=== PATIENT | male | born 1960 | race Caucasian/White ===

== ENCOUNTER → 2018-01-21 14:02 | Outpatient (CLI) | payer SELFPAY | PROVIDERS: PCP Family Medicine; Visit Provider Family Medicine | DX: G47.33 Obstructive sleep apnea (adult) (pediatric) (principal) | CPT/HCPCS: 95806 ==

== ENCOUNTER → 2020-01-20 13:24 | Outpatient (CLI) | payer SELFPAY ==
--- NOTE | 2020-01-20 13:33 | XR_ITS ---
PROCEDURE: XR ORBIT BILATERAL MIN 4V CLINICAL INDICATION: EVAL FOR METAL IN EYES prior to MRI scan COMPARISON: No exams were available for comparison FINDINGS: Water's views were obtained showing no metallic objects in either orbit. The visualized paranasal sinuses appear clear. The nasal septum is in the midline. IMPRESSION: Negative for metallic foreign bodies Dictated by: Dr. Ian Knight MD 01/20/2020 13:46 Dr. Ian Knight MD in [place] 01/20/2020 13:46
--- NOTE | 2020-01-20 13:33 | MR_ITS ---
PROCEDURE: MR HIP LT WO CON CLINICAL INDICATION: LOW BACK PAIN, LEFT HIP PAIN Low back pain left hip pain COMPARISON: No exams were available for comparison TECHNIQUE: Routine multiplanar multi echo sequences are performed without gadolinium enhancement. FINDINGS: There are severe osteoarthritic changes of the left hip with loss of joint space and osteophyte formation. Subchondral cystic changes are present involving the femoral head and acetabular roof. There is a mild degree of decreased T1 and increased T2 signal involving the left femoral head and neck consistent with generalized edematous changes. Multiple small subchondral cysts are present along the femoral head. There is prominent lipping of the acetabulum on both sides laterally and a small amount fluid in the hip capsule on both sides. The adjacent soft tissues have an unremarkable appearance. There is slight decreased T1 and increased T2 signal of the ilium on the left as well suggesting underlying edematous changes possibly from the severe osteoarthritis. There are [id number] osteoarthritic changes of the right hip. No convincing evidence of avascular necrosis. IMPRESSION: 1. Severe osteoarthritic changes of the left hip with numerous subchondral cyst the acetabulum and femoral head. 2. Mild diffuse edema of the left ilium and left femoral head and neck which may be related to the inflammatory changes from the underlying severe osteoarthritis. Suggest correlation with plain films which are not available at this institution. 3. Mild osteoarthritic changes of the right hip. 4. Small bilateral hip joint effusions Dictated by: Matty Nieto MD 01/21/2020 14:24 Matty Nieto MD in [facility] 01/21/2020 14:24
--- NOTE | 2020-01-20 13:33 | MR_ITS ---
PROCEDURE: MR LUMBAR SPINE WO CON CLINICAL INDICATION: LOW BACK PAIN, LEFT HIP PAIN COMPARISON: No exams were available for comparison TECHNIQUE: Standard multiplanar multiecho sequences are performed without contrast. 3-D MIP and myelographic images are also rendered and reviewed FINDINGS: There is normal alignment. The spinal cord ends at the L1 level. L1-L2: Mild facet and ligamentum hypertrophy. L2-L3: Minimal bulging disc with mild facet and ligamentum hypertrophy with mild bilateral foraminal narrowing. L3-L4: Minimal bulging disc with facet ligamentum hypertrophy with mild bilateral foraminal narrowing. L4-5: Bulging disc with facet and ligamentum hypertrophy. There is tiny right paracentral disc protrusion versus small disc osteophyte complex. There is severe right-sided lateral recess narrowing moderate left lateral recess narrowing and moderate to severe bilateral foraminal narrowing. There is canal stenosis at this level. L5-S1: Degenerative disc disease with bulging disc along with facet and ligamentum hypertrophy. There is an annular fissure posteriorly. There is mild to moderate right foraminal narrowing and moderate to severe left foraminal narrowing. Small osteophyte projects from the facet joint anteriorly into the foramen on the left contributing to the foraminal narrowing. The facet hypertrophic changes greater on the left at this level than on the right. The disc bulge is eccentric toward the left lateral region with opposing osteophytes. IMPRESSION: 1. Abnormal MRI of the lumbar spine with multilevel lumbar spondylosis with degenerative disc disease bulging disc along with facet and ligamentum hypertrophy. Please see above for detailed description at each level. 2. L4-5: Bulging disc with facet and ligamentum hypertrophy. There is tiny right paracentral disc protrusion versus small disc osteophyte complex. There is severe right-sided lateral recess narrowing moderate left lateral recess narrowing and moderate to severe bilateral foraminal narrowing. There is canal stenosis at this level. 3. L5-S1: Degenerative disc disease with bulging disc along with facet and ligamentum hypertrophy. There is an annular fissure posteriorly. There is mild to moderate right foraminal narrowing and moderate to severe left foraminal narrowing. Small osteophyte projects from the facet joint anteriorly into the foramen on the left contributing to the foraminal narrowing. The facet hypertrophic changes greater on the left at this level than on the right. The disc bulge is eccentric toward the left lateral region with opposing osteophytes. Dictated by: Matty Nieto MD 01/21/2020 14:34 Matty Nieto MD in [place] 01/21/2020 14:34
== END ==
PROVIDERS: PCP Family Medicine; Visit Provider Physician Assistant Medical
DX: M54.5 Low back pain (principal); M25.552 Pain in left hip; H05.53 Retained (old) foreign body following penetrating wound of bilateral orbits
CPT/HCPCS: 70200; 72148; 73721; 76376

== ENCOUNTER 2021-08-02 19:14 | Inpatient (IN) | payer SELFPAY ==
[2021-08-02] VITALS (16 sets, daily range): BP systolic 110–162; BP diastolic 65–103; PULSE 70–90; RESP 14–18; TEMP 36.4–36.6; O2SAT 91–97; BMI 47.2; BMI 48.9
--- NOTE | 2021-08-02 | IR_ITS ---
APPROVED REPORT Patient Location: [facility] Advisor: KEHINDE Antonio RT (R) PROCEDURES Selective coronary angiogram Drug-eluting stent deployment to the proximal and mid LAD INDICATION Acute anterior ST elevation myocardial infarction, Coronary artery disease Informed consent was obtained prior to the procedure. COMPLICATIONS NONE Estimated Blood Loss: LESS THAN 10 ML TECHNIQUE One percent lidocaine used to anesthetize the right anterior aspect of the wrist. The right radial artery was accessed via the Seldinger technique. A 6 Chinese sheath was placed in the right radial artery. 2.5 mg of verapamil, 800 mcg of nitroglycerin, 1mg Lidocaine and 5000 U Heparin were given through the arterial sheath. The papa 1 catheter was also used to perform selective coronary angiogram. At the end the diagnostic angiogram therapeutic heparin was administered giving a therapeutic ACT and the guide catheter was placed in the left main artery followed by a Choice PT extra-support wire being placed down the LAD. A 4 mm x 34 mm resolute Norlina stent was deployed at 16 iris in the proximal LAD reducing the critical stenosis to 0%. Following this an additional 3.5 x 22 mm resolute Norlina stent was placed distal to the first stent yet still overlapping it and deployed at 18 iris. The balloon was brought back and deployed at 24 iris to post dilate. At the end of the procedure the wire was pulled back followed by 800 mcg of intracoronary nitroglycerin. Excellent angiographic results were obtained with VERONICA-3 flow down the vessel. At the beginning of the procedure VERONICA II flow was present. At the end of the procedure the apparatus was removed the sheath was removed and hemostasis was achieved using TR banding patient was transferred to the postop holding her stable condition ANGIOGRAPHIC RESULTS The left main artery Normal The left anterior descending artery There is a large vessel with proximal concentric 90% stenosis followed by an additional 80% stenosis followed by additional mid vessel 30% stenoses. There is a large ramus intermedius which branches off the proximal LAD proximal to the stent placement. This is a large 3.25 mm vessel which has 30% diffuse stenoses The circumflex artery Is a dominant vessel and gives rise to a large 3-1/2 mm first obtuse marginal artery which is widely patent with mild 10% luminal irregularities. Distal to the large obtuse marginal artery is a concentric 30 to 40% stenosis followed by an additional concentric 50% stenosis between the first and second obtuse marginal artery. The right coronary artery Is a nondominant vessel and has proximal 30% stenoses and mid vessel 40% stenoses The MARQUIS ventriculogram reveals Not performed The left ventricular end-diastolic pressure Not measured IMPRESSION Acute anterior ST elevation myocardial infarction Successful stenting of the proximal to mid LAD critical disease reduced to 0% with 2 contiguous drug-eluting stents Persistent moderate stenosis in a large dominant circumflex artery PLAN 1. Brilinta 90 twice daily plus aspirin 81 mg daily 2. LDL less than 55 to be achieved with high intensity statin 3. Carvedilol plus Entresto 4. Echocardiogram in the morning to evaluate ejection fraction. If 35% or less recommend LifeVest prior to discharge 5. Avoidance of tobacco products 6. Cardiac rehabilitation Electronically signed by : Krishna Redd MD 08/02/2021 20:29:47
--- NOTE | 2021-08-02 19:17 | XR_ITS ---
PROCEDURE INFORMATION: Exam: XR Chest Exam date and time: 08/02/2021 7:18 PM Age: 61 years old Clinical indication: Sternal or substernal pain; Patient HX: Chest pain, stemi alert. TECHNIQUE: Imaging protocol: XR of the chest. Views: 1 view. COMPARISON: No relevant prior studies available. FINDINGS: Lungs: Low lung volumes with associated vascular crowding. Stigmata of old granulomatous disease. Possible mild pulmonary venous congestion. Pleural spaces: Unremarkable. No pleural effusion. No pneumothorax. Heart/Mediastinum: Upper limits of normal heart size, possibly projectional. Bones/joints: Unremarkable. IMPRESSION: Possible mild pulmonary venous congestion.
--- NOTE | 2021-08-02 19:17 | ECG_ITS ---
APPROVED REPORT Exam: Resting ECG HR:84 bpm ECG Measurements Heart Rate 84 AXES WV 177 P 64 QRSd 101 QRS 31 QT 360 T 33 QTc 402 Conclusion SINUS RHYTHM WITH SINUS ARRHYTHMIA POSSIBLE RIGHT VENTRICULAR CONDUCTION DELAY [RSR (QR) IN V1/V2] MARKED ST ELEVATION, CONSIDER ANTERIOR INJURY [MARKED ST ELEVATION W/O NORMALLY INFLECTED T-WAVE IN V2-V5] ACUTE IN UNCONFIRMED REPORT Electronically signed by : Edy Nugent MD 08/03/2021 17:56:33
--- NOTE | 2021-08-02 19:24 | HMH.EDCP ---
ED Disposition Clinical Impression: Cardiac ischemia Disposition: Admitted As Inpatient Condition on Discharge: Serious Time of Disposition: 19:34 - Critical Care Critical Care Time: Yes Attestation: On 08/02/21, the high probability of a clinically significant, sudden or life threatening deterioration of the following system(s) required my full and direct attention, intervention and personal management. The time I documented below is in addition to time spent performing reported procedures but includes the following listed in this critical care notation. Total Critical Care Time: 35 Vital system(s) involved:: Circulatory Failure My critical care processes included: Assessment & monitoring of V/S, Initial and Re-exams, Data Review/Interpretation, Coordinating Care, Medication Orders and management, Documentation Medical Decision Making - Medical Records Medical records reviewed: Yes: I reviewed the patient's medical records. - [place] Inquiry Pt receiving controlled substance: No Vital Signs: 08/02/21 19:17 08/02/21 19:30 08/02/21 19:55 Temperature 97.6 F 97.6 F Temperature Source Oral Oral Pulse Rate 88 80 Pulse Rate [Left] 84 Respiratory Rate 16 16 Blood Pressure 148/87 H 148/87 H Blood Pressure [Right Arm] 162/103 H Blood Pressure Mean [Right Arm] 122 02 Sat by Pulse Oximetry 95 96 Oxygen Delivery Method Room Air Nasal Cannula Room Air Oxygen Flow Rate (LPM) 2 - Lab Data Lab Results 08/02/21 19:08: WBC 10.7, RBC 5.42, Hgb 17.0, Hct 50.1, MCV 92.4, MCH 31.4 H, MCHC 34.0, RDW 14.1, Plt Count 300, MPV 7.4, Neut % (Auto) 61.3, Lymph % (Auto) 25.7, [place] % (Auto) 7.0, Eos % (Auto) 3.8, Baso % (Auto) 2.3 H, Neut # (Auto) 6.5, Lymph # (Auto) 2.7, [place] # (Auto) 0.7, Eos # (Auto) 0.4, Baso # (Auto) 0.2 08/02/21 19:08: Sodium 140, Potassium 3.8, Chloride 104, Carbon Dioxide 26, Anion Gap 13.8, BUN 17, Creatinine 0.90, Estimated Creat Clear 88, Estimated GFR 86, Est GFR ( Amer) 105, Glucose 108 H, Calcium 9.7, Troponin I < 0.01 Result diagrams: 08/03/21 06:32 08/03/21 06:32 Orders (Tests/Meds): ED MEDICATIONS Generic Name Dose Route Start Last Admin Trade Name Freq PRN Reason Stop Dose Admin Aspirin 81 mg 08/03/21 09:00 Aspirin Ec 81mg Tablet PO 09/02/21 08:59 [facility] Atorvastatin Calcium 40 mg 08/03/21 21:00 Atorvastatin 40mg Tablet PO 09/02/21 20:59 [facility] Carvedilol 6.25 mg 08/03/21 09:00 Carvedilol 6.25mg Tablet PO 09/02/21 08:59 [facility] Fentanyl Citrate 25 mcg 08/02/21 21:39 Fentanyl 100mcg/2ml Vial IV 08/03/21 19:45 Q3MINP PRN Moderate to Severe Pain Fentanyl Citrate 50 mcg 08/02/21 21:39 Fentanyl 100mcg/2ml Vial IV 08/03/21 19:45 Q3MINP PRN Moderate to Severe Pain Fentanyl Citrate 25 mcg 08/02/21 21:39 Fentanyl 250mcg/5ml Vial IV 08/03/21 19:45 Q3MINP PRN Moderate to Severe Pain Fentanyl Citrate 50 mcg 08/02/21 21:39 Fentanyl 250mcg/5ml Vial IV 08/03/21 19:45 Q3MINP PRN Moderate to Severe Pain Sodium Chloride 1,000 mls @ 25 mls/hr 08/02/21 21:39 08/02/21 22:26 Sod Chlor 0.9% 1000ml Bag IV 09/01/21 19:29 25 mls/hr .Q25H [facility] Administration Irbesartan 150 mg 08/03/21 09:00 Irbesartan 150mg Tab PO 09/02/21 08:59 [facility] Midazolam HCl 1 mg 08/02/21 21:39 Midazolam Hcl 1mg/1ml 5ml Vial IV 08/03/21 19:45 Q3MINP PRN Sedation Midazolam HCl 1 mg 08/02/21 21:39 Midazolam 2mg/2ml Vial IV 08/03/21 19:45 Q3MINP PRN Sedation Morphine Sulfate 4 mg 08/02/21 21:39 Morphine 2mg/Ml Syringe IV 09/01/21 20:53 Q1HP PRN Severe Pain Naloxone HCl 0.4 mg 08/02/21 21:39 Naloxone 0.4mg/Ml Vial IV 08/03/21 19:45 Q5MINP PRN Decreased Respirations Nitroglycerin 800 mcg 08/02/21 21:39 Nitroglycerin 800mcg/8ml Syr (Healthcare Manager) IV 08/03/21 19:45 NEEDED PRN Emergency Box Gas Charger Sodium Chl
[2021-08-02 19:29] LABS: Basophils # 0.2 K/mm3 (0-0.2); Basophils % 2.3 % (0.1-2.0); Eosinophils # 0.4 K/mm3 (0.0-0.4); Eosinophils % 3.8 % (0.1-12.0); Hematocrit 50.1 % (42.0-52.0); Lymphocytes # 2.7 K/mm3 (0.7-4.5); Lymphocytes % 25.7 % (10-50); Mean Corpuscular Hemoglobin 31.4 pg (27.0-31.2); Mean Corpuscular Volume 92.4 fl (80-94); Mean Platelet Volume 7.4 fl (7.4-10.4); Monocytes # 0.7 K/mm3 (0.1-1.0); Neutrophils # 6.5 K/mm3 (1.8-7.8); Neutrophils % 61.3 % (37.0-80.0); Platelet Count 300 K/mm3 (142-424); Red Blood Count 5.42 M/mm3 (4.60-6.20); Red Cell Distribution Width 14.1 % (11.5-17.5); White Blood Count 10.7 K/mm3 (4.8-10.8)
--- NOTE | 2021-08-02 19:54 | PC.NURSE ---
pt taken to director of cath lab at 1950
[2021-08-02 19:55] LABS: Anion Gap 13.8 mEq/L (5-15); Blood Urea Nitrogen 17 mg/dl (9-20); Calcium 9.7 mg/dl (8.4-10.2); Carbon Dioxide 26 mmol/L (22.0-30.0); Chloride 104 mmol/L (98-107); Creatinine Clearance Estimated 88 mL/min (50-200); Estimated Glomerular Filt Rate 86 ml/min (>60); GFR (African American) 105 ML/MIN (>60); Glucose 108 mg/dl (74-100); Potassium 3.8 mmoL/L (3.5-5.1); Sodium 140 mmol/L (136-145)
[2021-08-02 20:13] LABS: Troponin I < 0.01 ng/ml (0.00-0.034)
--- NOTE | 2021-08-02 20:33 | PC.NURSE ---
1910 - Stemi alert paged
--- NOTE | 2021-08-02 20:34 | PC.NURSE ---
Late Entry- @ 1910 Stemi MD james in room and viewed the initial EKG.
--- NOTE | 2021-08-02 20:43 | PC.NURSE ---
Late entry: Dr. Redd paged @ 191 and sent EKG strip. He called back immediately and s/w Dr. Ely. drapery supervisor notified and presented to ER. S Call is paging collaborating supervising physician team.
--- NOTE | 2021-08-02 20:48 | PC.NURSE ---
Late Entry: @ 1920 repeat EKG per MD. Pt being prepped: placed in gown, groin, chest, back, and radial site trimmed.
[2021-08-02 20:53] LABS: CATHL Activated Clotting Time > 400 SEC (74-125)
--- NOTE | 2021-08-02 21:17 | PC.NURSE ---
PT ARRIVED VIA STRETCHER FROM BARREL LATHE OPERATOR INSIDE W/STAFF @ [id number]
[2021-08-03] VITALS (10 sets, daily range): BP systolic 100–149; BP diastolic 53–92; PULSE 69–90; RESP 14–22; TEMP 36.4–37.2; O2SAT 94–98; BMI 48.9
--- NOTE | 2021-08-03 06:03 | PC.NURSE ---
GREGG NOTIFIED OF CARDIOLOGY CONSULT.
--- NOTE | 2021-08-03 07:06 | HMH.PHAVTE ---
[facility] Pharmacy VTE Monitoring - Patient Demographics Admission date: 08/02/21 Report Date: 08/03/21 Time: 07:06 Allergies/Adverse Reactions: Patient Allergies Penicillins Allergy (Unknown, Verified 08/02/21 19:32) Height: 1.75 m Weight: 150.003 kg Patient Problems: Current Active Problems Cardiac ischemia (Acute) - VTE Risk Labs: VTE Related Lab Results Hgb 17.0 g/dL (14.1-18.0) 08/02/21 19:08 Hct 50.1 % (42.0-52.0) 08/02/21 19:08 Plt Count 300 K/mm3 (142-424) 08/02/21 19:08 BUN 17 mg/dl (9-20) 08/02/21 19:08 Creatinine 0.90 mg/dl (0.66-1.25) 08/02/21 19:08 Estimated Creat Clear 88 mL/min (50-200) 08/02/21 19:08 VTE Score: 2 - Prophylaxis VTE Prophylaxis Ordered?: Yes Types of VTE Prophylaxis: TEDS Knee High Location of Applied Device: Bilateral Lower Extremeties
--- NOTE | 2021-08-03 07:12 | CA_ITS ---
APPROVED REPORT EXAM: Comprehensive 2D, Doppler, and color-flow Echocardiogram [facility] Supervisor: Mable Lion, TANNER, RVS Ht: 5 ft 9 in Wt: 330lbs BSA: 2.56 BP: 118/75 mmHg Indications: STEMI, S/p cardiac cath with 2 coronary stents 08/02/21. CP, HTN, Obesity Echo Enhancing Agent Comments: Poor acoustics due to extreme body habitus. 2D Dimensions IVSd 1.43 cm LVEF (Visual) 62.50 % PWd 1.24 cm LA Volume 32.50 mL LVDd 5.10 cm LA Volume Index 12.70 mL/m2 (M/F) 16-34 LVDs 3.37 cm Aortic Root 3.37 cm Left Atrium 2.96 cm LVOT 1.95 cm (M/F) 1.5-2.5 M-Mode Dimensions LA Diam 3.55 cm (1.9-4.0) Ao Diam 3.70 cm (2.0-3.7) EPSs 0.39 cm TAPSE 2.50 (<1.7) LV Diastology E Decel Time 173.00 (160-240 msec) E/A Ratio 0.96 MED E' 7.30 (< 7 cm/sec) MED A' 14.50 cm/s E'/MED E' Ratio 9.04 (>14) LAT E' 7.00 (<10 cm/sec) LAT A' 10.90 cm/s E/LAT E' Ratio 9.43 (>14) Aortic Valve LVOT Max 108.00 (70-110 cm/s) LVOT VTI 20.85 cm AoV Peak Sarbjit. 131.00 (50-130 cm/s) AO Peak GR. 6.90 mmHg AO Mean GR. 3.40 (<5 mmHg) AO VTI 23.47 (18-25 cm) MASSIMO (VTI) 2.65 (2.5-4.5 cm2) Mitral Valve MV A Velocity 69.00 (40-130 cm/s) E/A Ratio 0.96 MV Decel. Time 173.00 (160-240 ms) MV Mean Gr. 2.00 (<2mmHg) Pulmonary Valve PV Peak Velocity 98.00 (50-150 cm/s) Tricuspid Valve TR P. Velocity 127.00 cm/s RAP Estimate 10.00 mmHg RVSP 16.40 mmHg Left Ventricle Left atrium is mildly enlarged, left ventricle is normal size, mild concentric left ventricular hypertrophy, estimated ejection fraction 50%, there is moderate hypokinesis involving the distal septum and apical wall. Grade 1 diastolic dysfunction seen without tissue Doppler evidence of raise left atrial pressure. Right Ventricle Right atrium and right ventricle are normal size and contractility. Aortic Valve Aortic valve is minimally thickened and fibrosed there is no aortic stenosis or aortic insufficiency. Mitral Valve Mitral valve is grossly normal, there is trace mitral regurgitation. Tricuspid Valve Tricuspid valve grossly normal, there is trace tricuspid regurgitation, tricuspid regurgitation jet velocity is inadequate for calculation of the right ventricular systolic pressure. Pulmonic Valve Pulmonic valve is poorly visualized. Great Vessels Aortic root is normal size. Inferior vena cava is poorly visualized. Pericardium No significant pericardial effusion noted. Conclusion 1. Mildly enlarged left atrium, normal left ventricular size, mild concentric left ventricular hypertrophy, estimated ejection fraction 50% with segmental wall motion abnormality described above, grade 1 diastolic dysfunction seen without tissue Doppler evidence of raise left atrial pressure. 2. Trace mitral and tricuspid regurgitation. 3. No significant pericardial effusion noted. 4. Inferior vena cava is poorly visualized. Electronically signed by : Nicholas Lehman MD 08/03/2021 22:00:26
[2021-08-03 07:15] LABS: Anion Gap 9.7 mEq/L (5-15); Blood Urea Nitrogen 14 mg/dl (9-20); Calcium 9.1 mg/dl (8.4-10.2); Carbon Dioxide 24 mmol/L (22.0-30.0); Chloride 107 mmol/L (98-107); Creatinine Clearance Estimated 110 mL/min (50-200); Estimated Glomerular Filt Rate 115 ml/min (>60); GFR (African American) 140 ML/MIN (>60); Glucose 123 mg/dl (74-100); Potassium 3.7 mmoL/L (3.5-5.1); Sodium 137 mmol/L (136-145)
[2021-08-03 07:17] LABS: Basophils # 0.2 K/mm3 (0-0.2); Basophils % 1.4 % (0.1-2.0); Eosinophils # 0.3 K/mm3 (0.0-0.4); Eosinophils % 2.9 % (0.1-12.0); Hematocrit 45.8 % (42.0-52.0); Hemoglobin 15.7 g/dL (14.1-18.0); Lymphocytes # 1.7 K/mm3 (0.7-4.5); Lymphocytes % 16.4 % (10-50); Mean Corpuscular HGB Conc 34.2 g/dL (31.8-35.4); Mean Corpuscular Hemoglobin 31.2 pg (27.0-31.2); Mean Corpuscular Volume 91.3 fl (80-94); Mean Platelet Volume 7.6 fl (7.4-10.4); Monocytes # 0.9 K/mm3 (0.1-1.0); Monocytes % 8.6 % (1.7-9.3); Neutrophils # 7.4 K/mm3 (1.8-7.8); Neutrophils % 70.6 % (37.0-80.0); Platelet Count 268 K/mm3 (142-424); Red Blood Count 5.02 M/mm3 (4.60-6.20); White Blood Count 10.5 K/mm3 (4.8-10.8)
--- NOTE | 2021-08-03 07:33 | HMH.CNCARD ---
History of Present Illness Consult date: 08/03/21 Consult reason: chest pain Chief complaint: chest pain, STEMI Additional Medical History:: 1. Family history of coronary artery disease 2. Family history of prostate cancer in both father and maternal grandfather 3. Obesity 4. Borderline hypertension 5. Status post left hip replacement History of present illness: 61-year-old white male presented to the emergency department for 1 hour of substernal chest pain/pressure/tightness without radiation, vomiting or shortness of breath that onset while at rest. EKG showed ST elevation in the anterior leads and ER physician enacted STEMI protocol. Patient was taken to the cardiac Crime Scene Examiner where he received stenting to his LAD. No further chest pain overnight. Patient is a non-smoker and no history of diabetes or treatment for hypertension or hyperlipidemia. [facility] History Medical History: Denies:: Cancer, Diabetes Mellitus Type 1, Diabetes Mellitus Type 2, MRSA *Have you ever received a pneumonia vaccine?: No *Have you received a flu vaccine this season?: No Laterality Cases: Left: Total Hip Replacement Other Surgeries: Yes: Cardiac Catheterization, Hernia Repair Amputation: No Fractures: No - *Social History Last grade of school completed: 7th or 8th Smoking Status: Never smoker Alcohol Intake: never *Occupational Status:: employed Housing: house Household Members: spouse, children *Travel in the last 8 weeks: None Family Hx:: No significant family history Meds Home Medications Medication Instructions Recorded Confirmed Type No Known Home Medications 08/02/21 08/02/21 History Allergies Allergy/AdvReac Type Severity Reaction Status Date / Time Penicillins Allergy Unknown Verified 08/02/21 19:32 Exam Vital signs and Labs for Last 24 Hours: Temp Pulse Resp BP Pulse Ox 97.8 F 70 16 149/67 H 95 08/02/21 21:20 08/03/21 04:00 08/03/21 03:50 08/03/21 03:50 08/03/21 03:50 Laboratory Results - last 24 hr 08/02/21 19:08: WBC 10.7, RBC 5.42, Hgb 17.0, Hct 50.1, MCV 92.4, MCH 31.4 H, MCHC 34.0, RDW 14.1, Plt Count 300, MPV 7.4, Neut % (Auto) 61.3, Lymph % (Auto) 25.7, [place] % (Auto) 7.0, Eos % (Auto) 3.8, Baso % (Auto) 2.3 H, Neut # (Auto) 6.5, Lymph # (Auto) 2.7, [place] # (Auto) 0.7, Eos # (Auto) 0.4, Baso # (Auto) 0.2 08/02/21 19:08: Sodium 140, Potassium 3.8, Chloride 104, Carbon Dioxide 26, Anion Gap 13.8, BUN 17, Creatinine 0.90, Estimated Creat Clear 88, Estimated GFR 86, Est GFR ( Amer) 105, Glucose 108 H, Calcium 9.7, Troponin I < 0.01 08/02/21 20:07: Activated Clotting Time > 400 H* 08/03/21 06:32: WBC 10.5, RBC 5.02, Hgb 15.7, Hct 45.8, MCV 91.3, MCH 31.2, MCHC 34.2, RDW 14.0, Plt Count 268, MPV 7.6, Neut % (Auto) 70.6, Lymph % (Auto) 16.4, [place] % (Auto) 8.6, Eos % (Auto) 2.9, Baso % (Auto) 1.4, Neut # (Auto) 7.4, Lymph # (Auto) 1.7, [place] # (Auto) 0.9, Eos # (Auto) 0.3, Baso # (Auto) 0.2 08/03/21 06:32: Sodium 137, Potassium 3.7, Chloride 107, Carbon Dioxide 24, Anion Gap 9.7, BUN 14, Creatinine 0.70 D, Estimated Creat Clear 110, Estimated GFR 115, Est GFR ( Amer) 140 D, Glucose 123 H, Calcium 9.1 I & O for Last 24 hours: Intake & Output 07/31/21 08/01/21 08/02/21 08/03/21 11:59 11:59 11:59 11:59 Weight 330 lb 11.2 oz - Constitutional no acute distress - *Routine HEENT Exam Head: Present: normocephalic Eye: Present: EOMI, PERRL ENT: Present: mucous membranes moist - *Routine Neck Exam Present: supple. Absent: lymphadenopathy - *Routine Respiratory Exam Present: CTA bilaterally - *Routine Cardiovascular Exam Present: RRR - *Routine Abdominal Exam Present: soft, normoactive bowel sounds. Absent: tenderness - *Routine Extremities Exam Absent: cyanosis, clubbing, edema - *Routine Skin Exam Present: warm. Absent: rash - *Routine Neurological Exam Present: alert, oriented X3 Review of Systems - Review of Systems Review of systems:: pertinent sys
[2021-08-03 08:18] LABS: Alanine Aminotransferase 82 U/L (12-78); Alkaline Phosphatase 102 U/L (38-126); Aspartate Amino Transferase 109 U/L (17-59); Bilirubin,Direct 0.2 mg/dl (0.0-0.4); Bilirubin,Indirect 0.7 mg/dL (0.0-0.9); Bilirubin,Total 0.9 mg/dl (0.2-1.3); Bilirubin,Unconjugated 0.7 mg/dL (0.0-1.1); Chol/HDL Ratio 8.3 (1-3.5); Cholesterol 223 mg/dl (140-200); HDL Cholesterol 27 mg/dl (40-60); Triglycerides 291 mg/dl (30-150); VLDL Cholesterol 58 mg/dL (0-40)
--- NOTE | 2021-08-03 08:21 | HMH.HP ---
*Admission Date: 08/02/21 <Kayla Cedeno 08/03/21 08:26> *Chief complaint: chest pain <Kayla Cedeno 08/03/21 08:26> *History of present illness: 61-year-old white male presented to the emergency department for 1 hour of substernal chest pain/pressure/tightness without radiation, vomiting or shortness of breath that onset while at rest. EKG showed ST elevation in the anterior leads and ER physician enacted STEMI protocol. Patient was taken to the cardiac Oracle Architect where he received stenting to his LAD. No further chest pain overnight. Patient is a non-smoker and no history of diabetes or treatment for hypertension or hyperlipidemia. (above as per Matt Henderson) This a.m. the patient is feeling well. He has eaten breakfast and slept well. He has had no further chest pain. <Kayla Cedeno 08/03/21 08:26> [facility] History I have reviewed the patient's past medical history: Yes <Kayla Cedeno 08/03/21 08:26> Medical History: Denies:: Cancer, Diabetes Mellitus Type 1, Diabetes Mellitus Type 2, Hyperlipidemia, Hypertension, MRSA <Kayla Cedeno 08/03/21 08:26> *Have you ever received a pneumonia vaccine?: No <Kayla Cedeno 08/03/21 08:26> *Have you received a flu vaccine this season?: No <Kayla Cedeno 08/03/21 08:26> Laterality Cases: Left: Total Hip Replacement <Kayla Cedeno 08/03/21 08:26> Other Surgeries: Yes: Cardiac Catheterization, Hernia Repair, Other (Heel surgery) <Kayla Cedeno 08/03/21 08:26> Amputation: No <Kayla Cedeno 08/03/21 08:26> Fractures: No <Kayla Cedeno 08/03/21 08:26> - *Social History Last grade of school completed: 7th or 8th <Kayla Cedeno 08/03/21 08:26> Smoking Status: Never smoker <Kayla Cedeno 08/03/21 08:26> Alcohol Intake: never <Kayla Cedeno 08/03/21 08:26> *Occupational Status:: employed <Kayla Cedeno 08/03/21 08:26> Housing: house <Kayla Cedeno 08/03/21 08:26> Household Members: spouse, children <Kayla Cedeno 08/03/21 08:26> *Travel in the last 8 weeks: None <Kayla Cedeno 08/03/21 08:26> Family Hx:: Cancer, Stroke <Kayla Cedeno 08/03/21 08:26> Review of Systems - Constitutional Denies chills, Denies fever(s) <Kayla Cedeno 08/03/21 08:26> - Eyes Denies blurry vision, Denies double vision <Kayla Cedeno 08/03/21 08:26> - ENT Denies nasal congestion, Denies sore throat <Kayla Cedeno 08/03/21 08:26> - *Cardiovascular Reports chest pain, Reports excessive sweating, Denies shortness of breath <Kayla Cedeno 08/03/21 08:26> - *Respiratory Denies cough, Denies shortness of breath <Kayla Cedeno 08/03/21 08:26> - *Gastrointestinal Denies abdominal pain, Denies loose stools, Denies nausea, Denies vomiting <Kayla Cedeno 08/03/21 08:26> - *Genitourinary Denies difficulty urinating, Denies painful urination <Kayla Cedeno 08/03/21 08:26> - *Musculoskeletal Denies joint pain <Kayla Cedeno 08/03/21 08:26> - *Neurologic Denies headache(s), Denies numbness, Denies dizziness, Denies weakness <Kayla Cedeno 08/03/21 08:26> Meds Home Medications Medication Instructions Recorded Confirmed Type No Known Home Medications 08/02/21 08/02/21 History <Jesse Zayas 08/03/21 09:14> Allergies Allergy/AdvReac Type Severity Reaction Status Date / Time Penicillins Allergy Unknown Verified 08/02/21 19:32 <Jesse Zayas 08/03/21 09:14> Exam Vital signs and Labs for Last 24 Hours: Temp Pulse Resp BP Pulse Ox 97.8 F 70 16 149/67 H 95 08/02/21 21:20 08/03/21 04:00 08/03/21 03:50 08/03/21 03:50 08/03/21 03:50 Laboratory Results - last 24 hr 08/02/21 19:08: WBC 10.7, RBC 5.42, Hgb 17.0, Hct 50.1, MCV 92.4, MCH 31.4 H, MCHC 34.0, RDW 14.1, Plt Count 300, MPV 7.4, Neut % (Auto) 61.3, Lymph % (Auto) 25.7, [place] % (Auto) 7.0, Eos % (Auto) 3.8, Baso % (Auto) 2.3 H, Neut # (Auto) 6.5, Lymph # (Auto) 2.7, [place] # (Auto) 0.7, Eos # (Auto) 0.4, Baso # (Auto) 0.2 08/02/21 19:08:
[2021-08-03 08:31] LABS: Direct LDL Cholesterol 124.89 mg/dL (100-129)
[2021-08-03 11:20] LABS: Hemoglobin A1C 6.1 % (4.0-6.0)
--- NOTE | 2021-08-03 13:56 | DIET.NUTRFU ---
RD consult to educate on cardiac- low fat diet with desire to loose weight. Provided multiple handouts and reviewed recommended food choices and current dialy meal routine. does cooking and shopping, she was present during interview. She has not been checking labels in the past but willing to start. For wt loss, suggested 6 small meals- high protein, low carb to help speed up metabolism. Patient seemed receptive to changes.
--- NOTE | 2021-08-03 16:12 | PC.NURSE ---
Pt rested well during shift. Pt dressed and walked the hallway @1610. Pt has no new complaints. Pt right radial cath cite CDI. Visitors in most of the day. VSS, Pt remains on room air. No other acute changes. Will continue to monitor.
[2021-08-04] VITALS (7 sets, daily range): BP systolic 125–142; BP diastolic 68–79; PULSE 59–90; RESP 16–18; TEMP 36.3–36.9; O2SAT 94–95; BMI 48.8
--- NOTE | 2021-08-04 08:39 | HMH.PNCARD ---
Subjective Date: 08/04/21 Time: 08:39 Principal diagnosis: STEMI Interval history: 61-year-old white male ambulating in hallway with no chest pain or complaints. Ready to go home when released. Exam Vital signs and Labs for Last 24 Hours: Temp Pulse Resp BP Pulse Ox 97.4 F L 83 18 142/69 H 94 L 08/04/21 04:00 08/04/21 04:00 08/04/21 04:00 08/04/21 04:00 08/04/21 04:00 Laboratory Results - last 24 hr 08/03/21 06:32: Hemoglobin A1c 6.1 H 08/03/21 06:32: PSA Screen 3.0 I & O for Last 24 hours: Intake & Output 08/01/21 08/02/21 08/03/21 08/04/21 11:59 11:59 11:59 11:59 Intake Total 240 / 240 840 / 840 Output Total 0 / 0 Balance 240 / 240 840 / 840 Weight 330 lb 11.094 oz 329 lb 14.4 oz - Constitutional no acute distress - *Routine Respiratory Exam Present: CTA bilaterally - *Routine Cardiovascular Exam Present: RRR - *Routine Neurological Exam Present: alert, oriented X3 Progress Note: A&P (1) ST elevation (STEMI) myocardial infarction involving left anterior descending coronary artery Status: Acute (2) Obesity Status: Acute (3) Elevated blood pressure reading Status: Acute Assessment and Plan for All Diagnoses:: 1. ST elevation GA with subsequent stenting to the LAD. Continue aspirin and Brilinta for 30 days and then will switch to aspirin and Plavix due to cost. 2. Mild cardiomyopathy with ejection fraction of 50% by echocardiogram. Patient is on carvedilol and irbesartan therapy. 3. Hyperlipidemia, patient is on atorvastatin therapy Okay for discharge home from cardiology standpoint after lunch. Home medication recommendations: Aspirin 81 mg daily Brilinta 90 mg twice daily for 1 month then Plavix 75 mg daily thereafter Carvedilol 6.25 mg twice daily Irbesartan 150 mg daily or equivalent alternative Atorvastatin 40 mg daily Follow-up in our office in 1 to 2 weeks.
--- NOTE | 2021-08-04 08:40 | HMH.ACPN2 ---
<PaoKayla - Last Filed: 08/04/21 08:40> Internal Medicine - PN: Subj *Date: 08/04/21 *Time: 08:40 Interval history: Patient is feeling much better today. He denies any chest pain or shortness of breath. He slept well and ate well and wants to go home. Exam Vital signs and Labs for Last 24 Hours: Temp Pulse Resp BP Pulse Ox 97.4 F L 83 18 142/69 H 94 L 08/04/21 04:00 08/04/21 04:00 08/04/21 04:00 08/04/21 04:00 08/04/21 04:00 Laboratory Results - last 24 hr 08/03/21 06:32: Hemoglobin A1c 6.1 H 08/03/21 06:32: PSA Screen 3.0 I & O for Last 24 hours: Intake & Output 08/01/21 08/02/21 08/03/21 08/04/21 11:59 11:59 11:59 11:59 Intake Total 240 / 240 840 / 840 Output Total 0 / 0 Balance 240 / 240 840 / 840 Weight 330 lb 11.094 oz 329 lb 14.4 oz - Constitutional no acute distress - *Routine Respiratory Exam Present: CTA bilaterally - *Routine Cardiovascular Exam Present: RRR - *Routine Abdominal Exam Present: soft, normoactive bowel sounds. Absent: tenderness - *Routine Extremities Exam Absent: cyanosis, clubbing, edema - *Routine Skin Exam Present: warm. Absent: rash - *Routine Neurological Exam Present: alert, oriented X3 Assessment and Plan (1) ST elevation (STEMI) myocardial infarction involving left anterior descending coronary artery Status: Acute Category: Medical Code(s): I21.02 - ST elevation (STEMI) myocardial infarction involving left anterior descending coronary artery (2) Obesity Status: Acute Category: Medical Code(s): E66.9 - Obesity, unspecified (3) Elevated blood pressure reading Status: Acute Category: Medical Code(s): R03.0 - Elevated blood-pressure reading, without diagnosis of hypertension - Assessment and plan all Dx Assessment and Plan for all problems:: Cardiology has seen the patient this morning and feels he can be discharged later on today. <Jesse Zayas - Last Filed: 08/04/21 08:50> Internal Medicine - PN: Subj *Date: 08/04/21 *Time: 08:50 Exam Vital signs and Labs for Last 24 Hours: Temp Pulse Resp BP Pulse Ox 97.4 F L 83 18 142/69 H 94 L 08/04/21 04:00 08/04/21 04:00 08/04/21 04:00 08/04/21 04:00 08/04/21 04:00 Laboratory Results - last 24 hr 08/03/21 06:32: Hemoglobin A1c 6.1 H 08/03/21 06:32: PSA Screen 3.0 I & O for Last 24 hours: Intake & Output 08/01/21 08/02/21 08/03/21 08/04/21 23:59 23:59 23:59 23:59 Intake Total 1080 / 1080 Output Total 0 / 0 Balance 1080 / 1080 0 / 0 Weight 330 lb 11.2 oz 330 lb 11.094 oz 329 lb 14.4 oz Assessment and Plan (1) ST elevation (STEMI) myocardial infarction involving left anterior descending coronary artery Status: Acute Category: Medical Code(s): I21.02 - ST elevation (STEMI) myocardial infarction involving left anterior descending coronary artery (2) Obesity Status: Acute Category: Medical Code(s): E66.9 - Obesity, unspecified (3) Elevated blood pressure reading Status: Acute Category: Medical Code(s): R03.0 - Elevated blood-pressure reading, without diagnosis of hypertension - Assessment and plan all Dx Assessment and Plan for all problems:: Saw patient, agree with above note.
--- NOTE | 2021-08-04 15:41 | HMH.PHACLD ---
Jerrod Fontenot has received discharge medication counseling on the following medications: ASPIRIN 81MG BRILINTA 90MG CARVEDILOL 6.25MG LIPITOR 40MG LOSARTAN 50MG PATIENT VERBALIZED UNDERSTANDING AND HAD NO QUESTIONS AT THIS TIME. ALL MEDICATIONS DELIVERED BY CLINIC PHARMACY. -SATHISH DALLAS, PHARMD
--- NOTE | 2021-08-05 08:47 | HMH.DCSUM ---
General - General Admission date:: 08/02/21 Discharge date: 08/04/21 HPI HPI: 61-year-old white male presented to the emergency department for 1 hour of substernal chest pain/pressure/tightness without radiation, vomiting or shortness of breath that onset while at rest. EKG showed ST elevation in the anterior leads and ER physician enacted STEMI protocol. Patient was taken to the cardiac Supervisor Intermediates where he received stenting to his LAD. No further chest pain overnight. Patient is a non-smoker and no history of diabetes or treatment for hypertension or hyperlipidemia. (above as per Matt Henderson) This a.m. the patient is feeling well. He has eaten breakfast and slept well. He has had no further chest pain. Hospital Course Hospital Course: The patient did well post stenting. He was started on Brilinta 90 mg twice daily plus an 81 mg aspirin daily. Cardiology kept him for monitoring. He had no further chest pain and denied any shortness of breath. He was ambulating in the hallway and wanted to be discharged home. His echo showed mild cardiopathy with an ejection fraction of 50%. They felt he could be discharged with the addition of carvedilol, irbesartan, and atorvastatin. They wanted to follow-up with him in their office in 1 to 2 weeks. Objective Vital signs: Temp Pulse Resp BP Pulse Ox 97.4 F L 59 L 17 129/78 94 L 08/04/21 15:27 08/04/21 16:00 08/04/21 15:27 08/04/21 15:27 08/04/21 15:27 Narrative: - Constitutional no acute distress <Kayla Cedeno 08/03/21 08:26> - *Routine HEENT Exam Head: Present: normocephalic <Kayla Cedeno 08/03/21 08:26> Eye: Present: EOMI, PERRL <Kayla Cedeno 08/03/21 08:26> ENT: Present: mucous membranes moist <Kayla Cedeno 08/03/21 08:26> - *Routine Neck Exam Present: supple. Absent: lymphadenopathy <Kayla Cedeno 08/03/21 08:26> - *Routine Respiratory Exam Present: CTA bilaterally <Kayla Cedeno 08/03/21 08:26> - *Routine Cardiovascular Exam Present: RRR <Kayla Cedeno 08/03/21 08:26> - *Routine Abdominal Exam Present: soft, normoactive bowel sounds. Absent: tenderness <Kayla Cedeno 08/03/21 08:26> - *Routine Rectal Exam Rectal:: deferred <Kayla Cedeno 08/03/21 08:26> - *Routine Genitalia Exam Genitalia:: deferred <Kayla Cedeno 08/03/21 08:26> - *Routine Extremities Exam Present: edema (Trace lower extremity edema). Absent: cyanosis, clubbing <Kayla Cedeno 08/03/21 08:26> - *Routine Skin Exam Present: warm. Absent: rash <Kayla Cedeno 08/03/21 08:26> - *Routine Neurological Exam Present: alert, oriented X3 DS: Diagnosis - Discharge Diagnosis (1) ST elevation (STEMI) myocardial infarction involving left anterior descending coronary artery Status: Acute (2) Obesity Status: Acute (3) Elevated blood pressure reading Status: Acute Discharge Plan - Patient Discharge Instructions ACTIVITY: Continue current activity DIET: continue same diet Patient Instructions: DI for Heart Attack, Cardiac Catheterization, DI for High Blood Pressure, Surgical Site Infection, DI for High Cholesterol-Adult - Follow up Plan Follow up with: Jesse Zayas MD [Primary Care Provider] - 1 month Krishna Redd MD [Staff Physician] - 08/11/21 10:00 am Disposition: Home, Self-Care Condition at discharge:: Improved Home Medications: Home Medications Medication Instructions Recorded Confirmed Type Aspirin [Aspirin 81mg EC Tab] 81 mg PO DAILY #30 tab 08/04/21 Rx Atorvastatin Calcium [Lipitor 40mg 40 mg PO HS #30 tab 08/04/21 Rx Tablet*] Losartan Potassium 50 mg PO DAILY #30 tab 08/04/21 Rx Ticagrelor [Brilinta 90mg 90 mg PO BID #60 tab 08/04/21 Rx Tablet] carvediloL [Coreg 6.25mg 6.25 mg PO BID #60 tab 08/04/21 Rx Tablet] Prescriptions/Medication Reconciliation: New Aspirin [Aspirin 81mg EC Tab] 81 mg PO DAILY #30 tab Ticagrelor [Brilinta 90mg Ta
== END 2021-08-04 18:12 | disposition home or self-care (01) | DRG 247 ==
LOC: ER 19:22 → CATHLAB 19:49 → 2ND 19:54
PROVIDERS: Physician Assistant; Admitting Provider Family Medicine; Emergency Provider Emergency Medicine; PCP Family Medicine; Referring Provider Internal Medicine; Visit Provider Family Medicine
PROC: 027035Z Dilation of Coronary Artery, One Artery with Two Drug-eluting Intraluminal Devices, Percutaneous Approach (ICD-10-PCS; principal; 2021-08-02 19:40)
DX: I21.02 ST elevation (STEMI) myocardial infarction involving left anterior descending coronary artery (principal); I42.9 Cardiomyopathy, unspecified; Z68.42 Body mass index [BMI] 45.0-49.9, adult; E78.5 Hyperlipidemia, unspecified; E66.9 Obesity, unspecified; I10 Essential (primary) hypertension; I25.10 Atherosclerotic heart disease of native coronary artery without angina pectoris
CPT/HCPCS: 36415; 71045; 80048; 80061; 80076; 83036; 84484; 85025; 85347; 92941; 93005; 93306; 93458; 99152; 99153; 99291; G0103; C1725; C1760; C1769; C1876; C9606; J1644; Q9967

== ENCOUNTER → 2021-08-11 08:25 | Outpatient (CLI) | payer SELFPAY ==
[2021-08-11 09:09] LABS: Hematocrit 44.8 % (42.0-52.0); Hemoglobin 15.4 g/dL (14.1-18.0)
[2021-08-11 10:10] LABS: Blood Urea Nitrogen 20 mg/dl (9-20); Estimated Glomerular Filt Rate 86 ml/min (>60); GFR (African American) 105 ML/MIN (>60)
== END ==
PROVIDERS: Visit Provider Internal Medicine
DX: I21.02 ST elevation (STEMI) myocardial infarction involving left anterior descending coronary artery (principal); I25.10 Atherosclerotic heart disease of native coronary artery without angina pectoris; I10 Essential (primary) hypertension; E78.5 Hyperlipidemia, unspecified; E66.9 Obesity, unspecified; Z68.42 Body mass index [BMI] 45.0-49.9, adult
CPT/HCPCS: 36415; 82565; 84520; 85014; 85018

== ENCOUNTER → 2022-02-13 10:36 | Outpatient (CLI) | payer SELFPAY ==
[2022-02-13 12:12] LABS: Alanine Aminotransferase 37 U/L (12-78); Albumin Level 4.2 g/dl (3.5-5.0); Alkaline Phosphatase 114 U/L (38-126); Aspartate Amino Transferase 31 U/L (17-59); Bilirubin,Direct 0.1 mg/dl (0.0-0.4); Bilirubin,Indirect 0.4 mg/dL (0.0-0.9); Bilirubin,Total 0.5 mg/dl (0.2-1.3); Bilirubin,Unconjugated 0.4 mg/dL (0.0-1.1); Chol/HDL Ratio 4.8 (1-3.5); Cholesterol 145 mg/dl (140-200); HDL Cholesterol 30 mg/dl (40-60); Total Protein,Serum 6.8 g/dl (6.3-8.2); Triglycerides 307 mg/dl (30-150); VLDL Cholesterol 61 mg/dL (0-40)
[2022-02-13 12:23] LABS: Direct LDL Cholesterol 76.14 mg/dL (100-129)
== END ==
PROVIDERS: PCP Family Medicine; Visit Provider Nurse Practitioner
DX: E78.5 Hyperlipidemia, unspecified (principal)
CPT/HCPCS: 36415; 80061; 80076

== ENCOUNTER → 2023-02-27 15:39 | Outpatient (CLI) | payer SELFPAY ==
[2023-02-27 16:58] LABS: Alanine Aminotransferase 74 U/L (12-78); Albumin Level 4.2 g/dl (3.5-5.0); Alkaline Phosphatase 97 U/L (38-126); Anion Gap 11.9 mEq/L (5-15); Aspartate Amino Transferase 53 U/L (17-59); Bilirubin,Total 0.6 mg/dl (0.2-1.3); Carbon Dioxide 25 mmol/L (22.0-30.0); Chloride 106 mmol/L (98-107); HDL Cholesterol 28 mg/dl (40-60); Potassium 3.9 mmoL/L (3.5-5.1); Sodium 139 mmol/L (136-145); Total Protein,Serum 6.9 g/dl (6.3-8.2)
[2023-02-27 17:00] LABS: Blood Urea Nitrogen 13 mg/dl (9-20); Calcium 8.9 mg/dl (8.4-10.2); Chol/HDL Ratio 5.6 (1-3.5); Cholesterol 157 mg/dl (140-200); Estimated Glomerular Filt Rate 99 ml/min (>60); GFR (African American) 119 ML/MIN (>60); Glucose 141 mg/dl (74-100); Triglycerides 307 mg/dl (30-150); VLDL Cholesterol 61 mg/dL (0-40)
[2023-02-27 17:03] LABS: Bilirubin,Unconjugated 0.5 mg/dL (0.0-1.1)
[2023-02-27 17:09] LABS: Direct LDL Cholesterol 95.29 mg/dL (100-129)
[2023-02-27 17:11] LABS: Bilirubin,Direct 0.1 mg/dl (0.0-0.4); Bilirubin,Indirect 0.5 mg/dL (0.0-0.9)
[2023-02-27 17:12] LABS: Basophils # 0.1 K/mm3 (0-0.2); Basophils % 1.1 % (0.1-2.0); Eosinophils # 0.5 K/mm3 (0.0-0.4); Eosinophils % 5.3 % (0.1-12.0); Hematocrit 45.4 % (42.0-52.0); Hemoglobin 15.5 g/dL (14.1-18.0); Lymphocytes # 2.1 K/mm3 (0.7-4.5); Lymphocytes % 22.7 % (10-50); Mean Corpuscular Hemoglobin 31.3 pg (27.0-31.2); Mean Corpuscular Volume 91.9 fl (80-94); Mean Platelet Volume 7.5 fl (7.4-10.4); Monocytes # 0.6 K/mm3 (0.1-1.0); Neutrophils # 5.8 K/mm3 (1.8-7.8); Neutrophils % 63.9 % (37.0-80.0); Platelet Count 252 K/mm3 (142-424); Red Blood Count 4.94 M/mm3 (4.60-6.20); Red Cell Distribution Width 13.9 % (11.5-17.5); White Blood Count 9.1 K/mm3 (4.8-10.8)
[2023-02-27 17:17] LABS: Free T4 (Free Thyroxine) 0.95 ng/dl (0.78-2.19)
[2023-02-27 17:29] LABS: Thyroid Stimulating Hormone 2.11 uIU/mL (0.465-4.68)
== END ==
PROVIDERS: PCP Family Medicine; Visit Provider Nurse Practitioner
DX: E78.5 Hyperlipidemia, unspecified (principal); I11.9 Hypertensive heart disease without heart failure; I21.02 ST elevation (STEMI) myocardial infarction involving left anterior descending coronary artery; I25.10 Atherosclerotic heart disease of native coronary artery without angina pectoris; I25.9 Chronic ischemic heart disease, unspecified; E66.9 Obesity, unspecified; Z68.43 Body mass index [BMI] 50.0-59.9, adult
CPT/HCPCS: 80048; 80061; 80076; 83735; 84439; 84443; 85025

== ENCOUNTER 2024-12-26 07:01 | Outpatient (CLI) | payer SELFPAY ==
--- OUTSIDE RECORDS SUMMARY | 2024-09-17 10:30 | XMS_ITS ---
Author Organization Rm Address [address] [facility] [address] [place] Gomez [id number] Care Team Providers Care Slat Basket Maker Name Role Phone Jesse Zayas Primary Care Provider Allergies No Known Allergies Results Component Value Reference Range Notes Urinalysis - Inhouse Reviewed date:09/18/2024 09:52:27 AM Interpretation: Performing Lab: Notes/Report: Color/Clarity yellow/clear Leuk Neg Nitrite Neg Urobili 3.2 Protein Neg pH 5.5 Blood Neg Sp. Gr. 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 Medication SIG (Take, Route, Frequency, Duration) Notes Start Date End Date Status Carvedilol 6.25 MG 1 tab(s) orally 2 ti mes a day; Duration: 30 day(s) Active Losartan Potassium 50 MG 1 tab(s) orally once a day; Duration: 30 day(s) Active Atorvastatin Calcium 20 MG 1 tab(s) oral ly once a day Active Furosemide 40 MG 1 tablet Orally Once a day Active Aspirin 81 MG 1 tab(s) orally once a day; Duration: 30 day(s) Active Vital Signs Blood pressure systolic 124 mm Hg 09/18/19 25 Blood pressure diastolic 70 mm Hg 025 Heart Rate 74 /min 09/17/2024 Height 69 in 09/17/2024 Weight 355 lbs 09/17/2024 BMI 52.42 kg/m2 09/17/2024 Encounters Encounter Location Date Provider Diagnosis Rm [address] [place] [id number] 09/17/2024 Jesse Model 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 * ROS: D ERMATOLOGY: no R neil. n o H jane. G ASTROENTEROLOGY: no N ausea. n o V omiting. n o D iarrhea.? U ROLOGY: no D ifficulty urinating. n o B lood in urine. * Medical History: C oronary Artery Disease, 2021, Myocardial Infarction, STEMI, 2021. * Surgical History: H ernia Repair , RT Heel Repair . * Family History: F ather: 74 yrs. M other: alive 93 yrs. S iblings: alive. C hildren: alive. 4 brother(s) , 3 sister(s) - healthy. 4 son(s) , 1 daughter(s) - healthy. . * Social History: C URRENT TOBACCO USE: No . P ast smoking status: never smoked. * Medications: T aking Furosemide 40 MG Tablet 1 tablet Orally Once a day , Taking Aspirin 81 MG Tablet Delayed Release 1 tab(s) orally once a day , Taking Carvedilol 6.25 MG Tablet 1 tab(s) orally 2 times a day , Taking Losartan Potassium 50 MG Tablet 1 tab(s) orally once a day , Taking Atorvastatin Calcium 20 MG Tablet 1 tab(s) orally once a day , Discontinued Flomax 0.4 MG Capsule 1 capsule Orally Once a day , Medication List reviewed and reconciled with the patient * Allergies: N .K.D.A. Objective: * Vitals: W t: 355, Temp: 98.8, BP: 124/70, HR: 74, O2 Sat: 94, Nurse: de/breezy, Ht: 69, Visual Acuity: Left eye:20/30, Right eye:20/30, Both eyes:20/30, Color:Pass, BMI:52.42. * Examination: G eneral Examination: General Appearance: N AD. H EENT: u nremarkable.?Oral cavity: n o lesions, mucosa moist and WNL, no erythema. N yoseph: s upple, no lymphadenopathy. C hest: n ormal shape and expansion. H eart: R SR. L ungs: c lear to auscultation. A bdomen: bowel sounds present, soft and nontender. N eurologic Exam: I ntact, gait normal. S kin: n ormal, no rash. P eripheral pulses: normal (2+) bilaterally. E xtremities: no leg edema. Assessment: * Assessment: 1. E ncounter for Department of Transportation (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 [place] license - Z02.4 (Primary) Plan: * Treatment: Value Reference Range C olor/Clarity yellow/clear * L euk Neg * N itrite Neg * U robili 3.2 * P rotein Neg * p H 5.5 * B lood Neg * S p. Gr. 1.020 * K etone Neg * B michelle Neg * G keeley Neg * Maira Priest 09/17/2024 04 :42:04 PM EDT > Provider reviewed results while patient in office. * Procedure Codes: 8 1002 Urinalysis, no micro, 25604 VISUAL ACUITY SCREEN * Follow Up: p rn * Images: Billing Information: * Visit Code: 77782 Preventive Care Est Pt Age 40-64. * Procedure Codes: 33202 Urinalysis, no micro. 64931 VISUAL ACUITY SCREEN. * Electronic signature of Emily Zayas MD on 12/26/2024 at 07:04 AM EDT Sign off status: Pending * Provider: Ivonne Zayas M.D. 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 Pt states he is doing good and denies any new concerns Examination Category Sub-Category Detail Notes Category Not es General Examination HEENT: unremarkable Heart: RSR Lungs: clear to auscultatio n Abdomen: bowel sounds present , soft and nontender Extremities: no leg edema General Appearance: NAD Skin: normal, no rash Neurologic Exam: Intact, gait normal Neck: supple, no lymphaden opathy Oral cavity: no lesions, mucosa m oist and WNL, no erythema Peripheral pulses: normal (2+) bilatera lly Chest: normal shape and exp ansion
--- OUTSIDE RECORDS SUMMARY | 2024-12-26 07:03 | XMS_ITS | Encounter Summary ---
Author Organization [employer] ([place], [place], [place], [place]) Address [address] [place] [address] Care Team Providers Care Design Printing Machine Set Up Operator Name Role Phone Unavailable Primary Care Provider Unavailabl e Encounter Details Date Type Department Care Team (Late st Contact Info) Description 04/15/2020 Transcribed Document [facility] [place] [facility] [place] [address] [place] [address] ProviderLizabeth MD [address] [place] [address] Social History Tobacco Use Types Packs/Day Years Used Date Smoking Tobacco: Never Assessed Sex and Gender Information Value Date Recorded Sex Assigned at Male 09/27/2021 8:47 PM CDT Legal Sex Male 8:47 PM CDT Gender Identity Male 09/27/2021 8:47 PM CDT Sexual Orientation Not on file documented as of this encounter Miscellaneous Notes * Cerner Conversion Note - Lizabeth ProviderMD - 04/15/2020 5:00 PM COMPUTER SYSTEMS TECHNOLOGY INSTRUCTOR Chart Check - Review Order Profile Entered On: 04/15/2020 15:42 EST Performed On: 04/15/2020 17:00 EST by Tara Mckeon, RN Chart Check Powerplans Initiated/Discontinued as Appropriate : Yes All Active Orders Reviewed : Yes Tara Mckeon RN - 04/15/2020 15:42 EST documented in this encounter Plan of Treatment Not on file documented as of this encounter Visit Diagnoses Not on filedocumented in this encounter
--- OUTSIDE RECORDS SUMMARY | 2024-12-26 07:03 | XMS_ITS | Encounter Summary ---
Author Organization [employer] ([place], [place], [place], [place]) Address [address] [place] [address] Care Team Providers Care Retail Interior Designer Name Role Phone Unavailable Primary Care Provider Unavailabl e Encounter Details Date Type Department Care Team (Late st Contact Info) Description 04/15/2020 Transcribed Document [facility] [place] [address] [place] [address] ProviderLizabeth MD [address] [place] [address] Social History Tobacco Use Types Packs/Day Years Used Date Smoking Tobacco: Never Assessed Sex and Gender Information Value Date Recorded Sex Assigned at Male 09/27/2021 8:47 PM CDT Legal Sex Male 8:47 PM CDT Gender Identity Male 09/27/2021 8:47 PM CDT Sexual Orientation Not on file documented as of this encounter Miscellaneous Notes * Cerner Conversion Note - Lizabeth Whitehead MD - 04/15/2020 2:20 PM FUGITIVE DETECTIVE Education-(VTE) / (DVT) Entered On: 04/15/2020 15:42 EST Performed On: 04/15/2020 14:20 EST by Tara Mckeon RN Teaching/Learning Assessment Barriers To Learning : Acuity of Illness, Cultural barrier Individuals Taught : Patient Readiness to Learn : Cooperative Readiness to Learn : Explanation Learning Style Preferences Patient : None Learning Style Preferences Family : None Tara Mckeon, VIKKI - 04/15/2020 15:42 EST documented in this encounter Plan of Treatment Not on file documented as of this encounter Visit Diagnoses Not on filedocumented in this encounter
--- OUTSIDE RECORDS SUMMARY | 2024-12-26 07:03 | XMS_ITS | Encounter Summary ---
Author Organization [employer] ([place], [place], [place], [place]) Address [address] [place] [address] Care Team Providers Care Payroll Benefits Administrator Name Role Phone Unavailable Primary Care Provider Unavailabl e Encounter Details Date Type Department Care Team (Late st Contact Info) Description 04/15/2020 Transcribed Document [facility] Family Medicine [address] [place] [address] ProviderLizabeth MD [address] [place] [address] Social History Tobacco Use Types [...] Lizabeth Whitehead MD - 04/15/2020 2:20 PM MANAGER RESOURCE Pain Assessment Entered On: 04/15/2020 15:42 EST Performed On: 04/15/2020 16:00 EST by Tara Mckeon RN Intervention Information: oxyCODONE Performed by Tara Mckeon RN on 04/15/2020 15:00:00 EST oxyCODONE,10mg Oral,Pain (Severe 7-10) Pain Assessment Pain Assessment : Follow-up assessment Pain Scale Used : 0-10 Scale Pain Improved by Intervention : Yes Tara Mckeon RN - 04/15/2020 15:42 EST Pain Scale Intensity : 3 Tara Mckeon RN - 04/15/2020 15:42 EST Image 4 - Images currently included in the form version of this document have not been included in the text rendition version of the form. documented in this encounter Plan of Treatment Not on file documented as of this encounter Visit Diagnoses Not on filedocumented in this encounter
--- OUTSIDE RECORDS SUMMARY | 2024-12-26 07:03 | XMS_ITS | Encounter Summary ---
Author Organization [employer] ([place], [place], [place], [place]) Address [address] [place] [address] Care Team Providers Care Accessioner Name Role Phone Unavailable Primary Care Provider Unavailabl e Encounter Details Date Type Department Care Team (Late st Contact Info) Description 04/15/2020 Transcribed Document [facility] [place] Family Medicine [address] [place] [address] ProviderLizabeth MD [address] [place] [address] Social History Tobacco Use Types [...] Conversion Note - Lizabeth ProviderMD - 04/15/2020 9:35 AM PROCESS PROJECT ENGINEER Meds to Bed Enrollment Entered On: 04/15/2020 9:35 EST Performed On: 04/15/2020 9:35 EST by Vipin Sawant, Plastic Fixture Builder Cert Meds to Bed Enrollment Patient Enrollment Decision: : Yes/enroll in meds to bed program Meds to Beds Comment : Vipin Waller, Plastic Fixture Builder Cert - 04/15/2020 9:35 EST documented in this encounter Plan of Treatment Not on file documented as of this encounter Visit Diagnoses Not on filedocumented in this encounter
--- OUTSIDE RECORDS SUMMARY | 2024-12-26 07:03 | XMS_ITS | Encounter Summary ---
Author Organization [employer] ([place], [place], [place], [place]) Address [address] [place] [address] Care Team Providers Care Technician Terminal And Repeater Name Role Phone Unavailable Primary Care Provider Unavailabl e Encounter Details Date Type Department Care Team (Late st Contact Info) Description 04/15/2020 Transcribed Document [facility] [place] [address] [place] [address] ProviderLizabeth MD [address] [place] [address] Social History Tobacco Use Types [...] Note - Lizabeth Whitehead MD - 04/15/2020 9:46 AM AGRICULTURAL RESEARCH DIRECTOR [facility] Main OR PreOp Summary Primary Physician: NEGRA FOSTER MD-ORT Finalized Date/Time: 04/15/20 10:39:16 Pt. Name: FAY FONTENOT D.O.B./Sex: 1960 Male Med Rec #: [id number] Physician: NEGRA FOSTER MD-ORT Financial #: [id number] Pt. Type: O Room/Bed: [facility]/8 Admit/Disch: 04/15/20 03:46:00 - [place] [facility] [place] Case Times Entry 1 In Preop 04/15/20 07:50:00 Ready for Holding n/a Room Patient Ready for 04/15/20 08:54:00 Surgery Patient Out of Preop 04/15/20 10:30:00 Patient Out of n/a Holding Room Last Modified By: GELY TRUJILLO 04/15/20 10:39:15 [facility] PreOp Case Times Audit 04/15/20 10:39:15 Fabrication Department Supervisor: [id number] Modifier: [email or web address] <+> 1 Patient Out of Preop Finalized By: GELY TRUJILLO Document Signatures Signed By: GELY TRUJILLO 04/15/20 10:39 documented in this encounter Plan of Treatment Not on file documented as of this encounter Visit Diagnoses Not on filedocumented in this encounter
--- OUTSIDE RECORDS SUMMARY | 2024-12-26 07:04 | XMS_ITS | Encounter Summary ---
Author Organization [employer] ([place], [place], [place], [place]) Address [address] [place] [address] Care Team Providers Care Dental Laboratory Technician Name Role Phone Unavailable Primary Care Provider Unavailabl e Encounter Details Date Type Department Care Team (Late st Contact Info) Description 04/15/2020 Transcribed Document [facility] [place] Family Medicine [address] [place] [address] ProviderLizabeth MD [address] [place] [address] Social History Tobacco Use Types [...] Note - Lizabeth Whitehead MD - 04/15/2020 11:09 AM WORKFLOW DEVELOPER [facility] [place] Main [place] PACU Summary Primary Physician: NEGRA FOSTER MD-ORT Finalized Date/Time: 04/15/20 14:20:48 Pt. Name: FAY FONTENOT D.O.B./Sex: 1960 Male Med Rec #: [id number] Physician: NEGRA FOSTER MD-ORMauro Financial #: [id number] Pt. Type: O Room/Bed: [facility] Admit/Disch: 04/15/20 03:46:00 - Institution: [facility] OR PACU Case Times Entry 1 In PACU I 04/15/20 13:03:00 Ready for PACU 04/15/20 13:33:00 Discharge Discharge from PACU 04/15/20 14:20:00 I Last Modified By: DARIENNE Jean 04/15/20 14:20:28 [facility] Main OR PACU Case Times Audit 04/15/20 14:20:28 Quirk Sander: ASPEN Modifier: RAMEYLL <+> 1 Discharge from PACU I 04/15/20 13:56:48 Quirk Sander: RAMEYLL Modifier: RAMEYLL <+> 1 Ready for PACU Discharge [facility] Main OR PACU Acuity Entry 1 Start Time 04/15/20 13:34:00 Stop Time 04/15/20 14:20:00 Acuity Level [facility] PACU Acuity I Last Modified By: ADRIENNE Jean 04/15/20 14:20:46 Finalized By: ADRIENNE Jean Document Signatures Signed By: ADRIENNE Jean 04/15/20 14:20 Electronically signed by Rajan [facility] Conversion Director Of Field Service Cerner at 07/20/2022 1:14 PM CDT documented in this encounter Plan of Treatment Not on file documented as of this encounter Visit Diagnoses Not on filedocumented in this encounter
--- OUTSIDE RECORDS SUMMARY | 2024-12-26 07:04 | XMS_ITS | Encounter Summary ---
Author Organization [employer] ([place], [place], [place], [place]) Address [address] [place] [address] Care Team Providers Care Wind Farm Support Specialist Name Role Phone Unavailable Primary Care Provider Unavailabl e Encounter Details Date Type Department Care Team (Late st Contact Info) Description 04/15/2020 Transcribed Document [facility] [place] Family Medicine [address] [place] [address] ProviderLizabeth MD [address] [place] [address] Social History Tobacco Use Types [...] Conversion Note - Lizabeth ProviderMD - 04/15/2020 2:33 PM ENTRY LEVEL ELECTRICIAN Admission History, Adult Entered On: 04/15/2020 14:40 EST Performed On: 04/15/2020 14:33 EST by Felecia Galarza RN Advance Directive Patient has Advance Directive *Q : No, patient refuses Advance Directive information Felecia Galarza RN - 04/15/2020 14:33 EST Anesthesia/Transfusion History Family History of Anesthesia Reaction : No prior transfusion(s) Transfusion History : Prior anesthesia without reaction Family History of Anesthesia Reaction : None Felecia Galarza RN - 04/15/2020 14:33 EST Education Topics, Admission Orientation DCP GENERIC CODE Advance Directives : Verbalizes understanding Allergy Band Applied : Verbalizes understanding Assessment/Vital Signs : Verbalizes understanding Bed Control : Verbalizes understanding Call Light : Verbalizes understanding Confidentiality : Verbalizes understanding Diet/Room Service : Verbalizes understanding Fall Prevention : Verbalizes understanding Hand Hygiene : Verbalizes understanding Healthcare Provider Visit : Verbalizes understanding ID Band Applied : Verbalizes understanding Isolation Precautions : Verbalizes understanding Orientation to Room/Bathroom : Verbalizes understanding Patient Bill of Rights : Verbalizes understanding Patient Rights/Responsibilities : Verbalizes understanding Patient Safety : Verbalizes understanding Personal Privacy Code : Verbalizes understanding Rapid Response Initiated by Patient/Family : Verbalizes understanding Rounding : Verbalizes understanding Siderails use/risks : Verbalizes understanding Skin Precautions : Verbalizes understanding Smoking Policy : Verbalizes understanding Telemetry Monitoring : Verbalizes understanding Television/Phone : Verbalizes understanding Visiting Policy : Verbalizes understanding Felecia Galarza RN - 04/15/2020 14:33 EST Functional Assessment Living Situation : Home Patient Lives With : Adult Child/Children, Spouse Sensory Deficits : None Mobility Assistance Prior to Admission : Independent AMATO Hx Falls Immediate/Within 3 Months : No Current Home Treatments : CPAP Felecia Galarza RN - 04/15/2020 14:33 EST General Info Preferred Name : Jerrod Arrived From : Home Mode of Arrival on Unit : Ambulatory Patient Arrival Date/Time : 04/15/2020 14:35 EST Legal Guardian : Unaccompanied Support Person/Pt Rep Name : Chuyita Fontenot Want Family/Rep/Phys Notified of Admit : No Emergency Contact #1 : Bony Fontenot Emergency Contact #1 Emergency Contact #1 Relationship : son Emergency Contact #2 : . Emergency Contact #2 Phone Number : . Emergency Contact #2 Relationship : . Primary Language : Polish Communication Barrier : None Milk Delivery Driver Needed : No Felecia Galarza RN - 04/15/2020 14:33 EST Fall Risk Scales ABCs Fall Injury Risk Identification : Coagulation ABC Fall Injury Risk : Moderate to high injury risk Injury Moderate to High Risk Interventions : Bed alarm on, Chair alarm on, Wrist band (fall risk) on per policy AMATO Hx Falls Immediate/Within 3 Months : No Amato Secondary Diagnosis : No AMATO Use of Ambulatory Aid : Crutches/Cane/Walker AMATO IV Therapy or IV Access : Yes Amato Gait/Transferring : Weak Amato Mental Status : Oriented to own ability Amato Fall Risk Score : 45 AMATO Fall Scale Risk Level : 25-45 Medium Risk [place] Fall Interventions : Adequate lighting, Assistive devices within reach, Bed in low position, Call device within reach, Frequent orientation to call device, Frequent orientation to surroundings, Hourly comfort/safety rounds, Non-slip footwear, Personal items within reach, Reinforced to call for assistance before getting out of bed, Room free of clutter/spills, Upper side-rails up, Wheels locked, Wires/Cords secured Fall Moderate to High Risk Interventions : Bed alarm on, Chair alarm on, Wrist band (fall risk) on Felecia Galarza RN - 04/15/2020 14:33 EST Fall Risk Education Grid Alarms : Verbalizes understanding Assistive Equipment Use : Verbalizes understanding Bed Height/Stabilization : Verbalizes understanding Call light use : Verbalizes understanding Door Open : Verbalizes understanding Environmental Management : Verbalizes understanding Eyeglasses Use : Verbalizes understanding Fall Community Resources : Verbalizes understanding Fall Contract/Letter : Verbalizes understanding Fall Prevention in the Home : Verbalizes understanding Fall Prevention Protocol : Verbalizes understanding Home Risk Assessment : Verbalizes understanding Need Constant Observation : Verbalizes understanding Night Light Use : Verbalizes understanding Nonskid Footwear Use : Verbalizes understanding Notification of Staff When Leaving : Verbalizes understanding Orthostatic Hypotension Precautions : Verbalizes understanding Personal Article Availability : Verbalizes understanding Prevention Responsibility Family : Verbalizes understanding Prevention Responsibility Patient : Verbalizes understanding Risk Alert Methods : Verbalizes understanding Risk Factors : Verbalizes understanding Safety Aids : Verbalizes understanding Siderails use/risks : Verbalizes understanding Special Assistive Devices : Verbalizes understanding Staff Responsiveness : Verbalizes understanding Symptom Identification & Action Plan *Q : Verbalizes understanding Symptom Reporting : Verbalizes understanding Toileting Schedule : Verbalizes understanding Transfer/Mobility Techniques : Verbalizes understanding Urinal/Bedpan Availability : Verbalizes understanding Wait for Assistance : Verbalizes understanding Wheelchair Safety : Verbalizes understanding Felecia Galarza RN - 04/15/2020 14:33 EST Barriers to Learning : None evident Learning Style Preferences Family : None Learning Style Preferences Patient : None Fall Risk Scale Calc Temp : 0 Felecia Galarza RN - 04/15/2020 14:33 EST Health Histories Smoking Status : Never (less than 100 in lifetime; none in last 30 days) Smokeless Tobacco Status : Never Implant/Device Type, Visiting Professor and Model : left heel metal s/p achilles repair hernia repair mesh Felecia Galarza RN - 04/15/2020 14:33 EST Social History (As Of: 04/15/2020 14:40:25 EST) Tobacco: Never (less than 100 in lifetime) Smoking Status. Never Smokeless Tobacco Status. (Last Updated: 04/05/2020 10:46:23 EST by Kiya Pineda RN) Alcohol: Alcohol Use History No. Use in Last 12 Months: No. (Last Updated: 04/05/2020 10:46:28 EST by Kiya Pineda RN) Substance Abuse: Drug Use Hx: No. Use in Last 12 Months: No. (Last Updated: 04/05/2020 10:46:33 EST by Kiya Pineda RN) Drug Use Hx: No. Use in Last 12 Months: No. (Last Updated: 04/05/2020 10:46:40 EST by Kiya Pineda RN) Nutrition/Health: Regular (Last Updated: 04/05/2020 10:46:46 EST by Kiya Pineda RN) Height and Weight, Clinical Dosing Height Source : Stated Height Entry Format : [facility] Height, Feet : 5 ft(Converted to: 152 cm, 60 Inch) Height, Inches : 9 Inch(Converted to: 0 ft 9 Inch, 22.86 cm) Clinical Height : 175.26 cm Weight Source : Standing scale Weight Entry Format : [facility] Clinical Dosing Weight : 147.73 kg Weight, Pounds : 325 lb Body Surface Area (BSA) : 2.54 m2 Body Mass Index : 48.1 kg/m2 (>HHI) [place] Body Weight : 70 kg Felecia Galarza RN - 04/15/2020 14:33 EST Infectious Disease History Has the patient ever been tested for COVID-19? : Yes, Patient stated results Negative Where are the test results? : In EMR Results Date of COVID-19 test known? : No Does patient have symptoms of COVID-19? : No COVID19 Screening : No Experiencing Infectious Disease Symptoms : No symptoms Physical contact outside [place] in the last 30 days : No Infectious Disease History : None Tuberculosis Symptoms : None Felecia Galarza RN - 04/15/2020 14:33 EST Influenza Vaccine Asmt, Adult Previous Vaccines from Immunization Schedule : No qualifying data available. Influenza Immunization, Current Season : No Inactivated Flu Vaccine Contraindications : No contraindications to inactivated influenza vaccine Transplant Workup/Recent Transplant : No Order for Influenza Vaccine : Declined Vaccination Felecia Galarza RN - 04/15/2020 14:33 EST Pneumococcal Vaccine Previous Vaccines from Immunization Schedule : No qualifying data available. Pneumonia Immunization Received : No Pneumococcal Risk Assessment < Age 65 : None Felecia Galarza RN - 04/15/2020 14:33 EST Order Details Transport Mode Order Detail : Wheelchair Isolation Precautions Order Detail : Standard Precautions Order Detail : N/A IV Order Detail : 1 Oxygen Order Detail : 1 Nurse Collect Order Detail : 0 Lift/Transfer : Moderate assist Central Line Order Detail : No Room Service : Not Appropriate Arterial Line : No Patient Needs Meds Crushed/Liquid : No Felecia Galarza RN - 04/15/2020 14:33 EST Nutrition History Feeding Ability : Independent Adaptive Feeding Equipment : Regular Oral Medication Administration : By mouth Eating Poorly Due to Decreased Appetite : No Unplanned Weight Loss in Past 3-6 Months : No Malnutrition Screening Tool Total(mal) : 0 Malnutrition Screening Tool Risk Level : Patient not at risk Felecia Galarza RN - 04/15/2020 14:33 EST [place] Suicide Severity Rating Scale (C-SSRS) CSSRS Past Month Wish to be : No CSSRS Past Month Suicidal Thoughts : No CSSRS Lifetime Suicide Behavior : No Suicide Severity Rating Score : 0 Suicide Severity Rating : No Additional Care Required at this time Felecia Galarza RN - 04/15/2020 14:33 EST Psychosocial History Currently in Unsafe Situation : No Felecia Galarza RN - 04/15/2020 14:33 EST Sleep Apnea Risk Assmt BiPAP/CPAP Ordered for Home Use : Yes Hx of Obstructive Sleep Apnea Diagnosis : Yes BiPAP/CPAP Used at Home : Yes Age over 50 Years Old : Yes Gender Male : Yes Felecia Galarza RN - 04/15/2020 14:33 EST Spiritual/Cultural Needs Tenriism Preference : Other: Hindu Felecia Galarza RN - 04/15/2020 14:33 EST Valuables and Belongings Valuables and Belongings : Clothing, Personal devices, Personal items Clothing : Common streetwear Clothing Disposition : Bedside Personal Device Disposition : Bedside Personal Devices : Glasses Personal Items : Cell phone Personal Items Disposition : Bedside Felecia Galarza RN - 04/15/2020 14:33 EST documented in this encounter Plan of Treatment Not on file documented as of this encounter Visit Diagnoses Not on filedocumented in this encounter
--- OUTSIDE RECORDS SUMMARY | 2024-12-26 07:04 | XMS_ITS | Encounter Summary ---
Author Organization [employer] ([place], [place], [place], [place]) Address [address] [place] [address] Care Team Providers Care Licensing Registration Examiner Name Role Phone Unavailable Primary Care Provider Unavailabl e Encounter Details Date Type Department Care Team (Late st Contact Info) Description 04/15/2020 Transcribed Document [facility] [place] Family [place] [address] [place] [address] ProviderLizabeth MD [address] [place] [address] Social History Tobacco Use Types [...] Conversion Note - Lizabeth ProviderMD - 04/15/2020 3:19 PM SUPERVISOR MACHINE WORKERS Treatment Intervention, OT Entered On: 04/16/2020 9:21 EST Performed On: 04/16/2020 9:16 EST by CARL MONSIVAIS, OTR/L General Information, OT Visit Type, OT : Treatment Note Patient Orders : Order Date Order Ordering 04/15/2020 14:20 Consult to Occupational Therapy Ordered By: NEGRA FOSTER MD-ORT 04/15/2020 15:19 Occupational Therapy Additional Tx Ordered By: Active Diagnoses : No Qualifying Diagnoses Therapy Diagnosis, OT : Aftercare following joint replacement surgery--L hip Admission Date : 04/15/2020 03:46 Assisted by, OT : occupational therapy assistant (TAR DISTILLATION SUPERVISOR) Personal Devices : Personal Devices Glasses Assistive Devices : Assistive Devices No Devices Recorded Precautions in Place : Fall prevention measures, Fall prevention measures, high risk, Hip precautions, anterior CARL MONSIVAIS OTR/Archie - 04/16/2020 9:16 EST General Status Patient Received Status : Supine in bed, Other: scds , Treatment Start Time : 04/16/2020 8:55 EST Patient Left Status : RN/PCT informed, Family/Visitors at bedside, All needs met and within reach, Other: left in therapy gym with TAR DISTILLATION SUPERVISOR seated on mat RN/PCT Informed Comment : RN ok'd to tx, ID and verified Treatment End Time : 04/16/2020 9:09 EST Treatment Time : 14 Minute(s) CARL MONSIVAIS OTR/Archie - 04/16/2020 9:16 EST Self Care/Home Management, OT Upper Body Dressing Assist Level, OT : Independent, complete Lower Body Dressing Assist Level, OT : Supervision or set-up Lower Body Dressing Device Comment, OT : education on LB dressing techniques, dons underwear and pants with supervision/setup and cues for safe completion Bed/Chair/WC Transfer Assist Level : Supervision or set-up Bed/Chair/WC Transfer Device : Belt, gait, Walker, front wheel Bed/Chair/WC Device Comment : cues for hand placement/safety , transfer to mat CARL MONSIVAIS OTR/Archie - 04/16/2020 9:16 EST Mobility Device/Prosthesis/Wt Bearing Weight Bearing Status Maintained : Yes Weight Bearing Status : As tolerated Functional Mobility Device : Gait belt Functional Mobility with Brace/Splint : No CARL MONSIVAIS OTR/Archie - 04/16/2020 9:16 EST Functional Mobility Mobility Grid Supine to Sit : Rehab Modified independence Sit to Stand : Supervision/set-up Bed to Chair : Supervision/set-up Stand to Sit : Supervision/set-up CARL MONSIVAIS OTR/Archie - 04/16/2020 9:16 EST Functional MobilityComment : gait belt donned, pt walks to therapy gym from room with supervision, education on safety and hand placement with rw. pt completes stairs with TAR DISTILLATION SUPERVISOR for safe entry into home and transfer to mat table with supervision. pt left in therapy gym with TAR DISTILLATION SUPERVISOR CARL MONSIVAIS OTR/Archie - 04/16/2020 9:16 EST Education OT Occupational Therapy Education Grid Activity of Daily Living Training : Verbalizes understanding, Returns demonstration Functional Mobility Training : Verbalizes understanding, Returns demonstration Home Safety : Verbalizes understanding (Comment: pt education [CARL MONSIVAIS OTR/Archie - 04/16/2020 9:16 EST] ) CARL MONSIVAIS OTR/Archie - 04/16/2020 9:16 EST Plan of Care, OT OT Tx Plan/Goals Established w Patient : No Reason OT Treatment/Plan Not Established : goals met CARL MONSIVAIS OTR/Archie - 04/16/2020 9:16 EST Custodial Goals, OT Other LTG Grid Goal #1 Goal #2 Goal #3 Goal : Peform LB ADL with min A Perform ADL transfer with S Verbalize understanding of home safety, safe car transfer (if applicable) Date to Meet : 04/22/2020 EST 04/22/2020 EST 04/22/2020 EST Goal Status : Goal met Goal met Goal met Date Met : 04/16/2020 EST 04/16/2020 EST 04/16/2020 EST CARL MONSIVAIS OTR/Archie - 04/16/2020 9:16 EST CARL MONSIVAIS OTR/L - 04/16/2020 9:16 EST CARL MONSIVAIS OTR/L - 04/16/2020 9:16 EST Treatment Note Subjective Comment : pt agrees to tx Additional Objective Information : ADL Assessment : pt met 3/3 acute care OT goals Plan for Treatment : no further acute care OT needs, pt likely to discharge home today with family assist and home health therapy CARL MONSIVAIS OTR/Archie - 04/16/2020 9:16 EST Pain Assessment Pain Scaled Used : 0-10 Pain scale Pain Score Pre-Intervention : 7 Location : Hip, left Pain Comment : RN aware , pt will contact as needed CARL MONSIVAIS OTR/Archie - 04/16/2020 9:16 EST Image 1 - Images currently included in the form version of this document have not been included in the text rendition version of the form. [facility] OT Charges OT Selfcare/Hm Mgmt Ea 15 Min : 1 CARL MONSIVAIS OTR/L - 04/16/2020 9:16 EST documented in this encounter Plan of Treatment Not on file documented as of this encounter Visit Diagnoses Not on filedocumented in this encounter
--- OUTSIDE RECORDS SUMMARY | 2024-12-26 07:04 | XMS_ITS | Encounter Summary ---
Author Organization [employer] ([place], [place], [place], [place]) Address [address] [place] [address] Care Team Providers Care Real Estate Photographer Name Role Phone Unavailable Primary Care Provider Unavailabl e Encounter Details Date Type Department Care Team (Late st Contact Info) Description 05/11/2020 Transcribed Document [facility] [place] [facility] [place] [address] ProviderLizabeth MD [place] [address] Social History Tobacco Use Types [...] Conversion Note - Lizabeth Whitehead MD - 05/11/2020 5:24 PM FIELD MARKETING MANAGER Consult Phone Call Documentation Entered On: 05/11/2020 17:30 EST Performed On: 05/11/2020 17:24 EST by LINDA VASQUEZ Phone Call for Consults Consult Phone Call/Page Attempt : First call Physician Requested for Consult : KAREEN YE MD-INT Physician Covering for Consult : KAREEN YE MD-INT Date and Time Call Returned : 05/11/2020 17:30 EST Physician Returning Call : KAREEN YE MD-INT TYE, CHERYL - 05/11/2020 17:29 EST documented in this encounter Plan of Treatment Not on file documented as of this encounter Visit Diagnoses Not on filedocumented in this encounter
--- OUTSIDE RECORDS SUMMARY | 2024-12-26 07:04 | XMS_ITS | Encounter Summary ---
Author Organization [employer] ([place], [place], [place], [place]) Address [address] [place] [address] Care Team Providers Care Box Shook Patcher Name Role Phone Unavailable Primary Care Provider Unavailabl e Encounter Details Date Type Department Care Team (Late st Contact Info) Description 04/15/2020 Transcribed Document [facility] [place] [facility] [place] [address] ProviderLizabeth MD [facility] [place] [address] Social History Tobacco Use Types [...] Note - Lizabeth Whitehead MD - 04/15/2020 2:17 PM SUPERINTENDENT POWER Patient: FAY FONTENOT Age: 60 years Sex: Male : 1960 Associated Diagnoses: None Author: WING MENENDEZ MD-INT Date of admission 04/15/2020 Date of consult 04/15/2020 PCP Jesse Zayas Orthopedic surgeon Dean Castano MD Hospitalist medicine consult, internal medicine, Wing Menendez MD Reason for the consult, postoperative medical management Surgery See operative report dictated by Dr. Castano Admitting diagnosis 1???unilateral primary osteoarthritis left hip 2???s/p left total hip arthroplasty through anterior approach 3???left hip pain 4???postop hypoxemia 5???ZITA on CPAP at home 6???morbid obesity with BMI of 48.1 History of present illness A pleasant 60 years old white male with a history of ZITA on CPAP at home, morbid obesity with BMI of 48.1 in addition to left hip pain from osteoarthritis who is after medical clearance by his PCP he underwent left total hip arthroplasty through anterior approach by Dr. Castano. Patient had surgery and is recovering well is awake alert cooperative responsive but in pain and is answering questions appropriately. Patient is very groggy. Currently patient is on femoral nerve block in addition to oral pain medications as per Dr. Castano recommendations. Patient is currently on 4 L of oxygen. Patient is on DVT prophylaxis as per Dr. Castano protocol. Patient did not urinate yet . Patient is on scheduled bowel regimen. Patient did not started on oral nutrition yet. I Patient denies any chest pain, shortness of breath, diaphoresis nausea or vomiting. PT/OT on board. Review of Systems Constitutional: No fever, No chills. Eye: No visual disturbances. Ear/Nose/Mouth/Throat: No nasal congestion, No sore throat. Respiratory: No shortness of breath, No cough. Cardiovascular: No chest pain, No tachycardia. Gastrointestinal: No nausea, No vomiting, No abdominal pain. Genitourinary: No change in urine stream. Hematology/Lymphatics: No bleeding tendency. Endocrine: No polyuria, No cold intolerance, No heat intolerance. Immunologic: Negative. Musculoskeletal: Negative. Integumentary: No rash, No pruritus. Neurologic: No confusion, No numbness, No tingling, No headache. Psychiatric: No anxiety, No depression. All other systems are negative Health Status Allergies: Allergies (1) Active Reaction penicillin rash Current medications: No qualifying data available , Medications (25) Active Scheduled: (0) Continuous: (3) D5/LR 1,000 mL 1,000 mL, IntraVENous, 25 mL/Hr Normosol-R 1,000 mL 1,000 mL, IntraVENous, 25 mL/Hr Normosol-R 1,000 mL 1,000 mL, IntraVENous, 100 mL/Hr PRN: (22) acetaminophen/oxyCODONE 325/5 mg tab 1 Tab, Oral, 1-Time al hydrox/mag hydrox/simeth 30 mL liq 30 mL, Oral, Q6H albuterol-ipratropium inh 3 mL 3 mL, Nebulized Inhalation, Q4H bisacodyl 10 mg supp 10 mg 1 Supp, Rectal, Daily diphenhydrAMINE 25 mg tab 25 mg 1 Tab, Oral, On-CALL docusate calcium 240 mg cap 240 mg 1 Cap, Oral, Daily famotidine 20 mg tab 20 mg 1 Tab, Oral, PREOP fentaNYL 100 mcg/2 mL inj 25 mcg 0.5 mL, IV Push, Q5Min fentaNYL 100 mcg/2 mL inj 50 mcg 1 mL, IV Push, Q5Min fentaNYL 25 mcg/0.5 mL inj 25 mcg 0.5 mL, IV Push, Q10Min haloperidol 5 mg/1 mL inj 1 mg 0.2 mL, IV Push, 1-Time HYDROmorphone 1 mg/1 mL inj 0.5 mg 0.5 mL, IV Push, Q10Min magnesium hydroxide 8% liq 30 mL 15 mL, Oral, Q6H metaxalone 800 mg tab 800 mg 1 Tab, Oral, TID midazolam 2 mg/2 mL inj *PF* 2 mg 2 mL, IV Push, 1-Time ondansetron 4 mg/2 mL inj 4 mg 2 mL, IV Push, 1-Time ondansetron 4 mg/2 mL inj 4 mg 2 mL, IV Push, PREOP ondansetron 4 mg/2 mL inj 4 mg 2 mL, IV Push, Q4H phenol 1.4% throat spray 5 [place], Oral, Q2H promethazine 25 mg tab 12.5 mg 0.5 Tab, Oral, Q6H promethazine 25 mg/1 mL inj 12.5 mg 0.5 mL, IV Push, Q6H traZODone 50 mg tab 50 mg 1 Tab, Oral, At Bedtime Problem list: Active Problems (3) Arthritis History of obstructive sleep apnea Sleep apnea Histories Family History: Family history is significant cancer but denies any family history of DM, CAD, or HTN Procedure history: abd hernia repair. Left Achilles tendon tear ([id number]). Social History Patient is and has 5 children, there is no history of smoking or drinking alcohol. Physical Examination VS/Measurements Vital Signs/Vital Measures 04/15/2020 13:55 EST Systolic Blood Pressure 128 mmHg Diastolic Blood Pressure 57 mmHg LOW Mean Arterial Pressure (MAP)-BMDI 84 Heart Rate Monitored 79 bpm Oxygen Saturation 95 % 04/15/2020 13:50 EST Systolic Blood Pressure 128 mmHg Diastolic Blood Pressure 60 mmHg Mean Arterial Pressure (MAP)-BMDI 86 Heart Rate Monitored 80 bpm Oxygen Saturation 97 % 04/15/2020 13:45 EST Systolic Blood Pressure 114 mmHg Diastolic Blood Pressure 58 mmHg LOW Mean Arterial Pressure (MAP)-BMDI 79 Heart Rate Monitored 81 bpm Oxygen Saturation 93 % LOW 04/15/2020 13:40 EST Systolic Blood Pressure 110 mmHg Diastolic Blood Pressure 58 mmHg LOW Mean Arterial Pressure (MAP)-BMDI 80 Heart Rate Monitored 73 bpm Oxygen Saturation 95 % 04/15/2020 13:35 EST Systolic Blood Pressure 118 mmHg Diastolic Blood Pressure 57 mmHg LOW Mean Arterial Pressure (MAP)-BMDI 81 Heart Rate Monitored 75 bpm Oxygen Saturation 97 % 04/15/2020 13:30 EST Systolic Blood Pressure 115 mmHg Diastolic Blood Pressure 58 mmHg LOW Mean Arterial Pressure (MAP)-BMDI 79 Heart Rate Monitored 82 bpm Oxygen Saturation 95 % 04/15/2020 13:25 EST Systolic Blood Pressure 116 mmHg Diastolic Blood Pressure 55 mmHg LOW Mean Arterial Pressure (MAP)-BMDI 80 Heart Rate Monitored 75 bpm Oxygen Saturation 96 % 04/15/2020 13:20 EST Systolic Blood Pressure 123 mmHg Diastolic Blood Pressure 58 mmHg LOW Mean Arterial Pressure (MAP)-BMDI 84 Heart Rate Monitored 82 bpm Oxygen Saturation 94 % 04/15/2020 13:15 EST Systolic Blood Pressure 144 mmHg HI Diastolic Blood Pressure 63 mmHg Mean Arterial Pressure (MAP)-BMDI 91 Heart Rate Monitored 91 bpm Oxygen Saturation 93 % LOW 04/15/2020 13:10 EST Systolic Blood Pressure 144 mmHg HI Diastolic Blood Pressure 63 mmHg Mean Arterial Pressure (MAP)-BMDI 91 Heart Rate Monitored 84 bpm Oxygen Saturation 87 % LOW 04/15/2020 13:05 EST Systolic Blood Pressure 144 mmHg HI Diastolic Blood Pressure 63 mmHg Mean Arterial Pressure (MAP)-BMDI 91 Oxygen Saturation 91 % LOW 04/15/2020 13:03 EST Systolic Blood Pressure 150 mmHg HI Diastolic Blood Pressure 61 mmHg Mean Arterial Pressure (MAP)-BMDI 83 Temperature Source Temporal artery scanning Temperature Source Temporal artery scanning Temperature Mode Fahrenheit Temperature Mode Fahrenheit Temperature, Fahrenheit 98.2 Deg F Temperature, Fahrenheit 97.9 Deg F Clinical Temperature, C 36.8 Deg C Clinical Temperature, C 36.6 Deg C Heart Rate Monitored 99 bpm Heart Rate Monitored 96 bpm Oxygen Saturation 92 % LOW Oxygen Saturation 91 % LOW Oxygen Therapy Mode Nasal cannula Oxygen Flow Rate 4 Liter/Min 04/15/2020 8:19 EST Systolic Blood Pressure 153 mmHg HI Diastolic Blood Pressure 89 mmHg Temperature Source Temporal artery scanning Temperature Mode Fahrenheit Temperature, Fahrenheit 98.7 Deg F Clinical Temperature, C 37.1 Deg C Pulse Rhythm Regular Peripheral Pulse Rate 91 bpm Respiratory Rate 16 Breaths/Min Oxygen Saturation 95 % Oxygen Therapy Mode Room air Oxygen Therapy Mode Room air General: Alert and oriented, No acute distress. Eye: Pupils are equal, round and reactive to light, Normal conjunctiva, Vision unchanged. HENT: Normocephalic, Tympanic membranes are clear, Normal hearing, Oral mucosa is moist, No pharyngeal erythema, No sinus tenderness. Neck: Supple, Non-tender, No carotid bruit, No jugular venous distention, No lymphadenopathy, No thyromegaly. Respiratory: Lungs are clear to auscultation, Respirations are non-labored, Breath sounds are equal, Symmetrical chest wall expansion, No chest wall tenderness. Cardiovascular: Normal rate, Regular rhythm, No murmur, No gallop, Good pulses equal in all extremities, Normal peripheral perfusion, No edema. Gastrointestinal: Soft, Non-tender, Non-distended, Normal bowel sounds, No organomegaly. Genitourinary: No costovertebral angle tenderness, No inguinal tenderness, No urethral discharge, No lesions. Lymphatics: No lymphadenopathy neck, axilla, groin. Musculoskeletal: Normal range of motion, Normal strength, No tenderness, No swelling, No deformity, Normal gait. Integumentary: Warm, [place], Intact, No pallor, No rash, WOUND STABLE. Neurologic: Alert, Oriented, Normal sensory, Normal motor function, No focal deficits, Cranial Nerves II-XII are grossly intact, Normal deep tendon reflexes. Psychiatric: Cooperative, Appropriate mood & affect, Normal judgment, Non-suicidal. Review / Management Results review Impression and Plan Diagnosis 1-unilateral primary osteoarthritis left hip 2-s/p left total hip arthroplasty through anterior approach 3-left hip pain 4-postop hypoxemia 5-ZITA on CPAP at home 6-morbid obesity with BMI of 48.1. Course: Plan/Respirex @ BS and encourage patient to use. Sleep apnea precautions if needed. C-pap at night if needed. Hold all BP meds if BSP < 130 MMHg. If SBP < 90 mmHg, you may give 500 ml NS IVF over one hour. ACT: CONSULT PT/OT as per Dr. merrill rec. For urinary retention use bladder scanner, you may anchor FC. If no or low UOP you may give 250 mL NS IV over one hour. AM Labs BMP & Hgb/HCT. If pt. spikes fever > 101* F, encourage pt to use Respirex first, then you may give Tylenol 650 mg PO/DE x 1. If no response in 2 hours, you may get blood cx. x2, chest x-ray, sputum CX, S, gram stain x3, UA, C&S. Patient may have chloroseptic spray or throat lozenges for soar throat. DVT prophylaxis. If at any time the HGB is less than 8 type and cross then transfuse 2 units of PRBCs. Premedicate with Tylenol 650 mg PO and Benadryl 25mg PO. Electrolytes Replacement Protocol. Pain control. Close monitoring fluid and electrolytes. Fall risk precautions. Sleep apnea precautions. Stress ulcer prophylaxis. RT consult for starting patient on BiPAP during sleep KIMO 65 mn patient seen and examined and reexamined, medical record reviewed, vitals reviewed, medications seen reviewed and reconciled, discussed with Pharm.D., discussed with Dr. Castano discussed with the patient and with the staff, discussed with PT/OT, orders placed, consult note dictated . documented in this encounter Plan of Treatment Not on file documented as of this encounter Visit Diagnoses Not on filedocumented in this encounter
--- OUTSIDE RECORDS SUMMARY | 2024-12-26 07:04 | XMS_ITS | Encounter Summary ---
Author Organization [employer] ([place], [place], [place], [place]) Address [address] [place] [address] Care Team Providers Care Business Management Manager Name Role Phone Unavailable Primary Care Provider Unavailabl e Encounter Details Date Type Department Care Team (Late st Contact Info) Description 05/11/2020 Transcribed Document [facility] [place] Family Medicine [address] [place] [address] ProviderLizabeth MD [address] [place] [address] Social History Tobacco Use Types Packs/Day Years Used Date Smoking Tobacco: Never Assessed Sex and Gender Information Value Date Recorded Sex Assigned at Male 09/27/2021 8:47 PM CDT Legal Sex Male 8:47 PM CDT Gender Identity Male 09/27/2021 8:47 PM CDT Sexual Orientation Not on file documented as of this encounter Miscellaneous Notes * [employer]ner Conversion Note - Lizabeth ProviderMD - 05/11/2020 7:30 PM MANAGER DOCUMENTATION Pain Assessment Entered On: 05/11/2020 22:09 EST Performed On: 05/11/2020 21:22 EST by Poppy Carrero Rn Intervention Information: acetaminophen Performed by Poppy Carrero, Rn on 05/11/2020 20:22:00 EST acetaminophen,650mg Oral Pain Assessment Pain Scale Goal : 2 Pain Improved by Intervention : Yes Poppy Carrero Rn - 05/11/2020 22:09 EST documented in this encounter Plan of Treatment Not on file documented as of this encounter Visit Diagnoses Not on filedocumented in this encounter
--- OUTSIDE RECORDS SUMMARY | 2024-12-26 07:04 | XMS_ITS | Encounter Summary ---
Author Organization [employer] ([place], [place], [place], [place]) Address [address] [place] [address] Care Team Providers Care Wireworker Name Role Phone Unavailable Primary Care Provider Unavailabl e Encounter Details Date Type Department Care Team (Late st Contact Info) Description 04/16/[address] [facility] [place] Family Medicine [address] [place] [address] ProviderLizabeth MD [address] [place] [address] Social History Tobacco Use Types [...] Conversion Note - Lizabeth Whitehead MD - 04/16/2020 12:00 PM DISCOVERY MANAGER Pain Assessment Entered On: 04/16/2020 14:48 EST Performed On: 04/16/2020 12:59 EST by Graciela Steve Rn Intervention Information: acetaminophen Performed by Graciela Steve Rn on 04/16/2020 11:59:00 EST acetaminophen,650mg Oral Pain Assessment Pain Assessment : Follow-up assessment Pain Scale Goal : 2 Pain Scale Used : 0-10 Scale Graciela Steve Rn - 04/16/2020 14:48 EST Pain Scale Intensity : 1 Graciela Steve Rn - 04/16/2020 14:48 EST Image 4 - Images currently included in the form version of this document have not been included in the text rendition version of the form. documented in this encounter Plan of Treatment Not on file documented as of this encounter Visit Diagnoses Not on filedocumented in this encounter
--- OUTSIDE RECORDS SUMMARY | 2024-12-26 07:04 | XMS_ITS | Encounter Summary ---
Author Organization [employer] ([place], [place], [place], [place]) Address [address] [place] [address] Care Team Providers Care Magnetic Prospector Name Role Phone Unavailable Primary Care Provider Unavailabl e Encounter Details Date Type Department Care Team (Late st Contact Info) Description 05/12/2020 Transcribed Document [facility] [place] [facility] [place] [address] ProviderLizabeth MD [address] [place] [address] Social History Tobacco Use Types [...] Conversion Note - Lizabeth Whitehead MD - 05/12/2020 4:07 PM DELIVERY DRIVER/CUSTOMER SERVICE Final Discharge Planning Entered On: 05/12/2020 16:09 EST Performed On: 05/12/2020 16:07 EST by Marina Barros RN-TESTER VIBRATOR EQUIPMENT Final Discharge Planning Discharge Arrangements : Patient Post-Acute Information Patient Name: FAY FONTENOT Gender: Male : [birth year] Age: 60 Years No Post-Acute Placement(s) Listed No Post-Acute Service(s) Listed No [place] Referral(s) Listed Patient Offered Choice/Affiliations Explained : Yes Designation of Choice Signed : No Important Medicare Message Reviewed With : Other: Uninsured/private pay Important Medicare Message Reviewed D/T : 05/12/2020 16:08 EST Transportation Needs : Family/Friend Follow Up Appointment Scheduled : Yes Marina Barros RN-TESTER VIBRATOR EQUIPMENT - 05/12/2020 16:07 EST Is Patient High/Moderate Readmission Risk? : No Marina Barros RN-TESTER VIBRATOR EQUIPMENT - 05/12/2020 16:09 EST Patient/Family Notified of Plan : Yes Is Patient Ready for Discharge? : Yes Physician Notified Patient is Ready for Discharge? : Yes Discharge To Care Management : Home/Residential/Long Term or Self Care -01 Marina Barros RN-TESTER VIBRATOR EQUIPMENT - 05/12/2020 16:07 EST Final Narrative Note Final Narrative Note : Ortho does not want patient to have home health, Dr. Castano will change the wound vac in office at his appointment. Abiox were switched to PO and he will follow up with [facility]. Marina Barros RN-TESTER VIBRATOR EQUIPMENT - 05/12/2020 16:07 EST documented in this encounter Plan of Treatment Not on file documented as of this encounter Visit Diagnoses Not on filedocumented in this encounter
--- OUTSIDE RECORDS SUMMARY | 2024-12-26 07:04 | XMS_ITS | Encounter Summary ---
Author Organization [employer] ([place], [place], [place], [place]) Address [address] [place] [address] Care Team Providers Care Image Processing Engineer Name Role Phone Unavailable Primary Care Provider Unavailabl e Encounter Details Date Type Department Care Team (Late st Contact Info) Description 04/15/2020 Transcribed Document [facility] [place] [address] [place] [address] ProviderLizabeth MD [address] [place] [address] Social History Tobacco Use Types [...] Note - Lizabeth Whitehead MD - 04/15/2020 4:00 PM FILTER WASHER Pain Assessment Entered On: 04/15/2020 18:02 EST Performed On: 04/15/2020 18:19 EST by Felecia Galarza RN Intervention Information: naproxen Performed by Felecia Galarza RN on 04/15/2020 17:19:00 EST naproxen,250mg Oral Pain Assessment Pain Assessment : Follow-up assessment Pain Scale Goal : 2 Pain Scale Used : 0-10 Scale Felecia Galarza RN - 04/15/2020 18:02 EST Pain Scale Intensity : 2 Felecia Galarza RN - 04/15/2020 18:02 EST Image 4 - Images currently included in the form version of this document have not been included in the text rendition version of the form. Electronically signed by Rajan Cox [place] Conversion Intellectual Property Legal Assistant Cerner at 07/20/2022 1:11 PM CDT documented in this encounter Plan of Treatment Not on file documented as of this encounter Visit Diagnoses Not on filedocumented in this encounter
--- OUTSIDE RECORDS SUMMARY | 2024-12-26 07:04 | XMS_ITS | Encounter Summary ---
Author Organization [employer] ([place], [place], [place], [place]) Address [address] [place] [address] Care Team Providers Care Pin Cleaner Name Role Phone Unavailable Primary Care Provider Unavailabl e Encounter Details Date Type Department Care Team (Late st Contact Info) Description 04/15/2020 Transcribed Document [facility] [place] [address] [place] [address] ProviderLizabeth MD [address] [place] [address] Social History Tobacco Use Types [...] Note - Lizabeth Whitehead MD - 04/15/2020 6:00 PM MARKETING COMMUNITY LIAISON Pain Assessment Entered On: 04/15/2020 18:02 EST Performed On: 04/15/2020 18:19 EST by Felecia Galarza RN Intervention Information: acetaminophen Performed by Felecia Galarza RN on 04/15/2020 17:19:00 EST acetaminophen,650mg Oral Pain Assessment Pain Assessment [...]
--- OUTSIDE RECORDS SUMMARY | 2024-12-26 07:04 | XMS_ITS | Encounter Summary ---
Author Organization [employer] ([place], [place], [place], [place]) Address [address] [place] [address] Care Team Providers Care Test Engine Operator Name Role Phone Unavailable Primary Care Provider Unavailabl e Encounter Details Date Type Department Care Team (Late st Contact Info) Description 05/12/2020 Transcribed Document [facility] [place] [address] [place] [address] ProviderLizabeth MD [address] [place] [address] Social History Tobacco Use Types Packs/Day Years Used Date Smoking Tobacco: Never Assessed Sex and Gender Information Value Date Recorded Sex Assigned at Male 09/27/2021 8:47 PM CDT Legal Sex Male 8:47 PM CDT Gender Identity Male 09/27/2021 8:47 PM CDT Sexual Orientation Not on file documented as of this encounter Miscellaneous Notes * [employer]ner Conversion Note - Lizabeth ProviderMD - 05/12/2020 5:00 AM CHIEF PAYROLL CLERK Chart Check - Review Order Profile Entered On: 05/12/2020 3:25 EST Performed On: 05/12/2020 5:00 EST by Poppy Carrero, Rn Chart Check Powerplans Initiated/Discontinued as Appropriate : Yes All Active Orders Reviewed : Yes Poppy Carrero, Rn - 05/12/2020 3:24 EST documented in this encounter Plan of Treatment Not on file documented as of this encounter Visit Diagnoses Not on filedocumented in this encounter
--- OUTSIDE RECORDS SUMMARY | 2024-12-26 07:04 | XMS_ITS | Encounter Summary ---
Author Organization [employer] ([place], [place], [place], [place]) Address [address] [place] [address] Care Team Providers Care Supervisor Cap And Hat Production Name Role Phone Unavailable Primary Care Provider Unavailabl e Encounter Details Date Type Department Care Team (Late st Contact Info) Description 04/16/2020 Transcribed Document [facility] [place] [address] ProviderLizabeth MD [address] [place] [address] Social History Tobacco Use Types Packs/Day Years Used Date Smoking Tobacco: Never Assessed Sex and Gender Information Value Date Recorded Sex Assigned at Male 09/27/2021 8:47 PM CDT Legal Sex Male 8:47 PM CDT Gender Identity Male 09/27/2021 8:47 PM CDT Sexual Orientation Not on file documented as of this encounter Miscellaneous Notes * [employer]ner Conversion Note - Lizabeth ProviderMD - 04/16/2020 2:00 AM PRODUCTION POSTING CLERK Social Work Instructor Details Entered On: 04/16/2020 3:12 EST Performed On: 04/16/2020 2:00 EST by Indiana Chong RN Order Details Transport Mode Order Detail : Wheelchair Isolation Precautions Order Detail : Standard Precautions Order Detail : N/A IV Order Detail : 1 Oxygen Order Detail : 1 Nurse Collect Order Detail : 0 Lift/Transfer : Moderate assist Central Line Order Detail : No Room Service : Not Appropriate Arterial Line : No Patient Needs Meds Crushed/Liquid : No Indiana Chong, RN - 04/16/2020 3:12 EST documented in this encounter Plan of Treatment Not on file documented as of this encounter Visit Diagnoses Not on filedocumented in this encounter
--- OUTSIDE RECORDS SUMMARY | 2024-12-26 07:04 | XMS_ITS | Encounter Summary ---
Author Organization [employer] ([place], [place], [place], [place]) Address [address] [place] [address] Care Team Providers Care Counseling Specialist Name Role Phone Unavailable Primary Care Provider Unavailabl e Encounter Details Date Type Department Care Team (Late st Contact Info) Description 04/16/2020 Transcribed Document [facility] [place] [address] [place] [address] ProviderLizabeth MD [address] [place] [address] Social History Tobacco Use Types [...] Note - Lizabeth Whitehead MD - 04/16/2020 2:10 PM THIRD HELPER Patient: FAY FONTENOT Age: 60 years Sex: Male : 1960 Associated Diagnoses: None Author: WING YE MD-INT 04/16/2020 Hospitalist medicine discharge in progress note, internal medicineWing MD Basic Information ???Seen and examined ???Doing well ???Had a good night last night ???Awake alert cooperative responsive under no acute distress ???Pain well controlled ???High spirit ???Eager to go home ???No chest pain or trouble breathing ???Participating well with PT/OT ???No headache or dizziness when he got up with PT/OT ???No soreness after PT/OT ???Released by PT/OT to go home ???Tolerating well oral p.o. intake ???No nausea or vomiting ???No BM but passing gas ???No trouble with urination ???Urine output is adequate ???Vitals reviewed ???Labs reviewed ???Lab results discussed with the patient ???Released by Dr. Castaon to go home ???Discharge medications seen, reviewed and reconciled ???DVT prophylaxis and anticoagulation as per Dr. Castano protocol ???Patient wants and excited to be discharged home ???Patient is medically stable Review of Systems Constitutional: No weakness, No fatigue. Eye: No recent visual problem, No double vision, No visual disturbances. Ear/Nose/Mouth/Throat: No nasal congestion, No sore throat. Respiratory: No shortness of breath, No cough, No wheezing. Cardiovascular: No chest pain, No tachycardia. Gastrointestinal: No nausea, No vomiting. Genitourinary: Negative. Musculoskeletal: Negative. Integumentary: No rash, No pruritus. Neurologic: Alert and oriented X4, no dizziness. Health Status Allergies: Allergic Reactions (Selected) Severity Not Documented Penicillin- Rash., Allergies (1) Active Reaction penicillin rash Current medications: Medications (23) Active Scheduled: (5) acetaminophen 325 mg tab 650 mg 2 Tab, Oral, Q6H aspirin EC 325 mg tab 325 mg 1 Tab, Oral, BID cephalexin 250 mg cap 500 mg 2 Cap, Oral, Q6HInt naproxen 250 mg tab 250 mg 1 Tab, Oral, Q6HInt pregabalin 75 mg cap 75 mg 1 Cap, Oral, [id number] Continuous: (1) D5/LR 1,000 mL 1,000 mL, IntraVENous, 100 mL/Hr PRN: (17) al hydrox/mag hydrox/simeth 30 mL liq 30 mL, Oral, Q6H albuterol-ipratropium inh 3 mL 3 mL, Nebulized Inhalation, Q4H bisacodyl 10 mg supp 10 mg 1 Supp, Rectal, Daily cyclobenzaprine 10 mg tab 5 mg 0.5 Tab, Oral, TID diphenhydrAMINE 25 mg tab 25 mg 1 Tab, Oral, On-CALL docusate calcium 240 mg cap 240 mg 1 Cap, Oral, Daily magnesium hydroxide 8% liq 30 mL 15 mL, Oral, Q6H ondansetron 4 mg tab 4 mg 1 Tab, Oral, Q4H ondansetron 4 mg/2 mL inj 4 mg 2 mL, IV Push, Q4H oxyCODONE 5 mg tab 10 mg 2 Tab, Oral, Q6H oxyCODONE 5 mg tab 5 mg 1 Tab, Oral, Q6H phenol 1.4% throat spray 5 [place], Oral, Q2H promethazine 25 mg tab 12.5 mg 0.5 Tab, Oral, Q6H promethazine 25 mg/1 mL inj 12.5 mg 0.5 mL, IV Push, Q6H promethazine 25 mg/1 mL inj 12.5 mg 0.5 mL, IV Push, Q6H traMADol 50 mg tab 50 mg 1 Tab, Oral, QID traZODone 50 mg tab 50 mg 1 Tab, Oral, At Bedtime Problem list: Active Problems (3) Arthritis History of obstructive sleep apnea Sleep apnea Physical Examination VS/Measurements Vital Measurements 04/16/2020 9:37 EST Systolic Blood Pressure 145 mmHg HI Diastolic Blood Pressure 81 mmHg Mean Arterial Pressure (MAP)-BMDI 90 Temperature Source Oral Temperature Mode Fahrenheit Temperature, Fahrenheit 98.5 Deg F Clinical Temperature, C 36.9 Deg C Heart Rate Monitored 97 bpm Respiratory Rate 16 Breaths/Min Oxygen Saturation 95 % General: Alert and oriented, No acute distress. Eye: Pupils are equal, round and reactive to light, Extraocular movements are intact. HENT: Oral mucosa is moist. Neck: Supple, No carotid bruit, No jugular venous distention, No lymphadenopathy, No thyromegaly. Respiratory: Lungs are clear to auscultation, Breath sounds are equal. Cardiovascular: Normal rate, Regular rhythm, No murmur. Gastrointestinal: Soft, Non-tender, Normal bowel sounds, No organomegaly. Genitourinary: No costovertebral angle tenderness, No inguinal tenderness. Lymphatics: No lymphadenopathy neck, axilla, groin. Musculoskeletal: Normal strength, No swelling. Integumentary: Warm, Intact, No rash, WOUND STABLE. Neurologic: Alert, Oriented, No focal deficits. Psychiatric: Cooperative, Appropriate mood & affect. Review / Management Results review: All Results 04/16/2020 3:50 EST Sodium Level 138 mmol/L Potassium Level 4.4 mmol/L Chloride Level 104 mmol/L Carbon Dioxide Level 25 mmol/L Anion Gap 13 Glucose Level 187 mg/dL HI Blood Urea Nitrogen 14 mg/dL Creatinine Level 1.01 mg/dL eGFR >60 mL/min/1.73m2 eGFR NonAfrican >60 mL/min/1.73m2 Bun/Creatinine 13.9 Calcium Level 8.7 mg/dL Hgb 13.9 Gram/dL Hct 41.8 % . Condition: Stable. Discharge Plan Discharge Summary Plan Discharge Status: stable. Orders Order Profile (Selected) Inpatient Orders Ordered Discharge Notification Pharmacy: Start: 04/16/20 14:08:49 EST Discharge: Start: 04/16/20 14:08:00 EST, Discharge to: Home, Other DC instructions: Okay to DC home from medical standpoint tentative discharge by Dr. Castano and PT/OT. Nursing staff and case management to follow-up on Dr. Castano and PT/OT recommendations. Diagnosis 1-unilateral primary osteoarthritis left hip 2-s/p left total hip arthroplasty through anterior approach 3-left knee pain 4-postop hypoxemia resolved 5-ZITA on CPAP at home 6 morbid obesity with BMI of 48.1. Course Improving. Stable. Plan/ pt is HD & CLINICALLY STABLE AFEBRILE OK TO D/C HOME ALL CONSULTANTS AGREE FOR HER D/C HOME ON HH / OUTPT.REHAB. . Orders Order Profile (Selected) Prescriptions Prescribed Mobic 15 mg oral tablet: 1 Tab, Oral, Daily, do not take with other NSAIDs (like ibuprofen or naproxen), # 14 Tab, 0 Refill(s), other reason (Rx) Ultram 50 mg oral tablet: 1 Tab, Oral, Q6H, PRN Pain (Mild 1-3), 1-2 tablets every 6 hours as needed for mild pain, X 7 Day(s), # 40 Tab, 0 Refill(s), other reason (Rx) Zofran 4 mg oral tablet: 1 Tab, Oral, Q6H, PRN Nausea, # 15 Tab, 0 Refill(s), other reason (Rx) acetaminophen 500 mg oral tablet: 2 Tab, Oral, TID, X 30 Day(s), # 180 Tab, 0 Refill(s), other reason (Rx) aspirin 81 mg oral delayed release tablet: 1 Tab, Oral, Tab, BID, # 84 Tab, 0 Refill(s), other reason (Rx) docusate sodium 100 mg oral capsule: 1 Cap, Oral, Cap, BID, PRN as needed for constipation, # 60 Cap, 0 Refill(s), other reason (Rx) oxyCODONE 5 mg oral tablet: 1 Tab, Oral, Q6H, PRN as needed for pain, 1 tablet every 6 hours as needed for moderate pain, 2 tablets every 6 hours as needed for severe pain, X 7 Day(s), # 40 Tab, 0 Refill(s), other reason (Rx). Impression and Plan twt 40 mn patient seen and examined, medical record reviewed, labs reviewed, vitals reviewed, medications reviewed and reconciled, discussed with Pharm.D., discussed with the patient, discussed with the staff, discussed with PT/OT, discharge orders placed, discharge note dictated. documented in this encounter Plan of Treatment Not on file documented as of this encounter Visit Diagnoses Not on filedocumented in this encounter
--- OUTSIDE RECORDS SUMMARY | 2024-12-26 07:04 | XMS_ITS | Encounter Summary ---
Author Organization [employer] ([place], [place], [place], [place]) Address [address] [place] [address] Care Team Providers Care Maintenance Shop Laborer Name Role Phone Unavailable Primary Care Provider Unavailabl e Encounter Details Date Type Department Care Team (Late st Contact Info) Description 05/12/2020 Transcribed Document [facility] [place] Medicine [address] [place] [address] ProviderLizabeth MD [address] [place] [address] Social History Tobacco Use Types [...] Note - Lizabeth Whitehead MD - 05/12/2020 3:04 PM AIRCRAFT ENGINE ASSEMBLER ARYA Entered On: 05/12/2020 15:05 EST Performed On: 05/12/2020 15:04 EST by KAREEN YE MD-INT ARYA Indication of use for OOCS : Acute Illness OOCS Misuse Suspected : Other Was ARYA queried : Other Patient Advised to seek OOCS Treatment : Other Treatment to Include Limited Supply of OOCS : Other ARYA Result : Other ARYA Other Notes : As per Dr. Castano office records Patient cancelled on OOCS : Other ARYA : . KAREEN YE MD-INT - 05/12/2020 15:04 EST Electronically signed by Rajan [facility] Conversion Network Operations Specialist Cerner at 07/20/2022 12:51 PM CDT documented in this encounter Plan of Treatment Not on file documented as of this encounter Visit Diagnoses Not on filedocumented in this encounter
--- OUTSIDE RECORDS SUMMARY | 2024-12-26 07:04 | XMS_ITS | Encounter Summary ---
Author Organization [employer] ([place], [place], [place], [place]) Address [address] [place] [address] Care Team Providers Care Windows Desktop Support Name Role Phone Unavailable Primary Care Provider Unavailabl e Encounter Details Date Type Department Care Team (Late st Contact Info) Description 04/16/2020 Transcribed Document [facility] [place] [address] [place] [address] ProviderLizabeth MD [address] [place], [place] [id number] Social History Tobacco Use Types Packs/Day Years Used Date Smoking Tobacco: Never Assessed Sex and Gender Information Value Date Recorded Sex Assigned at Male 09/27/2021 8:47 PM CDT Legal Sex Male 8:47 PM CDT Gender Identity Male 09/27/2021 8:47 PM CDT Sexual Orientation Not on file documented as of this encounter Miscellaneous Notes * Cerner Conversion Note - Lizabeth ProviderMD - 04/16/2020 2:49 PM POLLUTION CONTROL CHEMIST Stroke/Warfarin Instructions Entered On: 04/16/2020 14:49 EST Performed On: 04/16/2020 14:49 EST by Graciela Steve Rn Stroke/Warfarin Instructions Stroke/TIA Discharge Ins : N/A Warfarin Discharge Ins : N/A Graciela Steve Rn - 04/16/2020 14:49 EST documented in this encounter Plan of Treatment Not on file documented as of this encounter Visit Diagnoses Not on filedocumented in this encounter
--- OUTSIDE RECORDS SUMMARY | 2024-12-26 07:04 | XMS_ITS | Encounter Summary ---
Author Organization [facility] ([place], [place], [place], [place]) Address [address] [place] [address] Care Team Providers Care Cowlman Name Role Phone Unavailable Primary Care Provider Unavailabl e Encounter Details Date Type Department Care Team (Late st Contact Info) Description 05/11/2020 Transcribed Document [facility] [place] Family Medicine [address] [place] [address] ProviderLizabeth MD [address] [place] [address] Social History Tobacco Use Types [...] Note - Lizabeth Whitehead MD - 05/11/2020 2:50 PM PRINTING SIGN MACHINE OPERATOR Simone Main OR PreOp Summary Primary Physician: NEGRA FOSTER MD-ORT Finalized Date/Time: 05/13/20 14:48:02 Pt. Name: FAY FONTENOT D.O.B./Sex: 1960 Male Med Rec #: [id number] Physician: NEGRA FOSTER MD-ORT Financial #: [id number] Pt. Type: O Room/Bed: 420/1 Admit/Disch: 05/11/20 12:36:00 - 05/12/20 16:25:00 [place] [facility] [place] Case Times Entry 1 In Preop 05/11/20 12:30:00 Ready for Holding n/a Room Patient Ready for n/a Surgery Patient Out of Preop 05/11/20 14:28:00 Patient Out of n/a Holding Room Last Modified By: GELY TRUJILLO 05/12/20 07:33:09 Finalized By: Annamarie Thapa, Pulp Grinder And Blender-Nursing Document Signatures Signed By: GELY TRUJILLO 05/12/20 07:33 Annamarie Thapa, Pulp Grinder And Blender-Nursing 05/13/20 14:48 Unfinalized History Date/Time Username Reason for Unfinalizing Freetext Reason for Unfinalizing 05/13/20 14:47 [id number] Modify Pick List documented in this encounter Plan of Treatment Not on file documented as of this encounter Visit Diagnoses Not on filedocumented in this encounter
--- OUTSIDE RECORDS SUMMARY | 2024-12-26 07:04 | XMS_ITS | Encounter Summary ---
Author Organization [employer] ([place], [place], [place], [place]) Address [address] [place] [address] Care Team Providers Care Revenue Agent Name Role Phone Unavailable Primary Care Provider Unavailabl e Encounter Details Date Type Department Care Team (Late st Contact Info) Description 05/11/2020 Transcribed Document [facility] [place] [facility] [place] [address] ProviderLizabeth MD [address] [place] [address] Social History Tobacco Use Types [...] Conversion Note - Lizabeth ProviderMD - 05/11/2020 4:09 PM CARDIOLOGY NURSE Attempt to Treat, OT Entered On: 05/11/2020 16:09 EST Performed On: 05/11/2020 16:09 EST by FATMATA ALDRICH OTR/L Attempt to Treat Unable to Treat Due To : Patient Unavailable Inability to Treat Comment : Attempted eval but patient not yet in room. Will follow up as schedule permits. FATMATA ALDRICH OTR/L - 05/11/2020 16:09 EST documented in this encounter Plan of Treatment Not on file documented as of this encounter Visit Diagnoses Not on filedocumented in this encounter
--- OUTSIDE RECORDS SUMMARY | 2024-12-26 07:04 | XMS_ITS | Encounter Summary ---
Author Organization [employer] ([place], [place], [place], [place]) Address [address] [place] [address] Care Team Providers Care Radio Tester Name Role Phone Unavailable Primary Care Provider Unavailabl e Encounter Details Date Type Department Care Team (Late st Contact Info) Description 05/11/2020 Transcribed Document [facility] [place] [address] [place] [address] ProviderLizabeth MD [address], [place] [id number] Social History Tobacco Use Types Packs/Day Years Used Date Smoking Tobacco: Never Assessed Sex and Gender Information Value Date Recorded Sex Assigned at Male 09/27/2021 8:47 PM CDT Legal Sex Male 8:47 PM CDT Gender Identity Male 09/27/2021 8:47 PM CDT Sexual Orientation Not on file documented as of this encounter Miscellaneous Notes * [employer]ner Conversion Note - Lizabeth Whitehead MD - 05/11/2020 4:51 PM GEOSCIENCES PROFESSOR Initial Discharge Planning Entered On: 05/11/2020 16:53 EST Performed On: 05/11/2020 16:51 EST by TUSHAR RUEDA RN Initial Assessment I Previously Documented Living Environment : No qualifying data available. Living Situation : Home Patient Lives With : Dependent Child/Children, Spouse Is the Patient a Caregiver at Home? : No Emergency Contact #1 : Bony Emergency Contact #1 Emergency Contact #1 Relationship : Son Emergency Contact #2 : . Emergency Contact #2 Emergency Contact #2 Relationship : Home phone Enter Doctors Name : Shayne Molina Does Patient have PCP Listed? : Yes Legal Guardian : No TUSHAR RUEDA RN - 05/11/2020 16:51 EST Initial Assessment II Sensory and Motor Deficits : None Current Home Treatments and Equipment : None, Walker Does the Patient have a Floor to SNF Benefit? : No TUSHAR RUEDA RN - 05/11/2020 16:51 EST Discharge Needs I Anticipated Discharge Date : 05/12/2020 EST Anticipated Discharge To, CM : Home independently Current Home Treatment/Equipment : Current Home Treatment/Equipment No qualifying data available. Post Acute/Home Treatments : Walker Documentation Status Complete : Yes TUSHAR RUEDA RN - 05/11/2020 16:51 EST Discharge Needs II Professional Skilled Services : Professional Skilled Services No qualifying data available. Services and Community Resources : Home Health Needs Assistance with Transportation : No Discharge Options Discussed with Patient : Discharge transportation, DME TUSHAR RUEDA RN - 05/11/2020 16:51 EST Narrative Note Narrative Note : 60 y/o male s/p I and D of Left Hip. Patient had a LATH in April. Met with patient at bedside to discuss discharge needs. STATUS: Patient lives with and kids and is iADLS. PLAN: Discharge to home follow up with Dr. Rios office for dressing change of wound vac. Discussed this with Dr. Rios. Patient previoulsy using [facility] after hip surgery. I and D will be seeing patient in the AM. DME: patient has walker at home. CM: will follow throughout hospital stay. RRS: low 27 Boost 3 TRANS: family will transport. TUSHAR RUEDA RN - 05/11/2020 16:58 EST Electronically signed by Rajan [facility] Conversion Chute Boss Cerner at 07/20/2022 12:49 PM CDT documented in this encounter Plan of Treatment Not on file documented as of this encounter Visit Diagnoses Not on filedocumented in this encounter
--- OUTSIDE RECORDS SUMMARY | 2024-12-26 07:04 | XMS_ITS | Encounter Summary ---
Author Organization [employer] ([place], [place], [place], [place]) Address [address] [place] [address] Care Team Providers Care Remelt Pan Tank Operator Name Role Phone Unavailable Primary Care Provider Unavailabl e Encounter Details Date Type Department Care Team (Late st Contact Info) Description 04/15/2020 Transcribed Document [facility] [place] [address] [place] [address] ProviderLizabeth MD [address] [place] [address] Social History Tobacco Use Types [...] Note - Lizabeth Whitehead MD - 04/15/2020 10:00 PM CUSTOMER OPERATIONS ASSOCIATE Pain Assessment Entered On: 04/16/2020 3:12 EST Performed On: 04/16/2020 0:11 EST by Indiana Chong RN Intervention Information: naproxen Performed by Indiana Chong RN on 04/15/2020 23:11:00 EST naproxen,250mg Oral Pain Assessment Pain Assessment : Follow-up assessment Pain Scale Goal : 2 Pain Scale Used : 0-10 Scale Indiana Chong RN - 04/16/2020 3:12 EST Pain Scale Intensity : 3 Indiana Chong RN - 04/16/2020 3:12 EST Image 4 - Images currently included in the form version of this document have not been included in the text rendition version of the form. documented in this encounter Plan of Treatment Not on file documented as of this encounter Visit Diagnoses Not on filedocumented in this encounter
--- OUTSIDE RECORDS SUMMARY | 2024-12-26 07:04 | XMS_ITS | Encounter Summary ---
Author Organization [employer] ([place], [place], [place], [place]) Address [address] [place] [address] Care Team Providers Care Digital Media Analyst Name Role Phone Unavailable Primary Care Provider Unavailabl e Encounter Details Date Type Department Care Team (Late st Contact Info) Description 04/16/2020 Transcribed Document [facility] Family Medicine [address] [place] [address] ProviderLizabeth MD [address] [place] [address] Social History Tobacco Use Types [...] Conversion Note - Lizabeth ProviderMD - 04/16/2020 5:00 AM SATELLITE TV TECHNICIAN Chart Check - Review Order Profile Entered On: 04/16/2020 6:39 EST Performed On: 04/16/2020 5:00 EST by Indiana Chong, RN Chart Check Powerplans Initiated/Discontinued as Appropriate : Yes All Active Orders Reviewed : Yes Indiana Chong RN - 04/16/2020 6:39 EST Electronically signed by Chris Tolentino Conversion Hydrogenation Still Operator Cerner at 07/20/2022 1:10 PM CDT documented in this encounter Plan of Treatment Not on file documented as of this encounter Visit Diagnoses Not on filedocumented in this encounter
--- OUTSIDE RECORDS SUMMARY | 2024-12-26 07:04 | XMS_ITS | Encounter Summary ---
Author Organization [employer] ([place], [place], [place], [place]) Address [address] [place] [address] Care Team Providers Care Aerial Installer Name Role Phone Unavailable Primary Care Provider Unavailabl e Encounter Details Date Type Department Care Team (Late st Contact Info) Description 04/16/[address] [facility] [place] [facility] [place] [address] ProviderLizabeth MD [address] [place] [address] Social History Tobacco Use Types [...] Note - Lizabeth Whitehead MD - 04/16/2020 3:51 PM ALUMNI RELATIONS COORDINATOR Nursing Discharge Summary Entered On: 04/16/2020 15:52 EST Performed On: 04/16/2020 15:51 EST by Graciela Steve Dials Inspector Documentation Discharge Date/Time : 04/16/2020 15:51 EST Patient Disposition, General : Discharge Discharge To : Home with ambulatory/outpatient follow-up Mode Of Departure, General Discharge : Wheelchair Accompanied By, Discharge : Spouse IV Discontinued : Yes Personal Belongings With Patient : Yes Medications Given to Patient : Yes Discharge Instructions Reviewed With, Opportunity For Questions Given : Patient Patient Education Completed : Yes Number of Medications Given : 7 Teaching Method : Explanation, Printed materials Teaching Evaluation : Verbalizes understanding Graciela Steve Rn - 04/16/2020 15:51 EST Electronically signed by [facility] Conversion Residence Director Cerner at 07/20/2022 1:01 PM CDT documented in this encounter Plan of Treatment Not on file documented as of this encounter Visit Diagnoses Not on filedocumented in this encounter
--- OUTSIDE RECORDS SUMMARY | 2024-12-26 07:04 | XMS_ITS | Encounter Summary ---
Author Organization [employer] ([place], [place], [place], [place]) Address [address] [place] [address] Care Team Providers Care Medical Appointment Clerk Name Role Phone Unavailable Primary Care Provider Unavailabl e Encounter Details Date Type Department Care Team (Late st Contact Info) Description 04/15/2020 Transcribed Document [facility] [place] Family Medicine [address] [place] [address] ProviderLizabeth MD [address] [place] [address] Social History Tobacco Use Types [...] Conversion Note - Lizabeth ProviderMD - 04/15/2020 2:20 PM COAL TRIMMER Evaluation, Physical Therapy Entered On: 04/15/2020 15:22 EST Performed On: 04/15/2020 14:50 EST by YANA DAVIS, PT General Information, PT Visit Type, PT : Initial evaluation Patient Orders : Order Date Order Ordering 04/15/2020 14:20 Consult to Physical Therapy Ordered By: NEGRA FOSTER MD-ORT Active Diagnoses : No Qualifying Diagnoses Therapy Diagnosis, PT : aftercare following L GIANLUCA Admission Date : 04/15/2020 03:46 Co-treated by, PT : Occupational Therapist Personal Devices : Personal Devices Glasses Assistive Devices : Assistive Devices No Devices Recorded Precautions in Place : Fall prevention measures General Information Comment, PT : Pt admitted with hx of L hip OA. Now s/p L GIANLUCA per Dr. Castano (02-13-21) YANA DAVIS, PT - 04/15/2020 15:13 EST General Status Patient Received Status : Supine in bed, Other: hemovac, IV Treatment Start Time : 04/15/2020 14:50 EST Patient Left Status : Up in chair, Communication board completed, All needs met and within reach, Other: nurse was going to find chair alarm RN/PCT Informed Comment : RN ok'd PT Treatment End Time : 04/15/2020 15:10 EST Treatment Time : 20 Minute(s) YANA DAVIS, PT - 04/15/2020 15:13 EST History and Environment Living Situation, Therapy : Home Patient Lives With : Adult Child/Children, Spouse Home Equipment Therapy, PT : Cane, Walker Cane : Cane, single point Walker : Walker, standard Home Setup : Basement Stairs : Yes Stair Location(s) : Outside Outside Stairs, Number of Steps : 2 YANA DAVIS, PT - 04/15/2020 15:13 EST Prior Level of Function PT GRID Prior LOF Ambulation, Household : Independent Prior LOF Ambulation, Community : Independent Prior LOF Bed Mobility : Independent Prior LOF Toileting : Independent Prior LOF Transfer : Independent YANA DAVIS, PT - 04/15/2020 15:13 EST Upper Extremity Right UE Active ROM : WFL Right UE Strength : WFL Left UE Active ROM : WFL Left UE Strength : WFL YANA DAVIS, PT - 04/15/2020 15:13 EST Lower Extremity RLE Active ROM : WFL Right LE Strength : WFL LLE Active ROM : Impaired Left LE Strength : Impaired Lower Extremity Comment : 3-/5 LLE except ankle dorsiflexion 5/5 YANA DAVIS, PT - 04/15/2020 15:13 EST Functional Mobility Mobility Grid Supine to Sit : Supervision/set-up Sit to Stand : Rehab Minimal assistance (Comment: CGA [YANA DAVIS, PT - 04/15/2020 15:13 EST] ) Bed to Chair : Rehab Minimal assistance (Comment: CGA [YANA DAVIS, PT - 04/15/2020 15:13 EST] ) Stand to Sit : Rehab Minimal assistance (Comment: CGA [YANA DAVIS, PT - 04/15/2020 15:13 EST] ) YANA DAVIS, PT - 04/15/2020 15:13 EST Gait Training/Assessment, PT Weight Bearing Status : As tolerated left lower extremity Gait Assistance Level : Assist, minimal Walking Distance : 5ft Ambulatory Devices : Gait belt, Walker, front wheel Gait Deviations : Yes Gait Training Comment : -Cues for safe use of RWx with step-to gait and sequencing. YANA DAVIS, PT - 04/15/2020 15:13 EST Neuromuscular Reeducation, PT Balance Comment : -Good for static and dynamic sitting, good for static standing, fair for dynamic standing (with walker) YANA DAVIS, PT - 04/15/2020 15:13 EST Neurological/Sensory Overall Sensory Response : Intact Response to Pain : Intact YANA DAVIS, PT - 04/15/2020 15:13 EST Cognition Assessment, PT Orientation : Oriented x 4 Attention Assessment : Present YANA DAVIS, PT - 04/15/2020 15:13 EST Edu Topics Physical Therapy Education Grid Gait Training : Verbalizes understanding, Needs further teaching Role of Physical Therapy : Verbalizes understanding, Needs further teaching Therapeutic Exercises : Verbalizes understanding, Needs further teaching Transfer Training : Verbalizes understanding, Needs further teaching Use of Assistive Device : Verbalizes understanding, Needs further teaching YANA DAVIS, PT - 04/15/2020 15:13 EST Indication Assesessment, PT Physical Therapy Indicated : Yes PT Problem List : Impaired, activities daily living, Impaired, endurance tolerance, Impaired, gait, Impaired, stair mobility, Impaired, standing balance, Impaired, strength, Impaired, transfers Potential Barriers To Therapy : Acuity of Illness, Fatigue, Pain Rehabilitation Potential : Good YANA DAVIS, PT - 04/15/2020 15:13 EST Plan of Care, PT PT Tx Plan/Goals Established w Patient : Yes PT Frequency Rehab : Daily, twice (bid) PT Duration Rehab : Three days PT Treatments Planned : Gait training, Safety education, Stair training, Therapeutic exercises, Transfer training YANA DAVIS, PT - 04/15/2020 15:13 EST Commission Clerk Goals Other PT LTG Grid Goal #1 Goal #2 Goal #3 Other : Pt will ambulate 150ft with CGA and RWx for safety with household distances. Pt will perform 2 steps with CGA for safety accessing home. Pt will understand HEP for improvement in strength and ROM LLE. Date to Meet : 04/18/2020 EST 04/18/2020 EST 04/18/2020 EST Goal Status : Initial goal Initial goal YANA DAVIS, PT - 04/15/2020 15:13 EST YANA DAVIS, PT - 04/15/2020 15:13 EST YANA DAVIS, PT - 04/15/2020 15:13 EST Treatment Note Subjective Comment : Pt agreeable to PT eval. Lethargic but participatory. Patient's Response to Treatment : Good Additional Objective Information : -left in chair with SCDs on -given HEP sheet in room Assessment : Pt will require skilled PT to address function, strength, ROM, after and progress towards independent function after recent GIANLUCA. Plan for Treatment : see pt twice daily YANA DAVIS, PT - 04/15/2020 15:13 EST Pain Assessment Pain Scaled Used : FLACC Pain Score Pre-Intervention : 8 Pain Score During-Intervention : 8 Pain Score Post-Intervention. : 8 Pain Comment : L hip pain YANA DAVIS, PT - 04/15/2020 15:13 EST Image 1 - Images currently included in the form version of this document have not been included in the text rendition version of the form. Anticipated Discharge Needs, OT/PT Anticipated Discharge to : Home, with home health Recommend Continued Therapy at Discharge : Yes YANA DAVIS, PT - 04/15/2020 15:13 EST [place] PT Charges PT Ther Activities Ea 15 Min : 1 PT Eval Low Complexity : 1 YANA DAVIS, PT - 04/15/2020 15:13 EST documented in this encounter Plan of Treatment Not on file documented as of this encounter Visit Diagnoses Not on filedocumented in this encounter
--- OUTSIDE RECORDS SUMMARY | 2024-12-26 07:04 | XMS_ITS | Encounter Summary ---
Author Organization [employer] ([place], [place], [place], [place]) Address [address] [place] [address] Care Team Providers Care Price Economist Name Role Phone Unavailable Primary Care Provider Unavailabl e Encounter Details Date Type Department Care Team (Late st Contact Info) Description 04/16/2020 Transcribed Document [facility] [place] Family Medicine [address] [place] [address] ProviderLizabeth MD [address] [place] [address] Social History Tobacco Use Types [...] Conversion Note - Lizabeth ProviderMD - 04/16/2020 4:00 PM INTERMEDIATE ACCOUNTANT Discharge Summary, PT Entered On: 04/17/2020 10:41 EST Performed On: 04/16/2020 16:00 EST by SERGIO MENDOZA, PT Discharge Summary Reason for Discharge : Discharged from hospital Discharged to, Therapy : Home, with home health Discharge Summary Comment, PT : 3/3 acute PT goals met. Mod I with all bed mobility and transfers Ambulated 200' with RWx CGA Up/down 4 stairs with B rails CGA GIANLUCA HEP AROM x 20 reps D/C home with family + home health on 04/16/20. SERGIO MENDOZA, PT - 04/17/2020 10:40 EST Nursing Home Goals Other PT LTG Grid Goal #1 Goal #2 Goal #3 Other : Pt will ambulate 150ft with CGA and RWx for safety with household distances. Pt will perform 2 steps with CGA for safety accessing home. Pt will understand HEP for improvement in strength and ROM LLE. Date to Meet : 04/18/2020 EST 04/18/2020 EST 04/18/2020 EST Goal Status : Goal met Goal met Goal met Date Met : 04/16/2020 EST 04/16/2020 EST 04/16/2020 EST SERGIO MENDOZA, PT - 04/17/2020 10:40 EST SERGIO MENDOZA, PT - 04/17/2020 10:40 EST SERGIO MENDOZA, PT - 04/17/2020 10:40 EST Electronically signed by Chris Tolentino Conversion Shotgun Shell Loading Machine Operator Cerner at 07/20/2022 12:51 PM CDT documented in this encounter Plan of Treatment Not on file documented as of this encounter Visit Diagnoses Not on filedocumented in this encounter
--- OUTSIDE RECORDS SUMMARY | 2024-12-26 07:04 | XMS_ITS | Encounter Summary ---
Author Organization [employer] ([place], [place], [place], [place]) Address [address] [place] [address] Care Team Providers Care Entry Level Project Engineer Name Role Phone Unavailable Primary Care Provider Unavailabl e Encounter Details Date Type Department Care Team (Late st Contact Info) Description 04/15/2020 Transcribed Document [facility] [place] [address] [place] [address] ProviderLizabeth MD [address], [place] [id number] Social History Tobacco Use Types Packs/Day Years Used Date Smoking Tobacco: Never Assessed Sex and Gender Information Value Date Recorded Sex Assigned at Male 09/27/2021 8:47 PM CDT Legal Sex Male 8:47 PM CDT Gender Identity Male 09/27/2021 8:47 PM CDT Sexual Orientation Not on file documented as of this encounter Miscellaneous Notes * Cerner Conversion Note - Lizabeth Whitehead MD - 04/15/2020 9:52 AM WINDER OPERATOR Patient: FAY FONTENOT Age: 60 years Sex: Male : 1960 Associated Diagnoses: None Author: DEAN FOSTER MD-ORT HISTORY AND PHYSICAL DATE: Patient: Fay Fontenot Date of : 1960 Patient Number: [id number] History of Present Illness Fay is here today for his left hip. He has not had any injury. For several years she has had spontaneous onset of pain is been getting worse. It is now interfering with daily activity. It hurts with every step. There are problems sleeping. There are problems going up and down stairs and has to use a railing. Pain with getting out of a chair and sometimes has to use 2 arms. his [id number] had hip replacement and he realized that this is what he wants to do. Current Medication ??? None Past Medical/Surgical History Reported: Medications: No recent immunization for flu and not for pneumococcal pneumonia. Diagnoses: Asthma. Sleep Apnea Surgical: ??? Hernia repair Social History Not a current smoker. Current diet: No recent change in diet. Behavioral: Caffeine use and non-smoker. Alcohol: Not using alcohol. Drug Use: Not using drugs. Habits: Not exercising regularly. Allergies ??? No Known Allergies Family History Cancer Review Of Systems Systemic: Not feeling tired (fatigue), no recent weight loss, and no recent weight gain. Head: No headache and no sinus pain. Eyes: No vision problems and no Cataracts. Glasses/Contacts. No Glaucoma. Otolaryngeal: Hearing loss. No tinnitus. Cardiovascular: No chest pain or discomfort, no palpitations, no Hypertension, and no High Cholesterol. Pulmonary: No daytime asthma symptoms and no chronic cough. No wheezing. Gastrointestinal: No heartburn and no abdominal pain. No Indigestion, no Acid Reflux, no Peptic Ulcer, no GI Stomach Bleed, and no Ulcers. Endocrine: No hot flashes, no muscle weakness, no Diabetes, no Hypothyroid, and no Hyperthyroid. Hematologic: No easy bleeding, no tendency for easy bruising, and no Anemia. Musculoskeletal: Arthritis. No lower back pain. No soft tissue swelling and no localized joint pain. Neurological: No dizziness, no convulsions, and no numbness. Psychological: No anxiety, no emotional lability, no depression, and no insomnia. Not crying for no reason. Skin: No dry skin. No Ulcers, no Scars, and no rash. Allergic and Immunologic: No complaint of seasonal allergic reaction. Physical Findings Height 69 in 60 - 80 Weight 320 lbs 125 - 225 Body Mass Index 47.3 kg/m2 Body Surface Area 2.52 m2 There is a left-sided antalgic gait. He has normal mood, affect and orientation. He has a well-groomed appearance. Chest is clear, heart is clear, lungs are clear. Leg lengths are equal. Full pain-free range of motion right hips. only a few degrees of internal and external rotation on the left with pain at the extremes. No tenderness about the hips. Skin is intact. Grossly normal motor and sensory function. Grossly normal vascular status. Tests Radiographs of the left hip today show narrowing through the joint space. There are osteophytes inferiorly and superiorly consistent with primary osteoarthritis. Plan He has evidence of chronic pain in his right/left hip. He has had appropriate conservative treatment and has failed it. He is having significant problems with day-to-day activity. Based on the history, physical examination and the radiographs I believe he is a candidate for total hip replacement. We discussed the procedure and its rationale. We explained risks which include but are not limited to, bleeding, infection, blood clot and incomplete pain relief and the possibility of further surgery in the future. We discussed rehabilitation and the rapid mobilization protocol. We discussed the anterior approach. we also discussed his BMI at 47 and his significantly increased risk of flora-operative complications including infection dislocation and wound breakdown. We discussed weight loss which he has tried in the past not been able to keep it off. He does not want to consider any weight loss intervention at this time. He understands and would like to proceed. He is otherwise healthy good surgical candidate. We'll plan to do this under general anesthetic at the hospital. He had no further questions. Dean Castano MD Electronically signed by Rajan [facility] Conversion Web Analyst Tito at 07/20/2022 1:12 PM CDT documented in this encounter Plan of Treatment Not on file documented as of this encounter Visit Diagnoses Not on filedocumented in this encounter
--- OUTSIDE RECORDS SUMMARY | 2024-12-26 07:04 | XMS_ITS | Encounter Summary ---
Author Organization [employer] ([place], [place], [place], [place]) Address [address] [place] [address] Care Team Providers Care Temporary Office Assistant Name Role Phone Unavailable Primary Care Provider Unavailabl e Encounter Details Date Type Department Care Team (Late st Contact Info) Description 04/15/2020 Transcribed Document [facility] [place] [address] [place] [address] ProviderLizabeth MD [address] [place] [address] Social History Tobacco Use Types [...] Note - Lizabeth Whitehead MD - 04/15/2020 5:10 PM WALL WORKER Initial Discharge Planning Entered On: 04/15/2020 17:20 EST Performed On: 04/15/2020 17:10 EST by TUSHAR RUEDA RN Initial Assessment I Previously Documented Living Environment : No qualifying data available. Living Situation : Home Patient Lives With : Dependent Child/Children, Spouse Is the Patient a Caregiver at Home? : Yes For Whom are they a Caregiver? : Child/Children Emergency Contact #1 : Bony Fontenot Emergency Contact #1 Emergency Contact #1 Relationship : son Emergency Contact #2 : . Emergency Contact #2 Phone Number : . Emergency Contact #2 Relationship : . Enter Doctors Name : Jesse Marquez Does Patient have PCP Listed? : Yes TUSHAR REUDA RN - 04/15/2020 17:10 EST Initial Assessment II Sensory and Motor Deficits : None Current Home Treatments and Equipment : None, Walker TUSHAR RUEDA RN - 04/15/2020 17:10 EST Discharge Needs I Anticipated Discharge Date : 04/16/2020 EST Anticipated Discharge To, CM : Home with home health Current Home Treatment/Equipment : Current Home Treatment/Equipment No qualifying data available. Post Acute/Home Treatments : Other: Needs Wheels for Walker. Spoke to patient about a set of wheels will be $25. They are discussing it. Documentation Status Complete : Yes TUSHAR RUEDA RN - 04/15/2020 17:10 EST Discharge Needs II Professional Skilled Services : Professional Skilled Services No qualifying data available. Services and Community Resources : Home Health Needs Assistance with Transportation : No Discharge Options Discussed with Patient : Discharge transportation, DME, Home Health TUSHAR RUEDA RN - 04/15/2020 17:10 EST Narrative Note Narrative Note : 60 y/o male s/p LATH. Met with patient and spouse at bedside to disucss discharge needs. STATUS: lives with spouse and children, iADLS. Pt is self pay. PLAN: discharging home with HH and Outpt PT. Gave them the Quality Resource and Use Information Guide to look at. Called around to see how much it would cost for the patient to have HH. Last HH ([facility]) said it would roughly be $100 for retirement and $110 per each PT session and he would be doing 2-3 sessions per week for 2 weeks. [facility]. [facility] unable to [facility] patient. spoke with Avinash with [facility] and he will talk to his joint supervisor and call back in the morning. Also called [facility] for outpatient PT. Left message for Deja Morales who is the account financial manager there to call about patient. Patient and are going to discuss the plan tonight and get back with Case management in the AM. DME: patient has a walker but doesnt have wheels on it. Called [facility] and asked about how much wheels would be. They are roughly $25 for them. informed patient and . they are discussing this as well CM: will continue to follow patient. RRS: TUSHAR Ace RN - 04/15/2020 17:10 EST Electronically signed by Rajan [facility] Conversion Publications Manager Cerner at 07/20/2022 1:14 PM CDT documented in this encounter Plan of Treatment Not on file documented as of this encounter Visit Diagnoses Not on filedocumented in this encounter
--- OUTSIDE RECORDS SUMMARY | 2024-12-26 07:04 | XMS_ITS | Encounter Summary ---
Author Organization [employer] ([place], [place], [place], [place]) Address [address] [place] [address] Care Team Providers Care Dope Sprayer Name Role Phone Unavailable Primary Care Provider Unavailabl e Encounter Details Date Type Department Care Team (Late st Contact Info) Description 04/16/2020 Transcribed Document [facility] [place] [address] [place] [address] ProviderLizabeth MD [address] [place] [address] Social History Tobacco Use Types [...] Conversion Note - Lizabeth ProviderMD - 04/16/2020 2:08 PM LEASING DIRECTOR ARYA Entered On: 04/16/2020 14:10 EST Performed On: 04/16/2020 14:08 EST by KAREEN YE MD-INT ARYA Indication of use for OOCS : Acute Illness OOCS Misuse Suspected : Other Was ARYA queried : Other Patient Advised to seek OOCS Treatment : Other Treatment to Include Limited Supply of OOCS : Other ARYA Result : Other ARYA Other Notes : As Per Dr. Castano office records Patient cancelled on OOCS : Other ARYA : . KAREEN YE MD-INT - 04/16/2020 14:08 EST Electronically signed by Rajan [facility] Conversion Life Assurance Representative Cerner at 07/20/2022 12:51 PM CDT documented in this encounter Plan of Treatment Not on file documented as of this encounter Visit Diagnoses Not on filedocumented in this encounter
--- OUTSIDE RECORDS SUMMARY | 2024-12-26 07:04 | XMS_ITS | Encounter Summary ---
Author Organization [employer] ([place], [place], [place], [place]) Address [address] [place] [address] Care Team Providers Care Pattern Finisher Name Role Phone Unavailable Primary Care Provider Unavailabl e Encounter Details Date Type Department Care Team (Late st Contact Info) Description 04/16/2020 Transcribed Document [facility] [facility] [place] [address] ProviderLizabeth MD [address] [place] [address] Social History Tobacco Use Types [...] Note - Lizabeth Whitehead MD - 04/16/2020 2:58 PM ELECTRIC SERVICEMAN Patient Education Materials Follows: What to expect after the Procedure: After the procedure, it is common to have: ?? Pain and swelling. ?? A small amount of blood or clear fluid coming from your incision for up to 7 days ?? It is normal to have a moderate amount of bleeding from the site of the drain that was pulled on the morning after surgery. You can hold pressure on the area for 3-5 minutes and cover with a bandage as needed. Diet: ?? Resume usual diet ?? No alcoholic beverages while taking pain medication ?? Drink 8-10 glasses of water a day to prevent constipation from pain medication ?? Increase fiber to help prevent constipation. Straining can cause increased pressure and pain in your incision area ?? Increase protein to promote healing Driving: ?? Do not drive until your health care provider approves. Ask your health care provider when it is safe to drive if you have an immobilizer on your knee. ?? Do not drive or operate heavy machinery while taking prescription pain medicine. ?? Do not drive for 24 hours if you received a sedative. Activity: ?? Do not lift anything that is heavier than 10 lb (4.5 kg) until your health care provider approves. ?? No strenuous activity ?? Avoid high-impact activities, including running, jumping rope, and jumping jacks. ?? Avoid sitting for a long time without moving. Get up and move around at least every few hours. ?? Keep legs elevated while seated and place surgery leg on 2-3 pillows, this will decrease swelling ?? Continue using walker until cleared by physical therapy Bathing: ?? Do not take baths, swim, or use a hot tub for one month after surgery. ?? May shower on the third day after surgery by covering incision with Glad Brand Press and Seal saran wrap. After showering, dry off completely BEFORE removing saran wrap. ?? Use Press and Seal saran wrap to shower for one month after surgery ?? You must be seated to shower until you are no longer using the walker Other: ?? Use ice therapy for 20-30 minutes at a time and leave off for 20-30 minutes at a time. Always keep a towel or cloth between the ice pack and your skin ?? Continue to use Incentive Spirometer 10 times an hour while awake for one month to help prevent pneumonia ?? DO NOT CHANGE!!!! Leave mepilex AG or Aquacel in place until follow-up. If needed reinforce with Abds and kat wrap. ?? ASA 325mg twice a day for 30 days. Contact a health care provider if: ?? You have more redness, swelling, or pain around your incision. ?? You have more fluid or blood coming from your incision. ?? Your incision or drain site feels warm to the touch. ?? You have pus or a bad smell coming from your incision. ?? You have a fever. ?? Your incision breaks open after your health care provider removes your sutures, skin glue, or adhesive tape. ?? Your prosthesis feels loose. ?? You have knee pain that does not go away. Get help right away if you have: ?? pain or swelling in your calf or thigh ?? shortness of breath or difficulty breathing ?? chest pain DVT: Blood Clot Blood clots are a common risk after an orthopedic surgery Symptoms: ?? Swelling of your leg or arm, especially if one side is much worse. ?? Warmth and redness of your leg or arm, especially if one side is much worse. ?? Pain in your arm or leg. If the clot is in your leg, symptoms may be more noticeable or worse when you stand or walk. ?? A feeling of pins and needles, if the clot is in the arm. The symptoms of a DVT that has traveled to the lungs (pulmonary embolism, PE) usually start suddenly and include: ?? Shortness of breath while active or at rest. ?? Coughing or coughing up blood or blood-tinged mucus. ?? Chest pain that is often worse with deep breaths. ?? Rapid or irregular heartbeat. ?? Feeling light-headed or dizzy. ?? Fainting. ?? Feeling anxious. ?? Sweating. There may also be pain and swelling in a leg if that is where the blood clot started. How is this prevented? ?? Exercise regularly. For at least 30 minutes every day, engage in: -Activity that involves moving your arms and legs. -Activity that encourages good blood flow through your body by increasing your heart rate. ?? Exercise your arms and legs every hour during long-distance travel (over 4 hours). ?? Drink plenty of water and avoid drinking alcohol while traveling. ?? Avoid sitting or lying in bed for long periods of time without moving your legs. ?? Maintain a weight that is appropriate for your height. Ask your health care provider what weight is healthy for you. ?? If you are a woman who is over 35 years of age, avoid unnecessary use of medicines that contain estrogen. These include control pills. ?? Do not smoke, especially if you take estrogen medicines. If you need help quitting, ask your health care provider. ?? Wear compression stockings (if told by your health care provider) to help prevent blood clots from forming. High Fiber/High Protein Diet High fiber foods: To prevent constipation Grains Whole-grain breads. Multigrain cereal. Oats and oatmeal. Brown rice. Barley. Bulgur wheat. Millet. Bran muffins. Popcorn. Aledo wafer crackers. Vegetables Sweet potatoes. Spinach. Kale. Artichokes. Cabbage. Broccoli. Green peas. Carrots. Squash. Fruits Berries. Pears. Apples. Oranges. Avocados. Prunes and raisins. Dried figs. Meats and Other Protein Sources [place], kidney, meza, and soy beans. Split peas. Lentils. Nuts and seeds. Dairy Fiber-fortified yogurt. Beverages Fiber-fortified soy milk. Fiber-fortified orange juice. Other Fiber bars. High-protein foods: To promote healing High-protein foods contain 4 grams (4 g) or more of protein per serving. They include: ?? Beef, ground sirloin (cooked) ??? 3 oz have 24 g of protein. ?? Cheese (hard) ??? 1 oz has 7 g of protein. ?? Chicken breast, boneless and skinless (cooked) ??? 3 oz have 13.4 g of protein. ?? Cottage cheese ??? 1/2 cup has 13.4 g of protein. ?? Egg ??? 1 egg has 6 g of protein. ?? Fish, filet (cooked) ??? 1 oz has 6???7 g of protein. ?? Garbanzo beans (canned or cooked) ??? 1/2 cup has 6???7 g of protein. ?? Kidney beans (canned or cooked) ??? 1/2 cup has 6???7 g of protein. ?? [place] (cooked) ??? 3 oz has 24 g of protein. ?? Milk ??? 1 cup (8 oz) has 8 g of protein. ?? Nuts (peanuts, pistachios, almonds) ??? 1 oz has 6 g of protein. ?? Peanut butter ??? 1 oz has 7???8 g of protein. ?? Pork tenderloin (cooked) ??? 3 oz has 18.4 g of protein. ?? Pumpkin seeds ??? 1 oz has 8.5 g of protein. ?? Soybeans (roasted) ??? 1 oz has 8 g of protein. ?? Soybeans (cooked) ??? 1/2 cup has 11 g of protein. ?? Soy milk ??? 1 cup (8 oz) has 5???10 g of protein. ?? Soy or vegetable erik ??? 1 erik has 11 g of protein. ?? Erhard seeds ??? 1 oz has 5.5 g of protein. ?? Tofu (firm) ??? 1/2 cup has 20 g of protein. ?? Tuna (canned in water) ??? 3 oz has 20 g of protein. ?? Yogurt ??? 6 oz has 8 g of protein. Fall Prevention ?? Use night lights. ?? Install grab bars by the toilet and in the tub and shower. Do not use towel bars as grab bars. ?? Use non-skid mats or decals on the floor of the tub or shower. ?? If you need to sit down while you are in the shower, use a plastic, non-slip stool. ?? Keep the floor dry. Immediately clean up any water that spills on the floor. ?? Remove soap buildup in the tub or shower on a regular basis. ?? Remove throw rugs and other tripping hazards from the floor. ?? Place frequently used items in [id number] places ?? Keep electrical cables out of the way. ?? Do not leave any items on the stairs. ?? Make sure that there are handrails on both sides of the stairs. Fix handrails that are broken or loose. Make sure that handrails are as long as the stairways. ?? Check any carpeting to make sure that it is firmly attached to the stairs. Fix any carpet that is loose or worn. ?? Avoid having throw rugs at the top or bottom of stairways, or secure the rugs with carpet tape to prevent them from moving. ?? Wear closed-toe shoes that fit well and support your feet. Wear shoes that have rubber soles or low heels. ?? Use mobility aids as needed, such as canes, walkers, scooters, and crutches. ?? Turn on lights if it is dark. Replace any light bulbs that burn out. ?? Set up furniture so that there are clear paths. Keep the furniture in the same spot. ?? Be aware of any and all pets. ?? Review your medicines with your healthcare provider. Some medicines can cause dizziness or changes in blood pressure, which increase your risk of falling. Hand Washing You should wash your hands whenever you think they are dirty. You should also wash your hands: ??? After: ?? Working or playing outside. ?? Touching an animal or its toys or leash. ?? Handling livestock. ?? Using the bathroom. ?? Using household financial retirement plan specialist or toxic chemicals. ?? Touching or taking out the garbage. ?? Touching anything dirty around your home. ?? Handling soiled clothes or rags. ?? Taking care of a sick child. This includes touching used tissues, toys, and clothes. ?? Sneezing, coughing, or blowing your nose. ?? Using public transportation. ?? Shaking hands. ?? Using a phone, including your mobile phone. ?? Touching money. ??? Before and after: ?? Preparing food. ?? Feeding a baby or young child. ?? Eating. ?? Visiting or taking care of someone who is sick. ?? Changing a diaper. ?? Changing a bandage (dressing) or taking care of an injury or wound. ?? Giving or taking medicine. If soap and clean water are not available, use an alcohol-based wipe, spray, or hand gel. Use a hand-sanitizing agent that contains at least 60% alcohol. If you are preparing food, hand sanitizers are not recommended as a substitute for hand washing. Walker Use To Walk With a Front-Wheeled Walker: 1. Slide your front-wheeled walker one step-length in front of you. Your toes should be farther forward than the back legs of your walker. 2. Hold on to the walker for support, and step your weaker (surgery) leg into the middle of the walker. 3. Step your stronger leg forward to land next to your weaker leg. 4. Repeat the process for each step. ?? Always keep both feet within the width of the walker's legs or wheels. ?? When using your walker, you should not feel like you need to lean forward or to the side to keep your hands on the handgrips. ?? Make sure you are following any weight-bearing instructions that your health care provider has given you. ?? Be careful not to let the walker get too far ahead of you as you walk. ?? If your walker does not glide well over carpet, consider cutting an X into two tennis balls and placing the balls over the back legs of your walker. How to use a walker on a curb or step To Use a Walker to Step Up: 1. Put all four legs of the walker on the curb or step. 2. Get your feet as close to the curb or step as you can. 3. Test the steadiness of the walker by pressing down on the handgrips. 4. If the walker is steady, press down on it with your hands as you step up with your stronger leg. 5. Step up with your weaker leg. To Use a Walker to Step Down: 1. Put all four legs of the walker on the surface that is lower than the curb or step. 2. Get your feet as close to the curb or step as you can. 3. Test the steadiness of the walker by pressing down on the handgrips. 4. If the walker is steady, press down on it with your hands as you step down with your weaker leg. 5. Step down with your stronger leg. documented in this encounter Plan of Treatment Not on file documented as of this encounter Visit Diagnoses Not on filedocumented in this encounter
--- OUTSIDE RECORDS SUMMARY | 2024-12-26 07:04 | XMS_ITS | Encounter Summary ---
Author Organization [employer] ([place], [place], [place], [place]) Address [address] [place] [address] Care Team Providers Care Petroleum Production Engineer Name Role Phone Unavailable Primary Care Provider Unavailabl e Encounter Details Date Type Department Care Team (Late st Contact Info) Description 04/15/2020 Transcribed Document [facility] [place] [address] ProviderLizabeth MD [facility] [place] [id number] Social History Tobacco Use Types Packs/Day Years Used Date Smoking Tobacco: Never Assessed Sex and Gender Information Value Date Recorded Sex Assigned at Male 09/27/2021 8:47 PM CDT Legal Sex Male 8:47 PM CDT Gender Identity Male 09/27/2021 8:47 PM CDT Sexual Orientation Not on file documented as of this encounter Miscellaneous Notes * Cerner Conversion Note - Lizabeth Whitehead MD - 04/15/2020 12:32 PM SOLVENT MIXER Patient: FAY FONTENOT Age: 60 years Sex: Male : 1960 Associated Diagnoses: None Author: DEAN FOSTER MD-ORT DATE OF PROCEDURE: SURGEON: Dean Castano M.D. NITROGEN OPERATOR: Assistance was required to help with patient transfer, wound exposure, alignment, increased efficiency, wound closure and dressing. ANESTHESIA: General. PROCEDURE: Left total hip arthroplasty through anterior approach. PREOPERATIVE DIAGNOSIS(ES): Left hip end-stage chronic primary osteoarthritis. Obesity: The patient's increased BMI made the procedure more difficult in all aspects including but not limited to exposure, tissue manipulation, visualization of anatomy and alignment and generally increased physical effort. POSTOPERATIVE DIAGNOSIS(ES): Same COMPLICATIONS: None. ESTIMATED BLOOD LOSS: 350 mL with cell saver. PATHOLOGY: Routine bone. COMPONENTS USED: Altcom System size 9 Std femur, 36 mm ceramic head, +0 mm neck, 58 mm Altcom shell. DESCRIPTION OF PROCEDURE: With the patient in supine position under general anesthesia and appropriate preoperative marking, time-out, and antibiotics, the hip was prepped and draped in the usual manner. The proximal and distal extent of the incision were marked under image intensifier. An oblique incision was made anterior to the greater trochanter and posterior to the anterior superior iliac spine, between the above anne. Dissection was carried down through subcutaneous tissue to the fascia over the tensor fascia clementine muscle. The fascia was divided and the anterior edge of the tensor fascia clementine muscle exposed and retracted laterally. The interval between vastus lateralis and rectus femoris was identified and opened. We identified the perforating vessels, cauterized them and divided them. A retractor was placed over the superior neck of the femur laterally under the abductors. This helped to expose the anterior capsular fat. Retractor was placed under the inferior neck and further one superiorly over the edge of the pelvis to expose the anterior capsule. Precapsular fat was removed. The anterior capsule was excised as was any bony osteophyte and labrum. Proximal femur was osteomized at the level of the axilla of the neck and the greater trochanter. The power corkscrew was used to remove the femoral head. The acetabulum was exposed with anterior retractor and Weitlander between tensor and rectus. The acetabulum was progressively reamed for a press fit of the Logical cup and was placed with good fit. The final liner was placed. The femur was externally rotated to place the neck base vertical. The foot was dropped and the leg adducted over the leg post under the nonoperative leg. The medial capsule was released off from the femoral neck down to the lesser trochanter. Capsule was released from lateral and anterior greater trochanteric surface. Retractors were placed proximal to the lesser trochanter medially and one under the greater trochanter proximally. Proximal femur was prepared with the box osteotome followed by the canal finder. We progressively broached up to size. A trial head and neck were placed, and we confirmed equal leg lengths with an x-ray machine and good position of all the components as well as sizing. The trial components removed and the final size stem and head-neck was placed. The wound was thoroughly irrigated with saline. The wound was instilled with topical tranexamic acid. Hemovac drain was placed to continue blood collection in PACU. The interval between the fascia over the tensor fascia clementine and anterior musculature was closed with absorbable barbed suture. Likewise for subcutaneous tissue. The skin was closed with Prenea. It was dressed wih a Mihir. Patient tolerated the procedure well. The patient was taken to recovery room in satisfactory condition. Electronically signed by Chris Tolentino Conversion Local Owner Operator Truck Driver Cerner at 07/20/2022 1:15 PM CDT documented in this encounter Plan of Treatment Not on file documented as of this encounter Visit Diagnoses Not on filedocumented in this encounter
--- OUTSIDE RECORDS SUMMARY | 2024-12-26 07:04 | XMS_ITS | Encounter Summary ---
Author Organization [employer] ([place], [place], [place], [place]) Address [address] [place] [address] Care Team Providers Care Clinical Resource Nurse Name Role Phone Unavailable Primary Care Provider Unavailabl e Encounter Details Date Type Department Care Team (Late st Contact Info) Description 04/16/2020 Transcribed Document [facility] [address] [place] [address] ProviderLizabeth MD [address] [place] [address] Social History Tobacco Use Types [...] - Lizabeth Whitehead MD - 04/16/2020 12:00 AM CANOE MAKER Pain Assessment Entered On: 04/16/2020 3:12 EST Performed On: 04/16/2020 0:11 EST by Indiana Chong RN Intervention Information: acetaminophen Performed by Indiana Chong RN on 04/15/2020 23:11:00 EST acetaminophen,650mg Oral Pain Assessment Pain Assessment : Follow-up assessment Pain Scale Goal : 2 Pain Scale Used : 0-10 Scale Indiana Chong RN - 04/16/2020 3:12 EST Pain Scale Intensity : 2 Indiana Chong RN - 04/16/2020 3:12 EST Image 4 - Images currently included in the form version of this document have not been included in the text rendition version of the form. documented in this encounter Plan of Treatment Not on file documented as of this encounter Visit Diagnoses Not on filedocumented in this encounter
--- OUTSIDE RECORDS SUMMARY | 2024-12-26 07:04 | XMS_ITS | Encounter Summary ---
Author Organization [employer] ([place], [place], [place], [place]) Address [address] [place] [address] Care Team Providers Care Tool Setter Apprentice Name Role Phone Unavailable Primary Care Provider Unavailabl e Encounter Details Date Type Department Care Team (Late st Contact Info) Description 04/15/2020 Transcribed Document [facility] [place] [address] [place] [address] ProviderLizabeth MD [address] [place] [address] Social History Tobacco Use [...] Conversion Note - Lizabeth ProviderMD - 04/15/2020 8:19 AM MEMORIAL ADVISER Pre Procedure Adult Entered On: 04/15/2020 8:21 EST Performed On: 04/15/2020 8:19 EST by Mireya Baires RN Height and Weight, Clinical Dosing Height Source : Stated Height Entry Format : Marielos Height, Feet : 5 ft(Converted to: 152 cm, 60 Inch) Height, Inches : 9 Inch(Converted to: 0 ft 9 Inch, 22.86 cm) Clinical Height : 175.26 cm Weight Source : Standing scale Weight Entry Format : Mireya Carvalho RN - 04/15/2020 8:19 EST Clinical Dosing Weight : 147.73 kg Weight, Pounds : 325 lb Body Surface Area (BSA) : 2.54 m2 Body Mass Index : 48.1 kg/m2 (>HHI) Mireya Baires RN - 04/15/2020 8:41 EST [place] Body Weight : 70 kg Mireya Baires RN - 04/15/2020 8:19 EST Health Histories Implant/Device Type, Crab Fisher and Model : left heel metal s/p achilles repair hernia repair mesh Mireya Baires RN - 04/15/2020 9:19 EST Smoking Status : Never (less than 100 in lifetime; none in last 30 days) Smokeless Tobacco Status : Never Mireya Baires RN - 04/15/2020 8:19 EST Social History (As Of: 04/15/2020 09:20:10 EST) Tobacco: Never (less than 100 in [...] 04/05/2020 10:46:46 EST by Kiya Pineda RN) Infectious Disease History Where are the test results? : In EMR Results Mireya Baires RN - 04/15/2020 8:41 EST Has the patient ever been tested for COVID-19? : Yes, Patient stated results Negative Date of COVID-19 test known? : Yes Date of COVID-19 Test : 04/13/2020 EST Does patient have symptoms of COVID-19? : No COVID19 Screening : No Experiencing Infectious Disease Symptoms : No symptoms Physical contact outside [place] in the last 30 days : No Infectious Disease History : None Tuberculosis Symptoms : None Mireya Baires RN - 04/15/2020 8:19 EST COVID19 PreProcedure Screening Is this an Emergent or Add on Procedure? : No Date PreProcedure COVID-19 test known? : Yes Date of PreProcedure COVID-19 : 04/13/2020 EST Has patient been isolated since the test : Yes Exposed to COVID19 symptoms since test? : No Mireya Baires RN - 04/15/2020 8:19 EST Anesthesia/Transfusion History Family History of Anesthesia Reaction : No prior transfusion(s) Transfusion History : Prior anesthesia without reaction Family History of Anesthesia Reaction : None Mireya Baires RN - 04/15/2020 8:19 EST Functional Assessment Patient Lives With : Spouse Mobility Assistance Prior to Admission : Independent AMATO Hx Falls Immediate/Within 3 Months : No Current Home Treatments : CPAP Mireya Baires RN - 04/15/2020 8:41 EST Living Situation : Home Mireya Baires RN - 04/15/2020 8:19 EST [place] Suicide Severity Rating Scale (C-SSRS) CSSRS Past Month Wish to be : No CSSRS Past Month Suicidal Thoughts : No CSSRS Lifetime Suicide Behavior : No Suicide Severity Rating Score : 0 Suicide Severity Rating : No Additional Care Required at this time Mireya Baires RN - 04/15/2020 8:19 EST Psychosocial History Currently in Unsafe Situation : No Mireya Baires RN - 04/15/2020 8:19 EST Advance Directive Patient has Advance Directive *Q : No, patient refuses Advance Directive information Mireya Baires RN - 04/15/2020 8:19 EST General Info Legal Guardian : Unaccompanied Mireya Baires RN - 04/15/2020 8:41 EST Arrived From : Home Mode of Arrival on Unit : Ambulatory Patient Arrival Date/Time : 04/15/2020 7:50 EST Support Person/Pt Rep Name : Chuyita Fontenot Want Family/Rep/Phys Notified of Admit : No Emergency Contact #1 : Bony Po Emergency Contact #1 Emergency Contact #1 Relationship : son Emergency Contact #2 : . Emergency Contact #2 Phone Number : . Emergency Contact #2 Relationship : . Primary Language : Montenegrin Communication Barrier : None Electrician Research Needed : No Mireya Baires RN - 04/15/2020 8:19 EST Vital Measurements Temperature Source : Temporal artery scanning Temperature Mode : Fahrenheit Temperature, Fahrenheit : 98.7 Deg F Clinical Temperature, C : 37.1 Deg C Peripheral Pulse Rate : 91 bpm Pulse Rhythm : Regular Respiratory Rate : 16 Breaths/Min Systolic Blood Pressure : 153 mmHg (HI) Diastolic Blood Pressure : 89 mmHg Oxygen Saturation : 95 % Oxygen Therapy Mode : Room air Mireya Baires RN - 04/15/2020 8:41 EST Sleep Apnea Risk Assmt BiPAP/CPAP Ordered for Home Use : Yes Hx of Obstructive Sleep Apnea Diagnosis : Yes BiPAP/CPAP Used at Home : Yes Age over 50 Years Old : Yes Gender Male : Yes Mireya Baires RN - 04/15/2020 8:19 EST Azar Scale Azar Sensory Perception : No impairment Azar Moisture : Rarely moist Azar Activity : Walks frequently Azar Mobility : Slightly limited Azar Nutrition : Excellent Azar Friction and Shear : No apparent problem Azar Score : 22 Mireya Baires RN - 04/15/2020 8:19 EST Oxygen Therapy Oxygen Therapy Mode : Room air Mireya Baires RN - 04/15/2020 8:19 EST Pain Assessment Pain Assessment : Initial assessment Pain Scale Used : 0-10 Scale Mireya Baires RN - 04/15/2020 8:41 EST Fall Risk Scales ABCs Fall Injury Risk Identification : None Mireya Baires RN - 04/15/2020 8:19 EST AMATO Hx Falls Immediate/Within 3 Months : No Mireya Baires RN - 04/15/2020 8:41 EST Amato Secondary Diagnosis : Yes AMATO Use of Ambulatory Aid : None AMATO IV Therapy or IV Access : Yes [place] Gait/Transferring : Normal, bedrest, immobile [place] Mental Status : Oriented to own ability Mireya Baires RN - 04/15/2020 8:19 EST [place] Fall Risk Score : 35 Mireya Baires RN - 04/15/2020 8:41 EST AMATO Fall Scale Risk Level : 46 or > High Risk [place] Fall Interventions : Adequate lighting, Bed in low position, Call device within reach, Fall prevention handout/education per facility policy, Frequent orientation to call device, Frequent orientation to surroundings, Hourly comfort/safety rounds, Non-slip footwear, Personal items within reach, Reinforced to call for assistance before getting out of bed, Room free of clutter/spills, Upper side-rails up, Wheels locked, Wires/Cords secured Mireya Baires RN - 04/15/2020 8:19 EST Fall Risk Education Grid Call light use : Verbalizes understanding Nonskid Footwear Use : Verbalizes understanding Prevention Responsibility Patient : Verbalizes understanding Wait for Assistance : Verbalizes understanding Mireya Baires RN - 04/15/2020 8:19 EST Barriers to Learning : None evident Learning Style Preferences Family : None Learning Style Preferences Patient : None Mireya Baires RN - 04/15/2020 8:19 EST Valuables and Belongings Personal Device Disposition : Sent to locker, Declines to send to security/safe Personal Devices : Glasses Personal Items : Cell phone Personal Items Disposition : Sent to locker, Declines to send to security/safe Valuables and Belongings : Clothing, Personal devices, Personal items Mireya Baires RN - 04/15/2020 8:41 EST Clothing : Common streetwear Clothing Disposition : Bedside, Declines to send to security/safe Mireya Baires RN - 04/15/2020 8:19 EST Pain Scale Intensity : 0 Mireya Baires RN - 04/15/2020 8:41 EST Image 4 - Images currently included in the form version of this document have not been included in the text rendition version of the form. [place] Coma Ck Best Motor Response : Obey commands Ck Best Verbal Response : Oriented [place] Eye Opening Response : Spontaneous [place] Coma Score : 15 Mireya Baires RN - 04/15/2020 8:19 EST Electronically signed by Chris Tolentino Conversion Commercial Property Manager Cerner at 07/20/2022 1:05 PM CDT documented in this encounter Plan of Treatment Not on file documented as of this encounter Visit Diagnoses Not on filedocumented in this encounter
--- OUTSIDE RECORDS SUMMARY | 2024-12-26 07:04 | XMS_ITS | Encounter Summary ---
Author Organization [employer] ([place], [place], [place], [place]) Address [address] [place] [address] Care Team Providers Care Sample Coordinator Name Role Phone Unavailable Primary Care Provider Unavailabl e Encounter Details Date Type Department Care Team (Late st Contact Info) Description 05/12/2020 Transcribed Document [facility] [place] [address] [place] [address] ProviderLizabeth MD [address] [place] [address] Social History Tobacco Use Types [...] Note - Lizabeth Whitehead MD - 05/12/2020 3:05 PM DYE EXPERT Patient: FAY FONTENOT Age: 60 years Sex: Male : 1960 Associated Diagnoses: None Author: WING YE MD-INT 05/12/2020 Next Hospitalist medicine discharge in progress note, internal medicineWing MD Basic Information ???Seen and examined, today ???Doing well ???Had a good night last [...] discussed with the patient ???Released by Dr. Maxwell and Dr. Starr to go home ???Discharge medications seen, reviewed and reconciled ???DVT prophylaxis and anticoagulation as per Dr Castano protocol ???Patient wants and excited to [...] oriented X4, no dizziness. Health Status Allergies: Allergies (1) Active Reaction penicillin rash Current medications: Medications (27) Active Scheduled: (7) acetaminophen 325 mg tab 650 mg 2 Tab, Oral, Q6HInt amoxicillin/clav 875/125 mg tab 875 mg 1 Tab, Oral, BID aspirin EC 325 mg tab 325 mg 1 Tab, Oral, BID linezolid 600 mg tab 600 mg 1 Tab, Oral, Q12H naproxen 250 mg tab 250 mg 1 Tab, Oral, Q6H pregabalin 75 mg cap 75 mg 1 Cap, Oral, [id number] tranexamic acid 1,000 mg + syringe 1 Each + NaCl 0.9% 20 mL 1,000 mg 10 mL, Topical, 1-Time Continuous: (3) D5/LR 1,000 mL 1,000 mL, IntraVENous, 100 mL/Hr NaCl 0.9% 1,000 mL 1,000 mL, IntraVENous, 100 mL/Hr NaCl 0.9% 1,000 mL 1,000 mL, IntraVENous, 100 mL/Hr [...] Oral, Q6H phenol 1.4% throat spray 5 [place], Oral, Q2H promethazine 25 mg tab 12.5 [...] Sleep apnea Physical Examination VS/Measurements Vital Measurements 05/12/2020 13:34 EST Systolic Blood Pressure 155 mmHg HI Diastolic Blood Pressure 80 mmHg Mean Arterial Pressure (MAP)-BMDI 97 Temperature Source Oral Temperature Mode Fahrenheit Temperature, Fahrenheit 97.4 Deg F Clinical Temperature, C 36.3 Deg C Heart Rate Monitored 96 bpm Oxygen Saturation 96 % General: Alert and oriented, No acute [...] swelling. Integumentary: Warm, Intact, No rash, WOUND STABLE, WOUND STABLE. Neurologic: Alert, Oriented, No focal deficits. Psychiatric: Cooperative, Appropriate mood & affect. Review / Management Results review: All Results 05/12/2020 4:07 EST Sodium Level 136 mmol/L Potassium Level 4.6 mmol/L Chloride Level 103 mmol/L Carbon Dioxide Level 24 mmol/L Anion Gap 14 Glucose Level 134 mg/dL HI Blood Urea Nitrogen 14 mg/dL Creatinine Level 1.00 mg/dL eGFR >60 mL/min/1.73m2 eGFR NonAfrican >60 mL/min/1.73m2 Bun/Creatinine 14.0 Calcium Level 9.5 mg/dL Protein Total 7.0 Gram/dL Albumin Level 3.6 Gram/dL Globulin 3.4 Gram/dL A/G Ratio 1.1 Bilirubin Total 0.4 mg/dL Alk Phos 140 Units/Liter HI AST 23 Units/Liter ALT 44 Units/Liter CRP 0.4 mg/dL WBC 10.9 K/uL HI RBC 4.69 Million/uL Hgb 14.0 Gram/dL Hct 41.8 % MCV 89.1 fL MCH 29.9 pg MCHC 33.5 Gram/dL Platelet Count 281 K/uL MPV 8.6 fL LOW RDW 12.9 % Neut % 82.2 % HI Neut # 8.99 K/uL HI Lymph % 11.7 % LOW Lymph # 1.28 K/uL [place] % 4.8 % [place] # 0.53 K/uL Eos % 0.0 % LOW Eos # 0.00 K/uL LOW Baso % 0.3 % Baso # 0.03 K/uL Sed Rate Auto 34 mm/Hr HI Slide Review No IG# 0 x10(3)/uL IG% 1 % 05/11/2020 13:24 EST Sodium Level 139 mmol/L Potassium Level 4.1 mmol/L Chloride Level 108 mmol/L Carbon Dioxide Level 25 mmol/L Anion Gap 10 Glucose Level 102 mg/dL Blood Urea Nitrogen 14 mg/dL Creatinine Level 1.02 mg/dL eGFR >60 mL/min/1.73m2 eGFR NonAfrican >60 mL/min/1.73m2 Bun/Creatinine 13.7 Calcium Level 9.5 mg/dL Protein Total 8.0 Gram/dL Albumin Level 3.8 Gram/dL Globulin 4.2 Gram/dL A/G Ratio 0.9 LOW Bilirubin Total 0.4 mg/dL Alk Phos 149 Units/Liter HI AST 23 Units/Liter ALT 46 Units/Liter WBC 7.4 K/uL RBC 4.77 Million/uL Hgb 14.4 Gram/dL Hct 42.7 % MCV 89.5 fL MCH 30.2 pg MCHC 33.7 Gram/dL Platelet Count 274 K/uL MPV 8.8 fL LOW RDW 13.3 % Neut % 54.2 % Neut # 4.01 K/uL Lymph % 26.7 % Lymph # 1.98 K/uL [place] % 11.3 % [place] # 0.84 K/uL HI Eos % 5.5 % Eos # 0.41 K/uL Baso % 1.2 % HI Baso # 0.09 K/uL HI Slide Review No IG# 0 x10(3)/uL IG% 1 % ABO/Rh A POS Antibody Screen (Tube) Negative ABSC . Condition: Stable. Discharge Plan Discharge Summary Plan Discharge Status: stable. Orders Order Profile (Selected) Inpatient Orders Ordered Discharge Notification Pharmacy: Start: 05/12/20 15:04:49 EST Discharge: Start: 05/12/20 15:04:00 EST, Discharge to: Home, Other DC instructions: Okay to DC home from medical standpoint tentative discharge by Dr. Castano and by Dr. Starr. Nursing staff and case management to follow on Dr. Starr and Dr. Castano recommend.... Diagnosis 1-postop left hip seroma status post I&D, washout and wound VAC placement 2-s/p L GIANLUCA through anterior approach on 04/15/2020 3-ZITA on CPAP at home 4-morbid obesity with BMI of 46.2 5-osteoarthritis/DJD. Course Improving. Stable. Plan/ pt is HD & CLINICALLY STABLE AFEBRILE OK TO D/C HOME ALL CONSULTANTS AGREE FOR his discharge home. Discussed with Dr. Starr, discussed with Dr. Castano, discussed with shutdown planner discussed with case management. Orders Order Profile (Selected) Prescriptions Prescribed Augmentin 875 mg-125 mg oral tablet: 1 Tab, Oral, Tab, Q12H, # 20 Tab, 0 Refill(s), other reason (Rx) Mobic 15 mg oral tablet: 1 Tab, Oral, Daily, X 14 Day(s), # 14 Tab, 0 Refill(s), other reason (Rx) Ultram 50 mg oral tablet: 1 Tab, Oral, Q6H, PRN Pain (Mild 1-3), 1-2 tablets very 6 hours as needed for mild pain, X 7 Day(s), # 40 Tab, 0 Refill(s), other reason (Rx) Zofran 4 mg oral tablet: 1 Tab, Oral, Q6H, PRN Nausea, # 15 Tab, 0 Refill(s), other reason (Rx) Zyvox 600 mg oral tablet: 1 Tab, Oral, Tab, Q12H, X 10 Day(s), # 20 Tab, 0 Refill(s), other reason (Rx) acetaminophen [...] as needed for pain, 1 tablet every 4-6 hours as needed for moderate pain, 2 tablets every 4-6 hours as needed for severe painn, X 7 Day(s), # 40 Tab, 0 Refill(s), other reason (Rx). Impression and Plan twt 40 mn patient seen and examined, medical record reviewed, labs reviewed, vitals reviewed, medications reviewed and reconciled, discussed with Pharm.D., discussed with the patient, discussed with the staff, discussed with PT/OT, discussed with Dr. Starr, discussed with Dr. Castano discharge orders placed, discharge summary dictated. documented in this encounter Plan of Treatment Not on file documented as of this encounter Visit Diagnoses Not on filedocumented in this encounter
--- OUTSIDE RECORDS SUMMARY | 2024-12-26 07:04 | XMS_ITS | Encounter Summary ---
Author Organization [employer] ([place], [place], [place], [place]) Address [address] [place] [address] Care Team Providers Care Line Operator Name Role Phone Unavailable Primary Care Provider Unavailabl e Encounter Details Date Type Department Care Team (Late st Contact Info) Description 04/16/2020 Transcribed Document [facility] [place] Family Medicine [facility] [address] ProviderLizabeth MD [facility] [place] [address] Social History Tobacco Use Types [...] Note - Lizabeth Whitehead MD - 04/16/2020 10:43 AM CELL INSPECTOR Final Discharge Planning Entered On: 04/16/2020 10:45 EST Performed On: 04/16/2020 10:43 EST by JULES JOSÉ RN-Vibrator Operator Final Discharge Planning Patient Offered Choice/Affiliations Explained : No Follow Up Appointment Scheduled : Yes Is Patient High/Moderate Readmission Risk? : No JULES JOSÉ RN-Vibrator Operator - 04/16/2020 10:47 EST Discharge To Care Management : Home/Residential/Half-Way or Self Care -01, Home Health Services (Related/SOC within 3 days)- JULES JOSÉ RN-Vibrator Operator - 04/16/2020 13:24 EST Discharge Arrangements : Patient Post-Acute Information Patient Name: FAY FONTENOT Gender: Male : [birth year] Age: 60 Years No Post-Acute Placement(s) Listed No Post-Acute Service(s) Listed No [place] Referral(s) Listed Important Medicare Message Reviewed With : Other: NA Important Medicare Message Reviewed D/T : 04/16/2020 0:00 EST Transportation Needs : Family/Friend JULES JOSÉ RN-Vibrator Operator - 04/16/2020 10:43 EST Final Narrative Note Final Narrative Note : I SPOKE WITH Krystin AND CRISTOBAL WITH PHYSICAL THERAPY AND BOTH FEEL PT WILL LIKLEY ONLY NEED HIS WALKER FOR A SHORT PERIOD AND THEREFORE A STANDARD WALKER WOULD BE APPROPRIATE IN THIS PT'S CASE. I ATTEMPTED TO SPEAK WITH THE PT AND HIS REGARDING THEIR DECISION WHETHER TO DO OUPT VS IN HOME PHYSICAL THERAPY. SEVERAL PEOPLE ARE CURRENTLY AT THIS BEDSIDE AND I WILL RETURN TO ADDRESS THEIR DECISION. Krystin WITH PHYSICAL THERAPY WILL SEE THE PT AGAIN LATER TODAY AND CRISTOBAL STATES PT WILL GO HOME WITH A LIST OF EXCERCISES WELL..BOTH CRISTOBAL AND Krystin FEEL WEEKLY THERAPY WOULD BE ACCEPTABLE HE IS DOING WELL WITH THERAPY HERE AT THE HOSPITAL..LM I SPOKE WITH PT AND HIS ..THEY HAVE CHOSEN TO HAVE IN HOME PHYSICAL THERAPY THROUGH [facility] AND COST WAS DISCUSSED WITH THEM. I SPOKE WITH LEE GARBER) AT [facility] AND SHE STATES REGARDLESS OF THE ORDER FOR PHYSICAL THERAPY ONLY ONE OF THEIR NURSES WILL BE INVOLVED TO OPEN THE CASE AND TO CLOSE THE CASE ONCE PT HAS BEEN COMPLETED..EACH NURSE VISIT WILL BE $100.00 AND THERAPIST VISIT $110.00 EACH VISIT.. THIS WAS DISCUSSED WITH MR FONTENOT AND THEY ARE AGREEABLE AND AWARE.. PER DIGNA, THEY CAN BE BILLED MONTHLY AND PAYMENTS CAN BE MADE IF THEY SO DESIRE. DIGNA AKINS START OF CARE WILL BE TOMORROW..NO FURTHER NEEDS IDENTIFIED.. JULES JOSÉ RN-Vibrator Operator - 04/16/2020 13:26 EST Electronically signed by Rajan [facility] Conversion Fuel Cell Technician Cerner at 07/20/2022 1:01 PM CDT documented in this encounter Plan of Treatment Not on file documented as of this encounter Visit Diagnoses Not on filedocumented in this encounter
--- OUTSIDE RECORDS SUMMARY | 2024-12-26 07:04 | XMS_ITS | Encounter Summary ---
Author Organization [employer] ([place], [place], [place], [place]) Address [address] [place] [address] Care Team Providers Care Crib Clerk Name Role Phone Unavailable Primary Care Provider Unavailabl e Encounter Details Date Type Department Care Team (Late st Contact Info) Description 04/16/2020 Transcribed Document [facility] Family Medicine [address] [place] [address] ProviderLizabeth MD [address] [place] [address] Social History Tobacco Use Types Packs/Day Years Used Date Smoking Tobacco: Never Assessed Sex and Gender Information Value Date Recorded Sex Assigned at Male 09/27/2021 8:47 PM CDT Legal Sex Male 8:47 PM CDT Gender Identity Male 09/27/2021 8:47 PM CDT Sexual Orientation Not on file documented as of this encounter Miscellaneous Notes * Makaylaner Conversion Note - Lizabeth Whitehead MD - 04/16/2020 10:00 AM HELP DESK CONSULTANT Pain Assessment Entered On: 04/16/2020 14:47 EST Performed On: 04/16/2020 11:39 EST by Graciela Steve Rn Intervention Information: naproxen Performed by Graciela Steve Rn on 04/16/2020 10:39:00 EST naproxen,250mg Oral Pain Assessment Pain Assessment : Follow-up assessment Pain Scale Goal : 2 Pain Scale Used : 0-10 Scale Graciela Steve Rn - 04/16/2020 14:47 EST Pain Scale Intensity : 2 Graciela Steve Rn - 04/16/2020 14:47 EST Image 4 - Images currently included in the form version of this document have not been included in the text rendition version of the form. documented in this encounter Plan of Treatment Not on file documented as of this encounter Visit Diagnoses Not on filedocumented in this encounter
--- OUTSIDE RECORDS SUMMARY | 2024-12-26 07:04 | XMS_ITS | Encounter Summary ---
Author Organization [employer] ([place], [place], [place], [place]) Address [address] [place] [address] Care Team Providers Care Demand Manager Name Role Phone Unavailable Primary Care Provider Unavailabl e Encounter Details Date Type Department Care Team (Late st Contact Info) Description 05/11/[address] [facility] [place] Medicine [address] [place] [address] ProviderLizabeth MD [address] [place] [address] Social History Tobacco Use Types [...] Note - Lizabeth Whitehead MD - 05/11/2020 4:59 PM FIREARMS INSTRUCTOR Readmission Questionnaire Entered On: 05/11/2020 17:01 EST Performed On: 05/11/2020 16:59 EST by TUSHAR RUEDA RN Readmission Questionnaire Information Obtained From : Patient Date Of Last Or Previous Hospitalization : 04-15-20 to 04-16-20. TUSHAR RUEDA RN - 05/11/2020 17:02 EST Patient Status at Discharge, Previous Admission : Outpatient Did Patient Leave AMA Pre Admission : No Readmission : Unplanned Readmission Reason: : Patient seen by doctor and referred to hospital ED Visit Between Hospitalization : No DC Destination, Previous Admission : No qualifying data available. If DC Home/Self Previous Admission Patient Lives : With family including spouse Was Follow Up Visit Scheduled Prior to DC : Yes Did Patient Go To Follow Up Visit : Yes If HH Previous Admission was Patient Seen by HH : Yes Were Patient's Meds Filled Prior to DC : Yes Did Patient Have Own Medications Filled : Yes Did Patient Take Medications as Prescribed : Yes Patient Try to See MD Before Return to Hospital : Yes PT Received Nursing DC Information on Previous Adm : Yes Teachback Documented on Previous Admission : Yes Did Patient Understand DC Instructions : Yes Understand What You Need To Do To Care For Self : Yes Did You Have Any Other Questions Or Concerns : No Could Hospital Have Prevented Readmission : No Social Factors in Readmission : Other: na CM/SW Assessment of Reason Admitted : Post-op complication Readmission Related to Previous Admission : Yes Was DC Phone Call Received : No Per Readm Questionnaire Was Readm Preventable : No TUSHAR RUEDA RN - 05/11/2020 16:59 EST Electronically signed by Rajan [facility] Conversion Inspector Clip On Sunglasses Cerner at 07/20/2022 12:50 PM CDT documented in this encounter Plan of Treatment Not on file documented as of this encounter Visit Diagnoses Not on filedocumented in this encounter
--- OUTSIDE RECORDS SUMMARY | 2024-12-26 07:04 | XMS_ITS | Encounter Summary ---
Author Organization [employer] ([place], [place], [place], [place]) Address [address] [place] [address] Care Team Providers Care Vp Compliance Name Role Phone Unavailable Primary Care Provider Unavailabl e Encounter Details Date Type Department Care Team (Late st Contact Info) Description 04/15/[address] [facility] [place] Family Medicine [address] [place] [address] ProviderLizabeth MD [address] [place] [address] Social History Tobacco Use Types [...] - Lizabeth ProviderMD - 04/15/2020 2:20 PM OIL AND GAS RECRUITER Pain Assessment Entered On: 04/16/2020 14:47 EST Performed On: 04/16/2020 9:38 EST by Graciela Steve Rn Intervention Information: oxyCODONE Performed by Graciela Steve Rn on 04/16/2020 08:38:00 EST oxyCODONE,5mg Oral,Pain (Moderate 4-6) Pain Assessment Pain Assessment : Follow-up assessment [...]
--- OUTSIDE RECORDS SUMMARY | 2024-12-26 07:04 | XMS_ITS | Encounter Summary ---
Author Organization [facility] ([place], [place], [place], [place]) Address [address] [place] [address] Care Team Providers Care Skein Washer Name Role Phone Unavailable Primary Care Provider Unavailabl e Encounter Details Date Type Department Care Team (Late st Contact Info) Description 04/16/2020 Transcribed Document [facility] Family Medicine [address] [place] [address] ProviderLizabeth MD [address] [place] [address] Social History Tobacco Use Types [...] Lizabeth Whitehead MD - 04/16/2020 2:58 PM [employer] ASSISTANT [place] [id number] FAY FONTENOT :1960 Visit Time:04/15/2020 Your Visit Summary Your Care Team Admitting Physician - NEGRA FOSTER MD-ORT Attending Physician - NEGRA FOSTER MD-ORT Primary Care Physician - JHONY DYKES (REF), ADRIANO Referring Physician - NEGRA FOSTER MD-ORT Your Diagnosis Unilateral primary osteoarthritis, left hip, Unilateral primary osteoarthritis, left hip These Are Your Goals To walk better Discharge Vitals Temperature 36.9 ??C Heart Rate (Monitored) 97 Respiratory Rate 16 Blood Pressure 145/81 What to do next Instructions From Your Care Team [facility] [phone] PT HAS WALKER AT HOME Discharge Follow Up Instructions: Follow-up with Dr. Castano as scheduled, Order Comment: Follow-up with PCP as scheduled or PRN Activity: As Per l Dr. Castano recommendations, Discharge Activity: Other (use Special Instructions) Diet: Discharge Diet: Resume usual diet as tolerated Follow-Up Appointments Follow Up with NEGRA FOSTER When 04/29/2020 09:45 AM EST Where: [facility] [address] [place] [address]- [facility] (1) Medications What How Much When Instructions Next Dose acetaminophen (acetaminophen 500 mg oral tablet) 2 Tablet(s) Oral Three Times A Day Duration: 30 Day(s) tonight aspirin (aspirin 81 mg oral delayed release tablet) 1 Tablet(s) Oral Two Times A Day Duration: 6 weeks tonight docusate (docusate sodium 100 mg oral capsule) 1 Capsule(s) Oral Two Times A Day as needed for as needed for constipation Duration: 30 Day(s) as needed meloxicam (Mobic 15 mg oral tablet) 1 Tablet(s) Oral Every Day Duration: 14 Day(s) do not take with other NSAIDs (like ibuprofen or naproxen) tomorrow ondansetron (Zofran 4 mg oral tablet) 1 Tablet(s) Oral Every 6 Hours as needed for Nausea Duration: 7 Day(s) as needed oxyCODONE (oxyCODONE 5 mg oral tablet) 1 Tablet(s) Oral Every 6 Hours as needed for as needed for pain Duration: 7 Day(s) 1 tablet every 6 hours as needed for moderate pain, 2 tablets every 6 hours as needed for severe pain as needed traMADol (Ultram 50 mg oral tablet) 1 Tablet(s) Oral Every 6 Hours as needed for Pain (Mild 1-3) Duration: 7 Day(s) 1-2 tablets every 6 hours as needed for mild pain as needed Take your medications faithfully. Do NOT skip medication. Do NOT stop taking medications without the direction of a physician. Carry a list of your medications with you at all times, and take this medication list with you to your first follow up visit. Report any side effects. Avoid herbal remedies unless discussed with your physician. As part of your treatment plan, your physician may have prescribed a limited course of a controlled substance. This medication may be given to help people with moderate or severe pain or for other medical conditions, but there are risks involved with treatment. Common side effects may include nausea, constipation, drowsiness, sweating, itching, dry mouth, and rash. More serious side effects may include cognitive and motor impairment, like problems with thinking, concentrating, alertness, and movement (e.g. slowed reflexes), and driving and operating heavy machinery can be dangerous. It is important for you to talk to your physician if you have these side effects or questions. These controlled substances can produce physical dependence and be habit-forming if taken for an extended period of time, which means that the body has gotten used to them and may experience withdrawal symptoms if they are abruptly stopped. Withdrawal symptoms can include runny nose, sweating, goose bumps, diarrhea, abdominal cramping, rapid heartbeat, difficulty sleeping, and nervousness. Please dispose of unused and medications per your retail pharmacy guidance. Allergies penicillin (rash) Immunizations This Visit No Immunizations Found Education Materials What to expect after the Procedure: After the procedure, it is common to have: ??? Pain and swelling. ??? A small amount of blood or clear fluid coming from your incision for up to 7 days ??? It is normal to have a moderate amount of bleeding from the site of the drain that was pulled on the morning after surgery. You can hold pressure on the area for 3-5 minutes and cover with a bandage as needed. Diet: ??? Resume usual diet ??? No alcoholic beverages while taking pain medication ??? Drink 8-10 glasses of water a day to prevent constipation from pain medication ??? Increase fiber to help prevent constipation. Straining can cause increased pressure and pain in your incision area ??? Increase protein to promote healing Driving: ??? Do not drive until your health care provider approves. Ask your health care provider when it is safe to drive if you have an immobilizer on your knee. ??? Do not drive or operate heavy machinery while taking prescription pain medicine. ??? Do not drive for 24 hours if you received a sedative. Activity: ??? Do not lift anything that is heavier than 10 lb (4.5 kg) until your health care provider approves. ??? No strenuous activity ??? Avoid high-impact activities, including running, jumping rope, and jumping jacks. ??? Avoid sitting for a long time without moving. Get up and move around at least every few hours. ??? Keep legs elevated while seated and place surgery leg on 2-3 pillows, this will decrease swelling ??? Continue using walker until cleared by physical therapy Bathing: ??? Do not take baths, swim, or use a hot tub for one month after surgery. ??? May shower on the third day after surgery by covering incision with Glad Brand Press and Seal saran wrap. After showering, dry off completely BEFORE removing saran wrap. ??? Use Press and Seal saran wrap to shower for one month after surgery ??? You must be seated to shower until you are no longer using the walker Other: ??? Use ice therapy for 20-30 minutes at a time and leave off for 20-30 minutes at a time. Always keep a towel or cloth between the ice pack and your skin ??? Continue to use Incentive Spirometer 10 times an hour while awake for one month to help prevent pneumonia ??? DO NOT CHANGE!!!! Leave mepilex AG or Aquacel in place until follow-up. If needed reinforce with Abds and kat wrap. ??? ASA 325mg twice a day for 30 days. Contact a health care provider if: ??? You have more redness, swelling, or pain around your incision. ??? You have more fluid or blood coming from your incision. ??? Your incision or drain site feels warm to the touch. ??? You have pus or a bad smell coming from your incision. ??? You have a fever. ??? Your incision breaks open after your health care provider removes your sutures, skin glue, or adhesive tape. ??? Your prosthesis feels loose. ??? You have knee pain that does not go away. Get help right away if you have: ??? pain or swelling in your calf or thigh ??? shortness of breath or difficulty breathing ??? chest pain DVT: Blood Clot Blood clots are a common risk after an orthopedic surgery Symptoms: ??? Swelling of your leg or arm, especially if one side is much worse. ??? Warmth and redness of your leg or arm, especially if one side is much worse. ??? Pain in your arm or leg. If the clot is in your leg, symptoms may be more noticeable or worse when you stand or walk. ??? A feeling of pins and needles, if the clot is in the arm. The symptoms of a DVT that has traveled to the lungs (pulmonary embolism, PE) usually start suddenly and include: ??? Shortness of breath while active or at rest. ??? Coughing or coughing up blood or blood-tinged mucus. ??? Chest pain that is often worse with deep breaths. ??? Rapid or irregular heartbeat. ??? Feeling light-headed or dizzy. ??? Fainting. ??? Feeling anxious. ??? Sweating. There may also be pain and swelling in a leg if that is where the blood clot started. How is this prevented? Exercise regularly. For at least 30 minutes every day, engage in: -Activity that involves moving your arms and legs. -Activity that encourages good blood flow through your body by increasing your heart rate. ??? Exercise your arms and legs every hour during long-distance travel (over 4 hours). ??? Drink plenty of water and avoid drinking alcohol while traveling. ??? Avoid sitting or lying in bed for long periods of time without moving your legs. ??? Maintain a weight that is appropriate for your height. Ask your health care provider what weight is healthy for you. ??? If you are a woman who is over 35 years of age, avoid unnecessary use of medicines that contain estrogen. These include control pills. ??? Do not smoke, especially if you take estrogen medicines. If you need help quitting, ask your health care provider. ??? Wear compression stockings (if told by your health care provider) to help prevent blood clots from forming. High Fiber/High Protein Diet High fiber foods: To prevent constipation Grains Whole-grain breads. Multigrain cereal. Oats and oatmeal. Brown rice. Barley. Bulgur wheat. Millet. Bran muffins. Popcorn. [place] wafer crackers. Vegetables Sweet potatoes. Spinach. Kale. Artichokes. Cabbage. Broccoli. Green peas. Carrots. Squash. Fruits Berries. Pears. Apples. Oranges. Avocados. Prunes and raisins. Dried figs. Meats and Other Protein Sources [place], kidney, meza, and soy beans. Split peas. Lentils. Nuts and seeds. Dairy Fiber-fortified yogurt. Beverages Fiber-fortified soy milk. Fiber-fortified orange juice. Other Fiber bars. High-protein foods: To promote healing High-protein foods contain 4 grams (4 g) or more of protein per serving. They include: ??? Beef, ground sirloin (cooked) ??? 3 oz have 24 g of protein. ??? Cheese (hard) ??? 1 oz has 7 g of protein. ??? Chicken breast, boneless and skinless (cooked) ??? 3 oz have 13.4 g of protein. ??? Cottage cheese ??? 1/2 cup has 13.4 g of protein. ??? Egg ??? 1 egg has 6 g of protein. ??? Fish, filet (cooked) ??? 1 oz has 6???7 g of protein. ??? Garbanzo beans (canned or cooked) ??? 1/2 cup has 6???7 g of protein. ??? Kidney beans (canned or cooked) ??? 1/2 cup has 6???7 g of protein. ??? Pulliam (cooked) ??? 3 oz has 24 g of protein. ??? Milk ??? 1 cup (8 oz) has 8 g of protein. ??? Nuts (peanuts, pistachios, almonds) ??? 1 oz has 6 g of protein. ??? Peanut butter ??? 1 oz has 7???8 g of protein. ??? Pork tenderloin (cooked) ??? 3 oz has 18.4 g of protein. ??? Pumpkin seeds ??? 1 oz has 8.5 g of protein. ??? Soybeans (roasted) ??? 1 oz has 8 g of protein. ??? Soybeans (cooked) ??? 1/2 cup has 11 g of protein. ??? Soy milk ??? 1 cup (8 oz) has 5???10 g of protein. ??? Soy or vegetable erik ??? 1 erik has 11 g of protein. ??? [place] seeds ??? 1 oz has 5.5 g of protein. ??? Tofu (firm) ??? 1/2 cup has 20 g of protein. ??? Tuna (canned in water) ??? 3 oz has 20 g of protein. ??? Yogurt ??? 6 oz has 8 g of protein. Fall Prevention ??? Use night lights. ??? Install grab bars by the toilet and in the tub and shower. Do not use towel bars as grab bars. ??? Use non-skid mats or decals on the floor of the tub or shower. ??? If you need to sit down while you are in the shower, use a plastic, non-slip stool. ??? Keep the floor dry. Immediately clean up any water that spills on the floor. ??? Remove soap buildup in the tub or shower on a regular basis. ??? Remove throw rugs and other tripping hazards from the floor. ??? Place frequently used items in ixbf-ew-miual places ??? Keep electrical cables out of the way. ??? Do not leave any items on the stairs. ??? Make sure that there are handrails on both sides of the stairs. Fix handrails that are broken or loose. Make sure that handrails are as long as the stairways. ??? Check any carpeting to make sure that it is firmly attached to the stairs. Fix any carpet that is loose or worn. ??? Avoid having throw rugs at the top or bottom of stairways, or secure the rugs with carpet tape to prevent them from moving. ??? Wear closed-toe shoes that fit well and support your feet. Wear shoes that have rubber soles or low heels. ??? Use mobility aids as needed, such as canes, walkers, scooters, and crutches. ??? Turn on lights if it is dark. Replace any light bulbs that burn out. ??? Set up furniture so that there are clear paths. Keep the furniture in the same spot. ??? Be aware of any and all pets. ??? Review your medicines with your healthcare provider. Some medicines can cause dizziness or changes in blood pressure, which increase your risk of falling. Hand Washing You should wash your hands whenever you think they are dirty. You should also wash your hands: ??? After: ??? Working or playing outside. ??? Touching an animal or its toys or leash. ??? Handling livestock. ??? Using the bathroom. ??? Using household automobile carpets molder or toxic chemicals. ??? Touching or taking out the garbage. ??? Touching anything dirty around your home. ??? Handling soiled clothes or rags. ??? Taking care of a sick child. This includes touching used tissues, toys, and clothes. ??? Sneezing, coughing, or blowing your nose. ??? Using public transportation. ??? Shaking hands. ??? Using a phone, including your mobile phone. ??? Touching money. ??? Before and after: ??? Preparing food. ??? Feeding a baby or young child. ??? Eating. ??? Visiting or taking care of someone who is sick. ??? Changing a diaper. ??? Changing a bandage (dressing) or taking care of an injury or wound. ??? Giving or taking medicine. If soap and [...] 4. Repeat the process for each step. ??? Always keep both feet within the width of the walker's legs or wheels. ??? When using your walker, you should not feel like you need to lean forward or to the side to keep your hands on the handgrips. ??? Make sure you are following any weight-bearing instructions that your health care provider has given you. ??? Be careful not to let the walker get too far ahead of you as you walk. ??? If your walker does not glide well [...] 5. Step down with your stronger leg. meloxicam (oral/injection) (jaquelin OKS i rachel) Anjeso, Mobic, Qmiiz ODT, Vivlodex What is the most important information I should know about meloxicam? Meloxicam can increase your risk of fatal heart attack or stroke. Do not use this medicine just before or after heart bypass surgery (coronary artery bypass graft, or CABG). Meloxicam may also cause stomach or intestinal bleeding, which can be fatal. What is meloxicam? Meloxicam is a nonsteroidal anti-inflammatory drug (NSAID) that is used to treat osteoarthritis or rheumatoid arthritis in adults. Meloxicam is also used to treat juvenile rheumatoid arthritis in children who are at least 2 years old. The Anjeso brand of meloxicam is used to treat moderate to severe pain in adults. Vivlodex is for use only in adults. Qmiiz is for adults and children weighing at least 132 pounds (60 kilograms). Meloxicam may also be used for purposes not listed in this medication guide. What should I discuss with my healthcare provider before taking meloxicam? Meloxicam can increase your risk of fatal heart attack or stroke, even if you don't have any risk factors. Do not use this medicine just before or after heart bypass surgery (coronary artery bypass graft, or CABG). Meloxicam may also cause stomach or intestinal bleeding, which can be fatal. These conditions can occur without warning while you are using meloxicam, especially in older adults. You should not use meloxicam if you are allergic to it, or if you have ever had an asthma attack or severe allergic reaction after taking aspirin or an NSAID. You should not take meloxicam disintegrating tablets (Qmiiz ODT) if you have phenylketonuria (PKU). This form of meloxicam contains phenylalanine. Tell your doctor if you have ever had: ?? heart disease, high blood pressure, high cholesterol, diabetes, or if you smoke; ?? a heart attack, stroke, or blood clot; ?? ulcers or bleeding in your stomach; ?? asthma; ?? kidney disease (or if you are on dialysis); ?? liver disease; or ?? fluid retention. If you are , you should not take meloxicam unless your doctor tells you to. Taking an NSAID during the last 20 weeks of can cause serious heart or kidney problems in the unborn baby and possible complications with your . Meloxicam may cause a delay in ovulation (the release of an egg from an ovary). You should not take meloxicam if you are undergoing fertility treatment, or are otherwise trying to get . It may not be safe to breastfeed while using this medicine. Ask your doctor about any risk. Meloxicam is not approved for use by anyone younger than 2 years old. How should I take meloxicam? Follow all directions on your prescription label and read all medication guides. Use the lowest dose that is effective in treating your condition. Meloxicam oral is taken by mouth. Meloxicam injection is given as an infusion into a vein. A healthcare provider will give you this injection. You may take meloxicam oral with or without food. Remove an orally disintegrating tablet from the package only when you are ready to take the medicine. Place the tablet in your mouth and allow it to dissolve, without chewing. Swallow several times as the tablet dissolves. Your dose needs may change if you switch to a different brand, strength, or form of this medicine. Avoid medication errors by using only the form and strength your doctor prescribes. Meloxicam doses are based on weight (especially in children and teenagers). Your dose needs may change if you gain or lose weight. If you use this medicine long-term, you may need frequent medical tests. Store meloxicam tablets or capsules at room temperature, away from moisture and heat. Keep the bottle tightly closed when not in use. What happens if I miss a dose? Take the medicine as soon as you can, but skip the missed dose if it is almost time for your next dose. Do not take two doses at one time. What happens if I overdose? Seek emergency medical attention or call the Poison Help line at . What should I avoid while taking meloxicam? Avoid alcohol. Heavy drinking can increase your risk of stomach bleeding. Avoid taking aspirin while you are taking meloxicam, unless your doctor tells you to. Ask a doctor or pharmacist before using other medicines for pain, fever, swelling, or cold/flu symptoms. They may contain ingredients similar to meloxicam (such as aspirin, ibuprofen, ketoprofen, or naproxen). What are the possible side effects of meloxicam? Get emergency medical help if you have signs of an allergic reaction (hives, difficult breathing, swelling in your face or throat) or a severe skin reaction (fever, sore throat, burning eyes, skin pain, red or purple skin rash with blistering and peeling). Get emergency medical help if you have signs of a heart attack or stroke: chest pain spreading to your jaw or shoulder, sudden numbness or weakness on one side of the body, slurred speech, leg swelling, feeling short of breath. Stop using meloxicam and call your doctor at once if you have: ?? the first sign of any skin rash, no matter how mild; ?? shortness of breath (even with mild exertion); ?? swelling or rapid weight gain; ?? signs of stomach bleeding--bloody or tarry stools, coughing up blood or vomit that looks like coffee grounds; ?? liver problems--nausea, upper stomach pain, itching, tired feeling, flu-like symptoms, loss of appetite, dark urine, yamil-colored stools, jaundice (yellowing of the skin or eyes); ?? low red blood cells (anemia)--pale skin, unusual tiredness, feeling light-headed, cold hands and feet; or ?? kidney problems--little or no urination, swelling in your feet or ankles, feeling tired or short of breath. Common side effects may include: ?? stomach pain, nausea, vomiting, heartburn; ?? diarrhea, constipation, gas; ?? dizziness; or ?? cold symptoms, flu symptoms. This is not a complete list of side effects and others may occur. Call your doctor for medical advice about side effects. You may report side effects to FDA at 2-317-OKX-7708. What other drugs will affect meloxicam? Ask your doctor before using meloxicam if you take an antidepressant. Taking certain antidepressants with an NSAID may cause you to bruise or bleed easily. Tell your doctor about all your other medicines, especially: ?? cyclosporine; ?? lithium; ?? methotrexate; ?? pemetrexed; ?? sodium polystyrene sulfonate (Kayexalate); ?? a blood thinner (warfarin, Coumadin, Jantoven); ?? heart or blood pressure medication, including a diuretic or 'water pill'; or ?? steroid medicine (such as prednisone). This list is not complete. Other drugs may affect meloxicam, including prescription and dmxp-suv-fewhbty medicines, vitamins, and herbal products. Not all possible drug interactions are listed here. Where can I get more information? Your pharmacist can provide more information about meloxicam. Remember, keep this and all other medicines out of the reach of children, never share your medicines with others, and use this medication only for the indication prescribed. Every effort has been made to ensure that the information provided by [employer]') is accurate, up-to-date, and complete, but no guarantee is made to that effect. Drug information contained herein may be time sensitive. [employer] information has been compiled for use by healthcare practitioners and consumers in the [place] and therefore [employer] does not warrant that uses outside of the [place] are appropriate, unless specifically indicated otherwise. [employer]s drug information does not endorse drugs, diagnose patients or recommend therapy. [employer] drug information is an informational resource designed to assist licensed healthcare practitioners in caring for their patients and/or to serve consumers viewing this service as a supplement to, and not a substitute for, the expertise, skill, knowledge and judgment of healthcare practitioners. The absence of a warning for a given drug or drug combination in no way should be construed to indicate that the drug or drug combination is safe, effective or appropriate for any given patient. [facility] does not assume any responsibility for any aspect of healthcare administered with the aid of information [facility] provides. The information contained herein is not intended to cover all possible uses, directions, precautions, warnings, drug interactions, allergic reactions, or adverse effects. If you have questions about the drugs you are taking, check with your doctor, nurse or pharmacist. Copyright 2074-9394 [facility]. Version: 14.. Revision Date: 02/03/2020. tramadol (TRAM a dol) ConZip, Qdolo, Ultram, Ultram ER What is the most important information I should know about tramadol? MISUSE OF THIS MEDICINE CAN CAUSE ADDICTION, OVERDOSE, OR . Keep the medication in a place where others cannot get to it. Tramadol should not be given to a child younger than 12 years old, or anyone younger than 18 years old who recently had surgery to remove the tonsils or adenoids. Ultram ER should not be given to anyone younger than 18 years old. Taking tramadol during may cause life-threatening withdrawal symptoms in the . Fatal side effects can occur if you use tramadol with alcohol, or with other drugs that cause drowsiness or slow your breathing. What is tramadol? Tramadol is an pain medicine similar to an opioid. Tramadol is used to treat moderate to severe pain. The extended-release form of tramadol is for bzfbcz-ptn-qhqze treatment of pain. This form of tramadol is not for use on an as-needed basis for pain. Tramadol may also be used for purposes not listed in this medication guide. What should I discuss with my healthcare provider before taking tramadol? You should not take tramadol if you are allergic to it, or if you have: ?? severe asthma or breathing problems; ?? a stomach or bowel obstruction (including paralytic ileus); ?? if you have recently used alcohol, sedatives, tranquilizers, or narcotic medications; or ?? if you have used an MAO inhibitor in the past 14 days (such as isocarboxazid, linezolid, methylene blue injection, phenelzine, rasagiline, selegiline, or tranylcypromine). Tramadol should not be given to a child younger than 12 years old. Ultram ER should not be given to anyone younger than 18 years old. Do not give tramadol to anyone younger than 18 years old who recently had surgery to remove the tonsils or adenoids. Seizures have occurred in some people taking tramadol. Your seizure risk may be higher if you have ever had: ?? a head injury, epilepsy or other seizure disorder; ?? drug or alcohol addiction; or ?? a metabolic disorder. Tell your doctor if you have ever had: ?? breathing problems, sleep apnea; ?? liver or kidney disease; ?? urination problems; ?? problems with your gallbladder, pancreas, or thyroid; ?? a stomach disorder; or ?? mental illness, or suicide attempt. If you use tramadol while you are , your baby could become dependent on the drug. This can cause life-threatening withdrawal symptoms in the baby after it is born. Babies born dependent on habit-forming medicine may need medical treatment for several weeks. Do not breastfeed. Tramadol can pass into breast milk and cause breathing problems or in a nursing baby. How should I take tramadol? Follow the directions on your prescription label and read all medication guides. Never use tramadol in larger amounts, or for longer than prescribed. Tell your doctor if you feel an increased urge to take more of this medicine. Never share opioid medicine with another person, especially someone with a history of drug abuse or addiction. MISUSE CAN CAUSE ADDICTION, OVERDOSE, OR . Keep the medicine in a place where others cannot get to it. Selling or giving away opioid medicine is against the law. Stop taking all other opioid medications when you start taking tramadol. Tramadol can be taken with or without food, but take it the same way each time. Swallow the capsule or tablet whole to avoid exposure to a potentially fatal overdose. Do not crush, chew, break, open, or dissolve. Measure liquid medicine carefully. Use the dosing syringe provided, or use a medicine dose-measuring device (not a kitchen spoon). Never crush or break a tramadol pill to inhale the powder or mix it into a liquid to inject the drug into your vein. This practice has resulted in . Do not stop using tramadol suddenly, or you could have unpleasant withdrawal symptoms. Ask your doctor how to safely stop using tramadol. Store at room temperature away from moisture and heat. Keep track of your medicine. You should be aware if anyone is using it improperly or without a prescription. Do not keep leftover opioid medication. Just one dose can cause in someone using this medicine accidentally or improperly. Ask your pharmacist where to locate a drug take-back disposal program. If there is no take-back program, mix the leftover medicine with cat litter or coffee grounds in a sealed plastic bag throw the bag in the trash. What happens if I miss a dose? Since tramadol is used for pain, you are not likely to miss a dose. Skip any missed dose if it is almost time for your next dose. Do not use two doses at one time. What happens if I overdose? Seek emergency medical attention or call the Poison Help line at . A tramadol overdose can be fatal, especially in a child or other person using the medicine without a prescription. Overdose symptoms may include severe drowsiness, pinpoint pupils, slow breathing, or no breathing. Your doctor may recommend you get naloxone (a medicine to reverse an opioid overdose) and keep it with you at all times. A person caring for you can give the naloxone if you stop breathing or don't wake up. Your caregiver must still get emergency medical help and may need to perform CPR (cardiopulmonary resuscitation) on you while waiting for help to arrive. Anyone can buy naloxone from a pharmacy or local health department. Make sure any person caring for you knows where you keep naloxone and how to use it. What should I avoid while taking tramadol? Do not drink alcohol. Dangerous side effects or could occur. Avoid driving or hazardous activity until you know how this medicine will affect you. Dizziness or drowsiness can cause falls, accidents, or severe injuries. What are the possible side effects of tramadol? Get emergency medical help if you have signs of an allergic reaction (hives, difficult breathing, swelling in your face or throat) or a severe skin reaction (fever, sore throat, burning in your eyes, skin pain, red or purple skin rash that spreads and causes blistering and peeling). Tramadol can slow or stop your breathing, and may occur. A person caring for you should give naloxone and/or seek emergency medical attention if you have slow breathing with long pauses, blue colored lips, or if you are hard to wake up. Call your doctor at once if you have: ?? noisy breathing, sighing, shallow breathing, breathing that stops during sleep; ?? a slow heart rate or weak pulse; ?? a light-headed feeling, like you might pass out; ?? seizure (convulsions); or ?? low cortisol levels--nausea, vomiting, loss of appetite, dizziness, worsening tiredness or weakness. Seek medical attention right away if you have symptoms of serotonin syndrome, such as: agitation, hallucinations, fever, sweating, shivering, fast heart rate, muscle stiffness, twitching, loss of coordination, nausea, vomiting, or diarrhea. Serious side effects may be more likely in older adults and those who are overweight, malnourished, or debilitated. Long-term use of opioid medication may affect fertility (ability to have children) in men or women. Common side effects may include: ?? constipation, nausea, vomiting, stomach pain; ?? dizziness, drowsiness, tiredness; ?? headache; or ?? itching. This is not a complete list of side effects and others may occur. Call your doctor for medical advice about side effects. You may report side effects to FDA at 7-601-LGD-0149. What other drugs will affect tramadol? You may have breathing problems or withdrawal symptoms if you start or stop taking certain other medicines. Tell your doctor if you also use an antibiotic, antifungal medication, heart or blood pressure medication, seizure medication, or medicine to treat HIV or hepatitis C. Opioid medication can interact with many other drugs and cause dangerous side effects or . Be sure your doctor knows if you also use: ?? cold or allergy medicines, bronchodilator asthma/COPD medication, or a diuretic ('water pill'); ?? medicines for motion sickness, irritable bowel syndrome, or overactive bladder; ?? other narcotic medications--opioid pain medicine or prescription cough medicine; ?? a sedative like Valium--diazepam, alprazolam, lorazepam, Xanax, Klonopin, Versed, and others; ?? drugs that make you sleepy or slow your breathing--a sleeping pill, muscle relaxer, medicine to treat mood disorders or mental illness; or ?? drugs that affect serotonin levels in your body--a stimulant, or medicine for depression, Parkinson's disease, migraine headaches, serious infections, or nausea and vomiting. This list is not complete and many other drugs may affect tramadol. This includes prescription and fkhn-upl-tpaqonb medicines, vitamins, and herbal products. Not all possible drug interactions are listed here. Where can I get more information? Your doctor or pharmacist can provide more information about tramadol. Remember, keep this and all other medicines out of the reach of children, never share your medicines with others, and use this medication only for the indication prescribed. Every effort has been made to ensure that the information provided by [employer] is accurate, up-to-date, and complete, but no guarantee is made to that effect. Drug information contained herein may be time sensitive. [employer] information has been compiled for use by healthcare practitioners and consumers in the [place] and therefore [employer] does not warrant that uses outside of the [place] are appropriate, unless specifically indicated otherwise. [employer] drug information does not endorse drugs, diagnose patients or recommend therapy. [employer] drug information is an informational resource designed to assist licensed healthcare practitioners in caring for their patients and/or to serve consumers viewing this service as a supplement to, and not a substitute for, the expertise, skill, knowledge and judgment of healthcare practitioners. The absence of a warning for a given drug or drug combination in no way should be construed to indicate that the drug or drug combination is safe, effective or appropriate for any given patient. [employer] does not assume any responsibility for any aspect of healthcare administered with the aid of information [employer] provides. The information contained herein is not intended to cover all possible uses, directions, precautions, warnings, drug interactions, allergic reactions, or adverse effects. If you have questions about the drugs you are taking, check with your doctor, nurse or pharmacist. Copyright 4504-5969 [employer]. Version: 21.. Revision Date: 03/12/2020. aspirin (oral) ( pir in) Arthritis Pain, Aspi-Cor, Aspir 81, Aspir-Low, Arjun Plus, Bufferin, Durlaza, Ecotrin, Ecpirin, Miniprin What is the most important information I should know about aspirin? You should not use aspirin if you have a bleeding disorder such as hemophilia, a recent history of stomach or intestinal bleeding, or if you are allergic to an NSAID (non-steroidal anti-inflammatory drug). Aspirin can cause Pacheco's syndrome, a serious and sometimes fatal condition in children. What is aspirin? Aspirin is a salicylate (jw-LQU-ft-ate) that is used to treat pain, and reduce fever or inflammation. Aspirin is sometimes used to treat or prevent heart attacks, strokes, and chest pain (angina). Aspirin should be used for cardiovascular conditions only under the supervision of a doctor. Aspirin may also be used for purposes not listed in this medication guide. What should I discuss with my healthcare provider before taking aspirin? Do not give this medicine to a child or teenager with a fever, flu symptoms, or chickenpox. Aspirin can cause Pacheco's syndrome, a serious and sometimes fatal condition in children. You should not use aspirin if you are allergic to it, or if you have: ?? a recent history of stomach or intestinal bleeding; ?? a bleeding disorder such as hemophilia; or ?? if you have ever had an asthma attack or severe allergic reaction after taking aspirin or an NSAID (non-steroidal anti-inflammatory drug). Tell your doctor if you have ever had: ?? asthma or seasonal allergies; ?? stomach ulcers; ?? liver disease; ?? kidney disease; ?? a bleeding or blood clotting disorder; ?? gout; or ?? heart disease, high blood pressure, or congestive heart failure. Taking aspirin during late may cause bleeding in the mother or the baby during delivery. Tell your doctor if you are or plan to become . You should not breastfeed while using this medicine. How should I take aspirin? Use exactly as directed on the label, or as prescribed by your doctor. Always follow directions on the medicine label about giving aspirin to a child. Take with food if aspirin upsets your stomach. You must chew the chewable tablet before you swallow it. Do not crush, chew, break, or open an enteric-coated or delayed/extended-release pill. Swallow it whole. If you need surgery, tell your surgeon you currently use this medicine. You may need to stop for a short time. Do not use aspirin if you smell a strong vinegar odor in the aspirin bottle. The medicine may no longer be effective. Store at room temperature away from moisture and heat. What happens if I miss a dose? Since aspirin is used when needed, you may not be on a dosing schedule. Skip any missed dose if it's almost time for your next dose. Do not use two doses at one time. What happens if I overdose? Seek emergency medical attention or call the Poison Help line at . Overdose symptoms may include stomach pain, vomiting, diarrhea, vision or hearing problems, fast or slow breathing, or confusion. What should I avoid while taking aspirin? Avoid alcohol. Heavy drinking can increase your risk of stomach bleeding. If you are taking aspirin to prevent heart attack or stroke, avoid also taking ibuprofen (Advil, Motrin). Ibuprofen can make aspirin less effective in protecting your heart and blood vessels. If you must use both medications, ask your doctor how far apart your doses should be. Ask a doctor or pharmacist before using other medicines for pain, fever, swelling, or cold/flu symptoms. They may contain ingredients similar to aspirin (such as magnesium salicylate, ibuprofen, ketoprofen, or naproxen). What are the possible side effects of aspirin? Get emergency medical help if you have signs of an allergic reaction: hives; difficult breathing; swelling of your face, lips, tongue, or throat. Stop using aspirin and call your doctor at once if you have: ?? ringing in your ears, confusion, hallucinations, rapid breathing, seizure (convulsions); ?? severe nausea, vomiting, or stomach pain; ?? bloody or tarry stools, coughing up blood or vomit that looks like coffee grounds; ?? fever lasting longer than 3 days; or ?? swelling, or pain lasting longer than 10 days. Common side effects may include: ?? upset stomach, heartburn; ?? drowsiness; or ?? mild headache. This is not a complete list of side effects and others may occur. Call your doctor for medical advice about side effects. You may report side effects to FDA at 6-773-HPJ-6944. What other drugs will affect aspirin? Ask your doctor before using aspirin if you take an antidepressant. Taking certain antidepressants with aspirin may cause you to bruise or bleed easily. Ask a doctor or pharmacist before using aspirin with any other medications, especially: ?? a blood thinner (warfarin, Coumadin, Jantoven), or other medication used to prevent blood clots; or ?? other salicylates such as Nuprin Backache Caplet, Kaopectate, KneeRelief, Pamprin Cramp Formula, Pepto-Bismol, Tricosal, Trilisate, and others. This list is not complete. Other drugs may affect aspirin, including prescription and qwau-dbg-fskxjgp medicines, vitamins, and herbal products. Not all possible drug interactions are listed here. Where can I get more information? Your pharmacist can provide more information about aspirin. Remember, keep this and all other medicines out of the reach of children, never share your medicines with others, and use this medication only for the indication prescribed. Every effort has been made to ensure that the information provided by [employer] is accurate, up-to-date, and complete, but no guarantee is made to that effect. Drug information contained herein may be time sensitive. [employer] information has been compiled for use by healthcare practitioners and consumers in the [place] and therefore [employer] does not warrant that uses outside of the [place] are appropriate, unless specifically indicated otherwise. [employer] drug information does not endorse drugs, diagnose patients or recommend therapy. [employer] drug information is an informational resource designed to assist licensed healthcare practitioners in caring for their patients and/or to serve consumers viewing this service as a supplement to, and not a substitute for, the expertise, skill, knowledge and judgment of healthcare practitioners. The absence of a warning for a given drug or drug combination in no way should be construed to indicate that the drug or drug combination is safe, effective or appropriate for any given patient. [employer] does not assume any responsibility for any aspect of healthcare administered with the aid of information [employer] provides. The information contained herein is not intended to cover all possible uses, directions, precautions, warnings, drug interactions, allergic reactions, or adverse effects. If you have questions about the drugs you are taking, check with your doctor, nurse or pharmacist. Copyright 7642-9423 [employer]. Version: 16.02. Revision Date: 11/19/2019. oxycodone (ox i KOE done) Oxaydo, OxyCONTIN, Oxyfast, Roxicodone, Xtampza ER What is the most important information I should know about oxycodone? MISUSE OF OPIOID MEDICINE CAN CAUSE ADDICTION, OVERDOSE, OR . Keep the medication in a place where others cannot get to it. Taking opioid medicine during may cause life-threatening withdrawal symptoms in the . Fatal side effects can occur if you use opioid medicine with alcohol, or with other drugs that cause drowsiness or slow your breathing. What is oxycodone? Oxycodone is an opioid pain medication used to treat moderate to severe pain. The extended-release form of oxycodone is for qanotw-qda-eekah treatment of pain and should not be used on an as-needed basis for pain. Oxycodone may also be used for purposes not listed in this medication guide. What should I discuss with my healthcare provider before using oxycodone? You should not use oxycodone if you are allergic to it, or if you have: ?? severe asthma or breathing problems; or ?? a blockage in your stomach or intestines. You should not use oxycodone unless you are already using a similar opioid medicine and are tolerant to it. Most brands of oxycodone are not approved for use in people under 18. OxyContin should not be given to a child younger than 11 years old. Tell your doctor if you have ever had: ?? breathing problems, sleep apnea; ?? a head injury, or seizures; ?? drug or alcohol addiction, or mental illness; ?? liver or kidney disease; ?? urination problems; or ?? problems with your gallbladder, pancreas, or thyroid. If you use opioid medicine while you are , your baby could become dependent on the drug. This can cause life-threatening withdrawal symptoms in the baby after it is born. Babies born dependent on opioids may need medical treatment for several weeks. Do not breast-feed. Oxycodone can pass into breast milk and may cause drowsiness, breathing problems, or in a nursing baby. How should I use oxycodone? Follow the directions on your prescription label and read all medication guides. Never use oxycodone in larger amounts, or for longer than prescribed. Tell your doctor if you feel an increased urge to take more of this medicine. Never share opioid medicine with another person, especially someone with a history of drug abuse or addiction. MISUSE CAN CAUSE ADDICTION, OVERDOSE, OR . Keep the medication in a place where others cannot get to it. Selling or giving away opioid medicine is against the law. Stop taking all other yeeusf-dmz-arsjf narcotic pain medicines when you start taking extended-release oxycodone. Take oxycodone with food. Swallow the capsule or tablet whole to avoid exposure to a potentially fatal overdose. Do not crush, chew, break, open, or dissolve. Never crush or break an oxycodone pill to inhale the powder or mix it into a liquid to inject the drug into your vein. This can cause in . Measure liquid medicine carefully. Use the dosing syringe provided, or use a medicine dose-measuring device (not a kitchen spoon). You should not stop using oxycodone suddenly. Follow your doctor's instructions about tapering your dose. Store at room temperature, away from heat, moisture, and light. Keep track of your medicine. Oxycodone is a drug of abuse and you should be aware if anyone is using your medicine improperly or without a prescription. Do not keep leftover opioid medication. Just one dose can cause in someone using this medicine accidentally or improperly. Ask your pharmacist where to locate a drug take-back disposal program. If there is no take-back program, flush the unused medicine down the toilet. What happens if I miss a dose? Since oxycodone is used for pain, you are not likely to miss a dose. Skip any missed dose if it is almost time for your next dose. Do not use two doses at one time. What happens if I overdose? Seek emergency medical attention or call the Poison Help line at . An oxycodone overdose can be fatal, especially in a child or other person using the medicine without a prescription. Overdose can cause severe muscle weakness, pinpoint pupils, very slow breathing, extreme drowsiness, or coma. What should I avoid while using oxycodone? Do not drink alcohol. Dangerous side effects or could occur. Avoid driving or operating machinery until you know how oxycodone will affect you. Dizziness or severe drowsiness can cause falls or other accidents. Avoid medication errors. Always check the brand and strength of oxycodone you get from the pharmacy. What are the possible side effects of oxycodone? Get emergency medical help if you have signs of an allergic reaction: hives; difficult breathing; swelling of your face, lips, tongue, or throat. Opioid medicine can slow or stop your breathing, and may occur. A person caring for you should seek emergency medical attention if you have slow breathing with long pauses, blue colored lips, or if you are hard to wake up. Call your doctor at once if you have: ?? noisy breathing, sighing, shallow breathing, breathing that stops during sleep; ?? a slow heart rate or weak pulse; ?? a light-headed feeling, like you might pass out; ?? confusion, unusual thoughts or behavior; ?? seizure (convulsions); or ?? low cortisol levels-- nausea, vomiting, loss of appetite, dizziness, worsening tiredness or weakness. Seek medical attention right away if you have symptoms of serotonin syndrome, such as: agitation, confusion, fever, sweating, fast heart rate, chest pain, feeling short of breath, muscle stiffness, trouble walking, or feeling faint. Serious side effects may be more likely in older adults and those who are malnourished or debilitated. Long-term use of opioid medication may affect fertility (ability to have children) in men or women. It is not known whether opioid effects on fertility are permanent. Common side effects may include: ?? drowsiness, headache, dizziness, tiredness; or ?? constipation, stomach pain, nausea, vomiting. This is not a complete list of side effects and others may occur. Call your doctor for medical advice about side effects. You may report side effects to FDA at 2-117-NNJ-0933. What other drugs will affect oxycodone? You may have breathing problems or withdrawal symptoms if you start or stop taking certain other medicines. Tell your doctor if you also use an antibiotic, antifungal medication, heart or blood pressure medication, seizure medication, or medicine to treat HIV or hepatitis C. Opioid medication can interact with many other drugs and cause dangerous side effects or . Be sure your doctor knows if you also use: ?? cold or allergy medicines, bronchodilator asthma/COPD medication, or a diuretic ('water pill'); ?? medicines for motion sickness, irritable bowel syndrome, or overactive bladder; ?? other narcotic medications--opioid pain medicine or prescription cough medicine; ?? a sedative like Valium--diazepam, alprazolam, lorazepam, Xanax, Klonopin, Versed, and others; ?? drugs that make you sleepy or slow your breathing--a sleeping pill, muscle relaxer, medicine to treat mood disorders or mental illness; or ?? drugs that affect serotonin levels in your body--a stimulant, or medicine for depression, Parkinson's disease, migraine headaches, serious infections, or nausea and vomiting. This list is not complete and many other drugs may affect oxycodone. This includes prescription and yokm-tua-srhcfln medicines, vitamins, and herbal products. Not all possible drug interactions are listed here. Where can I get more information? Your pharmacist can provide more information about oxycodone. Remember, keep this and all other medicines out of the reach of children, never share your medicines with others, and use this medication only for the indication prescribed. Every effort has been made to ensure that the information provided by [employer]. [employer]') is accurate, up-to-date, and complete, but no guarantee is made to that effect. Drug information contained herein may be time sensitive. [employer] information has been compiled for use by healthcare practitioners and consumers in the [place] and therefore [employer] does not warrant that uses outside of the [place] are appropriate, unless specifically indicated otherwise. [employer] drug information does not endorse drugs, diagnose patients or recommend therapy. [employer] drug information is an informational resource designed to assist licensed healthcare practitioners in caring for their patients and/or to serve consumers viewing this service as a supplement to, and not a substitute for, the expertise, skill, knowledge and judgment of healthcare practitioners. The absence of a warning for a given drug or drug combination in no way should be construed to indicate that the drug or drug combination is safe, effective or appropriate for any given patient. [employer] does not assume any responsibility for any aspect of healthcare administered with the aid of information [employer] provides. The information contained herein is not intended to cover all possible uses, directions, precautions, warnings, drug interactions, allergic reactions, or adverse effects. If you have questions about the drugs you are taking, check with your doctor, nurse or pharmacist. Copyright 1190-5273 [employer]. Version: 13.03. Revision Date: 01/13/2019. docusate (oral/rectal) (DOK ue sate) Colace, Diocto, Doc-Q-Lace, Docu, Doculase, Docusil, Docusoft S, DocuSol, Dulcolax Stool Softener, Enemeez Mini, Shivam-Tin, Pedia-Lax Stool Softener, Lora Stool Softener, Promolaxin, Silace, Surfak Stool Softener, Chen-Q-Lax What is the most important information I should know about docusate? You should not use docusate if you also use mineral oil, unless your doctor tells you to. What is docusate? Docusate is a stool softener that makes bowel movements softer and easier to pass. Docusate is used to relieve occasional constipation (irregularity). There are many brands and forms of docusate available. Not all brands are listed on this leaflet. Docusate may also be used for purposes not listed in this medication guide. What should I discuss with my healthcare provider before using docusate? You should not use docusate if you are allergic to it. Ask a doctor or pharmacist if this medicine is safe to use if you have: ?? stomach pain; ?? nausea; ?? vomiting; or ?? a sudden change in bowel habits that lasts over 2 weeks. Ask a doctor before using this medicine if you are or . Do not give this medicine to a child without medical advice. How should I use docusate? Use exactly as directed on the label, or as prescribed by your doctor. Drink plenty of liquids while you are using docusate. Measure liquid medicine carefully. Use the dosing syringe provided, or use a medicine dose-measuring device (not a kitchen spoon). Do not take the rectal enema by mouth. Rectal medicine is for use only in the rectum. Wash your hands before and after using the enema. To use the enema, lie on your left side with your left leg extended and your right leg slightly bent. Remove the cap from the applicator tip and gently insert the tip into your rectum. Slowly squeeze the bottle to empty the contents into the rectum. After using the enema, lie down on your left side for at least 30 minutes to allow the liquid to distribute throughout your intestines. Avoid using the bathroom, and hold in the enema at least 1 hour, or all night if possible. Read and carefully follow any Instructions for Use provided with your medicine. Ask your doctor or pharmacist if you do not understand these instructions. Docusate generally produces bowel movement in 12 to 72 hours. Call your doctor if your symptoms do not improve after 72 hours. You should not use docusate for longer than 1 week, unless your doctor tells you to. Store at room temperature away from moisture and heat. Do not freeze liquid medicine. What happens if I miss a dose? Since docusate is used when needed, you may not be on a dosing schedule. Skip any missed dose if it's almost time for your next dose. Do not use two doses at one time. What happens if I overdose? Seek emergency medical attention or call the Poison Help line at . What should I avoid while using docusate? Avoid using mineral oil, unless told to do so by a doctor. What are the possible side effects of docusate? Get emergency medical help if you have signs of an allergic reaction: hives; difficult breathing; swelling of your face, lips, tongue, or throat. Stop using docusate and call your doctor at once if you have: ?? rectal bleeding or irritation; or ?? no bowel movement after 72 hours. Less serious side effects may be more likely, and you may have none at all. This is not a complete list of side effects and others may occur. Call your doctor for medical advice about side effects. You may report side effects to FDA at 3-711-RIJ-1952. What other drugs will affect docusate? Other drugs may affect docusate, including prescription and [id number] medicines, vitamins, and herbal products. Tell your doctor about all your current medicines and any medicine you start or stop using. Where can I get more information? Your pharmacist can provide more information about docusate. Remember, keep this and all other medicines out of the reach of children, never share your medicines with others, and use this medication only for the indication prescribed. Every effort has been made to ensure that the information provided by [employer]') is accurate, up-to-date, and complete, but no guarantee is made to that effect. Drug information contained herein may be time sensitive. [employer] information has been compiled for use by healthcare practitioners and consumers in the [place] and therefore [employer] does not warrant that uses outside of the [place] are appropriate, unless specifically indicated otherwise. [employer]s drug information does not endorse drugs, diagnose patients or recommend therapy. [facility] drug information is an informational resource designed to assist licensed healthcare practitioners in caring for their patients and/or to serve consumers viewing this service as a supplement to, and not a substitute for, the expertise, skill, knowledge and judgment of healthcare practitioners. The absence of a warning for a given drug or drug combination in no way should be construed to indicate that the drug or drug combination is safe, effective or appropriate for any given patient. [facility] does not assume any responsibility for any aspect of healthcare administered with the aid of information [facility] provides. The information contained herein is not intended to cover all possible uses, directions, precautions, warnings, drug interactions, allergic reactions, or adverse effects. If you have questions about the drugs you are taking, check with your doctor, nurse or pharmacist. Copyright 9440-2003 [facility] Version: 4.01. Revision Date: 10/07/2018. acetaminophen (oral) (a SEET a MIN oh fen) Actamin, Anacin AF, Aurophen, Bromo Paoli, Children's Tylenol, Mapap, M-Pap, Pharbetol, Silapap Childrens, Tactinal, Tempra Quicklets, Tycolene, Tylenol, Vitapap What is the most important information I should know about acetaminophen? You should not use acetaminophen if you have severe liver disease. Use this medicine exactly as directed on the label, or as prescribed by your doctor. An overdose of acetaminophen can damage your liver or cause . Avoid also using other medicines that contain acetaminophen (sometimes abbreviated as APAP), or you could have a fatal overdose. Call your doctor at once if you have nausea, pain in your upper stomach, itching, loss of appetite, dark urine, yamil-colored stools, or jaundice (yellowing of your skin or eyes). Stop taking this medicine and call your doctor right away if you have skin redness or a rash that spreads and causes blistering and peeling. What is acetaminophen? Acetaminophen is a pain reliever and a fever tectonophysicist. There are many brands and forms of acetaminophen available. Not all brands are listed on this leaflet. Acetaminophen is used to treat pain or fever caused by many conditions such as headache, muscle aches, arthritis, backache, toothaches, sore throat, colds, and flu. Acetaminophen may also be used for purposes not listed in this medication guide. What should I discuss with my healthcare provider before taking acetaminophen? You should not take acetaminophen if you are allergic to it, or if you have severe liver disease. Do not take acetaminophen without a doctor's advice if you have ever had alcoholic liver disease (cirrhosis) or if you drink more than 3 alcoholic beverages per day. Ask a doctor before using this medicine if you are or . Do not give this medicine to a child younger than 12 years old without the advice of a doctor. Extra-strength acetaminophen is not for use in a child younger than 6 years old. How should I take acetaminophen? Use exactly as directed on the label, or as prescribed by your doctor. Do not take more than your recommended dose. An overdose of acetaminophen can damage your liver or cause . ?? Adults and teenagers who weigh at least 110 pounds (50 kilograms): Do not take more than 1000 milligrams (mg) at one time. Do not take more than 4000 mg in 24 hours. Electronically signed by Chris Tolentino Conversion Insulation Cutter And Former Makaylaner at 07/20/2022 12:48 PM CDT documented in this encounter Plan of Treatment Not on file documented as of this encounter Visit Diagnoses Not on filedocumented in this encounter
--- OUTSIDE RECORDS SUMMARY | 2024-12-26 07:04 | XMS_ITS | Encounter Summary ---
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 Discharge Summary, OT Entered On: 04/16/2020 9:22 EST Performed On: 04/16/2020 9:21 EST by CARL MONSIVAIS OTR/L Discharge Summary, OT Reason for Discharge : All goals met Discharge Summary Comment, OT : goals met, see note for details, pt likely discharging home today with family and home health therapy CARL MONSIVAIS OTR/L - 04/16/2020 9:21 EST Electronically signed by Rajan [facility] Conversion Contribution Solicitor Cerner at 07/20/2022 1:15 PM CDT documented in this encounter Plan of Treatment Not on file documented as of this encounter Visit Diagnoses Not on filedocumented in this encounter
--- OUTSIDE RECORDS SUMMARY | 2024-12-26 07:04 | XMS_ITS | Encounter Summary ---
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 Patient: FAY FONTENOT Age: 60 years Sex: Male : 1960 Associated Diagnoses: None Author: ABIODUN DEL CID PA Results Review General results Most recent results Health Status Allergies: Allergic Reactions (Selected) Severity Not Documented Penicillin- Rash., Allergies (1) Active Reaction penicillin rash Current medications: None, (Selected) Inpatient Medications Ordered Benadryl: 25 mg, Oral, On-CALL, PRN: Other (See Comment) Chloraseptic Menthol 1.4% topical spray: 5 [place], Oral, Q2H, PRN: Sore Throat Dextrose 5% in Lactated Ringers intravenous solution 1,000 mL: 100 mL/Hr, IntraVENous Dulcolax Laxative: 10 mg, Rectal, Daily, PRN: Constipation DuoNeb 0.5 mg-2.5 mg/3 mL inhalation solution: 3 mL, Nebulized Inhalation, Q4H, PRN: Wheezing Flexeril: 5 mg, Oral, TID, PRN: Muscle Spasms Keflex: 500 mg, Oral, Q6HInt Lyrica: 75 mg, Oral, [id number] Milk of Magnesia 8% oral suspension: 15 mL, Oral, Q6H, PRN: Constipation Mylanta: 30 mL, Oral, Q6H, PRN: Indigestion Phenergan: 12.5 mg, IV Push, Q6H, PRN: Nausea Phenergan: 12.5 mg, Oral, Q6H, PRN: Nausea Zofran: 4 mg, IV Push, Q4H, PRN: Nausea Zofran: 4 mg, Oral, Q4H, PRN: Nausea acetaminophen: 650 mg, Oral, Q6H aspirin: 325 mg, Oral, BID docusate calcium: 240 mg, Oral, Daily, PRN: Constipation naproxen: 250 mg, Oral, Q6HInt oxyCODONE: 10 mg, Oral, Q6H, PRN: Pain (Severe 7-10) oxyCODONE: 5 mg, Oral, Q6H, PRN: Pain (Moderate 4-6) promethazine: 12.5 mg, IV Push, Q6H, PRN: Nausea/Vomiting traMADol: 50 mg, Oral, QID, PRN: Pain (Mild 1-3) traZODone: 50 mg, Oral, At Bedtime, PRN: Insomnia, No qualifying data available Problem list: All Problems Arthritis / SNOMED CT 1583668 / Confirmed Sleep apnea / SNOMED CT 486604902 / Confirmed History of obstructive sleep apnea / IMO [id number] / Confirmed, Active Problems (3) Arthritis History of obstructive sleep apnea Sleep apnea Subjective Problem: Pain Patient states Pain controlled with medication Objective VS/Measurements Vital Signs/Vital Measures 04/16/2020 11:12 EST Oxygen Therapy Mode Room air 04/16/2020 9:37 EST Systolic Blood Pressure 145 mmHg HI Diastolic Blood Pressure 81 mmHg Mean Arterial Pressure (MAP)-BMDI 90 Temperature Source Oral Temperature Mode Fahrenheit Temperature, Fahrenheit 98.5 Deg F Clinical Temperature, C 36.9 Deg C Heart Rate Monitored 97 bpm Respiratory Rate 16 Breaths/Min Oxygen Saturation 95 % 04/16/2020 8:43 EST Oxygen Therapy Mode Room air 04/16/2020 8:00 EST Oxygen Therapy Mode Room air 04/16/2020 6:00 EST Systolic Blood Pressure 121 mmHg Diastolic Blood Pressure 67 mmHg Mean Arterial Pressure (MAP)-BMDI 80 Temperature Source Oral Temperature Mode Fahrenheit Temperature, Fahrenheit 98.3 Deg F Clinical Temperature, C 36.8 Deg C Heart Rate Monitored 99 bpm Respiratory Rate 18 Breaths/Min Oxygen Saturation 94 % Oxygen Therapy Mode Room air 04/16/2020 4:29 EST Heart Rate Monitored 95 bpm Respiratory Rate 16 Breaths/Min Oxygen Saturation 94 % Oxygen Therapy Mode Room air 04/16/2020 1:42 EST Systolic Blood Pressure 129 mmHg Diastolic Blood Pressure 69 mmHg Mean Arterial Pressure (MAP)-BMDI 83 Temperature Source Oral Temperature Mode Fahrenheit Heart Rate Monitored 98 bpm Respiratory Rate 17 Breaths/Min Oxygen Saturation 94 % Oxygen Therapy Mode CPAP 04/16/2020 1:00 EST Temperature, Fahrenheit 98.8 Deg F 04/16/2020 0:54 EST Heart Rate Monitored 99 bpm Respiratory Rate 18 Breaths/Min Oxygen Saturation 95 % Oxygen Therapy Mode CPAP 04/15/2020 20:23 EST Systolic Blood Pressure 144 mmHg HI Diastolic Blood Pressure 87 mmHg Mean Arterial Pressure (MAP)-BMDI 98 Temperature Source Axillary (Modified) Temperature Mode Fahrenheit Temperature, Fahrenheit 98.4 Deg F Clinical Temperature, C 36.9 Deg C Heart Rate Monitored 107 bpm HI Respiratory Rate 16 Breaths/Min Oxygen Saturation 95 % 04/15/2020 14:00 EST Systolic Blood Pressure 127 mmHg Diastolic Blood Pressure 59 mmHg LOW Mean Arterial Pressure (MAP)-BMDI 85 Heart Rate Monitored 76 bpm Oxygen Saturation 96 % 04/15/2020 13:55 EST Systolic Blood Pressure 128 [...] Pressure 58 mmHg LOW Mean Arterial Pressure ([facility] 84 Heart Rate Monitored 82 bpm Oxygen [...] Room air Oxygen Therapy Mode Room air , Measurements from flowsheet : Measurements 04/15/2020 14:33 EST Height Source Stated Height Entry Format Metcalfe Height/Length, MALTESE (ft) 5 ft Height/Length MALTESE 9 Inch CLINICALHEIGHT 175.26 cm [place] Body Weight 70 kg Weight Source Standing scale Weight Entry Format [place]fe Weight Indian lb 325 lb CLINICALWEIGHT 147.73 kg Body Surface Area (BSA) 2.54 m2 Body Mass Index 48.1 kg/m2 >HHI 04/15/2020 8:19 EST Height Source Stated Height Entry Format Met[place]fe Height/Length, MALTESE (ft) 5 ft Height/Length MALTESE 9 Inch CLINICALHEIGHT 175.26 cm [place] Body Weight 70 kg Weight Source Standing scale Weight Entry Format [place]fe Weight Indian lb 325 lb (Modified) CLINICALWEIGHT 147.73 kg (Modified) Body Surface Area (BSA) 2.54 m2 (Modified) Body Mass Index 48.1 kg/m2 >HHI (Modified) 04/15/2020 3:45 EST Height Source Not Done: Completed and previously documented (Not Done) Height Entry Format Not Done: Completed and previously documented (Not Done) Weight Source Not Done: Completed and previously documented (Not Done) General: No acute distress. Musculoskeletal: Wound clear, No signs of DVT, Grossly normal neurovascular status. Plan Impression and Plan: Continue mobilization and rehabilition. Diagnosis Status Post Surgery. . Condition stable. Doing well. Pain controlled. Grossly normal N/V. Ambulating. No nausea/vominting. Ready for discharge. Follow up and medication as written. documented in this encounter Plan of Treatment Not on file documented as of this encounter Visit Diagnoses Not on filedocumented in this encounter
--- OUTSIDE RECORDS SUMMARY | 2024-12-26 07:04 | XMS_ITS | Encounter Summary ---
Author Organization [employer] ([place], [place], [place], [place]) Address [address] [place] [address] Care Team Providers Care Driller Machine Name Role Phone Unavailable Primary Care Provider Unavailabl e Encounter Details Date Type Department Care Team (Late st Contact Info) Description 04/15/2020 Transcribed Document [facility] [place] Family Medicine [address] [place] [address] ProviderLizabeth MD [address] [place] [address] Social History Tobacco Use Types [...] - Lizabeth ProviderMD - 04/15/2020 2:20 PM CHOCOLATE PACKER Evaluation, Occupational Therapy Entered On: 04/15/2020 15:19 EST Performed On: 04/15/2020 14:54 EST by SAMEERA FLOOD OTR/Archie General Information, OT Patient Orders : Order Date Order Ordering 04/15/2020 14:20 Consult to Occupational Therapy Ordered By: NEGRA FOSTER MD-ORT Active Diagnoses : No Qualifying Diagnoses Therapy Diagnosis, OT : Aftercare following joint replacement surgery--L hip Onset of Problem, OT : 04/15/2020 EST Admission Date : 04/15/2020 03:46 Personal Devices : Personal Devices Glasses Assistive Devices : Assistive Devices No Devices Recorded Precautions in Place : Fall prevention measures, Fall prevention measures, high risk, Hip precautions, anterior SAMEERA FLOOD OTR/Archie - 04/15/2020 15:11 EST General Status Patient Received Status : Supine in bed, Bed alarm activated, Other: present Treatment Start Time : 04/15/2020 14:54 EST Patient Left Status : Up in chair, Chair alarm activated, RN/PCT informed, Family/Visitors at bedside, All needs met and within reach RN/PCT Informed Comment : RN ok'ed to see Treatment End Time : 04/15/2020 15:15 EST Treatment Time : 21 Minute(s) Actual Treatment Time : 21 Minute(s) SAMEERA FLOOD OTR/Archie - 04/15/2020 15:11 EST History and Environment, OT Living Situation, Therapy : Home Patient Lives With : Adult Child/Children, Spouse Persons Assisting Patient at Home : Spouse Professional Skilled Services : None Persons Providing Information : Patient, Spouse Home Equipment, Therapy : Cane, Walker Cane : Cane, single point Walker : Walker, standard Home Setup : Basement, One story Stairs : Yes Stair Location(s) : Inside, Outside Inside Stairs, Number of Steps : 14 Stairs Inside Comment : Pt reports he can stay on main floor Outside Stairs, Number of Steps : 2 Railing Outside : No SAMEERA FLOOD OTR/Archie - 04/15/2020 15:11 EST Prior LOF Bathing, OT : Independent Prior LOF Bed Mobility : Independent Prior LOF Upper Body Dressing, OT : Independent Prior LOF Lower Body Dressing, OT : Independent Prior LOF Toileting : Independent Prior LOF Transfer : Independent Prior LOF Grooming, OT : Independent SAMEERA FLOOD OTR/Archie - 04/15/2020 15:11 EST Upper Extremity Upper Extremity Dominance : Right Right UE Active ROM : WFL Right UE Strength : WFL Left UE Active ROM : WFL Left UE Strength : WFL Hand Shoe Coverer Test : WFL bilaterally Fine Motor Coordination Impaired : No SAMEERA FLOOD OTR/Archie - 04/15/2020 15:11 EST Functional Mobility Mobility Grid Supine to Sit : Supervision/set-up Sit to Stand : Supervision/set-up Bed to Chair : Supervision/set-up (Comment: CGA [SAMEERA FLOOD OTR/Archie - 04/15/2020 15:11 EST] ) Stand to Sit : Supervision/set-up SAMEERA FLOOD OTR/Archie - 04/15/2020 15:11 EST Functional MobilityComment : G safety awareness SAMEERA FLOOD OTR/L 04/15/2020 15:11 EST Activity Tolerance, OT Activity Comment : F act. tolerance SAMEERA FLOOD OTR/L - 04/15/2020 15:11 EST Neurological/Sensory Light Touch Response : Intact SAMEERA FLOOD OTR/L - 04/15/2020 15:11 EST Cognition Assessment, OT Orientation : Oriented x 4 Cognition Assessment, OT : Intact SAMEERA FLOOD OTR/L - 04/15/2020 15:11 EST Education OT Occupational Therapy Education Grid Activity of Daily Living Training : Verbalizes understanding Caregiver Training : Verbalizes understanding Functional Mobility Training : Verbalizes understanding, Returns demonstration Home Safety : Verbalizes understanding Precaution/Contraindication : Verbalizes understanding Role of Occupational Therapy : Verbalizes understanding SAMEERA FLOOD OTR/L 04/15/2020 15:11 EST Teaching/Learning Assessment Barriers To Learning : Acuity of Illness, Cultural barrier Individuals Taught : Patient, Spouse Readiness to Learn : Cooperative Baseline Knowledge of Topic : Limited Readiness to Learn : Demonstration, Explanation Learning Style Preferences Patient : None Learning Style Preferences Family : None SAMEERA FLOOD OTR/ 04/15/2020 15:11 EST Indication Assessment, OT Occupational Therapy Indicated : Yes Problem List, OT : Impaired, activities daily living, Impaired, endurance tolerance, Impaired functional mobility, Impaired, joint mobility, Impaired, muscle tone, Impaired, standing balance, Impaired, transfers, Pain limiting function Potential Barriers, OT : Acuity of illness, Desire/Motivation, Fatigue, Knowledge/education, Pain, Patient compliance Rehabilitation Potential, OT : Good SAMEERA FLOOD OTR/Archie 04/15/2020 15:11 EST Plan of Care, OT OT Tx Plan/Goals Established w Patient : Yes OT Frequency Rehab : Two days per week Other OT Treatment Provided This Date : Self care: pt, family instruction provided re: ADL performance, safety, home safety Eval=8 min Self care=13 min OT Duration Rehab : Seven Days OT Treatments Planned : Activities of daily living, Caregiver training, Functional mobility training, Neuromuscular reeducation, Safety education, Therapeutic activities, Therapeutic exercises SAMEERA FLOOD LIZAR/Archie 04/15/2020 15:11 EST Pest Controller Goals, OT Other LTG Grid Goal #1 Goal #2 Goal #3 Goal : Peform LB ADL with min A Perform ADL transfer with S Verbalize understanding of home safety, safe car transfer (if applicable) Date to Meet : 04/22/2020 EST 04/22/2020 EST 04/22/2020 EST Goal Status : Initial goal Initial goal Initial goal FLOOD SAMEERA OTR/L - 04/15/2020 15:11 EST FLOODSAMEERA OTR/L - 04/15/2020 15:11 EST FLOODSAMEERA OTR/L - 04/15/2020 15:11 EST Pain Assessment Pain Scaled Used : 0-10 Pain scale Pain Score Pre-Intervention : 8 Location : Hip, left Pain Comment : Pt showed no outward signs of such high reported pain level and was able to converse easily throughout eval and participate in all aspects of eval without further complaint; Nsg aware. FLOODSAMEERA OTR/L - 04/15/2020 15:11 EST Image 1 - Images currently included in the form version of this document have not been included in the text rendition version of the form. [facility] OT Charges OT Selfcare/Hm Mgmt Ea 15 Min : 1 OT Eval Low Complexity : 1 REMIGIO SAMEERA OTR/L - 04/15/2020 15:11 EST Electronically signed by Chris Tolentino Conversion Insurance Licensing Supervisor Makaylaner at 07/20/2022 12:48 PM CDT documented in this encounter Plan of Treatment Not on file documented as of this encounter Visit Diagnoses Not on filedocumented in this encounter
--- OUTSIDE RECORDS SUMMARY | 2024-12-26 07:04 | XMS_ITS | Encounter Summary ---
Author Organization [employer] ([place], [place], [place], [place]) Address [address] [place] [address] Care Team Providers Care Egg Sorter Name Role Phone Unavailable Primary Care Provider Unavailabl e Encounter Details Date Type Department Care Team (Late st Contact Info) Description 04/05/2020 Transcribed Document [facility] [place] Family Medicine [address] [place] [address] ProviderLizabeth MD [address] [place] [address] Social History Tobacco Use Types [...] Conversion Note - Lizabeth Whitehead MD - 04/05/2020 1:10 PM [employer]IN[employer]ENT [employer] COLLECTION ASSISTANT Orthopedic Nurse Navigator Entered On: 04/05/2020 13:11 EST Performed On: 04/05/2020 13:10 EST by Janice Barroso Rn-Charge Orthopedic Nurse Navigator Assessment Attended [employer] : No Joint Side Guider Name : . cant do class....no computer Type of Surgery : Anterior Hip Replacement, Left Does Patient Have a Walker? : Yes Anticipated Discharge Plan : Outpatient PT, Home Health PT Anticipated Discharge Plan Comment : no preference Janice Barroso Rn-Charge - 04/05/2020 13:10 EST Electronically signed by [facility] Conversion Photographic Artist Cerner at 07/20/2022 12:52 PM CDT documented in this encounter Plan of Treatment Not on file documented as of this encounter Visit Diagnoses Not on filedocumented in this encounter
--- OUTSIDE RECORDS SUMMARY | 2024-12-26 07:04 | XMS_ITS | Encounter Summary ---
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 Name: FONTENOTJERROD D.O.B./Sex: 1960 Male Med Rec #: [id number] Physician: NEGRA FOSTER MD-ORT Financial #: [id number] Pt. Type: O Room/Bed: [facility]/ Admit/Disch: 04/15/20 03:46:00 - Institution: [facility] [place]Op Case Attendance Entry 1 Entry 2 Entry 3 Case Attendee NEGRA FOSTER MD-ORT ABNEY, MARSHALL, CRNA LONGSWORTH, GARY, VIKKI Role Performed Surgeon/Proceduralist, KNITTER MACHINE/Nurse Mexican Food Maker Interactive Video Technician, First First Time In 04/15/20 10:34:00 04/15/20 10:34:00 04/15/20 10:34:00 Time Out 04/15/20 12:28:00 04/15/20 12:58:00 04/15/20 12:58:00 Procedure Hip Total Anterior Hip Total Anterior Hip Total Anterior Approach Approach Approach Other Attendee Superficial Wound Closed By: Last Modified By: PATEL CARIAS RN LONGSWORTH, GARY, PATEL CHAMBERS, VIKKI 04/15/20 12:58:30 04/15/20 12:58:30 04/15/20 12:58:30 Entry 4 Entry 5 Entry 6 Case Attendee OTHER, ATTENDEE #1 OTHER, ATTENDEE #2 UYEN OLIVER PA-C Role Performed Scrub, First Vendor Physician materials assistant Time In 04/15/20 10:34:00 04/15/20 10:34:00 04/15/20 10:34:00 Time Out 04/15/20 12:58:00 04/15/20 12:58:00 04/15/20 12:58:00 Procedure Hip Total Anterior Hip Total Anterior Hip Total Anterior Approach Approach Approach Other Attendee Jhony CARVALHO Superficial Wound Closed By: Last Modified By: PATEL CARIAS, PATEL CHAMBERS, PATEL CHAMBERS, VIKKI 04/15/20 12:58:30 04/15/20 12:58:30 04/15/20 12:58:30 Entry 7 Entry 8 Entry 9 Case Attendee SIOBHAN NASSAR Leslie L, Ct LEININGER, SUSAN, VIKKI Technologist Role Performed Prefinish Operator Prefinish Operator Interactive Video Technician, Second Time In 04/15/20 10:40:00 04/15/20 10:40:00 04/15/20 11:07:00 Time Out 04/15/20 10:50:00 04/15/20 10:50:00 04/15/20 11:38:00 Procedure Hip Total Anterior Hip Total Anterior Hip Total Anterior Approach Approach Approach Other Attendee LUNCH RELIEF Superficial Wound Closed By: Last Modified By: PATEL CARIAS, PATEL CHAMBERS, PATEL CHAMBERS, VIKKI 04/15/20 12:58:30 04/15/20 12:58:30 04/15/20 12:58:30 Entry 10 Entry 11 Entry 12 Case Attendee Carmen, MOHIT Velasquez, TARIK GREGG, Gilberto Baldwin ST Beadworker APOLONIA Role Performed Prefinish Operator Anesthesiologist Scrub, Second Time In 04/15/20 10:48:00 04/15/20 12:01:00 04/15/20 12:31:00 Time Out 04/15/20 12:58:00 04/15/20 12:25:00 04/15/20 12:58:00 Procedure Hip Total Anterior Hip Total Anterior Hip Total Anterior Approach Approach Approach Other Attendee KNITTER MACHINE BREAK COVERAGE Superficial Wound Closed By: Last Modified By: PATEL CARIAS, PATEL CHAMBERS RN LONGSWORTH, GARY, VIKKI 04/15/20 12:58:30 04/15/20 12:58:30 04/15/20 12:58:30 [facility] IntraOp Case Attendance Audit 04/15/20 12:58:30 Services Executive: LONGGA Modifier: LONGGA 1 <*> Procedure Hip Total Anterior Approach 2 <+> Time Out 2 <*> Procedure Hip Total Anterior Approach 3 <+> Time Out 3 <*> Procedure Hip Total Anterior Approach 4 <+> Time Out 4 <*> Procedure Hip Total Anterior Approach 5 <+> Time Out 5 <*> Procedure Hip Total Anterior Approach 6 <+> Time Out 6 <*> Procedure Hip Total Anterior Approach 7 <*> Procedure Hip Total Anterior Approach 8 <*> Procedure Hip Total Anterior Approach 9 <*> Procedure Hip Total Anterior Approach 10 <+> Time Out 10 <*> Procedure Hip Total Anterior Approach 11 <*> Procedure Hip Total Anterior Approach 12 <+> Time Out 12 <*> Procedure Hip Total Anterior Approach 04/15/20 12:36:20 Services Executive: LONGGA Modifier: LONGGA <+> 12 Case Attendee <+> 12 Role Performed <+> 12 Time In <+> 12 Procedure 04/15/20 12:31:44 Services Executive: LONGGA Modifier: LONGGA 1 <+> Time Out 1 <*> Procedure Hip Total Anterior Approach 11 <+> Time Out 11 <*> Procedure Hip Total Anterior Approach 04/15/20 12:06:17 Services Executive: LONGGA Modifier: LONGGA <+> 11 Case Attendee <+> 11 Role Performed <+> 11 Time In <+> 11 Procedure <+> 11 Other Attendee 04/15/20 11:39:44 Services Executive: LONGGA Modifier: LONGGA 7 <+> Time Out 7 <*> Procedure Hip Total Anterior Approach 8 <+> Time Out 8 <*> Procedure Hip Total Anterior Approach 9 <+> Time Out 9 <*> Procedure Hip Total Anterior Approach <+> 10 Case Attendee <+> 10 Role Performed <+> 10 Time In <+> 10 Procedure 04/15/20 11:11:27 Services Executive: LONGGA Modifier: LONGGA <+> 1 Procedure 2 <*> Procedure Hip Total Anterior Approach 3 <*> Procedure Hip Total Anterior Approach 4 <*> Procedure Hip Total Anterior Approach 5 <*> Procedure Hip Total Anterior Approach 6 <*> Procedure Hip Total Anterior Approach 7 <*> Procedure Hip Total Anterior Approach 8 <*> Procedure Hip Total Anterior Approach 9 <*> Procedure Hip Total Anterior Approach 04/15/20 11:08:05 Services Executive: LONGGA Modifier: LONGGA <+> 9 Case Attendee <+> 9 Role Performed <+> 9 Time In <+> 9 Procedure <+> 9 Other Attendee 04/15/20 10:59:58 Services Executive: LONGGA Modifier: LONGGA <+> 8 Time In <+> 8 Procedure 04/15/20 10:59:57 Services Executive: LONGGA Modifier: LONGGA <+> 1 Time In 2 <+> Time In 2 <*> Procedure Hip Total Anterior Approach 3 <+> Time In 3 <*> Procedure Hip Total Anterior Approach 4 <+> Time In 4 <*> Procedure Hip Total Anterior Approach 5 <+> Time In 5 <*> Procedure Hip Total Anterior Approach <+> 6 Case Attendee <+> 6 Role Performed <+> 6 Time In <+> 6 Procedure <+> 7 Case Attendee <+> 7 Role Performed <+> 7 Time In <+> 7 Procedure <+> 8 Case Attendee <+> 8 Role Performed [facility] IntraOp Case Times Entry 1 Patient In Room Time 04/15/20 10:34:00 Out Room Time 04/15/20 12:58:00 Anesthesia Start Time 04/15/20 10:34:00 Stop Time 04/15/20 12:58:00 Anesthesia Ready 04/15/20 10:34:00 Surgery / Procedure Times Start Time 04/15/20 11:09:00 Stop Time 04/15/20 12:49:00 Last Modified By: PATEL CARIAS RN 04/15/20 12:58:28 [facility] IntraOp Case Times Audit 04/15/20 12:58:28 Services Executive: LONGGA Modifier: LONGGA <+> 1 Out Room Time <+> 1 Stop Time 04/15/20 12:51:22 Services Executive: LONGGA Modifier: LONGGA <+> 1 Stop Time 04/15/20 11:09:43 Services Executive: LONGGA Modifier: LONGGA <+> 1 Start Time [facility] IntraOp Cautery Entry 1 ESU Identification Cautery Type Monopolar ESU ID Number [id number] ID Type Hospital Number Cautery Settings Cut Setting 50 Coag Setting 50 ESU Grounding Pad Ground Pad Type Adult Grounding Pad Site Right thigh Grounding Pad PATEL CARIAS RN Applied By Grounding Pad Site Intact Skin Condition Before Cautery Grounding Pad Site Unchanged Skin Condition After Cautery Last Modified By: PATEL CARIAS RN 04/15/20 11:06:45 [facility] IntraOp Communication Entry 1 Communication To Family/Significant other Comment PROCEDURE STARTING Communication By ALFIE HUSTON RN Date and Time 04/15/20 11:15:00 Last Modified By: PATEL CARIAS RN 04/15/20 12:00:55 [facility] IntraOp Communication Audit 04/15/20 12:00:55 Services Executive: LONGGA Modifier: LONGGA <+> 1 Comment [facility] IntraOp Counts Verification Entry 1 Procedure Hip Total Anterior Approach Count Info Count Type Sponge, Sharps Counts Verification Baseline/pre-procedure Sequence Count Results Correct, surgeon notified Counts Performed By Count Performed By OTHER, ATTENDEE #1 (Scrub) Count Performed By PATEL CARIAS, RN (RN) Last Modified By: PATEL CARIAS RN 04/15/20 11:07:09 [facility] IntraOp Counts Final Entry 1 Procedure Hip Total Anterior Approach Final Count Info Count Type Sponge, Sharps Counts Verification Skin Closure/end of Sequence procedure Count Results Correct, surgeon notified Counts Performed By Count Performed By Gilberto Baldwin ST (Scrub) Count Performed By PATEL CARIAS RN (RN) Last Modified By: PATEL CARIAS RN 04/15/20 12:36:34 [facility] IntraOp Cultures and Spec Summary Entry 1 Cultrures and Specimens Specimen Ordered: Yes Test(s) Routine/Path-Lab Requested/Final Disposition Last Modified By: PATEL CARIAS RN 04/15/20 11:08:09 [facility] IntraOp Departure from OR Entry 1 Integumentary Assessment Integumentary WDL Assessment WDL Skin Description Dry (WDL with exeptions) Transfer/Handoff Transfer to PACU Phase I Handoff Method Bedside/Face to face Post-op Transport Bed (including Via specialty) Patient Transport NATANAEL BACK CRNA, Accompanied by PATEL CARIAS, RN Last Modified By: PATEL CARIAS RN 04/15/20 12:38:15 [facility] IntraOp Drains and Tubes Entry 1 Device Type Hemovac Size MEDIUM Drain/Tube Activity Inserted Drain/Tube Suction Bulb Last Modified By: PATEL CARIAS RN 04/15/20 11:08:12 [facility] IntraOp Dressing and Packing Entry 1 Type Dressing Location OPSITE Wound Dressing Item Occlusive dressing Applied By UYEN OLIVER PA-C Other Comments AQUACEL DRESSING; WILL USE DERMABOND PRINEO FOR LARGER INCISION Last Modified By: PATEL CARIAS RN 04/15/20 11:18:34 [facility] IntraOp Fire Risk Assessment Entry 1 Fire Info Surgical Site or 0- No Incision Above the Xyphoid Open O2 Source 0- No (Mask or Cannula) Available Ignition 1- Yes (ESU, Laser, Light Source) Fire Risk 1 Assessment Score Fire Score Fire Risk Yes Assessment Complete Fire Risk PATEL CARIAS RN Assessment Verified By Fire Risk 04/15/20 11:08:00 Assessment Verified Date/Time Fire Risk Standard Fire Yes Safety Precautions Followed Last Modified By: PATEL CARIAS RN 04/15/20 11:11:00 [facility] IntraOp General Case Accounting File Clerk 1 Case Information OR OR 05 SJE Case Level 1 Room Verified Yes Wound Class I - Clean Specialty SN Orthopedic Anesthesia Type General ASA Class 3 Diagnosis Preop Diagnosis CHRONIC PAIN LEFT HIP Postop Same As Preop No Postop Diagnosis PER M.D. DICTATION Last Modified By: PATEL CARIAS RN 04/15/20 11:14:05 [facility] IntraOp Implant Log Entry 1 Entry 2 Entry 3 Type Implant (Synthetic) Implant (Synthetic) Implant (Synthetic) Implant Log Implant Type Hardware Hardware Hardware Tissue Implant Type Implant LINER NTRL ALTN XLE CUP CLSTR-HOLE ALTN STEM FEM ALTEON SZ 9 Identification [id number] Description Implant Quantity 1 1 1 Implant Site LEFT HIP LEFT HIP LEFT HIP Implant Identification Model Number Implant [id number] Identification Serial Number Implant Identification Lot Number Implant Exactech Exactech Exactech Identification Meat Service Team Member Name: Implant [id number] Identification Catalog Number Implant Size Implant Has an Yes Yes Yes Expiration Date Implant Expiration 02/02/25 12/17/29 09/04/23 Date Wasted Radioactive Material Time Implanted Tissue Implant Continue for Tissue Implant Documentation Tissue Identification Number Graft Prep Per Meat Service Team Member Instructions: Tissue Preparation Method: Reconstitution Solution: Reconstitution Solution Lot Number Reconstitution Solution Expiration Date: Thawing Solution Thawing Solution Lot Number Thawing Solution Expiration Date Preparation Materials, Other Preparation Materials, Other Lot Number Preparation Materials, Other Expiration Date Tissue Prepared/Processed By Meat Service Team Member Paperwork Completed Implant Type Comment Last Modified By: PATEL CARIAS, PATEL CHAMBERS, PATEL CHAMBERS RN 04/15/20 11:49:12 04/15/20 11:50:15 04/15/20 12:24:55 Entry 4 Type Implant (Synthetic) Implant Log Implant Type Hardware Tissue Implant Type Implant HEAD FEM DELTA 36MM Identification [id number] Description Implant Quantity 1 Implant Site LEFT HIP Implant Identification Model Number Implant [id number] Identification Serial Number Implant Identification Lot Number Implant Exactech Identification Meat Service Team Member Name: Implant Identification Catalog Number Implant Size Implant Has an Yes Expiration Date Implant Expiration 12/20/24 Date Wasted Radioactive Material Time Implanted Tissue Implant Continue for Tissue Implant Documentation Tissue Identification Number Graft Prep Per Meat Service Team Member Instructions: Tissue Preparation Method: Reconstitution Solution: Reconstitution Solution Lot Number Reconstitution Solution Expiration Date: Thawing Solution Thawing Solution Lot Number Thawing Solution Expiration Date Preparation Materials, Other Preparation Materials, Other Lot Number Preparation Materials, Other Expiration Date Tissue Prepared/Processed By Meat Service Team Member Paperwork Completed Implant Type Comment Last Modified By: PATEL CARIAS RN 04/15/20 12:26:35 [facility] IntraOp Implant Log Audit 04/15/20 12:26:35 Services Executive: LONGGA Modifier: LONGGA <+> 4 Implant Identification Description <+> 4 Implant Identification Serial Number <+> 4 Implant Identification Meat Service Team Member Name: <+> 4 Implant Expiration Date <+> 4 Implant Site <+> 4 Implant Quantity <+> 4 Implant Identification Catalog Number <+> 4 Implant Type <+> 4 Implant Has an Expiration Date <+> 4 Type 04/15/20 12:24:55 Services Executive: LONGGA Modifier: LONGGA <+> 3 Implant Identification Description <+> 3 Implant Identification Serial Number <+> 3 Implant Identification Meat Service Team Member Name: <+> 3 Implant Expiration Date <+> 3 Implant Site <+> 3 Implant Quantity <+> 3 Implant Identification Catalog Number <+> 3 Implant Type <+> 3 Implant Has an Expiration Date <+> 3 Type 04/15/20 11:50:15 Services Executive: LONGGA Modifier: LONGGA <+> 2 Implant Identification Description <+> 2 Implant Identification Serial Number <+> 2 Implant Identification Meat Service Team Member Name: <+> 2 Implant Expiration Date <+> 2 Implant Site <+> 2 Implant Quantity <+> 2 Implant Identification Catalog Number <+> 2 Implant Type <+> 2 Implant Has an Expiration Date <+> 2 Type [facility] IntraOp Intraoperative Assessment Entry 1 Handoff Method Bedside/Face to face Valid History / Yes Physical in Chart Preoperative Yes Checklist Reviewed/Evaluated Allergies Reviewed Yes Patient is Latex No Sensitive Isolation Not applicable Precautions Noted Level of WDL Consciousness (WDL = Alert, Oriented to Person, Place, and Time) Skin Assessment Yes Verified Present Upon IVs Arrival to OR Last Modified By: PATEL CARIAS RN 04/15/20 11:11:32 [facility] IntraOp Intraoperative Equipment Entry 1 Type Equipment Equipment Equipment Mary Suction System Setting MEDUIM Intraop Monitoring Electrocardiogram Three lead placement (ECG) Electrode Placement Blood Pressure Non-Invasive BP Device Source Antiembolic Devices Antiembolic Devices Foot pumps Antiembolic Device Bilateral Location Antiembolic Device [id number] ID Number Scopes Photo/Video Documentation Photo No Video No Last Modified By: PATEL CARIAS RN 04/15/20 11:14:30 [facility] IntraOp Medication Admin Entry 1 Entry 2 Medication/Irrigant heparin 1000units/ml Marcaine 0.5% 30ml vial 10ml - [id number] - [id number] Combo Med List Time Administered Route of CELLSAVER LOCAL Administration Dose Dose 45609 Unit of Measure units ml Volume 30ML 30 Administered By NEGRA FOSTER MD-ORT Procedure Irrigation Irrigant Volume In Irrigant Volume Out Last Modified By: PATEL CARIAS RN LONGSWORTH, GARY, RN 04/15/20 11:15:06 04/15/20 11:15:06 [facility] IntraOp Patient Positioning Entry 1 Procedure Hip Total Anterior Approach Body Position Supine Left Arm Position Secured across chest Right Arm Position Secured on padded arm board Left Leg Position Held on field Right Leg Position Held on field Feet Uncrossed Yes Pressure Points Yes Checked Positioning Devices Pillows, Arm Board, Foot Rest, Other Positioning Device HAVE SMALL KLEIN STAND Comments Device Position PLACE NONOPERATIVE LEG ON PADDED KLEIN STAND; FOOT PROP AT KNEE LEVEL ON NONOPERATIVE SIDE, SUPINE WITH HIP WHERE FOB DROPS, OPERATIVE ARM ACROSS CHEST Positioned By NATANAEL BACK, TAYLA, NEGRA FOSTER MD-ORT, UYEN OLIVER PA-C, PATEL CARIAS RN Position Verified Positioning Yes Verified by Anesthesia Positioning Yes Verified by Surgeon Last Modified By: PATEL CARIAS RN 04/15/20 11:11:24 [facility] IntraOp Sign In Entry 1 Patient, Site, Yes Procedure Identified Surgical Consent Yes Confirmed Relevant Surgical Yes Documents Available Surgical Site Yes Marked by person performing procedure Anesthesia Machine Yes Check Completed Medication Checks Yes Completed Allergies Yes Airway Difficult No Airway/Aspiration Risk Difficult Yes Airway/Aspiration Intervention Equipment Available Blood Loss Risk Yes Blood Loss Yes Intervention Equipment Prepared and Ready Blood Identifiers Not applicable Verified Per Policy Hypothermia Risk Yes Warming Measures Yes Taken Last Modified By: PATEL CARIAS RN 04/15/20 11:15:14 [facility] Intra Op Sign Out Entry 1 RN Confirmation Surgical Yes Procedure(s) Identified Instrument, Sponge Yes and Sharps Counts Correct/Documented Equipment Problems N/A Documented Specimen Labeled Yes Correctly Urinary Catheter N/A Documented in IView Rivero Patient Yes Recovery Concerns Reviewed with Anesthesia Provider, Surgeon and RN Rivero Patient Yes Management Concerns Reviewed with Anesthesia Provider, Surgeon and RN Safety Checklist Yes Elements Complete? RN Sign Out PATEL CARIAS, RN Signature RN Sign Out 04/15/20 12:54:00 Signature Date/Time Plan of Care Outcome - Fire Risk OUTCOME STATEMENT: Goal met Patient is free from injury related to surgical fire Plan of Care Outcome - Pt Positioning OUTCOME STATEMENT: Goal met Absence of signs and symptoms of positioning injury. Plan of Care Outcome - Skin Prep OUTCOME STATEMENT: Goal met Intraoperative care is consistent with measures to prevent infection Plan of Care Outcome - Xray/Images OUTCOME STATEMENT: Goal met Absence of observable signs or symptoms of radiation injury Plan of Care Outcome - Counts OUTCOME STATEMENT: Goal met Absence of signs and symptoms of injury related to extraneous objects Last Modified By: PATEL CARIAS RN 04/15/20 12:54:51 [facility] Intra Op Sign Out Audit 04/15/20 12:54:51 Services Executive: ALBERT Modifier: LONGGA <+> 1 RN Sign Out Signature Date/Time <+> 1 Urinary Catheter Documented in IView [facility] IntraOp Skin Prep Entry 1 Procedure Hip Total Anterior Approach Prescribed Yes Pre-Surgical Prep Completed Prep Area OPSITE Intraop Prep Integumentary WDL Assessment WDL Prep Agents Chlorhexadine gluconate, Alcohol Prep by PATEL CARIAS RN Skin Prep Comment BLOT AFTER PREP Hair Removal Last Modified By: PATEL CARIAS RN 04/15/20 11:18:45 [facility] IntraOp Surgical Procedures Entry 1 Procedure Hip Total Anterior Approach Additional LEFT DIRECT ANTERIOR Procedure TOTAL HIP REPLACEMENT Description Primary Procedure Yes Primary Surgeon NEGRA FOSTER MD-ORT Start 04/15/20 11:09:00 Stop 04/15/20 12:49:00 Anesthesia Type General Specialty SN Orthopedic Wound Class I - Clean Last Modified By: PATEL CARIAS RN 04/15/20 12:53:26 [facility] IntraOp Surgical Procedures Audit 04/15/20 12:53:26 Services Executive: ALBERT Modifier: LONGGA <+> 1 Stop [facility] IntraOp Temp Regulation Devices Entry 1 Temp Regulation Temperature Forced Air Warming Regulation Device device Temperature Upper body Regulation Site Temperature NATANAEL BACK CRNA Regulation Device Applied by Last Modified By: PATEL CARIAS RN 04/15/20 11:14:33 [facility] IntraOp Time Out Entry 1 Procedure to be Hip Total Anterior Performed Approach Time Out Time Out Pause Time 04/15/20 11:08:00 All activity Yes suspended (unless life threatening emergency) Team Verbally Correct patient Confirms Information identity, Correct side and site are marked, Consent form is present and accurate, Agreement on the procedure to be done, Correct patient position, Relevant images/results properly labeled/appropriately displayed, Confirm antibiotics have been administered, Confirm the skin prep has dried, Confirm prosthesis/implant/devic e is present, Performed in location of procedure after prepped/draped, Performed before each procedure if multiple procedures, Reconcile problems if responses among team members differ Antibiotic Yes Prophylaxis Administered Or In Progress Within the Last 60 Minutes Beta Sirisha N/A Administered Venous Yes Thromboembolism Prophylaxis Required Anticipated Critical Events Surgeon None expected Anesthesia Provider Patient specific concerns, None expected Nursing Assures Sterility of instruments Essential Imaging Yes Labeled and Displayed Last Modified By: PATEL CARIAS RN 04/15/20 11:10:54 [facility] IntraOp Time Out Audit 04/15/20 11:10:54 Services Executive: ALBERT Modifier: ALBERT 1 <+> Beta Sirisha Administered 1 <+> Venous Thromboembolism Prophylaxis Required 1 <+> Antibiotic Prophylaxis Administered Or In Progress Within the Last 60 Minutes 1 <+> Surgeon 1 <+> Anesthesia Provider 1 <+> Nursing Assures 1 <+> Essential Imaging Labeled and Displayed 1 <*> Procedure to be Performed Hip Total Anterior Approach [facility] IntraOp X-Ray and Images Entry 1 X-Ray/Imaging Type Fluoroscopy Fluoroscopy Type C-Arm Site OPERATIVE SITE Metal Machine Setter Name Carmen Shirin Archie, Beadworker Protective Devices Yes Used Last Modified By: PATEL CARIAS RN 04/15/20 11:21:24 Case Comments <None> Finalized By: PATEL CARIAS, RN Document Signatures Signed By: PATEL CARIAS RN 04/15/20 13:03 PATEL CARIAS RN 04/15/20 13:13 Unfinalized History Date/Time Username Reason for Unfinalizing Freetext Reason for Unfinalizing 04/15/20 13:12 ALBERT Correct Documentation Electronically signed by Rajan [facility] Conversion Slasher Tender Helper Cerner at 07/20/2022 1:06 PM CDT documented in this encounter Plan of Treatment Not on file documented as of this encounter Visit Diagnoses Not on filedocumented in this encounter
--- OUTSIDE RECORDS SUMMARY | 2024-12-26 07:04 | XMS_ITS | Encounter Summary ---
Author Organization [facility] ([place], [place], [place], [place]) Address [address] [place] [address] Care Team Providers Care Manager Oracle Database Name Role Phone Unavailable Primary Care Provider Unavailabl e Encounter Details Date Type Department Care Team (Late st Contact Info) Description 05/11/[address] 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
--- OUTSIDE RECORDS SUMMARY | 2024-12-26 07:04 | XMS_ITS | Encounter Summary ---
Author Organization [employer] ([place], [place], [place], [place]) Address [address] [place] [address] Care Team Providers Care Telegraphic Typewriter Mechanic Name Role Phone Unavailable Primary Care Provider Unavailabl e Encounter Details Date Type Department Care Team (Late st Contact Info) Description 04/15/2020 Transcribed Document [facility] [place] [address] [place] [address] ProviderLizabeth MD [address] [place] [address] Social History Tobacco Use Types [...] Conversion Note - Lizabeth ProviderMD - 04/15/2020 3:22 PM DELINQUENCY PREVENTION SOCIAL WORKER Treatment Intervention, PT Entered On: 04/16/2020 12:27 EST Performed On: 04/16/2020 9:25 EST by ROSANA CARRERA PTA General Information, PT Visit Type, PT : Treatment Note Patient Orders : Order Date Order Ordering 04/15/2020 14:20 Consult to Physical Therapy Ordered By: NEGRA FOSTER MD-ORT 04/15/2020 15:22 PT Additional Treatment Ordered By: YANA DAVIS PT Active Diagnoses : No Qualifying Diagnoses Therapy Diagnosis, PT : aftercare following L GIANLUCA Admission Date : 04/15/2020 03:46 Personal Devices : Personal Devices Glasses Assistive Devices : Assistive Devices No Devices Recorded Precautions in Place : Fall prevention measures, Fall prevention measures, high risk, Hip precautions, anterior ROSANA CARRERA PTA - 04/16/2020 12:07 EST General Status Patient Received Status : Supine in bed, Other: needs in reach Treatment Start Time : 04/16/2020 8:55 EST Patient Left Status : Up in chair, RN/PCT informed, Family/Visitors at bedside, All needs met and within reach, Other: needs in reach RN/PCT Informed Comment : RN and pt ok'd PTot see Treatment End Time : 04/16/2020 9:25 EST Treatment Time : 30 Minute(s) ROSANA CARRERA PTA - 04/16/2020 12:07 EST Edu Topics Physical Therapy Education Grid Bed Mobility Training : Verbalizes understanding, Returns demonstration Gait Training : Verbalizes understanding, Returns demonstration, Needs further teaching Home Program/Exercises : Verbalizes understanding, Returns demonstration, Needs further teaching Therapeutic Exercises : Verbalizes understanding, Returns demonstration, Needs further teaching Transfer Training : Verbalizes understanding, Returns demonstration Use of Assistive Device : Verbalizes understanding, Returns demonstration ROSANA CARRERA PTA - 04/16/2020 12:07 EST Plan of Care, PT PT Tx Plan/Goals Established w Patient : Yes ROSANA CARRERA PTA - 04/16/2020 12:07 EST Cotton Machine Operator Goals Other PT LTG Grid Goal #1 [...] : 04/16/2020 EST 04/16/2020 EST 04/16/2020 EST ROSANA CARRERA PTA - 04/16/2020 12:07 EST ROSANA CARRERA PTA - 04/16/2020 12:07 EST ROSANA CARRERA PTA - 04/16/2020 12:07 EST Treatment Note Subjective Comment : Patient reports 1/10 pain at rest and 6-7/10 pain when he gets up. RN aware and meds given as able Patient's Response to Treatment : good, no adverse reactions to therapy Additional Objective Information : mod independent with all bed mobility and transfers gait training- 15 min - CGA x1 200' with RWx, and gait belt donned - decreased stride length, decreased balwinder, forward flexed posture - v/c for staying close to the walker, resting as needed, upright posture - no LOB issues or DUNG issues - no rest breaks needed - up/down 4 steps with bilateral handrails ther ex- 15 min - LLE A/AAROM x20 sitting/supine on mat table - ankle pumps - LAQ - SAQ - Heel slides in sitting and supine - quad sets - glute sets - Hamstring sets Assessment : LTG #1, #2, and #3 met today, All goals met at this time. talked with case management about using standard walker at home and patient could do so safely with education Plan for Treatment : continue PT POC ROSANA CARRERA PTA - 04/16/2020 12:[address] [facility] PT Charges BAKERY DELIVERER PT Therap. Exercise 15 min-BAKERY DELIVERER : 1 Gait Training Each 15 Min-BAKERY DELIVERER : 1 ROSANA CARRERA PTA - 04/16/2020 12:07 EST documented in this encounter Plan of Treatment Not on file documented as of this encounter Visit Diagnoses Not on filedocumented in this encounter
--- OUTSIDE RECORDS SUMMARY | 2024-12-26 07:04 | XMS_ITS | Clinical Summary ---
Author Organization [facility] Address [address] [place] [address] Care Team Providers Care Semiconductor Development Technician Name Role Phone Unavailable Primary Care Provider Unavailabl e Family History Medical History Relation Name Comments Bone cancer Father Relation Name Status Comments Father Social History Tobacco Use Types Packs/Day Years Used Date Smoking Tobacco: Never Alcohol Use Standard Drinks/Week Comments No 0 (1 standard drink = 0.6 oz pur e alcohol) Sex and Gender Information Value Date Recorded Sex Assigned at Not on file Legal Sex Male 6:10 PM EDT Gender Identity Not on file Sexual Orientation Not on file Last Filed Vital Signs Vital Sign Reading Time Taken Comments Blood Pressure - - Pulse - - Temperature - - Respiratory Rate - - Oxygen Saturation - - Inhaled Oxygen Concentration - - Weight 136 kg (300 lb) 05/14/2015 3:56 PM EST Height 177.8 cm (5' 10 ) 05/14/2015 3:56 PM EST Body Mass Index 43.05 05/14/2015 3:56 PM EST Plan of Treatment Not on file
--- OUTSIDE RECORDS SUMMARY | 2024-12-26 07:04 | XMS_ITS | Encounter Summary ---
Author Organization [employer] ([place], [place], [place], [place]) Address [address] [place] [address] Care Team Providers Care Furnace Feeder Name Role Phone Unavailable Primary Care Provider Unavailabl e Encounter Details Date Type Department Care Team (Late st Contact Info) Description 05/12/2020 Transcribed Document [facility] [place] Family Medicine [address] [place] [address] ProviderLizabeth MD [address] [id number] Social History Tobacco Use Types Packs/Day Years Used Date Smoking Tobacco: Never Assessed Sex and Gender Information Value Date Recorded Sex Assigned at Male 09/27/2021 8:47 PM CDT Legal Sex Male 8:47 PM CDT Gender Identity Male 09/27/2021 8:47 PM CDT Sexual Orientation Not on file documented as of this encounter Miscellaneous Notes * Cerner Conversion Note - Lizabeth Whitehead MD - 05/12/2020 6:00 AM ENVIRONMENTAL DESIGNER Pain Assessment Entered On: 05/12/2020 5:41 EST Performed On: 05/12/2020 6:02 EST by Poppy Carrero Rn Intervention Information: naproxen Performed by Poppy Carrero, Rn on 05/12/2020 05:02:00 EST naproxen,250mg Oral Pain Assessment Pain Scale Goal : 2 Pain Improved by Intervention : Yes Poppy Carrero, Rn - 05/12/2020 5:41 EST documented in this encounter Plan of Treatment Not on file documented as of this encounter Visit Diagnoses Not on filedocumented in this encounter
--- OUTSIDE RECORDS SUMMARY | 2024-12-26 07:05 | XMS_ITS | Encounter Summary ---
Author Organization [employer] ([place], [place], [place], [place]) Address [address] [place] [address] Care Team Providers Care Baseball Glove Shaper Name Role Phone Unavailable Primary Care Provider Unavailabl e Encounter Details Date Type Department Care Team (Late st Contact Info) Description 05/12/2020 Transcribed Document [facility] [place] [facility] [place] [place] [address] ProviderLizabeth MD [address] [place] [address] Social History Tobacco Use Types Packs/Day Years Used Date Smoking Tobacco: Never Assessed Sex and Gender Information Value Date Recorded Sex Assigned at Male 09/27/2021 8:47 PM CDT Legal Sex Male 8:47 PM CDT Gender Identity Male 09/27/2021 8:47 PM CDT Sexual Orientation Not on file documented as of this encounter Miscellaneous Notes * Cerner Conversion Note - Historical ProviderMD - 05/12/2020 9:58 AM DISTRIBUTOR OF DIRECTORIES Therapy Screen, OT Entered On: 05/12/2020 10:40 EST Performed On: 05/12/2020 9:58 EST by SAMEERA FLOOD OTR/L Therapy Screen, OT Medical Chart Reviewed : Yes Person Providing Information : Patient Screen Completed : Yes Recommendations for Evaluation OT : Do not recommend Occupational Therapy evaluation Therapy Screen Findings, OT : Patient at functional baseline Recommendations Upon Discharge : None Additional Therapy Screen Comment : Pt reports he is fully I with ADLs, functional mobility, and has no therapy needs at this time. PT confirms this. No further skilled OT indicated. SAMEERA FLOOD OTR/L - 05/12/2020 10:36 EST documented in this encounter Plan of Treatment Not on file documented as of this encounter Visit Diagnoses Not on filedocumented in this encounter
--- OUTSIDE RECORDS SUMMARY | 2024-12-26 07:05 | XMS_ITS | Clinical Summary ---
Author Organization [employer] ([place], [place], [place], [place]) Address [address] [place] [address] Care Team Providers Care Coil Winding Supervisor Name Role Phone Unavailable Primary Care Provider Unavailabl e Social History Tobacco Use Types Packs/Day Years Used Date Smoking Tobacco: Never Assessed Sex and Gender Information Value Date Recorded Sex Assigned at Male 09/27/2021 8:47 PM CDT Legal Sex Male 8:47 PM CDT Gender Identity Male 09/27/2021 8:47 PM CDT Sexual Orientation Not on file Plan of Treatment Not on file
--- OUTSIDE RECORDS SUMMARY | 2024-12-26 07:05 | XMS_ITS | Encounter Summary ---
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 Discharge Follow Up Instructions: Follow-up with Dr. Castano as scheduled, Order Comment: Follow-up with PCP as scheduled or PRN Activity: As per Dr. Castano recommendations, Discharge Activity: Other (use Special Instructions) Diet: Discharge Diet: Resume usual diet as tolerated Follow-Up Appointments Follow Up with NEGRA FOSTER MD-ORT When 05/25/2020 09:30 AM EST Where: [address] [facility] [address] [place] [address]- Follow Up with SHERYL NOEL When 05/24/2020 10:30 AM EST Comments Appointment has been made Where: [address] [facility] [address] [place] [address]- Business (1) Medications What How Much When Instructions Next Dose docusate (docusate sodium 100 mg oral capsule) 1 Capsule(s) Oral Two Times A Day as needed for as needed for constipation Duration: 30 Day(s) tonight linezolid (Zyvox 600 mg oral tablet) 1 Tablet(s) Oral Every 12 hours Duration: 10 Day(s) tonight meloxicam (Mobic 15 mg oral tablet) 1 Tablet(s) Oral Every Day Duration: 14 Day(s) tomorrow ondansetron (Zofran 4 mg oral tablet) 1 Tablet(s) Oral Every 6 Hours as needed for Nausea Duration: 7 Day(s) as needed oxyCODONE (oxyCODONE 5 mg oral tablet) 1 Tablet(s) Oral Every 6 Hours as needed for as needed for pain Duration: 7 Day(s) 1 tablet every 4-6 hours as needed for moderate pain, 2 tablets every 4-6 hours as needed for severe painn as needed traMADol (Ultram 50 mg oral tablet) 1 Tablet(s) Oral Every 6 Hours as needed for Pain (Mild 1-3) Duration: 7 Day(s) 1-2 tablets very 6 hours as needed for mild pain as needed acetaminophen (acetaminophen 500 mg oral tablet) 2 Tablet(s) Oral Three Times A Day Duration: 30 Day(s) tonight amoxicillin-clavulanate (Augmentin 875 mg-125 mg oral tablet) 1 Tablet(s) Oral Every 12 hours tonight aspirin (aspirin 81 mg oral delayed release tablet) 1 Tablet(s) Oral Two Times A Day Duration: 6 weeks tonight Take your medications faithfully. Do NOT skip [...] This Visit No Immunizations Found Education Materials Negative Pressure Wound Therapy Home Guide Negative pressure wound therapy (NPWT) uses a sponge or foam-like material (dressing) placed on or inside the wound. The wound is then covered and sealed with a cover dressing that sticks to your skin (is adhesive). This keeps air out. A tube is attached to the cover dressing, and this tube connects to a small pump. The pump sucks fluid and germs from the wound. NPWT helps to increase blood flow to the wound and heal it from the inside. What are the risks? NPWT is usually safe to use. However, problems can occur, including: ??? Skin irritation from the dressing adhesive. ??? Bleeding. ??? Infection. ??? Dehydration. Wounds with large amounts of drainage can cause excessive fluid loss. ??? Pain. Supplies needed: ??? A disposable garbage bag. ??? Soap and water, or hand director of clinical trials. ??? Wound cleanser or salt-water solution (saline). ??? New sponge and cover dressing. ??? Protective clothing. ??? Gauze pad. ??? Vinyl gloves. ??? Tape. ??? Skin protectant. This may be a wipe, film, or spray. ??? Clean or germ-free (sterile) scissors. ??? Eye protection. How to change your dressing Prepare to change your dressing 1. If told by your health care provider, take pain medicine 30 minutes before changing the dressing. 2. Wash your hands with soap and water. Dry your hands with a clean towel. If soap and water are not available, use hand director of clinical trials. 3. Set up a clean station for wound care. 4. Open the dressing package so that the sponge dressing remains on the inside of the package. 5. Wear gloves, protective clothing, and eye protection. Remove old dressing 1. Turn off the pump and disconnect the tubing from the dressing. 2. Carefully remove the adhesive cover dressing in the direction of your hair growth. 3. Remove the sponge dressing that is inside the wound. If the sponge sticks, use a wound cleanser or saline solution to wet the sponge and help it come off more easily. 4. Throw the old sponge and cover dressing supplies into the garbage bag. 5. Remove your gloves by grabbing the cuff and turning the glove inside out. Place the gloves in the trash immediately. 6. Wash your hands with soap and water. Dry your hands with a clean towel. If soap and water are not available, use hand director of clinical trials. Clean your wound ??? Wear gloves, protective clothing, and eye protection. Follow your health care provider's instructions on how to clean your wound. You may be told to: 1. Clean the wound using a saline solution or a wound cleanser and a clean gauze pad. 2. Pat the wound dry with a gauze pad. Do not rub the wound. 3. Throw the gauze pad into the garbage bag. 4. Remove your gloves by grabbing the cuff and turning the glove inside out. Place the gloves in the trash immediately. 5. Wash your hands with soap and water. Dry your hands with a clean towel. If soap and water are not available, use hand director of clinical trials. Apply new dressing ??? Wear gloves, protective clothing, and eye protection. 1. If told by your health care provider, apply a skin protectant to any skin that will be exposed to adhesive. Let the skin protectant dry. 2. Cut a piece of new sponge dressing and put it on or in the wound. 3. Using clean scissors, cut a nickel-sized hole in the new cover dressing. 4. Apply the cover dressing. 5. Attach the suction tube over the hole in the cover dressing. 6. Take off your gloves. Put them in the plastic bag with the old dressing. Tie the bag shut and throw it away. 7. Wash your hands with soap and water. Dry your hands with a clean towel. If soap and water are not available, use hand director of clinical trials. 8. Turn the pump back on. The sponge dressing should collapse. Do not change the settings on the machine without talking to a health care provider. 9. Replace the container in the pump that collects fluid if it is full. Replace the container per the automotive technology instructor's instructions or at least once a week, even if it is not full. General tips and recommendations If the alarm sounds: ??? Stay calm. ??? Do not turn off the pump or do anything with the dressing. ??? Reasons the alarm may go off: ? The battery is low. Change the battery or plug the device into electrical power. ? The dressing has a leak. Find the leak and put tape over the leak. ? The fluid collection container is full. Change the fluid container. ??? Call your health care provider right away if you cannot fix the problem. ??? Explain to your health care provider what is happening. Follow his or her instructions. General instructions ??? Do not turn off the pump unless told to do so by your health care provider. ??? Do not turn off the pump for more than 2 hours. If the pump is off for more than 2 hours, the dressing will need to be changed. ??? If your health care provider says it is okay to shower: ? Do not take the pump into the shower. ? Make sure the wound dressing is protected and sealed. The wound dressing must stay dry. ??? Check frequently that the machine indicates that therapy is on and that all clamps are open. ??? Do not use ogzx-yfk-xcowcib medicated or antiseptic creams, sprays, liquids, or dressings unless your health care provider approves. Contact a health care provider if: ??? You have new pain. ??? You develop irritation, a rash, or itching around the wound or dressing. ??? You see new black or yellow tissue in your wound. ??? The dressing changes are painful or cause bleeding. ??? The pump has been off for more than 2 hours, and you do not know how to change the dressing. ??? The pump alarm goes off, and you do not know what to do. Get help right away if: ??? You have a lot of bleeding. ??? The wound breaks open. ??? You have severe pain. ??? You have signs of infection, such as: ? More redness, swelling, or pain. ? More fluid or blood. ? Warmth. ? Pus or a bad smell. ? Red streaks leading from the wound. ? A fever. ??? You see a sudden change in the color or texture of the drainage. ??? You have signs of dehydration, such as: ? Little or no tears, urine, or sweat. ? Muscle cramps. ? Very dry mouth. ? Headache. ? Dizziness. Summary ??? Negative pressure wound therapy (NPWT) is a device that helps your wound heal. ??? Set up a clean station for wound care. Your health care provider will tell you what supplies to use. ??? Follow your health care provider's instructions on how to clean your wound and how to change the dressing. ??? Contact a health care provider if you have new pain, an irritation, or a rash, or if the alarm goes off and you do not know what to do. ??? Get help right away if you have a lot of bleeding, your wound breaks open, or you have severe pain. Also, get help if you have signs of infection. This information is not intended to replace advice given to you by your health care provider. Make sure you discuss any questions you have with your health care provider. Document Released: 06/10/2012 Document Revised: 07/11/2019 Document Reviewed: 06/06/2019 [employer] Patient Education ?? 2020 [employer]. Surgical Wound Debridement Surgical wound debridement is a procedure that removes or infected tissue and other substances from a wound. To heal, a wound must be clean. It also must have enough blood supply. Anything that prevents this must be taken out of the wound. This may include: ??? tissue. ??? Scar tissue. ??? Fluid that has built up. ??? Debris from outside of the body. You may need this procedure if you have a lot of tissue that needs to be removed, or you have a wound that has not improved with other treatments. Tell a health care provider about: ??? Any allergies you have. ??? All medicines you are taking, including vitamins, herbs, eye drops, creams, and ojvp-uhd-sfhnldk medicines. ??? Any problems you or family members have had with anesthetic medicines. ??? Any blood disorders you have. ??? Any surgeries you have had. ??? Any medical conditions you have or have had. ??? Whether you are or may be . What are the risks? Generally, this is a safe procedure. However, problems may occur, including: ??? Bleeding. ??? Infection. ??? Damage to nerves, blood vessels, or healthy tissue inside the wound. ??? Scarring and loss of function. What happens before the procedure? Hydration Follow instructions from your health care provider about hydration, which may include: ??? Up to 2 hours before the procedure ??? you may continue to drink clear liquids, such as water, clear fruit juice, black coffee, and plain tea. Eating and drinking restrictions Follow instructions from your health care provider about eating and drinking, which may include: ??? 8 hours before the procedure ??? stop eating heavy meals or foods, such as meat, fried foods, or fatty foods. ??? 6 hours before the procedure ??? stop eating light meals or foods, such as toast or cereal. ??? 6 hours before the procedure ??? stop drinking milk or drinks that contain milk. ??? 2 hours before the procedure ??? stop drinking clear liquids. Medicines Ask your health care provider about: ??? Changing or stopping your regular medicines. This is especially important if you are taking diabetes medicines or blood thinners. ??? Taking medicines such as aspirin and ibuprofen. These medicines can thin your blood. Do not take these medicines unless your health care provider tells you to take them. ??? Taking hvvx-tsg-nohlewe medicines, vitamins, herbs, and supplements. General instructions ??? You may have blood tests. ??? Plan to have someone take you home from the hospital or clinic. ??? Ask your health care provider what steps will be taken to help prevent infection. These may include: ? Removing hair at the surgery site. ? Washing skin with a germ-killing soap. ? Taking antibiotic medicine. What happens during the procedure? An IV will be put in your hand or arm. ??? You will be given one or more of the following: ? A medicine to help you relax (sedative). ? A medicine to numb the area (local anesthetic). ? A medicine to make you fall asleep (general anesthetic). ? A medicine that is injected into your spine to numb the area below and slightly above the injection site (spinal anesthetic). ? A medicine that is injected into an area of your body to numb everything below the injection site (regional anesthetic). ??? You may have small monitors placed on your body. These are used to check your heart, blood pressure, and oxygen level. ??? Your health care provider will clean your wound with a sterile saltwater (saline) solution or other wound cleanser. ??? Your health care provider will use scissors, surgical knives (scalpels), and surgical tweezers (forceps) to remove tissue. He or she may also use a laser to remove tissue. Other material that should not be in the wound will also be removed. ??? After tissue and other materials have been removed from the wound, your health care provider will clean the wound again and apply a bandage (dressing). The procedure may vary among health care providers and hospitals. What happens after the procedure? Your blood pressure, heart rate, breathing rate, and blood oxygen level will be monitored until you leave the hospital or clinic. ??? You will be given medicine for pain. ??? You will continue to get antibiotic medicine if it was started before your procedure. Summary ??? Surgical wound debridement is a procedure that removes or infected tissue and other substances from a wound. ??? Follow instructions from your health care provider about eating and drinking before the procedure. ??? Ask your health care provider about changing or stopping any medicines you take, including hmvo-ugd-qnoohsx medicines, vitamins, herbs, and supplements. ??? Plan to have someone take you home from the hospital or clinic. ??? You will be monitored after the procedure. You will also be given medicine for pain. This information is not intended to replace advice given to you by your health care provider. Make sure you discuss any questions you have with your health care provider. Document Released: 06/13/2010 Document Revised: 02/10/2019 Document Reviewed: 02/24/2019 [employer] Patient Education ?? 2020 [employer]. Surgical Wound Debridement, Care After This sheet gives you information about how to care for yourself after your procedure. Your health care provider may also give you more specific instructions. If you have problems or questions, contact your health care provider. What can I expect after the procedure? After the procedure, it is common to have: ??? Pain or soreness. ??? Fluid that leaks from the wound. ??? Stiffness. ??? A larger wound. This is because the tissue has been removed. Follow these instructions at home: Medicines ??? Take lldn-eho-vubvcmr and prescription medicines only as told by your health care provider. ??? If you were prescribed an antibiotic medicine, take it or apply it as told by your health care provider. Do not stop using the antibiotic even if you start to feel better. Wound care ??? Follow instructions from your health care provider about how to take care of your wound. Make sure you: ? Wash your hands with soap and water before and after you change your bandage (dressing). If soap and water are not available, use hand director of clinical trials. ? Change your dressing as told by your health care provider. ? If your dressing is dry and stuck when you try to remove it, moisten or wet the dressing with saline or water so that it can be removed without harming your skin or wound tissue. ??? Check your wound for signs of infection every time your dressing is changed. Have someone help you do this if you are not able. Watch for: ? More redness, swelling, or pain. ? More fluid or blood. ? Warmth. ? Pus. ? A bad smell coming from your wound even after you clean it. ??? Do not take baths, swim, or use a hot tub until your health care provider approves. Ask your health care provider if you may take showers. You may only be allowed to take sponge baths. Activity ??? Do not drive or use heavy machinery while taking prescription pain medicine. ??? Return to your normal activities as told by your health care provider. Ask your health care provider what activities are safe for you. General instructions ??? Eat a healthy diet with lots of protein such as meats, cheese, nuts and beans. Ask your health care provider to suggest the best diet for you. ??? Do not use any products that contain nicotine or tobacco, such as cigarettes, e-cigarettes, and chewing tobacco. These can delay wound healing after surgery. If you need help quitting, ask your health care provider. ??? Keep all follow-up visits as told by your health care provider. This is important. Contact a health care provider if: ??? You have a fever. ??? Your pain medicine is not helping. ??? Your wound is more red and swollen. ??? You have increased bleeding. ??? You have pus coming from your wound. ??? You have a bad smell coming from your wound. ??? Your wound is not getting better after 1???2 weeks of treatment. ??? You develop a new medical condition, such as diabetes, peripheral vascular disease, or conditions that affect your defense system (immune system). Summary ??? After the procedure, it is common to have pain, soreness, stiffness, or fluid leaking from the wound. ??? Follow instructions from your health care provider about how to take care of your wound. ??? Check your wound for signs of infection every time your dressing is changed. ??? Eat a healthy diet with lots of protein. Ask your health care provider to suggest the best diet for you. ??? Contact a health care provider if you have fever, more swelling and redness, increased bleeding, or a bad smell from the wound. This information is not intended to replace advice given to you by your health care provider. Make sure you discuss any questions you have with your health care provider. Document Released: 03/05/2013 Document Revised: 03/11/2019 Document Reviewed: 03/11/2019 [employer] Patient Education ?? 2019 [employer]. tramadol (TRAM a dol) ConZip, Qdolo, Ultram, [...] The extended-release form of tramadol is for kztbic-gqg-vguwo treatment of pain. This form of tramadol [...] may need medical treatment for several weeks. Ask a doctor before using tramadol if you are . Tell your doctor if you notice severe drowsiness or slow breathing in the nursing baby. How should I take tramadol? [...] may report side effects to FDA at 2-473-YGJ-7536. What other drugs will affect tramadol? You [...] may affect tramadol. This includes prescription and jfsx-tcd-ziajcin medicines, vitamins, and herbal products. Not all [...] to ensure that the information provided by [employer]. ('[employer]') is accurate, up-to-date, and complete, but no guarantee is made to that effect. Drug information contained herein may be time sensitive. [employer] information has been compiled for use by healthcare practitioners and consumers in the [place] and therefore [employer] does not warrant that uses outside of the [place] are appropriate, unless specifically indicated otherwise. [employer] drug information does not endorse drugs, diagnose patients or recommend therapy. [employer] drug information is an informational resource designed [...] effective or appropriate for any given patient. [employer] does not assume any responsibility for any aspect of healthcare administered with the aid of information [employer] provides. The information contained herein is not intended to cover all possible uses, directions, precautions, warnings, drug interactions, allergic reactions, or adverse effects. If you have questions about the drugs you are taking, check with your doctor, nurse or pharmacist. Copyright 6062-7084 [employer]. Version: 22.01. Revision Date: 03/19/2020. aspirin (oral) ( pir in) Arthritis Pain, [...] What is aspirin? Aspirin is a salicylate (fw-AQM-nw-ate) that is used to treat pain, and [...] may report side effects to FDA at 1-708-BQI-3239. What other drugs will affect aspirin? Ask [...] drugs may affect aspirin, including prescription and dsbb-abp-untepqq medicines, vitamins, and herbal products. Not all [...] to ensure that the information provided by [employer]. ('[employer]') is accurate, up-to-date, and complete, but no guarantee is made to that effect. Drug information contained herein may be time sensitive. [employer] information has been compiled for use by healthcare practitioners and consumers in the [place] and therefore [employer] does not warrant that uses outside of the [place] are appropriate, unless specifically indicated otherwise. [employer] drug information does not endorse drugs, diagnose patients or recommend therapy. [employer] drug information is an informational resource designed [...] effective or appropriate for any given patient. [employer] does not assume any responsibility for any aspect of healthcare administered with the aid of information [employer] provides. The information contained herein is not intended to cover all possible uses, directions, precautions, warnings, drug interactions, allergic reactions, or adverse effects. If you have questions about the drugs you are taking, check with your doctor, nurse or pharmacist. Copyright 8330-6416 [employer]. Version: 16.02. Revision Date: 11/19/2019. amoxicillin and clavulanate potassium (am OK i LORI in KLAV ue GILBERTO ate ting TAS ee um) Augmentin What is the most important information I should know about amoxicillin and clavulanate potassium? You should not use this medicine if you have severe kidney disease, if you have had liver problems or jaundice while taking amoxicillin and clavulanate potassium, or if you are allergic to any penicillin or cephalosporin antibiotic, such as Amoxil, Ceftin, Cefzil, Moxatag, Omnicef, and others. What is amoxicillin and clavulanate potassium? Amoxicillin is a penicillin antibiotic. Clavulanate potassium helps prevent certain bacteria from becoming resistant to amoxicillin. Amoxicillin and clavulanate potassium is a combination medicine used to treat many different infections caused by bacteria, such as sinusitis, pneumonia, ear infections, bronchitis, urinary tract infections, and infections of the skin. Amoxicillin and clavulanate potassium may also be used for purposes not listed in this medication guide. What should I discuss with my healthcare provider before taking amoxicillin and clavulanate potassium? You should not use this medicine if you are allergic to it, or if: ?? you have severe kidney disease (or if you are on dialysis); ?? you have had liver problems or jaundice while taking amoxicillin and clavulanate potassium; or ?? you are allergic to any penicillin or cephalosporin antibiotic, such as Amoxil, Ceftin, Cefzil, Moxatag, Omnicef, and others. Tell your doctor if you have ever had: ?? liver disease (hepatitis or jaundice); ?? kidney disease; or ?? mononucleosis. The liquid or chewable tablet may contain phenylalanine. Tell your doctor if you have phenylketonuria (PKU). Tell your doctor if you are or . Amoxicillin and clavulanate potassium can make control pills less effective. Ask your doctor about using a non-hormonal control (condom, diaphragm, cervical cap, or contraceptive sponge) to prevent . Do not give this medicine to a child without medical advice. How should I take amoxicillin and clavulanate potassium? Follow all directions on your prescription label and read all medication guides or instruction sheets. Use the medicine exactly as directed. Amoxicillin and clavulanate potassium may work best if you take it at the start of a meal. Take the medicine every 12 hours. Do not crush or chew the extended-release tablet. Swallow the pill whole, or break the pill in half and take both halves one at a time. Tell your doctor if you have trouble swallowing a whole or half pill. You must chew the chewable tablet before you swallow it. Shake the oral suspension (liquid) before you measure a dose. Use the dosing syringe provided, or use a medicine dose-measuring device (not a kitchen spoon). This medicine can affect the results of certain medical tests. Tell any doctor who treats you that you are using amoxicillin and clavulanate potassium. Use this medicine for the full prescribed length of time, even if your symptoms quickly improve. Skipping doses can increase your risk of infection that is resistant to medication. Amoxicillin and clavulanate potassium will not treat a viral infection such as the flu or a common cold. Store the tablets at room temperature away from moisture and heat. Store the liquid in the refrigerator. Throw away any unused liquid after 10 days. What happens if I miss a dose? Take the medicine as soon as you can, but skip the missed dose if it is almost time for your next dose. Do not take two doses at one time. What happens if I overdose? Seek emergency medical attention or call the Poison Help line at . Overdose can cause nausea, vomiting, stomach pain, diarrhea, skin rash, drowsiness, hyperactivity, and decreased urination. What should I avoid while taking amoxicillin and clavulanate potassium? Avoid taking this medicine together with or just after eating a high-fat meal. This will make it harder for your body to absorb the medication. Antibiotic medicines can cause diarrhea, which may be a sign of a new infection. If you have diarrhea that is watery or bloody, call your doctor before using anti-diarrhea medicine. What are the possible side effects of amoxicillin and clavulanate potassium? Get emergency medical help if you have signs of an allergic reaction (hives, difficult breathing, swelling in your face or throat) or a severe skin reaction (fever, sore throat, burning eyes, skin pain, red or purple skin rash with blistering and peeling). Call your doctor at once if you have: ?? severe stomach pain, diarrhea that is watery or bloody (even if it occurs months after your last dose); ?? pale or yellowed skin, dark colored urine, fever, confusion or weakness; ?? loss of appetite, upper stomach pain; ?? little or no urination; or ?? easy bruising or bleeding. Common side effects may include: ?? nausea, vomiting; diarrhea; ?? rash, itching; ?? vaginal itching or discharge; or ?? diaper rash. This is not a complete list of side effects and others may occur. Call your doctor for medical advice about side effects. You may report side effects to FDA at 3-605-RUZ-3330. What other drugs will affect amoxicillin and clavulanate potassium? Tell your doctor about all your other medicines, especially: ?? allopurinol; ?? probenecid; or ?? a blood thinner--warfarin, Coumadin, Jantoven. This list is not complete. Other drugs may affect amoxicillin and clavulanate potassium, including prescription and tmjh-hnk-xwaywhv medicines, vitamins, and herbal products. Not all possible drug interactions are listed here. Where can I get more information? Your pharmacist can provide more information about amoxicillin and clavulanate potassium. Remember, keep this and all other medicines out of the reach of children, never share your medicines with others, and use this medication only for the indication prescribed. Every effort has been made to ensure that the information provided by [employer]. ('[employer]') is accurate, up-to-date, and complete, but no guarantee is made to that effect. Drug information contained herein may be time sensitive. [employer] information has been compiled for use by healthcare practitioners and consumers in the [place] and therefore [employer] does not warrant that uses outside of the [place] are appropriate, unless specifically indicated otherwise. [employer] drug information does not endorse drugs, diagnose patients or recommend therapy. [employer] drug information is an informational resource designed [...] effective or appropriate for any given patient. [employer] does not assume any responsibility for any aspect of healthcare administered with the aid of information [employer] provides. The information contained herein is not intended to cover all possible uses, directions, precautions, warnings, drug interactions, allergic reactions, or adverse effects. If you have questions about the drugs you are taking, check with your doctor, nurse or pharmacist. Copyright 2161-7245 [employer]. Version: 12.. Revision Date: 05/26/2019. ondansetron (oral) (on ARMEN se jess) Alicia Vargas Z[employer] What is the most important information I should know about ondansetron? You should not use ondansetron if you are also using apomorphine (Apokyn). What is ondansetron? Ondansetron blocks the actions of chemicals in the body that can trigger nausea and vomiting. Ondansetron is used to prevent nausea and vomiting that may be caused by surgery, cancer chemotherapy, or radiation treatment. Ondansetron may be used for purposes not listed in this medication guide. What should I discuss with my health care provider before taking ondansetron? You should not use ondansetron if: ?? you are also using apomorphine (Apokyn); or ?? you are allergic to ondansetron or similar medicines (dolasetron, granisetron, palonosetron). To make sure ondansetron is safe for you, tell your doctor if you have: ?? liver disease; ?? an electrolyte imbalance (such as low levels of potassium or magnesium in your blood); ?? congestive heart failure, slow heartbeats; ?? a personal or family history of long QT syndrome; or ?? a blockage in your digestive tract (stomach or intestines). Ondansetron is not expected to harm an unborn baby. Tell your doctor if you are . It is not known whether ondansetron passes into breast milk or if it could harm a nursing baby. Tell your doctor if you are breast-feeding a baby. Ondansetron is not approved for use by anyone younger than 4 years old. Ondansetron orally disintegrating tablets may contain phenylalanine. Tell your doctor if you have phenylketonuria (PKU). How should I take ondansetron? Follow all directions on your prescription label. Do not take this medicine in larger or smaller amounts or for longer than recommended. Ondansetron can be taken with or without food. The first dose of ondansetron is usually taken before the start of your surgery, chemotherapy, or radiation treatment. Follow your doctor's dosing instructions very carefully. Take the ondansetron regular tablet with a full glass of water. To take the orally disintegrating tablet (Zofran ODT): ?? Keep the tablet in its blister pack until you are ready to take it. Open the package and peel back the foil. Do not push a tablet through the foil or you may damage the tablet. ?? Use dry hands to remove the tablet and place it in your mouth. ?? Do not swallow the tablet whole. Allow it to dissolve in your mouth without chewing. ?? Swallow several times as the tablet dissolves. To use ondansetron oral soluble film (strip) (Zcesia): ?? Keep the strip in the foil pouch until you are ready to use the medicine. ?? Using dry hands, remove the strip and place it on your tongue. It will begin to dissolve right away. ?? Do not swallow the strip whole. Allow it to dissolve in your mouth without chewing. ?? Swallow several times after the strip dissolves. If desired, you may drink liquid to help swallow the dissolved strip. ?? Wash your hands after using Zuplenz. Measure liquid medicine with the dosing syringe provided, or with a special dose-measuring spoon or medicine cup. If you do not have a dose-measuring device, ask your pharmacist for one. Store at room temperature away from moisture, heat, and light. Store liquid medicine in an upright position. What happens if I miss a dose? Take the missed dose as soon as you remember. Skip the missed dose if it is almost time for your next scheduled dose. Do not take extra medicine to make up the missed dose. What happens if I overdose? Seek emergency medical attention or call the Poison Help line at . Overdose symptoms may include sudden loss of vision, severe constipation, feeling light-headed, or fainting. What should I avoid while taking ondansetron? Ondansetron may impair your thinking or reactions. Be careful if you drive or do anything that requires you to be alert. What are the possible side effects of ondansetron? Get emergency medical help if you have signs of an allergic reaction: rash, hives; fever, chills, difficult breathing; swelling of your face, lips, tongue, or throat. Call your doctor at once if you have: ?? severe constipation, stomach pain, or bloating; ?? headache with chest pain and severe dizziness, fainting, fast or pounding heartbeats; ?? fast or pounding heartbeats; ?? jaundice (yellowing of the skin or eyes); ?? blurred vision or temporary vision loss (lasting from only a few minutes to several hours); ?? high levels of serotonin in the body--agitation, hallucinations, fever, fast heart rate, overactive reflexes, nausea, vomiting, diarrhea, loss of coordination, fainting. Common side effects may include: ?? diarrhea or constipation; ?? headache; ?? drowsiness; or ?? tired feeling. This is not a complete list of side effects and others may occur. Call your doctor for medical advice about side effects. You may report side effects to FDA at 8-896-FHU-1088. What other drugs will affect ondansetron? Ondansetron can cause a serious heart problem, especially if you use certain medicines at the same time, including antibiotics, antidepressants, heart rhythm medicine, antipsychotic medicines, and medicines to treat cancer, malaria, HIV or AIDS. Tell your doctor about all medicines you use, and those you start or stop using during your treatment with ondansetron. Taking ondansetron while you are using certain other medicines can cause high levels of serotonin to build up in your body, a condition called 'serotonin syndrome,' which can be fatal. Tell your doctor if you also use: ?? medicine to treat depression; ?? medicine to treat a psychiatric disorder; ?? a narcotic (opioid) medication; or ?? medicine to prevent nausea and vomiting. This list is not complete and many other drugs can interact with ondansetron. This includes prescription and zwof-inw-xeztxdm medicines, vitamins, and herbal products. Give a list of all your medicines to any healthcare provider who treats you. Where can I get more information? Your pharmacist can provide more information about ondansetron. Remember, keep this and all other medicines out of the reach of children, never share your medicines with others, and use this medication only for the indication prescribed. Every effort has been made to ensure that the information provided by [employer]. [employer]') is accurate, up-to-date, and complete, but no guarantee is made to that effect. Drug information contained herein may be time sensitive. [employer] information has been compiled for use by healthcare practitioners and consumers in the [place] and therefore [employer] does not warrant that uses outside of the [place] are appropriate, unless specifically indicated otherwise. [employer] drug information does not endorse drugs, diagnose patients or recommend therapy. [employer] drug information is an informational resource designed [...] effective or appropriate for any given patient. [employer] does not assume any responsibility for any aspect of healthcare administered with the aid of information [employer] provides. The information contained herein is not intended to cover all possible uses, directions, precautions, warnings, drug interactions, allergic reactions, or adverse effects. If you have questions about the drugs you are taking, check with your doctor, nurse or pharmacist. Copyright [id number] [employer]. Version: 13.01. Revision Date: 01/21/2016. docusate (oral/rectal) (DOK ue sate) Colace, Diocto, [...] may report side effects to FDA at 6-716-PUY-4950. What other drugs will affect docusate? Other drugs may affect docusate, including prescription and cnwf-odo-dmghioi medicines, vitamins, and herbal products. Tell your [...] to ensure that the information provided by [employer]') is accurate, up-to-date, and complete, but no guarantee is made to that effect. Drug information contained herein may be time sensitive. [employer] information has been compiled for use by healthcare practitioners and consumers in the [place] and therefore [employer] does not warrant that uses outside of the [place] are appropriate, unless specifically indicated otherwise. [employer] drug information does not endorse drugs, diagnose patients or recommend therapy. [employer] drug information is an informational resource designed [...] effective or appropriate for any given patient. [employer] does not assume any responsibility for any aspect of healthcare administered with the aid of information [employer] provides. The information contained herein is not intended to cover all possible uses, directions, precautions, warnings, drug interactions, allergic reactions, or adverse effects. If you have questions about the drugs you are taking, check with your doctor, nurse or pharmacist. Copyright 5602-7670 [employer]. Version: 4.01. Revision Date: 10/07/2018. oxycodone (ox i KOE done) documented in this encounter Plan of Treatment Not on file documented as of this encounter Visit Diagnoses Not on filedocumented in this encounter
--- OUTSIDE RECORDS SUMMARY | 2024-12-26 07:05 | XMS_ITS | Encounter Summary ---
Author Organization [employer] ([place], [place], [place], [place]) Address [address] [place] [address] Care Team Providers Care Waterproofer Helper Name Role Phone Unavailable Primary Care Provider Unavailabl e Encounter Details Date Type Department Care Team (Late st Contact Info) Description 05/12/2020 Transcribed Document [facility] [place] Family Medicine [address] [place] [address] ProviderLizabeth MD [address] [place] [address] Social History Tobacco Use Types [...] Conversion Note - Lizabeth ProviderMD - 05/12/2020 10:[address] [facility] OT Charges Entered On: 05/12/2020 10:41 EST Performed On: 05/12/2020 10:40 EST by SAMEERA FLOOD OTR/Archie Escobar OT Charges Screen For Child Care Worker : 1 SAMEERA FLOOD OTR/Archie - 05/12/2020 10:40 EST documented in this encounter Plan of Treatment Not on file documented as of this encounter Visit Diagnoses Not on filedocumented in this encounter
--- OUTSIDE RECORDS SUMMARY | 2024-12-26 07:05 | XMS_ITS | Encounter Summary ---
Author Organization [employer] ([place], [place], [place], [place]) Address [address] [place] [address] Care Team Providers Care Brick Burner Name Role Phone Unavailable Primary Care Provider Unavailabl e Encounter Details Date Type Department Care Team (Late st Contact Info) Description 05/12/2020 Transcribed Document [facility] [place] Family Medicine [facility] [place] [address] ProviderLizabeth MD [facility] [place] [id number] Social History Tobacco Use Types Packs/Day Years Used Date Smoking Tobacco: Never Assessed Sex and Gender Information Value Date Recorded Sex Assigned at Male 09/27/2021 8:47 PM CDT Legal Sex Male 8:47 PM CDT Gender Identity Male 09/27/2021 8:47 PM CDT Sexual Orientation Not on file documented as of this encounter Miscellaneous Notes * Cerner Conversion Note - Lizabeth Whitehead MD - 05/12/2020 11:17 AM 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 Castano Evaluating Physician: Dr. Avinash Starr CC: Left hip pain and swelling Reason for Consultation: Left hip wound infection after left total hip arthroplasty HPI: Patient is a 60-year-old with history of osteoarthritis underwent anterior approach with left total hip arthroplasty around 2 to 3 weeks ago some discomfort with some swelling surgical incision site placed on oral antibiotics by his primary care physician reportedly Augmentin with some improvement of discomfort and swelling. There was concern after seen by Dr. Castano for possible wound infection brought in for incision and drainage with cultures obtained. Patient has not had any fever normal white count normal C-reactive protein but he has been on oral antibiotics. Gram stain does not show any organisms and cultures are pending at this time. He was continued on oral antibiotics overnight of Bactrim and Keflex infectious ease consultation obtained for further evaluation. PMHx: Active Problems (3) Arthritis History of obstructive sleep apnea Sleep apnea SURGICAL Hx: Recent anterior approach left total hip arthroplasty Hernia repair MEDICATIONS: Medications (27) Active Scheduled: (7) acetaminophen 325 mg tab 650 mg 2 Tab, Oral, Q6HInt aspirin EC 325 mg tab 325 mg 1 Tab, Oral, BID cefTRIAXone + NaCl 0.9% 50 mL 2 Gram, IV Piggyback, [id number] naproxen 250 mg tab 250 mg 1 Tab, Oral, Q6H pregabalin 75 mg cap 75 mg 1 Cap, Oral, [id number] sulfamethox/trimethoprim 800/160 mg tab 1 Tab, Oral, Daily tranexamic acid 1,000 mg + syringe 1 [...] Oral, Q6H phenol 1.4% throat spray 5 [place], Oral, Q2H promethazine 25 mg tab 12.5 mg 0.5 Tab, Oral, Q6H promethazine 25 mg/1 mL inj 12.5 mg 0.5 mL, IV Push, Q6H promethazine 25 mg/1 mL inj 12.5 mg 0.5 mL, IV Push, Q6H traMADol 50 mg tab 50 mg 1 Tab, Oral, QID traZODone 50 mg tab 50 mg 1 Tab, Oral, At Bedtime ALLERGIES: PCN rash but tolerates questionable Augmentin and cephalosporins FHx: Parents with hypertension malignancy SOHx: Patient denies any tobacco alcohol or illicit drug use No known Diagnosis of Hep B, C, HIV, TB. No history of MRSA or C diff colitis. No recent sick exposures. No travel outside of country. ROS: A full 12 point ROS performed and positive for: Left hip pain discomfort with some swelling mild erythema All other ROS negative. PHYSICAL EXAM: Vitals Signs (last 24 hrs) Last Charted Minimum Maximum Temp 97.7 (MAY 12:40) 97.7 (MAY 12:40) 98.0 (MAY 11 18:00) Mon HR 105 (MAY 12:40) 83 (MAY 11 16:15) 105 (MAY 12:40) Periph HR 96 (MAY 11:21) 96 (MAY 11:21) 96 (MAY 11:21) Resp Rate 18 (MAY 12 05:49) L 12 (MAY 11 15:50) 20 (MAY 11:40) SBP H 151 (MAY 12:40) 124 (MAY 11:28) H 170 (MAY 11:22) DBP 77 (MAY 12:40) 61 (MAY 11:28) 87 (MAY 11:21) MAP 92 (MAY 12:40) 75 (MAY 11:28) 108 (MAY 11 15:22) SpO2 95 (MAY 12:40) L 93 (MAY 12 05:49) 97 (MAY 11 13:21) General: patient is alert and in no acute distress. HEENT: sclera white without conjunctival injection. No erythema, exudate or ulceration. No thrush present. Neck: Supple without nuchal rigidity Lymphatic: No neck, axillary, inguinal adenopathy Lungs: Clear to auscultation bilaterally without wheezes, rales, or rhonchi. Normal respiratory effort Cardiovascular: normal S1/S2; RRR, no m/r/g. Abdomen: soft, non-tender, non-distended, positive bowel sounds throughout. : No rash and normal anatomy Lower extremity: No cyanosis, clubbing Motor 5/5 upper and lower extremity strength MSK: No joint effusions, decreased range of motion of left hip with wound VAC in place Neuro:Alert and oriented x3. No focal deficits. Skin: Without rash; left hip wound intact postop VAC in place Labs (Last four charted values) WBC H 10.9 (MAY 12) 7.4 (MAY 11) HB 14.0 (MAY 12) 14.4 (MAY 11) HCT 41.8 (MAY 12) 42.7 (MAY 11) Plt 281 (MAY 12) 274 (MAY 11) Na 136 (MAY 12) 139 (MAY 11) K 4.6 (MAY 12) 4.1 (MAY 11) Cl 103 (MAY 12) 108 (MAY 11) CO2 24 (MAY 12) 25 (MAY 11) BUN 14 (MAY 12) 14 (MAY 11) Cr 1.00 (MAY 12) 1.02 (MAY 11) Glu R H 134 (MAY 12) 102 (MAY 11) Ca 9.5 (MAY 12) 9.5 (MAY 11) AST 23 (MAY 12) 23 (MAY 11) ALT 44 (MAY 12) 46 (MAY 11) ALK P H 140 (MAY 12) H 149 (MAY 11) T Bili 0.4 (MAY 12) 0.4 (MAY 11) PTN 7.0 (MAY 12) 8.0 (MAY 11) ALB 3.6 (MAY 12) 3.8 (MAY 11) CRP normal MICRO: Stain and wound culture no organisms and culture pending IMAGING: No Radiology Results Found PROBLEM LIST: Left hip wound infection versus seroma after left total hip arthroplasty Left hip pain and discomfort Osteoarthritis ASSESSMENT: Patient is a 60-year-old with history of osteoarthritis underwent left total hip arthroplasty anterior approach around 3 weeks ago developed some swelling discomfort left hip placed on oral antibiotics with some improvement. Concern for acute wound infection so brought in for incision and drainage and cultures to be obtained. He was on oral antibiotics by his family practice physician with Augmentin. Interestingly he had no fever normal white count and normal CRP and now with Gram stain negative and culture is pending we will continue antibiotics and monitor culture results. PLAN: Discontinue Keflex for now and switch to IV ceftriaxone and monitor fluid cultures We will continue Bactrim but MRSA seems less likely if he did have some response to Augmentin Review fluid and op note d/w Dr Menendez and Dr. Prescott and ok with high-dose oral with close follow-up in the office and no iv abx at this time f/u with me in 10 days coupons for linezolid and augmentin given to patient. Patient was seen at the request of Dr. Castano for left hip possible wound infection after left total hip arthroplasty and my recommendations have been communicated to primary team. Will continue to follow and assist with antimicrobial management. documented in this encounter Plan of Treatment Not on file documented as of this encounter Visit Diagnoses Not on filedocumented in this encounter
--- OUTSIDE RECORDS SUMMARY | 2024-12-26 07:05 | XMS_ITS | Encounter Summary ---
Author Organization [employer] ([place], [place], [place], [place]) Address [address] [place] [address] Care Team Providers Care Submarine Diver Name Role Phone Unavailable Primary Care Provider Unavailabl e Encounter Details Date Type Department Care Team (Late st Contact Info) Description 04/05/2020 Transcribed Document [facility] [place] [facility], [facility] [place] [address] ProviderLizabeth MD [facility], [facility] [place], [place] [id number] Social History Tobacco Use Types Packs/Day Years Used Date Smoking Tobacco: Never Assessed Sex and Gender Information Value Date Recorded Sex Assigned at Male 09/27/2021 8:47 PM CDT Legal Sex Male 8:47 PM CDT Gender Identity Male 09/27/2021 8:47 PM CDT Sexual Orientation Not on file documented as of this encounter Miscellaneous Notes * Cerner Conversion Note - Lizabeth ProviderMD - 04/05/2020 9:53 AM DRIVER STARTING GATE Patient: FAY FONTENOT Age: 60 Years Sex: Male : 1960 Chief Complaint Left Hip Pain Primary Care Provider JHONY DYKES (REF) T History of Present Illness This patient is a pleasant 60 yo WM who presents with left hip pain. The pain has been going on for a year but has gotten progressively worse. He describes it as a sharp pain. It is now to the point that it is affecting his ADLs. He has tried NSAIDs without relief of his pain. He has not fallen. He has not used an assistive device. He was seen at Dr Castano's office and evaluated and it was determined that he has severe DJD affecting the left hip. Pt was offered a Left Total Hip Arthroplasty via Anterior Approach and agreed to the procedure. Pt denies a h/o DVT/PE. No trouble with anesthesia in the past. Pt has a h/o ZITA and wears CPAP. No asthma or COPD. Review of Systems Constitutional: Neg for fevers or chills. Eyes: Neg for blurry vision or change in vision. ENT: Neg for sore throat, ear pain, or dizziness. Cardiac: Neg for chest pain or dyspnea on exertion. Respiratory: Neg for shortness of breath. Gastrointestinal: Neg for nausea, vomiting, diarrhea, or constipation. Musculoskeletal: Pos for left hip pain. Neurologic: Neg for headaches or seizures. Psychiatric: Neg for anxiety and depression. Integumentary: Neg for rash. Vital Signs T: 36.3 ??C HR: 77(Peripheral) RR: 16 BP: 169/86 SpO2: 96% HT: 175.26 cm WT: 145.45 kg BMI: 47.4 Oxygen Settings (Last) Oxygen Therapy Mode: Room air (04/05/20 10:44:00) Physical Exam Constitutional: This is a pleasant 60 yo WM in no acute distress. HEENT: Normocephalic, atraumatic. PEERLA. Extraocular muscles intact. Conjunctiva pink without exudate. Oropharynx pink and moist. Neck supple. No JVD. Cardiac: SI, S2. RRR. No M/R/G. Respiratory: Lungs CTA bilaterally. No wheezes, rales, or rhonchi. Abdomen: Soft, nontender, nondistended. Active bowel sounds. No visible masses. Musculoskeletal: Bilateral LE without clubbing, cyanosis or edema. Integumentary: Skin is pink, warm and dry. No rashes. Neurologic: CN II-XII grossly intact. Psychiatric: Judgment and affect appropriate. Assessment/Plan 1. Preoperative Evaluation- Pt underwent preoperative laboratory workup and diagnostic studies. 2. Left Hip Pain secondary to DJD- Proceed with surgery as scheduled with Dr Castano on 04/15/2020. 3. ZITA- Continue CPAP. Problem List/Past Medical History Ongoing Arthritis History of obstructive sleep apnea Sleep apnea Procedure/Surgical History abd hernia repair, Left Achilles tendon tear. Medications None Allergies penicillin (rash) Social History Alcohol Alcohol Use History No. Use in Last 12 Months: No. Nutrition/Health Regular Substance Abuse Drug Use Hx: No. Use in Last 12 Months: No. Drug Use Hx: No. Use in Last 12 Months: No. Tobacco Never (less than 100 in lifetime) Smoking Status. Never Smokeless Tobacco Status. Family History Pt mother at 88 from FTT. Pt father from Prostate Cancer at 74. Diagnostic Results EKG- NSR, 83 CXR- NAD Lab Results Test Name Test Result Date/Time Sodium Level 140 mmol/L 04/05/2020 10:53 EST Potassium Level 4.8 mmol/L 04/05/2020 10:53 EST Chloride Level 109 mmol/L 04/05/2020 10:53 EST Carbon Dioxide Level 24 mmol/L 04/05/2020 10:53 EST Anion Gap 12 04/05/2020 10:53 EST Glucose Level 90 mg/dL 04/05/2020 10:53 EST Blood Urea Nitrogen 15 mg/dL 04/05/2020 10:53 EST Creatinine Level 0.96 mg/dL 04/05/2020 10:53 EST eGFR >60 mL/min/1.73m2 04/05/2020 10:53 EST eGFR NonAfrican >60 mL/min/1.73m2 04/05/2020 10:53 EST Bun/Creatinine 15.6 04/05/2020 10:53 EST Calcium Level 9.5 mg/dL 04/05/2020 10:53 EST Protein Total 7.5 Gram/dL 04/05/2020 10:53 EST Albumin Level 3.8 Gram/dL 04/05/2020 10:53 EST Globulin 3.7 Gram/dL 04/05/2020 10:53 EST A/G Ratio 1.0 (Low) 04/05/2020 10:53 EST Bilirubin Total 0.4 mg/dL 04/05/2020 10:53 EST Alk Phos 92 Units/Liter 04/05/2020 10:53 EST AST 37 Units/Liter 04/05/2020 10:53 EST ALT 68 Units/Liter 04/05/2020 10:53 EST Hgb A1C 6.00 % 04/05/2020 10:53 EST eAVG Glucose 126 mg/dL 04/05/2020 10:53 EST WBC 7.9 K/uL 04/05/2020 10:53 EST RBC 5.13 Million/uL 04/05/2020 10:53 EST Hgb 15.6 Gram/dL 04/05/2020 10:53 EST Hct 46.5 % 04/05/2020 10:53 EST MCV 90.6 fL 04/05/2020 10:53 EST MCH 30.4 pg 04/05/2020 10:53 EST MCHC 33.5 Gram/dL 04/05/2020 10:53 EST Platelet Count 241 K/uL 04/05/2020 10:53 EST MPV 9.1 fL (Low) 04/05/2020 10:53 EST RDW 13.0 % 04/05/2020 10:53 EST Neut % 54.0 % 04/05/2020 10:53 EST Neut # 4.29 K/uL 04/05/2020 10:53 EST Lymph % 27.8 % 04/05/2020 10:53 EST Lymph # 2.21 K/uL 04/05/2020 10:53 EST [place] % 11.2 % 04/05/2020 10:53 EST [place] # 0.89 K/uL (High) 04/05/2020 10:53 EST Eos % 4.3 % 04/05/2020 10:53 EST Eos # 0.34 K/uL 04/05/2020 10:53 EST Baso % 1.3 % (High) 04/05/2020 10:53 EST Baso # 0.10 K/uL (High) 04/05/2020 10:53 EST Slide Review No 04/05/2020 10:53 EST IG# 0 x10(3)/uL 04/05/2020 10:53 EST IG% 1 % 04/05/2020 10:53 EST PT 9.8 Second(s) 04/05/2020 10:53 EST INR 0.9 04/05/2020 10:53 EST PTT 27.7 Second(s) 04/05/2020 10:53 EST Urine Type. U CleanCatch 04/05/2020 10:53 EST Urine Color YELLOW2 04/05/2020 10:53 EST Urine Appearance CLEAR2 04/05/2020 10:53 EST Urine Specific [place] 1.019 04/05/2020 10:53 EST Urine pH Dipstick *5.0 04/05/2020 10:53 EST Urine Leukocyte Esterase NEGATIVE2 04/05/2020 10:53 EST Urine Nitrite NEGATIVE2 04/05/2020 10:53 EST Urine Protein Dipstick NEGATIVE2 04/05/2020 10:53 EST Urine Glucose Dipstick NEGATIVE2 04/05/2020 10:53 EST Urine Ketones Dipstick NEGATIVE2 04/05/2020 10:53 EST Urine Urobilinogen Dipstick 0.2 04/05/2020 10:53 EST Urine Bilirubin Dipstick NEGATIVE2 04/05/2020 10:53 EST Urine Blood Dipstick NEGATIVE2 04/05/2020 10:53 EST Ur RBC 2-5 (Abnormal) 04/05/2020 10:53 EST Ur WBC 2-5 (Abnormal) 04/05/2020 10:53 EST Ur Bacteria Trace (Abnormal) 04/05/2020 10:53 EST Ur Mucous 1+ (Abnormal) 04/05/2020 10:53 EST Ur Amorph 1+ (Abnormal) 04/05/2020 10:53 EST Ur Squamous Epithelial Cells 0-2 04/05/2020 10:53 EST Electronically signed by Ramiro Tolentino Conversion Vp Marketing Services And Skin Cerner at 07/20/2022 12:52 PM CDT documented in this encounter Plan of Treatment Not on file documented as of this encounter Visit Diagnoses Not on filedocumented in this encounter
--- OUTSIDE RECORDS SUMMARY | 2024-12-26 07:05 | XMS_ITS | Encounter Summary ---
Author Organization [employer] ([place], [place], [place], [place]) Address [address] [place] [address] Care Team Providers Care Leaded Glass Installer Name Role Phone Unavailable Primary Care Provider Unavailabl e Encounter Details Date Type Department Care Team (Late st Contact Info) Description 05/12/2020 Transcribed Document [facility] [place] Medicine [facility] [place] [address] ProviderLizabeth MD [address] [place] [address] Social History Tobacco Use Types [...] Conversion Note - Lizabeth ProviderMD - 05/12/2020 2:00 AM TOOL GRINDING MACHINE OPERATOR Community Service Manager Details Entered On: 05/12/2020 2:33 EST Performed On: 05/12/2020 2:00 EST by Poppy Carrero, Rn Order Details Transport Mode Order Detail : Wheelchair Isolation Precautions Order Detail : Standard Precautions Order Detail : N/A IV Order Detail : 1 Oxygen Order Detail : 0 Nurse Collect Order Detail : 0 Lift/Transfer : Minimal Central Line Order Detail : No Room Service : Not Appropriate Arterial Line : No Patient Needs Meds Crushed/Liquid : No Poppy Carrero, Rn - 05/12/2020 2:32 EST Electronically signed by Rajan [facility] Conversion Deck Builder Cerner at 07/20/2022 1:09 PM CDT documented in this encounter Plan of Treatment Not on file documented as of this encounter Visit Diagnoses Not on filedocumented in this encounter
--- OUTSIDE RECORDS SUMMARY | 2024-12-26 07:05 | XMS_ITS | Encounter Summary ---
Author Organization [employer] ([place], [place], [place], [place]) Address [address] [place] [address] Care Team Providers Care Commercial Census Taker Name Role Phone Unavailable Primary Care Provider Unavailabl e Encounter Details Date Type Department Care Team (Late st Contact Info) Description 05/12/2020 Transcribed Document [facility] [place] [address] ProviderLizabeth [place] [address] Social History Tobacco Use Types [...] Note - Lizabeth Whitehead MD - 05/12/2020 2:12 PM SANE RN On Going Discharge Planning Entered On: 05/12/2020 14:14 EST Performed On: 05/12/2020 14:12 EST by TUSHAR RUEDA, VIKKI Care Management Progress Note Discharge Arrangements : Patient Post-Acute Information Patient Name: FAY FONTENOT Gender: Male : [birth year] Age: 60 Years No Post-Acute Placement(s) Listed No Post-Acute Service(s) Listed No Curaspan Referral(s) Listed Discharge Options Discussed with Patient : Discharge transportation, DME Barriers to Discharge Identified : Clinical Condition of Patient Barriers to Discharge Unresolved : Clinical Condition of Patient Designation of Choice Signed : Yes Patient Offered Choice/Affiliations Explained : Yes List/Info Provided Pt/Fam/Support Person : Home care Were Referrals Sent to Post Acute Providers : Yes Does the Patient have a Floor to SNF Benefit? : No Physician Agreeable to Move Forward with D/C Plan? : Yes Did you Attend Multidisciplinary Rounds? : Yes TUSHAR RUEDA RN - 05/12/2020 14:12 EST Narrative Progress Note Narrative Progress Note : [employer] rep here today to hook of woundvac. Dr. Starr here to see patient and changed patient to IV antibiotics. Patient not discharging home today. CM will continue to follow patient. Historical Progress Note : CM rec'd call from [facility] regarding planned add-in for Dr. Castano and his request that patient go home after surgery with Renasys wound vac/wound vac that has the foam interior to the wound. CM spoke with liaison for [facility] and documentation available has been pre-faxed to [facility]. She states will need to put on the Renasys wound vac that is only used IN HOUSE and she will arrive while patient is in surgery or recovery and will swap it out for the [employer]ys GO vacuum. She understood patient is private pay and has funds for same, as patient is Anabaptist and does not carry health insurance. CM notified [facility] in [place] in this regard. CM passed information off to orthopedic case managers to confirm with patient whom he wishes to utilize for home health and explained once all documentation was in place, would need to fax documentation to [facility] to complete the order, together with the signed order from Dr. Castano. Marina Barros RN-CLIENT PARTNER - 05/11/20 13:11:40 TUSHAR RUEDA RN - 05/12/2020 14:12 EST Electronically signed by [facility] Conversion Panel Coverer Cerner at 07/20/2022 12:47 PM CDT documented in this encounter Plan of Treatment Not on file documented as of this encounter Visit Diagnoses Not on filedocumented in this encounter
--- OUTSIDE RECORDS SUMMARY | 2024-12-26 07:05 | XMS_ITS | Encounter Summary ---
Author Organization [employer] ([place], [place], [place], [place]) Address [address] [place] [address] Care Team Providers Care Payroll Coordinator Name Role Phone Unavailable Primary Care Provider Unavailabl e Encounter Details Date Type Department Care Team (Late st Contact Info) Description 04/16/2020 Transcribed Document [facility] [place] Medicine [facility] [place] [address] ProviderLizabeth MD [place] [address] Social History Tobacco Use Types [...] Note - Lizabeth Whitehead MD - 04/16/2020 1:24 PM IP ARCHITECT Final Discharge Planning Entered On: 04/16/2020 13:24 EST Performed On: 04/16/2020 13:24 EST by JULES JOSÉ RN-Grab Operator Final Discharge Planning Discharge Arrangements : Patient Post-Acute Information Patient Name: FAY FONTENOT Gender: Male : [birth year] Age: 60 Years No Post-Acute Placement(s) Listed No Post-Acute Service(s) Listed No Cur[place] Referral(s) Listed JULES JOSÉ RN-Grab Operator - 04/16/2020 13:24 EST Electronically signed by Rajan [facility] Conversion Parts Runner Cerner at 07/20/2022 1:16 PM CDT documented in this encounter Plan of Treatment Not on file documented as of this encounter Visit Diagnoses Not on filedocumented in this encounter
--- OUTSIDE RECORDS SUMMARY | 2024-12-26 07:05 | XMS_ITS | Encounter Summary ---
Author Organization [employer] ([place], [place], [place], [place]) Address [address] [place] [address] Care Team Providers Care Profiler Name Role Phone Unavailable Primary Care Provider Unavailabl e Encounter Details Date Type Department Care Team (Late st Contact Info) Description 05/12/2020 Transcribed Document [facility] [place] [address] [place] [address] ProviderLizabeth MD [address] [place] [address] Social History Tobacco Use Types [...] Conversion Note - Lizabeth ProviderMD - 05/12/2020 4:59 PM CLERK SPECIALIST Nursing Discharge Summary Entered On: 05/12/2020 16:59 EST Performed On: 05/12/2020 16:59 EST by Felecia Galarza, cleaner window Documentation Discharge Date/Time : 05/12/2020 16:15 EST Felecia Galarza, RN - 05/12/2020 16:59 EST documented in this encounter Plan of Treatment Not on file documented as of this encounter Visit Diagnoses Not on filedocumented in this encounter
--- OUTSIDE RECORDS SUMMARY | 2024-12-26 07:05 | XMS_ITS | Encounter Summary ---
Author Organization [employer] ([place], [place], [place], [place]) Address [address] [place] [address] Care Team Providers Care Metal Bonding Assembler Name Role Phone Unavailable Primary Care Provider Unavailabl e Encounter Details Date Type Department Care Team (Late st Contact Info) Description 05/11/2020 Transcribed Document [facility] [place] [address] [place] [address] ProviderLizabeth MD [address] [place] [address] Social History Tobacco Use Types [...] Lizabeth Whitehead MD - 05/11/2020 2:50 PM DEVELOPMENT ENGINEER [facility] [place] Main [place] PACU Summary Primary Physician: NEGRA FOSTER MD-ORT Finalized Date/Time: 05/11/20 16:19:21 Pt. Name: FAY FONTENOT D.O.B./Sex: 1960 Male Med Rec #: [id number] Physician: NEGRA FOSTER MD-ORT Financial #: [id number] Pt. Type: O Room/Bed: 420/1 Admit/Disch: 05/11/20 12:36:00 - Institution: [facility] OR PACU Case Times Entry 1 In PACU I 05/11/20 15:22:00 Ready for PACU 05/11/20 15:52:00 Discharge Discharge from PACU 05/11/20 16:18:00 I Last Modified By: GEOVANY MÉNDEZ, CIH-AY-HAFD-OP CAR 05/11/20 16:18:51 [facility] Main OR PACU Case Times Audit 05/11/20 16:18:51 Supply Chain Business Analyst: [id number] Modifier: [id number] <+> 1 Ready for PACU Discharge <+> 1 Discharge from PACU I [facility] Main OR PACU Acuity Entry 1 Start Time 05/11/20 15:53:00 Stop Time 05/11/20 16:18:00 Acuity Level [facility] PACU Acuity I Last Modified By: GEOVANY MÉNDEZ PRK-RN-CZZM-OP CAR 05/11/20 16:19:17 [facility] Main OR PACU Acuity Audit 05/11/20 16:19:17 Supply Chain Business Analyst: [id number] Modifier: [id number] <+> Start Time 1 <+> Stop Time 1 <*> Acuity Level [facility] PACU Acuity I 2 <-> Start Time 05/11/20 15:53:00 2 <-> Stop Time 05/11/20 16:18:00 2 <-> Acuity Level [facility] PACU Acuity I 05/11/20 16:19:09 Supply Chain Business Analyst: [id number] Modifier: [id number] <+> 2 Acuity Level 05/11/20 16:19:00 Supply Chain Business Analyst: [id number] Modifier: [id number] <+> 2 Start Time <+> 2 Stop Time Finalized By: GEOVANY MÉDNEZ, [id number]-TH-JZIW-OP CAR Document Signatures Signed By: GEOVANY MÉNDEZ, [id number]-OP CAR 05/11/20 16:19 documented in this encounter Plan of Treatment Not on file documented as of this encounter Visit Diagnoses Not on filedocumented in this encounter
--- OUTSIDE RECORDS SUMMARY | 2024-12-26 07:05 | XMS_ITS | Encounter Summary ---
Author Organization [employer] ([place], [place], [place], [place]) Address [address] [place] [address] Care Team Providers Care Sharepoint Admin Name Role Phone Unavailable Primary Care Provider Unavailabl e Encounter Details Date Type Department Care Team (Late st Contact Info) Description 05/11/2020 Transcribed Document [facility] [place] [facility] [place] [address] ProviderLizabeth MD [facility] [place] [address] Social History Tobacco Use Types [...] Note - Lizabeth Whitehead MD - 05/11/2020 12:17 PM SCHOOL PATROL Patient: FAY FONTENOT Age: 60 years Sex: Male : 1960 Associated Diagnoses: None Author: DEAN FOSTER MD-ORT Patient: Fay Fontenot Date of : 1960 Patient Number: [id number] History of Present Illness Fay is here for follow-up of his left hip. About 3 weeks ago we did a anterior total hip. He did well. Last week he developed a bit of drainage at the distal portion of the wound which stopped but then he developed swelling and a bit of redness. He has been placed on antibiotics by his family doctor. No cultures were obtained. No fever or chills. He said the antibiotics did make it feel a little more comfortable. Current Medication ??? Acetaminophen 500 MG Oral Tablet take as directed; take 2 tablets three times a day, 30 days, 0 refills ??? Amoxicillin-Pot Clavulanate 125-31.25 MG/5ML Oral Suspension Reconstituted take as directed 0 days, 0 refills ??? Aspirin Adult Low Strength 81 MG Oral Tablet Delayed Release twice a day, 42 days, 0 refills ??? Colace 100 MG Oral Capsule 1-2 tabs daily, 30 days, 2 refills ??? Mupirocin 2% External Ointment Apply to nostrils three times a day prior to surgery, 5 days, 0 refills Past Medical/Surgical History Reported: Immunization History: No recent immunization for flu and not for pneumococcal pneumonia. Diagnoses: Asthma. Sleep Apnea Surgical: ??? Hernia repair Social History Not a current smoker. Current diet: No recent change in diet. Caffeine use: Caffeine use. Tobacco use: Non-smoker. Alcohol: Not using alcohol. Drug Use: Not using drugs. Habits: Not exercising regularly. Allergies ??? No Known Allergies Family History Cancer Review Of Systems Systemic: Not feeling tired, no recent weight loss, and no recent [...] 47.3 kg/m2 Body Surface Area 2.52 m2 The patient has normal gait and station. He has normal mood, affect and orientation. He has a well-groomed appearance. Chest is clear, heart is clear, lungs are clear. the left hip wound has swelling in the distal portion with a bit of fluctuance. No drainage. But a 4 millimeters small granulating area on the distal portion. Pain-free range of motion of the hip. Plan I believe that this may be a seroma or possibly an abscess developing. he is at high risk given his morbid obesity. I believe that since the drainage stopped there is a high likelihood of fluid collection and this should be drained. This wound is very small and unlikely to open and so I think this should be a formal incision and drainage possible poly-exchange at the hospital. Dean Castano MD Electronically signed by [facility] Conversion Senior Financial Reporting Analyst Cerner at 07/20/2022 1:04 PM CDT documented in this encounter Plan of Treatment Not on file documented as of this encounter Visit Diagnoses Not on filedocumented in this encounter
--- OUTSIDE RECORDS SUMMARY | 2024-12-26 07:05 | XMS_ITS | Encounter Summary ---
Author Organization [employer] ([place], [place], [place], [place]) Address [address] [place] [address] Care Team Providers Care Transit Survey Worker Name Role Phone Unavailable Primary Care Provider Unavailabl e Encounter Details Date Type Department Care Team (Late st Contact Info) Description 05/12/2020 Transcribed Document [facility] [place] [address] [place] [address] ProviderLizabeth MD [address] [place] [address] Social History Tobacco Use Types [...] Note - Lizabeth Whitehead MD - 05/12/2020 1:30 AM TRAIN BRAKE OPERATOR Pain Assessment Entered On: 05/12/2020 2:32 EST Performed On: 05/12/2020 1:26 EST by Poppy Carrero Rn Intervention Information: acetaminophen Performed by Poppy Carrero, Rn on 05/12/2020 00:26:00 EST acetaminophen,650mg Oral Pain Assessment Pain Scale Goal : 2 Pain Improved by Intervention : Yes Poppy Carrero Rn - 05/12/2020 2:32 EST documented in this encounter Plan of Treatment Not on file documented as of this encounter Visit Diagnoses Not on filedocumented in this encounter
--- OUTSIDE RECORDS SUMMARY | 2024-12-26 07:05 | XMS_ITS | Encounter Summary ---
Author Organization [employer] ([place], [place], [place], [place]) Address [address] [place] [address] Care Team Providers Care Marble Polisher Name Role Phone Unavailable Primary Care Provider Unavailabl e Encounter Details Date Type Department Care Team (Late st Contact Info) Description 05/11/2020 Transcribed Document [facility] [place] [facility] [place] [address] ProviderLizabeth MD [facility] [place] [id number] Social History Tobacco Use Types Packs/Day Years Used Date Smoking Tobacco: Never Assessed Sex and Gender Information Value Date Recorded Sex Assigned at Male 09/27/2021 8:47 PM CDT Legal Sex Male 8:47 PM CDT Gender Identity Male 09/27/2021 8:47 PM CDT Sexual Orientation Not on file documented as of this encounter Miscellaneous Notes * Cerner Conversion Note - Lizabeth Whitehead MD - 05/11/2020 3:09 PM SENIOR LABEL SPECIALIST Patient: FAY FONTENOT Age: 60 years Sex: Male : 1960 Associated Diagnoses: None Author: DEAN FOSTER MD-ORT Date of Procedure: Preoperative Diagnosis: Left hip wound seroma Postoperative Diagnosis: Same. Procedure Performed: Left hip incision and drainage and wound vac. Surgeon: Dean Marino???Meri Maxwell Medical Physics Professor: The assistance was required to assist with patient transfer, wound exposure, alignment, increased efficiency, wound closure and dressing. EBL: Minimal Complications: None. Anesthesia: General with block. Drains/Tubes: None Specimen Sent to Pathology: Swab for aerobic, anaerobic, AFG, fungus, hold for p. acnes, stat gram stain. rocedure: After appropriate pre-operative marking and time out the patient was placed in supine position under endotracheal intubation general anesthesia. The left hip wound was prepped and draped free in the usual manner. . The hip wound was opened for the length of the inflamed and bulging tissue. We encountered a clear seroma. This was debrided and sent for cultures and sensitivity. It was thoroughly irrigated and covered with a wound vac. One piece of foam was placed deep and a second filled the remainder of the wound. The wound diameter was small so we placed a third piece of foam over the wound. The suction was applied and seal confirmed. The patient tolerated the procedure well and was taken to the Recovery Room in satisfactory condition, The plan will to see infectious disease tomorrow and discuss IV vs oral antibiotics. Dean Marino???Meri Maxwell Electronically signed by Rajan [facility] Conversion Hotel Director Cerner at 07/20/2022 1:01 PM CDT documented in this encounter Plan of Treatment Not on file documented as of this encounter Visit Diagnoses Not on filedocumented in this encounter
--- OUTSIDE RECORDS SUMMARY | 2024-12-26 07:05 | XMS_ITS | Encounter Summary ---
Author Organization [employer] ([place], [place], [place]) Address [address] [place] [address] Care Team Providers Care [employer] Truck Driver Name Role Phone Unavailable Primary Care Provider Unavailabl e Encounter Details Date Type Department Care Team (Late st Contact Info) Description 05/11/2020 Transcribed Document [facility] [place] Family Medicine [address] [place] [address] ProviderLizabeth MD [address] [place] [address] Social History Tobacco Use Types [...] Conversion Note - Lizabeth ProviderMD - 05/11/2020 3:09 PM EMERGENCY DEPARTMENT MANAGER Pain Assessment Entered On: 05/11/2020 17:45 EST Performed On: 05/11/2020 16:45 EST by Graciela Steve Rn Intervention Information: fentaNYL Performed by GEOVANY MÉNDEZ, [id number] CAR on 05/11/2020 16:15:00 EST fentaNYL,25mcg IV Push,Peripheral Line 1,Pain Pain Assessment Pain Assessment : Follow-up assessment Pain Scale Goal : 2 Pain Scale Used : 0-10 Scale Graciela Steve Rn - 05/11/2020 17:45 EST Pain Scale Intensity : 0 Graciela Steve Rn - 05/11/2020 17:45 EST Image 4 - Images currently included in the form version of this document have not been included in the text rendition version of the form. documented in this encounter Plan of Treatment Not on file documented as of this encounter Visit Diagnoses Not on filedocumented in this encounter
--- OUTSIDE RECORDS SUMMARY | 2024-12-26 07:05 | XMS_ITS | Encounter Summary ---
Author Organization [employer] ([place], [place], [place], [place]) Address [address] [place] [address] Care Team Providers Care [employer] Consultant Name Role Phone Unavailable Primary Care Provider Unavailabl e Encounter Details Date Type Department Care Team (Late st Contact Info) Description 05/11/2020 Transcribed Document [facility] [place] [address] [place] [address] ProviderLizabeth MD [address] [place] [address] Social History Tobacco Use Types [...] Note - Lizabeth Whitehead MD - 05/11/2020 6:00 PM LATIN PROFESSOR Pain Assessment Entered On: 05/11/2020 18:19 EST Performed On: 05/11/2020 18:30 EST by Melina Bell RN Intervention Information: naproxen Performed by Graciela Steve Rn on 05/11/2020 17:30:00 EST naproxen,250mg Oral Pain Assessment Pain Assessment : Follow-up assessment Pain Scale Goal : 2 Pain Scale Used : 0-10 Scale Melina Bell RN - 05/11/2020 18:19 EST Pain Scale Intensity : 2 Melina Bell RN - 05/11/2020 18:19 EST Image 4 - Images currently included in the form version of this document have not been included in the text rendition version of the form. documented in this encounter Plan of Treatment Not on file documented as of this encounter Visit Diagnoses Not on filedocumented in this encounter
--- OUTSIDE RECORDS SUMMARY | 2024-12-26 07:05 | XMS_ITS | Encounter Summary ---
Author Organization [email or web address] ([place], [place], [place], [place]) Address [address] [place] [address] Care Team Providers Care Crm Marketing Specialist Name Role Phone Unavailable Primary Care Provider Unavailabl e Encounter Details Date Type Department Care Team (Late st Contact Info) Description 05/11/2020 Transcribed Document [facility] [place] [facility] [place] [address] ProviderLizabeth MD [address] [id number] Social History Tobacco Use Types Packs/Day Years Used Date Smoking Tobacco: Never Assessed Sex and Gender Information Value Date Recorded Sex Assigned at Male 09/27/2021 8:47 PM CDT Legal Sex Male 8:47 PM CDT Gender Identity Male 09/27/2021 8:47 PM CDT Sexual Orientation Not on file documented as of this encounter Miscellaneous Notes * Cerner Conversion Note - Lizabeth ProviderMD - 05/11/2020 1:28 PM ELECTRICIAN OFFICE Nutrition Assessment Entered On: 05/12/2020 11:53 EST Performed On: 05/12/2020 11:53 EST by Tricia Bradley, CHARISSE, LD Nutrition Assessment Nutrition Assessment Reason : Automatic referral Current Nutrition Regimen Comment : (05/12) RD consult rec'd for BMI >40. Pt admitted due to left hip seroma after recent L GIANLUCA. Pt is s/p I&D washout with wound vac placement. DX: postop left hip seroma s/p I&D washout and wound vac placement PMH: ZITA, morbid obesity, DJD s/p recent L GIANLUCA Labs: Glu 134, WBC 10.9 Meds: abx, naproxen, D5 in LR @ 100ml/hr Skin: NPWT left hip GI: LBM 05/11, active BS Diet: regular Eatin% x 1 meal Ht: 70 Wt: 321.4# BMI: 46.1 IBW/%IBW: 166#/194% Tricia Bradley RD, LD - 05/12/2020 11:52 EST Nutrition Diagnoses Nutrient Intake : Increased nutrient needs Nutrient Intake Related to : skin integrity Nutrient Intake As Evidenced by : NPWT left hip Nutrient Intake Status : Active Increased Nutrient Needs Comment : protein Weight : Obese, Class III Weight Related to : lifestyle Weight As Evidenced by : BMI 46.1 Weight Status : Active Tricia Bradley RD, LD - 05/12/2020 11:52 EST Nutrition Interventions Meals and Snacks : General/Healthful diet Nutrition Supplement Therapy : Commercial beverage Tricia Bradley RD, LD - 05/12/2020 11:52 EST Monitoring/Evaluation Energy Intake : Total energy intake Weight Status : Weight Maintanence Gastrointestinal Function : Bowel Function Integumentary : Wound Status Tricia Bradley RD, LD - 05/12/2020 11:52 EST Nutrition Recommendations Dietitian Recommendations : 1. Continue current diet regimen. CHARISSE will add Sabas BID to aid in wound healing goal; po intake >75% from meals and ONS 2. monitor wt 2x/wk goal: no significant involuntary changes in wt Nutritional Risk: moderate Tricia Bradley RD, LD - 05/12/2020 11:52 EST documented in this encounter Plan of Treatment Not on file documented as of this encounter Visit Diagnoses Not on filedocumented in this encounter
--- OUTSIDE RECORDS SUMMARY | 2024-12-26 07:05 | XMS_ITS | Referral Summary ---
Author Organization [employer] ([place], [place], [place], [place]) Address [address] [place] [address] Care Team Providers Care Apple Checker Name Role Phone Unavailable Primary Care Provider [...]
--- OUTSIDE RECORDS SUMMARY | 2024-12-26 07:05 | XMS_ITS | Encounter Summary ---
Author Organization [employer] ([place], [place], [place], [place]) Address [address] [place] [address] Care Team Providers Care Senior Web Architect Name Role Phone Unavailable Primary Care Provider Unavailabl e Encounter Details Date Type Department Care Team (Late st Contact Info) Description 05/12/2020 Transcribed Document [facility] [place] Medicine [facility] [place] [address] ProviderLizabeth MD [facility] [place] [address] Social History Tobacco Use Types [...] Lizabeth Whitehead MD - 05/12/2020 3:32 PM DIRECTOR MANUFACTURING ENGINEERING Patient Education Materials Follows: Negative Pressure Wound Therapy Home Guide Negative [...] bag. ??? Soap and water, or hand geography faculty member. ??? Wound cleanser or salt-water solution (saline). [...] and water are not available, use hand geography faculty member. 3. Set up a clean station for [...] and water are not available, use hand geography faculty member. Clean your wound ??? Wear gloves, protective [...] and water are not available, use hand geography faculty member. Apply new dressing ??? Wear gloves, protective [...] and water are not available, use hand geography faculty member. 8. Turn the pump back on. The sponge dressing should collapse. Do not change the settings on the machine without talking to a health care provider. 9. Replace the container in the pump that collects fluid if it is full. Replace the container per the shoemaker custom's instructions or at least once a week, [...] clamps are open. ??? Do not use fqze-xix-nqrhmhd medicated or antiseptic creams, sprays, liquids, or [...] 06/10/2012 Document Revised: 07/11/2019 Document Reviewed: 06/06/2019 [employer] Patient Education ? 2019 [employer] Surgical Wound Debridement Surgical wound debridement is [...] including vitamins, herbs, eye drops, creams, and rafb-pto-qfpfpum medicines. ??? Any problems you or family [...] Up to 2 hours before the procedure ? you may continue to drink clear liquids, such as water, clear fruit juice, black coffee, and plain tea. Eating and drinking restrictions Follow instructions from your health care provider about eating and drinking, which may include: ??? 8 hours before the procedure ? stop eating heavy meals or foods, such as meat, fried foods, or fatty foods. ??? 6 hours before the procedure ? stop eating light meals or foods, such as toast or cereal. ??? 6 hours before the procedure ? stop drinking milk or drinks that contain milk. ??? 2 hours before the procedure ? stop drinking clear liquids. Medicines Ask your health care provider about: ??? Changing or stopping your regular medicines. This is especially important if you are taking diabetes medicines or blood thinners. ??? Taking medicines such as aspirin and ibuprofen. These medicines can thin your blood. Do not take these medicines unless your health care provider tells you to take them. ??? Taking ccbm-tni-uhbeeqy medicines, vitamins, herbs, and supplements. General instructions [...] or stopping any medicines you take, including twkr-djq-wypmvuv medicines, vitamins, herbs, and supplements. ??? Plan [...] 06/13/2010 Document Revised: 02/10/2019 Document Reviewed: 02/24/2019 [employer] Patient Education ? 2020 [employer]. Surgical Wound Debridement, Care After This sheet [...] these instructions at home: Medicines ??? Take yxlz-llm-wdtftsl and prescription medicines only as told by [...] and water are not available, use hand geography faculty member. ? Change your dressing as told by [...] Your wound is not getting better after 1?2 weeks of treatment. ??? You develop a [...] 03/11/2019 Document Reviewed: 03/11/2019 [employer] Patient Education ? 2019 [employer] documented in this encounter Plan of Treatment Not on file documented as of this encounter Visit Diagnoses Not on filedocumented in this encounter
--- OUTSIDE RECORDS SUMMARY | 2024-12-26 07:05 | XMS_ITS | Encounter Summary ---
Author Organization [employer] ([place], [place], [place], [place]) Address [address] [place] [address] Care Team Providers Care Assembler Carbon Brushes Name Role Phone Unavailable Primary Care Provider Unavailabl e Encounter Details Date Type Department Care Team (Late st Contact Info) Description 05/11/2020 Transcribed Document [facility] [place] Family Medicine [facility] [place] [address] ProviderLizabeth MD [facility] [place] [address] Social History Tobacco Use Types [...] Conversion Note - Lizabeth ProviderMD - 05/11/2020 1:21 PM PATIENT ACCESS SPECIALIST PAT Adult Entered On: 05/11/2020 13:22 EST Performed On: 05/11/2020 13:21 EST by Cristina Garcia RN Vital Measurements Temperature Source : Temporal artery scanning Temperature Mode : Fahrenheit Temperature, Fahrenheit : 97.4 Deg F Clinical Temperature, C : 36.3 Deg C Peripheral Pulse Rate : 96 bpm Pulse Rhythm : Regular Respiratory Rate : 16 Breaths/Min Systolic Blood Pressure : 163 mmHg (HI) Diastolic Blood Pressure : 87 mmHg Oxygen Saturation : 97 % Oxygen Therapy Mode : Room air Cristina Garcia RN - 05/11/2020 13:21 EST Pain Assessment Pain Assessment : Initial assessment Pain Scale Used : 0-10 Scale Cristina Garcia RN - 05/11/2020 13:24 EST Height and Weight, Clinical Dosing Height Source : Stated Height Entry Format : [place] Height, Feet : 5 ft(Converted to: 152 cm, 60 Inch) Height, Inches : 10 Inch(Converted to: 0 ft 10 Inch, 25.40 cm) Clinical Height : 177.8 cm Weight Source : Standing scale Weight Entry Format : [place] Clinical Dosing Weight : 146.09 kg Weight, Pounds : 321.4 lb Body Surface Area (BSA) : 2.56 m2 Body Mass Index : 46.2 kg/m2 (>HHI) [place] Body Weight : 72 kg Cristina Garcia RN - 05/11/2020 13:24 EST Health Histories Smoking Status : Never (less than 100 in lifetime; none in last 30 days) Smokeless Tobacco Status : Never Implant/Device Type, Crown Attacher and Model : left heel metal s/p achilles repair hernia repair mesh Cristina Garcia RN - 05/11/2020 13:24 EST Social History (As Of: 05/11/2020 13:28:33 EST) Tobacco: Never (less than 100 in [...] by Kiya Pineda RN) Infectious Disease History Has the patient ever been tested for COVID-19? : Yes, Patient stated results Negative Date of COVID-19 test known? : Yes Date of COVID-19 Test : 05/10/2020 EST Does patient have symptoms of COVID-19? : No COVID19 Screening : No Experiencing Infectious Disease Symptoms : No symptoms Physical contact outside [place] in the last 30 days : No Infectious Disease History : None Tuberculosis Symptoms : None Cristina Garcia RN - 05/11/2020 13:24 EST COVID19 PreProcedure Screening Is this an Emergent or Add on Procedure? : No Date PreProcedure COVID-19 test known? : Yes Date of PreProcedure COVID-19 : 05/10/2020 EST Has patient been isolated since the test : Yes Exposed to COVID19 symptoms since test? : No Cristina Garcia RN - 05/11/2020 13:24 EST Anesthesia/Transfusion History Family History of Anesthesia Reaction : No prior transfusion(s) Transfusion History : Prior anesthesia without reaction Family History of Anesthesia Reaction : None Cristina Garcia RN - 05/11/2020 13:24 EST Functional Assessment Functional ADL Evaluation Index EBN Bathing : Independent (2) Dressing : Independent (2) Toileting : Independent (2) Transferring Bed or Chair : Independent (2) Continence : Independent (2) Feeding : Independent (2) Cristina Garcia RN - 05/11/2020 13:24 EST ADL Index Score : 12 Cristina Garcia RN - 05/11/2020 13:24 EST Advance Directive Patient has Advance Directive *Q : No, patient refuses Advance Directive information Cristina Garcia RN - 05/11/2020 13:24 EST Spiritual/Cultural Needs Any Spiritual/Cultural Needs or Requests : No Cristina Garcia RN - 05/11/2020 13:24 EST [place] Suicide Severity Rating Scale (C-SSRS) CSSRS Past Month Wish to be : No CSSRS Past Month Suicidal Thoughts : No CSSRS Lifetime Suicide Behavior : No Suicide Severity Rating Score : 0 Suicide Severity Rating : No Additional Care Required at this time Cristina Garcia RN - 05/11/2020 13:24 EST Psychosocial History Currently in Unsafe Situation : No Cristina Garcia RN - 05/11/2020 13:24 EST Teaching/Learning Assessment Barriers To Learning : None evident Individuals Taught : Patient Readiness to Learn : Cooperative Baseline Knowledge of Topic : Good Readiness to Learn : Explanation Learning Style Preferences Patient : Verbal explanation Learning Style Preferences Family : Verbal explanation Cristina Garcia RN - 05/11/2020 13:24 EST Education Topics, Periop Preadmission Perioperative Education Grid Incentive Spirometry : Verbalizes understanding Infection Control : Verbalizes understanding IV's : Verbalizes understanding NPO Status/Directions : Verbalizes understanding Cristina Garcia RN - 05/11/2020 13:24 EST General Info Preferred Name : Jerrod Support Person/Pt Rep Name : Chuyita Verdugo Family/Rep/Phys Notified of Admit : No Emergency Contact #1 : Bony Emergency Contact #1 Emergency Contact #1 Relationship : Son Emergency Contact #2 : . Emergency Contact #2 Emergency Contact #2 Relationship : Home phone Primary Language : Spanish Communication Barrier : None Finance Insurance Manager Needed : No Cristina Garcia RN - 05/11/2020 13:24 EST Azar Scale Azar Sensory Perception : No impairment Azar Moisture : Rarely moist Azar Activity : Walks frequently Azar Mobility : No limitation Azar Nutrition : Excellent Azar Friction and Shear : No apparent problem Azar Score : 23 Cristina Garcia RN - 05/11/2020 13:24 EST Sleep Apnea Risk Assmt BiPAP/CPAP Ordered for Home Use : Yes Hx of Obstructive Sleep Apnea Diagnosis : Yes BiPAP/CPAP Used at Home : Yes Age over 50 Years Old : Yes Gender Male : Yes Cristina Garcia RN - 05/11/2020 13:24 EST Pain Scale Intensity : 0 Cristina Garcia RN - 05/11/2020 13:24 EST Image 4 - Images currently included in the form version of this document have not been included in the text rendition version of the form. documented in this encounter Plan of Treatment Not on file documented as of this encounter Visit Diagnoses Not on filedocumented in this encounter
--- OUTSIDE RECORDS SUMMARY | 2024-12-26 07:05 | XMS_ITS | Encounter Summary ---
Author Organization [email or web address] ([place], [place], [place], [place]) Address [address] [place] [address] Care Team Providers Care Automatic Glove Turner And Former Name Role Phone Unavailable Primary Care Provider Unavailabl e Encounter Details Date Type Department Care Team (Late st Contact Info) Description 05/11/2020 Transcribed Document [facility] Family Medicine [address] [place] [address] ProviderLizabeth MD [address] [place] [address] Social History Tobacco Use Types [...] Lizabeth Whitehead MD - 05/11/2020 2:50 PM [facility]K STEWARD [facility] [place] Main OR IntraOp Summary Primary Physician: NEGRA FOSTER MD-ORT Finalized Date/Time: 05/12/20 10:16:17 Pt. Name: FONTENOTFAY D.O.B./Sex: 1960 Male Med Rec #: [id number] Physician: NEGRA FOSTER MD-ORT Financial #: [id number] Pt. Type: O Room/Bed: [facility]/1 Admit/Disch: 05/11/20 12:36:00 - Institution: [facility] [place] IntraOp Case Attendance Entry 1 Entry 2 Entry 3 Case Attendee NEGRA FOSTER MD-ORT LEININGER, SUSAN, VIKKI OTHER, ATTENDEE #2 Role Performed Surgeon/Proceduralist, Alteration Specialist, First Scrub, First First Time In 05/11/20 14:30:00 05/11/20 14:30:00 05/11/20 14:30:00 Time Out 05/11/20 15:19:00 05/11/20 15:19:00 05/11/20 15:19:00 Procedure Wound Debridement Wound Debridement Wound Debridement Hip(Left), Wound Vac Hip(Left), Wound Vac Hip(Left), Wound Vac Application(Left) Application(Left) Application(Left) Other Attendee NATALIE KRAMER Superficial Wound Closed By: Last Modified By: ALFIE HUSTON, ALFIE CORLEY, ALFIE CORLEY, VIKKI 05/11/20 15:25:19 05/11/20 15:25:19 05/11/20 15:25:19 Entry 4 Entry 5 Case Attendee DORI BUSH, MODELING INSTRUCTOR UYEN OLIVER PA-C Role Performed MODELING INSTRUCTOR/Nurse Manager Ecommerce Physician administrative personal assistant Time In 05/11/20 14:30:00 05/11/20 14:30:00 Time Out 05/11/20 15:19:00 05/11/20 15:19:00 Procedure Wound Debridement Wound Debridement Hip(Left), Wound Vac Hip(Left), Wound Vac Application(Left) Application(Left) Other Attendee Superficial Wound Closed By: Last Modified By: ALFIE HUSTON RN LEININGER, SUSAN, VIKKI 05/11/20 15:25:19 05/11/20 15:25:19 [facility] IntraOp Case Attendance Audit 05/12/20 10:16:05 Credentialing Analyst: ARIELA Modifier: ARIELA 1 <*> Procedure Wound Debridement Hip(Left) 2 <*> Procedure Wound Debridement Hip(Left) 3 <*> Procedure Wound Debridement Hip(Left) 4 <*> Procedure Wound Debridement Hip(Left) 5 <*> Procedure Wound Debridement Hip(Left) 05/11/20 15:25:19 Credentialing Analyst: ARIELA Modifier: ARIELA 1 <*> Case Attendee NEGRA FOSTER MD-ORT 1 <*> Role Performed Surgeon/Proceduralist, First 1 <*> Time In 05/11/20 14:30:00 1 <*> Time Out 05/11/20 15:19:00 1 <*> Procedure Wound Debridement Hip(Left) 2 <*> Case Attendee ALFIE HUSTON, RN 2 <*> Role Performed Alteration Specialist, First 2 <*> Time In 05/11/20 14:30:00 2 <*> Time Out 05/11/20 15:19:00 2 <*> Procedure Wound Debridement Hip(Left) 3 <*> Case Attendee OTHER, ATTENDEE #2 3 <*> Role Performed Scrub, First 3 <*> Time In 05/11/20 14:30:00 3 <*> Time Out 05/11/20 15:19:00 3 <*> Procedure Wound Debridement Hip(Left) 3 <*> Other Attendee NATALIE KRAMER 4 <*> Case Attendee DORI BUSH MODELING INSTRUCTOR 4 <*> Role Performed MODELING INSTRUCTOR/Nurse Manager Ecommerce 4 <*> Time In 05/11/20 14:30:00 4 <*> Time Out 05/11/20 15:19:00 4 <*> Procedure Wound Debridement Hip(Left) Entry 5 was deleted. Higher numbered entries shifted one position to fill the gap. <-> 5 Case Attendee Edy Page, EHR TRAINER <-> 5 Role Performed EHR TRAINER <-> 5 Time In 05/11/20 14:30:00 <-> 5 Time Out 05/11/20 15:19:00 <-> 5 Procedure Wound Debridement Hip(Left) 05/11/20 15:24:41 Credentialing Analyst: ARIELA Modifier: BETTIEU <+> 6 Case Attendee <+> 6 Role Performed <+> 6 Procedure 05/11/20 15:24:24 Credentialing Analyst: ARIELA Modifier: LEINSU <+> 1 Procedure 2 <*> Procedure Wound Debridement Hip(Left) 3 <*> Procedure Wound Debridement Hip(Left) 4 <*> Procedure Wound Debridement Hip(Left) 05/11/20 15:19:40 Credentialing Analyst: ARIELA Modifier: LEOPOLDONSU <+> 1 Time Out 2 <+> Time Out 2 <*> Procedure Wound Debridement Hip(Left) 3 <+> Time Out 3 <*> Procedure Wound Debridement Hip(Left) 4 <+> Time Out 4 <*> Procedure Wound Debridement Hip(Left) 5 <+> Time Out 5 <*> Procedure Wound Debridement Hip(Left) 05/11/20 15:18:46 Credentialing Analyst: LEINSU Modifier: LEINSU <+> 1 Time In 2 <+> Time In 2 <*> Procedure Wound Debridement Hip(Left), Hip Total Revision(Left) 3 <+> Time In 3 <*> Procedure Wound Debridement Hip(Left), Hip Total Revision(Left) 4 <+> Time In 4 <*> Procedure Wound Debridement Hip(Left), Hip Total Revision(Left) 5 <+> Time In 5 <*> Procedure Wound Debridement Hip(Left), Hip Total Revision(Left) [facility] IntraOp Case Times Entry 1 Patient In Room Time 05/11/20 14:30:00 Out Room Time 05/11/20 15:19:00 Anesthesia Start Time 05/11/20 14:30:00 Stop Time 05/11/20 15:19:00 Anesthesia Ready 05/11/20 14:30:00 Surgery / Procedure Times Start Time 05/11/20 14:50:00 Stop Time 05/11/20 15:07:00 Last Modified By: ALFIE HUSTON RN 05/11/20 14:33:27 [facility] IntraOp Case Times Audit 05/11/20 15:19:37 Credentialing Analyst: LEINSU Modifier: LEINSU <+> 1 Out Room Time <+> 1 Stop Time 05/11/20 15:10:43 Credentialing Analyst: LEINSU Modifier: LEINSU <+> 1 Stop Time 05/11/20 15:03:57 Credentialing Analyst: LEINSU Modifier: LEINSU <+> 1 Start Time [facility] IntraOp Cautery Entry 1 ESU Identification Cautery Type Monopolar ESU ID Number [id number] ID Type Hospital Number Cautery Settings Cut Setting 50 Coag Setting 50 ESU Grounding Pad Ground Pad Type Adult Grounding Pad Site Right Lower Abdomen Grounding Pad ALFIE HUSTON, RN Applied By Grounding Pad Site Intact Skin Condition Before Cautery Grounding Pad Site Unchanged Skin Condition After Cautery Last Modified By: ALFIE HUSTON, VIKKI 05/11/20 14:08:16 [facility] IntraOp Communication Entry 1 Communication To Family/Significant other Communication By ALFIE HUSTON, RN Last Modified By: ALFIE HUSTON, VIKKI 05/11/20 14:05:21 [facility] IntraOp Counts Verification Entry 1 Procedure Wound Debridement Hip(Left) Count Info Count Type Sponge, Sharps Counts Verification Baseline/pre-procedure Sequence Count Results Correct, surgeon notified Counts Performed By Count Performed By OTHER, ATTENDEE #2 (Scrub) Count Performed By ALFIE HUSTON RN (RN) Last Modified By: ALFIE HUSTON RN 05/11/20 14:06:17 [facility] IntraOp Counts Verification Audit 05/11/20 15:18:47 Credentialing Analyst: ARIELA Modifier: LEINSU 1 <*> Procedure Wound Debridement Hip(Left), Hip Total Revision(Left) [facility] IntraOp Counts Final Entry 1 Procedure Wound Debridement Hip(Left) Final Count Info Count Type Sponge, Sharps Counts Verification Skin Closure/end of Sequence procedure Count Results Correct, surgeon notified Counts Performed By Count Performed By OTHER, ATTENDEE #2 (Scrub) Count Performed By ALFIE HUSTON RN (RN) Last Modified By: ALFIE HUSTON RN 05/11/20 15:04:20 [facility] IntraOp Counts Final Audit 05/11/20 15:18:48 Credentialing Analyst: ARIELA Modifier: LEOPOLDONSU 1 <*> Procedure Wound Debridement Hip(Left), Hip Total Revision(Left) [facility] IntraOp Cultures and Spec Summary Entry 1 Cultrures and Specimens Specimen Ordered: Yes Test(s) Routine/Path-Lab Requested/Final Disposition Last Modified By: ALFIE HUSTON RN 05/11/20 14:07:50 [facility] IntraOp Departure from OR Entry 1 Integumentary Assessment Integumentary WDL Assessment WDL Transfer/Handoff Transfer to PACU Phase I Handoff Method Bedside/Face to face Post-op Transport Bed (including Via specialty) Patient Transport DORI BUSH CRNA, Accompanied by ALFIE HUSTON, RN Last Modified By: ALFIE HUSTON RN 05/11/20 15:18:59 [facility] IntraOp Drains and Tubes Entry 1 Device Type Hemovac Size medium Drain/Tube Activity Inserted Drain/Tube Suction Dysart Device Location OPERATIVE SITE Method of Drainage Dysart Last Modified By: ALFIE HUSTON RN 05/11/20 14:08:02 [facility] IntraOp Dressing and Packing Entry 1 Type Dressing Location operative site Wound Dressing Item Occlusive dressing Supplemental Abductor wedge Applications Applied By NEGRA FOSTER MD-ORT Other Comments AQUACEL DRESSING Last Modified By: ALFIE HUSTON RN 05/11/20 15:04:33 [facility] IntraOp Fire Risk Assessment Entry 1 Fire Info Surgical Site or 0- No Incision Above the Xyphoid Open O2 Source 0- No (Mask or Cannula) Available Ignition 1- Yes (ESU, Laser, Light Source) Fire Risk 1 Assessment Score Fire Score Fire Risk Yes Assessment Complete Fire Risk ALFIE HUSTON RN Assessment Verified By Fire Risk 05/11/20 14:49:00 Assessment Verified Date/Time Fire Risk High Risk Protocol Yes Implemented Standard Fire Yes Safety Precautions Followed Last Modified By: ALFIE HUSTON RN 05/11/20 14:06:21 [facility] IntraOp Fire Risk Assessment Audit 05/11/20 15:07:17 Credentialing Analyst: ARIELA Modifier: ARIELA <+> 1 Fire Risk Assessment Verified Date/Time [facility] IntraOp General Case Yard Supervisor 1 Case Information OR OR 09 SJE Case Level 1 Room Verified Yes Wound Class IV - Dirty-Infected Specialty SN Orthopedic Anesthesia Type General ASA Class 3 Diagnosis Preop Diagnosis IINFECTED LEFT HIP Postop Same As Preop Yes Postop Diagnosis IINFECTED LEFT HIP Last Modified By: ALFIE HUSTON RN 05/11/20 14:07:02 [facility] IntraOp General Case Data Audit 05/11/20 15:11:15 Credentialing Analyst: ARIELA Modifier: ARIELA <+> 1 Preop Diagnosis <+> 1 Postop Diagnosis [facility] IntraOp Intraoperative Assessment Entry 1 Valid History / Yes Physical in Chart Preoperative Yes Checklist Reviewed/Evaluated Allergies Reviewed Yes Patient is Latex No Sensitive Level of WDL Consciousness (WDL = Alert, Oriented to Person, Place, and Time) Skin Assessment Yes Verified Present Upon IVs Arrival to OR Last Modified By: ALFIE HUSTON RN 05/11/20 14:06:28 [facility] IntraOp Intraoperative Equipment Entry 1 Equipment Intraop Monitoring Electrocardiogram Three lead placement (ECG) Electrode Placement Antiembolic Devices Antiembolic Devices Sequential compression device, knee high Antiembolic Device Right Location Antiembolic Device [id number] ID Number Scopes Photo/Video Documentation Last Modified By: ALFIE HUSTON RN 05/11/20 14:06:47 [facility] IntraOp Patient Positioning Entry 1 Procedure Wound Debridement Hip(Left) Body Position Supine Left Arm Position Secured on padded arm board Right Arm Position Secured on padded arm board Left Leg Position Uncrossed, parallel Right Leg Position Uncrossed, parallel Feet Uncrossed Yes Pressure Points Yes Checked Positioning Devices Arm Board, Barrett Bag, Over Arm Rest, Pillows, Roll, Axillary, Safety Strap, Chest Positioned By ALFIE HUSTON, VIKKI, DORI BUSH CRNA Position Verified Positioning Yes Verified by Anesthesia Positioning Yes Verified by Surgeon Last Modified By: ALFIE HUSTON RN 05/11/20 15:24:30 [facility] IntraOp Patient Positioning Audit 05/11/20 15:24:30 Credentialing Analyst: ARIELA Modifier: LEINSU 1 <*> Procedure Wound Debridement Hip(Left) 1 <*> Positioned By DORI BUSH CRNA 05/11/20 15:18:47 Credentialing Analyst: ARIELA Modifier: LEINSU 1 <*> Procedure Wound Debridement Hip(Left), Hip Total Revision(Left) [facility] IntraOp Sign In Entry 1 Patient, Site, Yes Procedure Identified Surgical Consent Yes Confirmed Relevant Surgical Yes Documents Available Surgical Site Yes Marked by person performing procedure Anesthesia Machine Yes Check Completed Medication Checks Yes Completed Allergies Yes Airway Difficult No Airway/Aspiration Risk Difficult Yes Airway/Aspiration Intervention Equipment Available Blood Loss Risk No Blood Loss No Intervention Equipment Prepared and Ready Blood Identifiers Not applicable Verified Per Policy Hypothermia Risk Yes Warming Measures Yes Taken Last Modified By: ALFIE HUSTON RN 05/11/20 14:05:56 [facility] Intra Op Sign Out Entry 1 RN Confirmation Surgical Yes Procedure(s) Identified Instrument, Sponge Yes and Sharps Counts Correct/Documented Equipment Problems Yes Documented Specimen Labeled Yes Correctly Urinary Catheter N/A Documented in [employer] [place] Patient Yes Recovery Concerns Reviewed with Anesthesia Provider, Surgeon and RN Rivero Patient Yes Management Concerns Reviewed with Anesthesia Provider, Surgeon and RN Safety Checklist Yes Elements Complete? RN Sign Out ALFIE HUSTON, VIKKI Signature RN Sign Out 05/11/20 15:19:00 Signature Date/Time Plan of Care Outcome - [...] of Care Outcome - Xray/Images OUTCOME STATEMENT: N/A Absence of observable signs or symptoms of radiation injury Plan of Care Outcome - Counts OUTCOME STATEMENT: Goal met Absence of signs and symptoms of injury related to extraneous objects Last Modified By: ALFIE HUSTON RN 05/11/20 15:19:52 [facility] IntraOp Skin Prep Entry 1 Prescribed N/A Pre-Surgical Prep Completed Prep Area operative leg Intraop Prep Integumentary WDL Assessment WDL Prep Agents Alcohol, Chlorhexadine gluconate Prep by ALFIE HUSTON, RN Hair Removal Last Modified By: ALFIE HUSTON RN 05/11/20 14:07:15 S[facility] IntraOp Skin Prep Audit 05/11/20 15:18:47 Credentialing Analyst: ARIELA Modifier: ARIELA 1 <-> Procedure Hip Total Revision(Left) [facility] IntraOp Surgical Procedures Entry 1 Entry 2 Procedure Wound Debridement Hip Wound Vac Application Modifiers Left Left Additional LEFT HIP WOUND I&D Procedure {LATERAL}, POSS Description POLY EXCHANGE Primary Procedure Yes No Primary Surgeon NEGRA FOSTER MD-ORT DANGELO, GREGORY, MD-ORT Start 05/11/20 14:50:00 05/11/20 14:50:00 Stop 05/11/20 15:07:00 05/11/20 15:07:00 Physician States Cecum Reached Anesthesia Type General General Specialty SN Orthopedic SN Orthopedic Wound Class IV - Dirty-Infected II - Clean-Contaminated Last Modified By: ALFIE HUSTON RN LEININGER, SUSAN, RN 05/11/20 15:18:52 05/12/20 10:16:00 [facility] IntraOp Surgical Procedures Audit 05/12/20 10:16:12 Credentialing Analyst: ARIELA Modifier: ARIELA <+> 2 Start <+> 2 Stop 05/12/20 10:16:00 Credentialing Analyst: ARIELA Modifier: BETTIEU <+> 2 Procedure <+> 2 Primary Procedure <+> 2 Modifiers <+> 2 Primary Surgeon <+> 2 Specialty <+> 2 Wound Class <+> 2 Anesthesia Type 05/11/20 15:18:52 Credentialing Analyst: ARIELA Modifier: ARIELA 1 <*> Procedure Wound Debridement Hip 1 <*> Primary Procedure Yes 1 <*> Modifiers Left 1 <*> Primary Surgeon NEGRA FOSTER MD-ORT 1 <*> Specialty 1 <*> Start 05/11/20 14:50:00 1 <+> Stop 1 <*> Wound Class IV - Dirty-Infected 1 <*> Anesthesia Type General 1 <*> Additional Procedure Description LEFT HIP WOUND I&D {LATERAL}, POSS POLY EXCHANGE Entry 2 was deleted. Higher numbered entries shifted one position to fill the gap. <-> 2 Procedure Hip Total Revision <-> 2 Primary Procedure No <-> 2 Modifiers Left <-> 2 Primary Surgeon NEGRA FOSTER MD-ORT <-> 2 Specialty <-> 2 Start 05/11/20 14:50:00 <-> 2 Wound Class I - Clean <-> 2 Anesthesia Type General [facility] IntraOp Temp Regulation Devices Entry 1 Temp Regulation Temperature Warm blankets Regulation Device Temperature Upper body Regulation Site Temperature ELEAZAR, DORI A, MODELING INSTRUCTOR Regulation Device Applied by Last Modified By: ALFIE HUSTON RN 05/11/20 15:11:01 [facility] IntraOp Time Out Entry 1 Procedure to be Wound Debridement Performed Hip(Left) Time Out Time Out Pause Time 05/11/20 14:49:00 All activity Yes suspended (unless life threatening [...] if responses among team members differ Antibiotic N/A Prophylaxis Administered Or In Progress Within the Last 60 Minutes Beta Sirisha N/A Administered Venous Yes Thromboembolism Prophylaxis Required Anticipated Critical Events Surgeon None expected Anesthesia Provider None expected Nursing Assures Sterility of instruments, Implant Availability Essential Imaging Yes Labeled and Displayed Last Modified By: ALFIE HUSTON RN 05/11/20 15:18:48 [facility] IntraOp Time Out Audit 05/11/20 15:18:48 Credentialing Analyst: ARIELA Modifier: ARIELA 1 <*> Procedure to be Performed Wound Debridement Hip(Left), Hip Total Revision(Left) 05/11/20 15:06:48 Credentialing Analyst: ARIELA Modifier: ARIELA 1 <*> Antibiotic Prophylaxis Administered Yes Or In Progress Within the Last 60 Minutes 1 <+> Surgeon 1 <+> Time Out Pause Time 1 <*> Procedure to be Performed Wound Debridement Hip(Left), Hip Total Revision(Left) Case Comments <None> Finalized By: ALFIE HUSTON, RN Document Signatures Signed By: ALFIE HUSTON, VIKKI 05/11/20 15:25 ALFIE HUSTON, VIKKI 05/12/20 10:16 Unfinalized History Date/Time Username Reason for Unfinalizing Freetext Reason for Unfinalizing 05/12/20 10:15 ARIELA Correct Documentation Electronically signed by Rajan [facility] Conversion Portuguese Tutor Cerner at 07/20/2022 1:11 PM CDT documented in this encounter Plan of Treatment Not on file documented as of this encounter Visit Diagnoses Not on filedocumented in this encounter
--- OUTSIDE RECORDS SUMMARY | 2024-12-26 07:05 | XMS_ITS | Encounter Summary ---
Author Organization [employer] ([place], [place], [place], [place]) Address [address] [place] [address] Care Team Providers Care Placement Manager Name Role Phone Unavailable Primary Care Provider Unavailabl e Encounter Details Date Type Department Care Team (Late st Contact Info) Description 05/11/2020 Transcribed Document [facility] Family Medicine [address] [place] [address] ProviderLizabeth MD [address] [place] [address] Social History Tobacco Use Types [...] Conversion Note - Lizabeth ProviderMD - 05/11/2020 3:11 PM PHOTOVOLTAIC PANEL INSTALLER Evaluation, Physical Therapy Entered On: 05/12/2020 8:40 EST Performed On: 05/12/2020 7:42 EST by DONALD CALHOUN, PT General Information, PT Visit Type, PT : Initial evaluation Patient Orders : Order Date Order Ordering MD 05/11/2020 15:11 Consult to Physical Therapy Ordered By: NEGRA FOSTER MD-ORT Active Diagnoses : No Qualifying Diagnoses Therapy Diagnosis, PT : reduced mobility Admission Date : 05/11/2020 12:36 Personal Devices : Personal Devices No Devices Recorded Assistive Devices : Assistive Devices No Devices Recorded DONALD CALHOUN, PT - 05/12/2020 8:22 EST General Status Patient Received Status : Long sitting in bed Treatment Start Time : 05/12/2020 7:42 EST Patient Left Status : Up in chair, RN/PCT informed, Communication board completed, All needs met and within reach RN/PCT Informed Comment : Yes, RN approved pt for PT eval and pt agreeable Treatment End Time : 05/12/2020 8:16 EST Treatment Time : 34 Minute(s) DONALD CALHOUN, PT - 05/12/2020 8:22 EST History and Environment Living Situation, Therapy : Home Patient Lives With : Dependent Child/Children, Spouse Persons Assisting Patient at Home : Spouse Professional Skilled Services : None Persons Providing Information : Patient Home Equipment Therapy, PT : Walker Walker : Walker, front wheel Home Setup : Two story Stairs : Yes Stair Location(s) : Outside Outside Stairs, Number of Steps : 2 Railing Outside : Yes DONALD CALHOUN, PT - 05/12/2020 8:22 EST Prior Level of Function PT GRID Prior LOF Ambulation, Household : Independent Prior LOF Ambulation, Community : Independent Prior LOF Bed Mobility : Independent Prior LOF Toileting : Independent Prior LOF Transfer : Independent DONALD CALHOUN, PT - 05/12/2020 8:22 EST Upper Extremity Upper Extremity Dominance : Right Right UE Active ROM : WFL Right UE Strength : WFL Left UE Active ROM : WFL Left UE Strength : WFL DONALD CALHOUN, PT - 05/12/2020 8:22 EST Lower Extremity RLE Active ROM : WFL Right LE Strength : WFL LLE Active ROM : WFL Left LE Strength : WFL DONALD CALHOUN, PT - 05/12/2020 8:22 EST Functional Mobility Mobility Grid Bed Scooting : Rehab Complete independence Supine to Sit : Rehab Complete independence Sit to Stand : Rehab Complete independence Bed to Chair : Rehab Complete independence Stand to Sit : Rehab Complete independence DONALD CALHOUN, PT - 05/12/2020 8:22 EST Gait Training/Assessment, PT Weight Bearing Status : As tolerated Gait Assistance Level : Independent, modified Walking Distance : 1000 feet modified independent status with PT carrying wound vac, no assistive device, good pace, no loss of balance, good safety awareness Ambulatory Devices : Gait belt Gait Deviations : No Stair(s) Ascend/Descend Training : Yes Stair Training Comment : Pt ascended and descended 4 steps with bilateral rails independently DONALD CALHOUN, PT - 05/12/2020 8:22 EST Neuromuscular Reeducation, PT Balance Comment : good sitting and standing DONALD CALHOUN, PT - 05/12/2020 8:22 EST Neurological/Sensory Overall Sensory Response : Intact DONALD CALHOUN, PT - 05/12/2020 8:22 EST Activity Tolerance, PT Activity Comment : good DONALD CALHOUN, PT - 05/12/2020 8:22 EST Cognition Assessment, PT Orientation : Oriented x 4 Attention Assessment : Present DONALD CALHOUN, PT - 05/12/2020 8:22 EST Edu Topics Physical Therapy Education Grid Bed Mobility Training : Verbalizes understanding, Returns demonstration Gait Training : Verbalizes understanding, Returns demonstration Role of Physical Therapy : Verbalizes understanding, Returns demonstration Safety : Verbalizes understanding, Returns demonstration Transfer Training : Verbalizes understanding, Returns demonstration Use of Assistive Device : Verbalizes understanding, Returns demonstration DONALD CALHOUN, PT - 05/12/2020 8:22 EST Indication Assesessment, PT Physical Therapy Indicated : No Physical Therapy Not Indicated : Prior level of function Interdisciplinary Consultation(s) Needed : No Potential Barriers To Therapy : None evident Rehabilitation Potential : At prior level of function DONALD CALHOUN, PT - 05/12/2020 8:22 EST Plan of Care, PT PT Tx Plan/Goals Established w Patient : No Reason Tx/Plan Not Established W/ Pt PT : at PLOF PT Frequency Rehab : Other: eval only Other PT Treatment Provided This Date : gait ther act PT Duration Rehab : Other: eval only PT Treatments Planned : Other: eval only Plan of Care Comment, PT : eval only DONALD CALHOUN, PT - 05/12/2020 8:22 EST Treatment Note Subjective Comment : agreeable Patient's Response to Treatment : good Additional Objective Information : see eval PT assisted pt to the bathroom and remained with pt in the bathroom to supervise pt for safety with bathroom transfers, dynamic standing balance, assistance with clothing and supervision with mobility in tight confines of pt restroom PT supervised pt for dynamic sitting and standing balance while he donned upper and lower body clothing Assessment : Pt is at his PLOF and does not require further skilled PT services in the acute care setting beyond this initial evaluation and education Plan for Treatment : eval only DONALD CALHOUN, PT - 05/12/2020 8:22 EST Pain Assessment Pain Scaled Used : 0-10 Pain scale Pain Score Pre-Intervention : 0 Pain Score Post-Intervention. : 0 DONALD CALHOUN, PT - 05/12/2020 8:22 EST Image 1 - Images currently included in the form version of this document have not been included in the text rendition version of the form. [place] PT Charges PT Ther Activities Ea 15 Min : 1 Gait Training Each 15 Min : 1 PT Eval Low Complexity : 1 DONALD CALHOUN, PT - 05/12/2020 8:22 EST documented in this encounter Plan of Treatment Not on file documented as of this encounter Visit Diagnoses Not on filedocumented in this encounter
--- OUTSIDE RECORDS SUMMARY | 2024-12-26 07:05 | XMS_ITS | Encounter Summary ---
Author Organization [employer] ([place], [place], [place], [place]) Address [address] [place] [address] Care Team Providers Care Clinical Research Spec Name Role Phone Unavailable Primary Care Provider Unavailabl e Encounter Details Date Type Department Care Team (Late st Contact Info) Description 05/11/2020 Transcribed Document [facility] [place] [address] [place] [address] ProviderLizabeth MD [address] [place] [address] Social History Tobacco Use Types Packs/Day Years Used Date Smoking Tobacco: Never Assessed Sex and Gender Information Value Date Recorded Sex Assigned at Male 09/27/2021 8:47 PM CDT Legal Sex Male 8:47 PM CDT Gender Identity Male 09/27/2021 8:47 PM CDT Sexual Orientation Not on file documented as of this encounter Miscellaneous Notes * Cerner Conversion Note - Historical ProviderMD - 05/11/2020 4:02 PM MAKEUP INSTRUCTOR Attempt to Treat, PT Entered On: 05/11/2020 16:03 EST Performed On: 05/11/2020 16:02 EST by DONALD CALHOUN PT Attempt to Treat Unable to Treat Due To : Patient Unavailable Inability to Treat Comment : Orders received but pt is not on floor at this time DONALD CALHOUN, PT - 05/11/2020 16:02 EST Electronically signed by Rajan [facility] Conversion Ironer Sock Cerner at 07/20/2022 1:17 PM CDT documented in this encounter Plan of Treatment Not on file documented as of this encounter Visit Diagnoses Not on filedocumented in this encounter
--- OUTSIDE RECORDS SUMMARY | 2024-12-26 07:05 | XMS_ITS | Clinical Summary ---
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 T84.52xD (ICD-10-CM ) Active Zulma Ramirez 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, subsequent encounter Cellulitis of LLE L03.116 (ICD-10-CM ) Active Zulma Ramirez Cellulitis of left lower limb Medications Medication Instructions Start Date Stop Date Generic Name [facility] Provider DOXYCYCLINE MONOHYDRATE 100 MG CAPS one cap po bid DOXYCYCLINE MONOHYDRATE 29573052507 Avinash Starr MD OXYCODONE HCL 5 MG CAPS Q6H/PRN OXYCODONE HCL 70896597492 Vivienne Cardenasdox DOCUSATE SODIUM 100 MG CAPS Take by mouth twice a day/PRN DOCUSATE SODIUM 23351166844 Vivienne Hunt ADULT ASPIRIN REGIMEN 81 MG ORAL TABLET DELAYED RELEASE Take one by mouth daily ASPIRIN 24212372981 Vivienne Cardenasdox ACETAMINOPHEN 500 MG TABS 2 Tab, Oral, TID ACETAMINOPHEN 48698054197 Vivienne Hunt LINEZOLID 600 MG TABS Take by mouth twice a day LINEZOLID 44808377035 Vivienne Hunt ONDANSETRON HCL 4 MG TABS Q6H/PRN ONDANSETRON HCL 07704467721 Vivienne Hunt ULTRAM 50 MG ORAL TABLET Q6H/PRN TRAMADOL HCL 09825911945 Vivienne Hunt MELOXICAM 15 MG TABS Take one by mouth daily MELOXICAM 39857488547 Vivienne Hunt AMOXICILLIN-POT CLAVULANATE 875-125 MG TABS Take by mouth twice a day AMOXICILLIN-POT CLAVULANATE 53043162453 Vivienne Hunt Medications Administered No information available. 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 Vital Signs Date Name Value Unit Description BMI (Body Mass Index) 47.63 kg/m2 Bod y Mass Index (Ratio) Body Temperature 98.0 [degF] temperat ure E&M BP Diastolic 87 mm[Hg] blood pressu re, diastolic BP Systolic 171 mm[Hg] blood pressur e, systolic Heart Rate 99 /min pulse rate Respiratory Rate 18 /min respirat ory rate E&M Weight Measured 332 [lb_av] weight E& M Weight Measured 332 [lb_av] weight E& M Height 70 [in_us] height E&M Immunizations No information available. Advance Directives Directive Description Start Date NO ADVANCED DIRECTIVES ESTABLISHED AT [facility] TIME
--- OUTSIDE RECORDS SUMMARY | 2024-12-26 07:05 | XMS_ITS | Encounter Summary ---
Author Organization [employer] ([place], [place], [place], [place]) Address [address] [place] [address] Care Team Providers Care Market Research Specialist Name Role Phone Unavailable Primary Care Provider Unavaillisette e Encounter Details Date Type Department Care Team (Late st Contact Info) Description 05/12/2020 Transcribed Document [facility] [address] [place] [address] ProviderLizabeth MD [address] [place] [address] Social History Tobacco Use Types [...] Note - Lizabeth Whitehead MD - 05/12/2020 8:41 AM ANIMAL DAYCARE PROVIDER Meds to Bed Enrollment Entered On: 05/12/2020 8:41 EST Performed On: 05/12/2020 8:41 EST by Luis Yao Pharmacist Meds to Bed Enrollment Patient Enrollment Decision: : Yes/enroll in meds to bed program Luis Yao Pharmacist - 05/12/2020 8:41 EST documented in this encounter Plan of Treatment Not on file documented as of this encounter Visit Diagnoses Not on filedocumented in this encounter
--- OUTSIDE RECORDS SUMMARY | 2024-12-26 07:05 | XMS_ITS | Encounter Summary ---
Author Organization [employer] ([place], [place], [place], [place]) Address [address] [place] [address] Care Team Providers Care Warehouse Operator Name Role Phone Unavailable Primary Care Provider Unavailabl e Encounter Details Date Type Department Care Team (Late st Contact Info) Description 05/11/2020 Transcribed Document [facility] [place] [facility] [place] [address] ProviderLizabeth MD [address] [place] [address] Social History Tobacco Use Types [...] Conversion Note - Lizabeth ProviderMD - 05/11/2020 4:34 PM IT INFRASTRUCTURE ENGINEER Admission History, Adult Entered On: 05/11/2020 16:39 EST Performed On: 05/11/2020 16:34 EST by Graciela Steve, Rn Advance Directive Patient has Advance Directive *Q : No, patient refuses Advance Directive information Graciela Steve Rn - 05/11/2020 16:34 EST Anesthesia/Transfusion History Family History of Anesthesia Reaction : No prior transfusion(s) Blood Transfusion Acceptable to Patient : Yes Transfusion History : Prior anesthesia without reaction Family History of Anesthesia Reaction : None Graciela Steve, Rn - 05/11/2020 16:34 EST Anticipated Discharge Needs Discharge To, Anticipated : Home Anticipated Discharge Needs at This Time : Physical Therapy Graciela Steve Rn - 05/11/2020 16:34 EST Education Topics, Admission Orientation DCP GENERIC [...] Verbalizes understanding Visiting Policy : Verbalizes understanding Graciela Steve Rn - 05/11/2020 16:34 EST Functional Assessment Living Situation : Home Patient Lives With : Dependent Child/Children, Spouse Persons Assisting Patient at Home : Spouse Mobility Assistance Prior to Admission : Independent Current Home Treatments : CPAP Graciela Steve Rn - 05/11/2020 16:34 EST General Info Preferred Name : Jerrod Arrived From : Other: pacu Mode of Arrival on Unit : Stretcher Patient Arrival Date/Time : 05/11/2020 16:30 EST Legal Guardian : Unaccompanied Support Person/Pt Rep Name : Chuyita Verdugo Family/Rep/Phys Notified of Admit : No Emergency Contact #1 : Bony Emergency Contact #1 Emergency Contact #1 Relationship : Son Emergency Contact #2 : . Emergency Contact #2 Emergency Contact #2 Relationship : Home phone Information Obtained From : Patient Primary Language : [place] Communication Barrier : None Oil Exploration Engineer Needed : Graciela Jacobs Rn - 05/11/2020 16:34 EST Fall Risk Scales ABCs Fall Injury Risk Identification : Bones, Surgery ABC Fall Injury Risk : Moderate to high injury risk Injury Moderate to High Risk Interventions : Bed alarm on, Personal alarm on, Supervise toileting as indicated, Transport methods appropriate to patient, Wrist band (fall risk) on per policy AMATO Hx Falls Immediate/Within 3 Months : No [place] Secondary Diagnosis : No AMATO Use of Ambulatory Aid : Crutches/Cane/Walker AMATO IV Therapy or IV Access : Yes [place] Gait/Transferring : Weak [place] Mental Status : Oriented to own ability [place] Fall Risk Score : 45 AMATO Fall Scale Risk Level : 25-45 Medium Risk [place] Fall Interventions : Adequate lighting, Assistive devices within reach, Bed in low position, Call device within reach, Fall prevention handout/education per facility policy, Hourly comfort/safety rounds, Non-slip footwear, Personal items within reach, Room free of clutter/spills, Upper side-rails up, Wheels locked, Wires/Cords secured Graciela Steve Rn - 05/11/2020 16:34 EST Fall Risk Education Grid Alarms : [...] understanding Home Risk Assessment : Verbalizes understanding Night Light Use : [...] Verbalizes understanding Wheelchair Safety : Verbalizes understanding Graciela Steve Rn - 05/11/2020 16:34 EST Barriers to Learning : None evident Individuals Taught : Patient Readiness to Learn : Cooperative Learning Style Preferences Family : Verbal explanation Learning Style Preferences Patient : Verbal explanation Teaching Evaluation : Verbalizes understanding Fall Risk Scale Calc Temp : 0 Graciela Steve Rn - 05/11/2020 16:34 EST Health Histories Smoking Status : Never (less than 100 in lifetime; none in last 30 days) Smokeless Tobacco Status : Never Implant/Device Type, Signal Fitter and Model : left heel metal s/p achilles repair hernia repair mesh Graciela Steve Rn - 05/11/2020 16:34 EST Social History (As Of: 05/11/2020 16:39:41 EST) Tobacco: Never (less than 100 in [...] Source : Stated Height Entry Format : [place] Height, Feet : 5 ft(Converted to: 152 cm, 60 Inch) Height, Inches : 10 Inch(Converted to: 0 ft 10 Inch, 25.40 cm) Clinical Height : 177.8 cm Weight Source : Standing scale Weight Entry Format : [place] Clinical Dosing Weight : 146.09 kg Weight, Pounds : 321.4 lb Body Surface Area (BSA) : 2.56 m2 Body Mass Index : 46.2 kg/m2 (>HHI) [place] Body Weight : 72 kg Graciela Steve Rn - 05/11/2020 16:34 EST Infectious Disease History Has the patient [...] History : None Tuberculosis Symptoms : None Graciela Steve Rn - 05/11/2020 16:34 EST Tetanus Immunization Status Previous Tetanus Immunizations : No qualifying data available. Tetanus Immunization : Unknown Graciela Steve Rn - 05/11/2020 16:34 EST Influenza Vaccine Asmt, Adult Previous Vaccines from Immunization Schedule : No qualifying data available. Influenza Immunization, Current Season : No Inactivated Flu Vaccine Contraindications : No contraindications to inactivated influenza vaccine Transplant Workup/Recent Transplant : No Order for Influenza Vaccine : Declined Vaccination Graciela Steve Rn - 05/11/2020 16:34 EST Pneumococcal Vaccine Previous Vaccines from Immunization Schedule : No qualifying data available. Pneumonia Immunization Received : No Pneumococcal Risk Assessment < Age 65 : None Graciela Steve Rn - 05/11/2020 16:34 EST Order Details Transport Mode Order Detail : Wheelchair Isolation Precautions Order Detail : Standard Precautions Order Detail : N/A IV Order Detail : 1 Oxygen Order Detail : 0 Nurse Collect Order Detail : 0 Lift/Transfer : Independent Central Line Order Detail : No Room Service : Appropriate Arterial Line : No Patient Needs Meds Crushed/Liquid : No Graciela Steve Rn - 05/11/2020 16:34 EST Nutrition History Feeding Ability : Independent Adaptive Feeding Equipment : None Adaptive Feeding Equipment : Regular Oral Medication Administration : By mouth Eating Poorly Due to Decreased Appetite : No Unplanned Weight Loss in Past 3-6 Months : No Malnutrition Screening Tool Total(mal) : 0 Malnutrition Screening Tool Risk Level : Patient not at risk Gracieal Steve Rn - 05/11/2020 16:34 EST [place] Suicide Severity Rating Scale (C-SSRS) CSSRS Past Month Wish to be : No CSSRS Past Month Suicidal Thoughts : No CSSRS Lifetime Suicide Behavior : No Suicide Severity Rating Score : 0 Suicide Severity Rating : No Additional Care Required at this time Graciela Steve Rn - 05/11/2020 16:34 EST Psychosocial History Do You Have a History of the Following? : Patient denies history Currently in Unsafe Situation : No Graciela Steve Rn - 05/11/2020 16:34 EST Sleep Apnea Risk Assmt BiPAP/CPAP Ordered for Home Use : Yes Hx of Obstructive Sleep Apnea Diagnosis : Yes BiPAP/CPAP Used at Home : Yes Age over 50 Years Old : Yes Gender Male : Yes Graciela Steve Rn - 05/11/2020 16:34 EST Spiritual/Cultural Needs Any Spiritual/Cultural Needs or Requests : No Graciela Steve Rn - 05/11/2020 16:34 EST Valuables and Belongings Valuables and Belongings : Clothing, Personal items Clothing : Common streetwear Clothing Disposition : Bedside Personal Items : Cell phone Personal Items Disposition : With patient Graciela Steve Rn - 05/11/2020 16:34 EST documented in this encounter Plan of Treatment Not on file documented as of this encounter Visit Diagnoses Not on filedocumented in this encounter
--- OUTSIDE RECORDS SUMMARY | 2024-12-26 07:05 | XMS_ITS | Encounter Summary ---
Author Organization [employer] ([place], [place], [place], [place]) Address [address] [place] [address] Care Team Providers Care Video Player Mechanic Name Role Phone Unavailable Primary Care Provider Unavailabl e Encounter Details Date Type Department Care Team (Late st Contact Info) Description 05/11/[address] 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 Castano Admitting diagnosis 1 postop left hip seroma status post I&D, washout and wound VAC placement 2???s/p L GIANLUCA through anterior approach on 04/15/2020 3???ZITA on CPAP at home 4???morbid obesity with BMI of 4 6.2 5???osteoarthritis/DJD History of present illness A pleasant 60 years old white male with a history of ZITA, morbid obesity, DJD who underwent L GIANLUCA through anterior approach on 04/15/2020 and was discharged home in a stable condition. Patient stated that he was doing well but he had 1 spot on the incision which kept draining thin bloody serosanguineous drainage. Patient started on antibiotics 5 days ago and was taken today to the OR by Dr. Castano and had an I&D, washout and wound VAC placement Patient had surgery and is recovering well is awake alert cooperative responsive under no acute distress and is answering questions appropriately. Currently patient is on femoral nerve block in addition to oral pain medications as per Dr. Garcia recommendations and the pain is well controlled. Patient is on DVT prophylaxis as per Dr. Castano protocol. Patient did not have any trouble with urination and urine output is adequate. Patient is on scheduled bowel regimen. Patient started on oral nutrition initially with clear liquid diet which was advanced to high-fiber diet and is tolerating well oral p.o. intake. Patient denies any chest pain, shortness of [...] (1) Active Reaction penicillin rash Current medications: Home Medications (3) Active acetaminophen 500 mg oral tablet 1,000 mg = 2 Tab, Oral, TID aspirin 81 mg oral delayed release tablet 81 mg = 1 Tab, Oral, BID SMZ-TMP DS 800 mg-160 mg oral tablet 1 Tab, Oral, Daily , Medications (24) Active Scheduled: (6) acetaminophen 325 mg tab 650 mg 2 Tab, Oral, Q6HInt aspirin EC 325 mg tab 325 mg 1 Tab, Oral, BID cephalexin 250 mg cap 500 mg 2 Cap, Oral, Q6H naproxen 250 mg tab 250 mg 1 Tab, Oral, Q6H pregabalin 75 mg cap 75 mg 1 Cap, Oral, [id number] tranexamic acid 1,000 mg + syringe 1 Each + NaCl 0.9% 20 mL 1,000 mg 10 mL, Topical, 1-Time Continuous: (1) D5/LR 1,000 mL 1,000 mL, [...] tab 800 mg 1 Tab, Oral, TID ondansetron 4 mg tab 4 mg 1 Tab, Oral, Q4H ondansetron 4 mg/2 mL inj 4 mg 2 mL, IV Push, Q4H oxyCODONE 5 mg tab 10 mg 2 Tab, Oral, Q6H oxyCODONE 5 mg tab 5 mg 1 Tab, Oral, Q6H phenol 1.4% throat spray 5 [place], Oral, Q2H promethazine 25 mg tab 12.5 [...] Histories Family History: Family history is significant for DM, HTN, CAD Procedure history: left hip replacem on 04/15/2020 at 60 Years. abd hernia repair. Left Achilles tendon tear ([id number]). Social History Patient is and has 5 children, no history of smoking or drinking alcohol. Physical Examination VS/Measurements Vital Signs/Vital Measures 05/11/2020 16:40 EST Oxygen Saturation 96 % Oxygen Therapy Mode Nasal cannula Oxygen Flow Rate 2 Liter/Min 05/11/2020 16:15 EST Systolic Blood Pressure 134 mmHg Diastolic Blood Pressure 77 mmHg Heart Rate Monitored 83 bpm Respiratory Rate 14 Breaths/Min Oxygen Saturation 95 % Oxygen Therapy Mode Nasal cannula Oxygen Flow Rate 2 Liter/Min 05/11/2020 16:05 EST Systolic Blood Pressure 139 mmHg Diastolic Blood Pressure 78 mmHg Mean Arterial Pressure (MAP)-BMDI 93 Heart Rate Monitored 86 bpm Respiratory Rate 14 Breaths/Min Oxygen Saturation 95 % Oxygen Therapy Mode Nasal cannula Oxygen Flow Rate 2 Liter/Min 05/11/2020 15:50 EST Systolic Blood Pressure 143 mmHg HI Diastolic Blood Pressure 67 mmHg Mean Arterial Pressure (MAP)-BMDI 86 Heart Rate Monitored 95 bpm Respiratory Rate 12 Breaths/Min LOW Oxygen Saturation 96 % Oxygen Therapy Mode Nasal cannula Oxygen Flow Rate 2 Liter/Min 05/11/2020 15:40 EST Heart Rate Monitored 92 bpm Respiratory Rate 20 Breaths/Min Oxygen Saturation 96 % Oxygen Therapy Mode Nasal cannula Oxygen Flow Rate 2 Liter/Min 05/11/2020 15:35 EST Heart Rate Monitored 89 bpm Respiratory Rate 14 Breaths/Min Oxygen Saturation 96 % Oxygen Therapy Mode Nasal cannula Oxygen Flow Rate 2 Liter/Min 05/11/2020 15:30 EST Systolic Blood Pressure 138 mmHg Diastolic Blood Pressure 77 mmHg Heart Rate Monitored 95 bpm Respiratory Rate 13 Breaths/Min LOW Oxygen Saturation 96 % Oxygen Therapy Mode Nasal cannula Oxygen Flow Rate 2 Liter/Min 05/11/2020 15:25 EST Systolic Blood Pressure 147 mmHg HI Diastolic Blood Pressure 72 mmHg Heart Rate Monitored 91 bpm Respiratory Rate 14 Breaths/Min Oxygen Saturation 96 % Oxygen Therapy Mode Nasal cannula Oxygen Flow Rate 2 Liter/Min 05/11/2020 15:22 EST Systolic Blood Pressure 170 mmHg HI Diastolic Blood Pressure 84 mmHg Mean Arterial Pressure (MAP)-BMDI 108 Temperature Source Temporal artery scanning Temperature Mode Fahrenheit Temperature, Fahrenheit 97.4 Deg F Clinical Temperature, C 36.3 Deg C Heart Rate Monitored 93 bpm Respiratory Rate 18 Breaths/Min Oxygen Saturation 96 % Oxygen Therapy Mode Nasal cannula Oxygen Flow Rate 2 Liter/Min 05/11/2020 13:21 EST Systolic Blood Pressure 163 mmHg HI Diastolic Blood Pressure 87 mmHg Temperature Source Temporal artery scanning Temperature Mode Fahrenheit Temperature, Fahrenheit 97.4 Deg F Clinical Temperature, C 36.3 Deg C Pulse Rhythm Regular Peripheral Pulse Rate 96 bpm Respiratory Rate 16 Breaths/Min Oxygen Saturation 97 % Oxygen Therapy Mode Room air General: Alert [...] swelling, No deformity, Normal gait. Integumentary: Warm, [place], Intact, No pallor, No rash, WOUND STABLE. Neurologic: Alert, Oriented, Normal sensory, Normal motor function, No focal deficits, Cranial Nerves II-XII are grossly intact, Normal deep tendon reflexes. Psychiatric: Cooperative, Appropriate mood & affect, Normal judgment, Non-suicidal. Review / Management Results review: Lab results 05/11/2020 14:38 EST Gram Stain See Result 05/11/2020 13:30 EST ABO/Rh Repeat A POS 05/11/2020 13:24 EST Sodium Level 139 mmol/L Potassium Level 4.1 mmol/L Chloride Level 108 mmol/L Carbon Dioxide Level 25 mmol/L Anion Gap 10 Glucose Level 102 mg/dL Blood Urea Nitrogen 14 mg/dL CREATININE 1.02 mg/dL eGFR >60 mL/min/1.73m2 eGFR NonAfrican [...] % 26.7 % Lymph # 1.98 K/uL [place] % 11.3 % [place] # 0.84 K/uL HI Eos % 5.5 % Eos # 0.41 K/uL Baso % 1.2 % HI Baso # 0.09 K/uL HI Slide Review No IG# 0 x10(3)/uL IG% 1 % ABO/Rh A POS Antibody Screen Negative ABSC 05/10/2020 10:15 EST SARS-CoV-2 (COVID19 PCR) Negative . Impression and Plan Diagnosis 1-postop left hip seroma status post I&D washout and wound VAC placement 2-s/p L GIANLUCA through anterior approach on 04/15/2020 3-ZITA on CPAP at home 4-morbid obesity with BMI of 46 5-DJD. Course: Plan/Respirex @ BS and encourage patient [...] then you may give Tylenol 650 mg PO/IL x 1. If no response in 2 [...] precautions. Sleep apnea precautions. Stress ulcer prophylaxis. KIMO 45 mn patient seen and examined and reexamined, medical record reviewed, vitals reviewed, medications seen reviewed and reconciled, discussed with the patient and with the staff,, orders placed, consult note dictated . documented in this encounter Plan of Treatment Not on file documented as of this encounter Visit Diagnoses Not on filedocumented in this encounter
--- OUTSIDE RECORDS SUMMARY | 2024-12-26 07:05 | XMS_ITS | Patient Health Record ---
[facility] Address [address] [place] [id number] Care Team Providers Care Tie Carrier Name Role Phone Jesse Zayas Primary Care Provider Allergies No Known Allergies Results Component Value Reference Range Notes Urinalysis - Inhouse Reviewed date:09/18/2024 09:52:27 AM Interpretation: Performing Lab: Notes/Report: Color/Clarity yellow/clear Leuk Neg Nitrite Neg Urobili 3.2 Protein Neg pH 5.5 Blood Neg Sp. Gr. 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 ([id number]) Coronary artery disease involving [place] coronary artery of [place] tribe heart without angina pectoris (I25.10) Active confirmed Problem STEMI - ST elevation myocardial infarction (974766897) ST elevation myocardial infarction (STEMI), unspecified artery (I21.3) Active confirmed Problem Obesity (748805118) Obesity, unspecified classification, unspecified obesity type, unspecified whether serious comorbidity present (E66.9) Active confirmed Vital Signs Heart Rate 74 /min 09/17/2024 Blood pressure diastolic 70 mm Hg 09/17/2024 Height 69 in 09/17/2024 Blood pressure systolic 124 mm Hg 09/17/2024 Weight 355 lbs 09/17/2024 BMI 52.42 kg/m2 09/17/2024 Encounters Encounter Location Date Provider Diagnosis [facility] [address] [facility] [address] [place] [id number] 09/17/2024 Jesse Zayas 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 (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 [place] license Z02.4 Assessments Encounter Date Diagnosis (ICD Code) Assessment Notes Treatment Notes Treatment Clinical Notes Section Notes 09/17/2024 Encounter for Department of Transportation (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 [place] license (ICD-10 - Z02.4) Plan Of Treatment Pending Test Test Name Order Date CP-Kidney Stone Eval (Calculi, Urinary) 07/15/2020 Next Appt Details Provider Name:Jesse Delgado ry, 03/19/2025 09:00:00 AM, [address] [facility], [address], [place], [id number], Medical (General) History Medical History History ICD Code Coronary Artery Disease, 2021 Myocardial Infarction, STEMI, 2021 Surgical History Surgery Date(Month/Year) Hernia Repair RT Heel Repair
--- OUTSIDE RECORDS SUMMARY | 2024-12-26 07:05 | XMS_ITS | Encounter Summary ---
Author Organization [employer] ([place], [place], [place], [place]) Address [address] [place] [address] Care Team Providers Care Luggage Maker Name Role Phone Unavailable Primary Care Provider Unavailabl e Encounter Details Date Type Department Care Team (Late st Contact Info) Description 05/11/2020 Transcribed Document [facility] [place] [facility] [place] [address] ProviderLizabeth MD [address] [place] [address] Social History Tobacco Use [...] Conversion Note - Lizabeth ProviderMD - 05/11/2020 1:07 PM SEWER TAPPER On Going Discharge Planning Entered On: 05/11/2020 13:11 EST Performed On: 05/11/2020 13:07 EST by Marina Barros RN-IT SUPPORT ENGINEERcupola patcher Progress Note Discharge Arrangements : Patient Post-Acute Information Patient Name: FAY FONTENOT Gender: Male : 64 Age: 60 Years No Post-Acute Placement(s) Listed No Post-Acute Service(s) Listed No [place] Referral(s) Listed Marina Barros RN-IT SUPPORT ENGINEER - 05/11/2020 13:07 EST Narrative Progress Note Narrative Progress Note : CM rec'd call from [facility] regarding planned add-in for Dr. Castano and his request that patient go home after surgery with Renasys wound vac/wound vac that has the foam interior to the wound. DEBORA spoke with liaison for [facility] and documentation available has been pre-faxed to [facility]. She states will need to put on the Renasys wound vac that is only used IN HOUSE and she will arrive while patient is in surgery or recovery and will swap it out for the Renasys GO vacuum. She understood patient is private pay and has funds for same, as patient is [place] and does not carry health insurance. CM notified Shante in OR in this regard. CM passed information off to orthopedic disability case manager to confirm with patient whom he wishes to utilize for home health and explained once all documentation was in place, would need to fax documentation to [facility] to complete the order, together with the signed order from Dr. Castano. Marina Barros RN-IT SUPPORT ENGINEER - 05/11/2020 13:07 EST Electronically signed by Rajan [facility] Conversion Ecologist Technician Cerner at 07/20/2022 1:09 PM CDT documented in this encounter Plan of Treatment Not on file documented as of this encounter Visit Diagnoses Not on filedocumented in this encounter
--- OUTSIDE RECORDS SUMMARY | 2024-12-26 07:05 | XMS_ITS | Encounter Summary ---
Author Organization [employer] ([place], [place], [place], [place]) Address [address] [place] [address] Care Team Providers Care Raw Juice Weigher Name Role Phone Unavailable Primary Care Provider Unavailabl e Encounter Details Date Type Department Care Team (Late st Contact Info) Description 04/05/2020 Transcribed Document [facility] [place] Medicine [facility] [place] [address] ProviderLizabeth MD [address] [place] [address] Social History Tobacco Use Types [...] Conversion Note - Lizabeth ProviderMD - 04/05/2020 10:44 AM EGG PASTEURIZER PAT Adult Entered On: 04/05/2020 10:51 EST Performed On: 04/05/2020 10:44 EST by Kiya Pineda RN Vital Measurements Temperature Source : Temporal artery scanning Temperature Mode : Fahrenheit Temperature, Fahrenheit : 97.4 Deg F Clinical Temperature, C : 36.3 Deg C Pulse Method : Non-Invasive BP Device Pulse Source : Radial, Left Peripheral Pulse Rate : 77 bpm Pulse Rhythm : Regular Respiratory Rate : 16 Breaths/Min Blood Pressure Location : Arm, left upper Blood Pressure Source : Non-Invasive BP Device Blood Pressure Position : Sitting Systolic Blood Pressure : 169 mmHg (HI) Diastolic Blood Pressure : 86 mmHg Oxygen Saturation : 96 % Oxygen Therapy Mode : Room air Kiya Pineda RN - 04/05/2020 10:44 EST Height and Weight, Clinical Dosing Height Source : Stated Height Entry Format : Agency Height, Feet : 5 ft(Converted to: 152 cm, 60 Inch) Height, Inches : 9 Inch(Converted to: 0 ft 9 Inch, 22.86 cm) Clinical Height : 175.26 cm Weight Source : Standing scale Weight Entry Format : Agency Clinical Dosing Weight : 145.45 kg Weight, Pounds : 320 lb Body Surface Area (BSA) : 2.52 m2 Body Mass Index : 47.4 kg/m2 (>HHI) [place] Body Weight : 70 kg Kiya Pineda RN - 04/05/2020 10:44 EST Health Histories Smoking Status : Never (less than 100 in lifetime; none in last 30 days) Smokeless Tobacco Status : Never Kiya Pineda RN - 04/05/2020 10:44 EST Social History (As Of: 04/05/2020 10:51:35 EST) Tobacco: Never (less than 100 in [...] patient ever been tested for COVID-19? : No, Patient stated Does patient have symptoms of COVID-19? : No COVID19 Screening : No Experiencing Infectious Disease Symptoms : No symptoms Physical contact outside [place] in the last 30 days : No Infectious Disease History : None Tuberculosis Symptoms : None Kiya Pineda RN - 04/05/2020 10:44 EST COVID19 PreProcedure Screening Is this an Emergent or Add on Procedure? : No Date PreProcedure COVID-19 test known? : No Has patient been isolated since the test : N/A - PreProcedure, in-person visit Exposed to COVID19 symptoms since test? : N/A - PreProcedure, in-person visit Kiya Pineda RN - 04/05/2020 10:44 EST Anesthesia/Transfusion History Family History of Anesthesia Reaction : No prior transfusion(s) Transfusion History : Prior anesthesia without reaction Family History of Anesthesia Reaction : None Kiya Pineda RN - 04/05/2020 10:44 EST Functional Assessment Functional ADL Evaluation Index EBN Bathing : Independent (2) Dressing : Independent (2) Toileting : Independent (2) Transferring Bed or Chair : Independent (2) Continence : Independent (2) Feeding : Independent (2) Kiya Pineda RN - 04/05/2020 10:44 EST ADL Index Score : 12 Kiya Pineda RN - 04/05/2020 10:44 EST Advance Directive Patient has Advance Directive *Q : No, patient refuses Advance Directive information Kiya Pineda RN - 04/05/2020 10:44 EST Spiritual/Cultural Needs Evangelical Preference : Other: Church Kiya Pineda RN - 04/05/2020 10:44 EST [place] Suicide Severity Rating Scale (C-SSRS) CSSRS Past Month Wish to be : No CSSRS Past Month Suicidal Thoughts : No CSSRS Lifetime Suicide Behavior : No Suicide Severity Rating Score : 0 Suicide Severity Rating : No Additional Care Required at this time Kiya Pineda RN - 04/05/2020 10:44 EST Psychosocial History Currently in Unsafe Situation : No Kiya Pineda RN - 04/05/2020 10:44 EST Teaching/Learning Assessment Barriers To Learning : None evident Individuals Taught : Patient Readiness to Learn : Cooperative Baseline Knowledge of Topic : Good Readiness to Learn : Explanation, Printed materials Learning Style Preferences Patient : None Learning Style Preferences Family : None Kiya Pineda RN - 04/05/2020 10:44 EST Education Topics, Periop Preadmission Perioperative Education Grid CAUTI : Verbalizes understanding IV's : Verbalizes understanding NPO Status/Directions : Verbalizes understanding Pain Management : Verbalizes understanding Postoperative Care Preparations : Verbalizes understanding Preprocedure Preparations : Verbalizes understanding Preprocedure Tests/Labs : Verbalizes understanding Remove Body Piercings : Verbalizes understanding Responsible Adult : Verbalizes understanding Take/Hold Medications Pre-Procedure : Verbalizes understanding Kiya Pineda RN - 04/05/2020 10:44 EST General Info Support Person/Pt Rep Name : Chuyita Verdugo Family/Rep/Phys Notified of Admit : No Emergency Contact #1 : Bony Fontenot Emergency Contact #1 Emergency Contact #1 Relationship : son Emergency Contact #2 : . Emergency Contact #2 Phone Number : . Emergency Contact #2 Relationship : . Primary Language : Turkmen Communication Barrier : None Spot Welder Needed : No Kiya Pineda RN - 04/05/2020 10:44 EST Azar Scale Azar Sensory Perception : No impairment Azar Moisture : Rarely moist Azar Activity : Walks occasionally Azar Mobility : Slightly limited Azar Nutrition : Adequate Azar Friction and Shear : No apparent problem Azar Score : 20 Kiya Pineda RN - 04/05/2020 10:44 EST Sleep Apnea Risk Assmt BiPAP/CPAP Ordered for Home Use : Yes Hx of Obstructive Sleep Apnea Diagnosis : Yes BiPAP/CPAP Used at Home : Yes Age over 50 Years Old : Yes Gender Male : Yes Kiya Pineda RN - 04/05/2020 10:44 EST documented in this encounter Plan of Treatment Not on file documented as of this encounter Visit Diagnoses Not on filedocumented in this encounter
--- OUTSIDE RECORDS SUMMARY | 2024-12-26 07:05 | XMS_ITS | Encounter Summary ---
Author Organization [employer] ([place], [place], [place], [place]) Address [address] [place] [address] Care Team Providers Care Shop And Alteration Tailor Name Role Phone Unavailable Primary Care Provider Unavailabl e Encounter Details Date Type Department Care Team (Late st Contact Info) Description 05/12/2020 Transcribed Document [facility] [place] Family Medicine [address] [place] [address] ProviderLizabeth MD [address], [place] [id number] Social History Tobacco Use Types Packs/Day Years Used Date Smoking Tobacco: Never Assessed Sex and Gender Information Value Date Recorded Sex Assigned at Male 09/27/2021 8:47 PM CDT Legal Sex Male 8:47 PM CDT Gender Identity Male 09/27/2021 8:47 PM CDT Sexual Orientation Not on file documented as of this encounter Miscellaneous Notes * Cerner Conversion Note - Lizabeth Whitehead MD - 05/12/2020 12:00 AM LINOLEUM LAYER HELPER Pain Assessment Entered On: 05/12/2020 2:32 EST Performed On: 05/12/2020 1:26 EST by Poppy Carrero Rn Intervention Information: naproxen Performed by Poppy Carrero, Rn on 05/12/2020 00:26:00 EST naproxen,250mg Oral Pain Assessment Pain Scale Goal : 2 Pain Improved by Intervention : Yes Poppy Carrero, Rn - 05/12/2020 2:32 EST documented in this encounter Plan of Treatment Not on file documented as of this encounter Visit Diagnoses Not on filedocumented in this encounter
[2024-12-26 07:26] LABS: Hematocrit 44.8 % (42.0-52.0); Hemoglobin 14.8 g/dL (14.1-18.0); Immature Granulocytes % 1.2 %; Mean Corpuscular HGB Conc 33.0 g/dL (31.8-35.4); Mean Corpuscular Hemoglobin 30.4 pg (27.0-31.2); Mean Corpuscular Volume 92.0 fl (80-94); Nucleated Red Blood Cells % 0 %; Platelet Count 221 K/mm3 (142-424); Red Blood Count 4.87 M/mm3 (4.60-6.20); Red Cell Distribution Width-SD 43.7 fL; White Blood Count 6.7 K/mm3 (4.8-10.8)
[2024-12-26 10:06] LABS: Albumin Level 4.3 g/dl (3.5-5.0); Chloride 104 mmol/L (98-107); Sodium 140 mmol/L (136-145)
[2024-12-26 10:07] LABS: Potassium 4.3 mmoL/L (3.5-5.1)
[2024-12-26 10:09] LABS: Alanine Aminotransferase 70 U/L (12-78); Alkaline Phosphatase 93 U/L (38-126); Anion Gap 12.3 mEq/L (5-15); Aspartate Amino Transferase 53 U/L (17-59); Bilirubin,Direct 0.0 mg/dl (0.0-0.4); Bilirubin,Indirect 0.6 mg/dL (0.0-0.9); Bilirubin,Total 0.6 mg/dl (0.2-1.3); Bilirubin,Unconjugated 0.6 mg/dL (0.0-1.1); Blood Urea Nitrogen 17 mg/dl (9-20); Carbon Dioxide 28 mmol/L (22.0-30.0); Cholesterol 159 mg/dl (140-200); Creatinine,Serum 0.90 mg/dl (0.66-1.25); Estimated Glomerular Filt Rate 86 ml/min (>60); GFR (African American) 103 ML/MIN (>60); Total Protein,Serum 6.5 g/dl (6.3-8.2); Triglycerides 210 mg/dl (30-150)
[2024-12-26 10:10] LABS: Calcium 9.5 mg/dl (8.4-10.2); Glucose 148 mg/dl (74-100); HDL Cholesterol 32 mg/dl (40-60)
== END 2024-12-26 23:59 | disposition home or self-care (01) ==
LOC: LAB 07:02
PROVIDERS: PCP Family Medicine; Visit Provider Physician Assistant
DX: I25.10 Atherosclerotic heart disease of native coronary artery without angina pectoris (principal); E78.5 Hyperlipidemia, unspecified; I10 Essential (primary) hypertension
CPT/HCPCS: 36415; 80048; 80061; 80076; 85025